=== PATIENT | female | born 1995 | race Caucasian/White ===

== ENCOUNTER 2024-03-27 18:07 | Emergency (ER) | payer OTHER, SELFPAY ==
--- NOTE | 2024-03-27 18:08 | ED.WOUNDLAC ---
HPI - Wound/Laceration General Chief Complaint: Wound/Laceration Stated Complaint: LT Hand injury Time Seen by Provider: 03/27/24 18:08 Source: patient Mode of arrival: ambulatory Limitations: no limitations History of Present Illness HPI narrative: Kelly is a 29-year-old female patient presenting to the clinic today with complaints of a laceration to her left hand. This happened prior to arrival. States she cut the palm of her left hand with a knife on accident. Has a very small 0.5 cm laceration with bleeding controlled to the left medial palm Review of Systems Review of Systems: Pertinent positives per HPI. Patient denies any fever, chills, rash, headache, visual changes, dizziness, cough, runny nose, sore throat, shortness of breath, chest pain, palpitations, nausea, vomiting, diarrhea, constipation, abdominal pain, or any urinary issues. PMFSH Comments At the time of my signature, I reviewed and agree with the nursing past medical, surgical, social, and family history. There is no relevant family history pertinent to the patient complaint. Exam Narrative: General: Well-developed, well nourished, in no apparent distress Head: Normocephalic, atraumatic. Cardio: Regular rate and rhythm, s1 and s2 normal, no murmur appreciated. Resp: Clear to auscultation bilaterally, no rhonchi, rales, wheezing or rubs. Integumentary: [place], warm, and dry, 0.5 cm laceration the left medial palm. Bleeding is controlled. Course Course Emergency Course: Portions of this record may have been created with voice recognition software. Level of Care: Express Care Visit Vital Signs Vital signs: Vital signs reviewed Procedures Laceration Laceration 1: Date: 03/27/24 Site: hand (medial palm) Side (If applicable): left Size (cm): 0.5 Description: linear Depth: simple, single layer Local Anesthetic: lidocaine 1% Amount of anesthesia used (mL): 0.5 Pre-repair: wound explored and irrigated ====== Skin Level ====== Skin layer closed with: nylon Size (cm): 5-0 Number of sutures: 1 Technique: simple, interrupted ====== Subcutaneous Layer ====== ====== Muscle Layer ====== ====== Tendon Layer ====== Dressing: Verbal consent obtained for laceration repair. Risk and benefits explained and patient voiced understanding. Area was cleansed with antiseptic wound wash and a 27 gauge needle was then used to instill (0.5) ml of 1% lidocaine without epi into the wound edges. Area was prepped and draped using sterile technique. A 5-0 suture on a p needle was used to place (1) interrupted sutures bringing the wound edges together- well approximated. Patient tolerated procedure well. Band-Aid with triple antibiotic ointment dressing applied. MDM - Wound/Laceration MDM Narrative Medical decision making narrative: At the time of visit patient is resting comfortably on the exam table. Patient appears to be nontoxic. Medications: Tdap was given in the clinic today Procedures: Laceration repair was performed in the clinic today. One interrupted suture was placed bringing wound edges well approximate Plan: Patient had a 0.5 cm laceration to the left medial palm. Wound closure was performed placing 1 suture. Wound well approximated. Patient tolerated well. Band-Aid and triple antibiotic ointment was applied. Supportive measures were discussed with the patient and they voiced understanding discharge instructions and agrees to treatment plan. Return precautions reviewed Differential Diagnosis Differential diagnosis: Likely laceration, abscess, abrasion and avulsion of skin Discharge Plan Discharge Clinical Impression: Laceration Patient Disposition: Home, Self-Care Condition: Stable Instructions: Antibiotic Form, Laceration (ED) Additional Instructions: Tdap given in the clinic today. Leave bandage on for 24 hours then may remove and apply band aide covering as needed. May apply triple antibiotic ointment to the wound twice daily x 2 days Keep wound clean and dry Skin sutures out in 7-10 days. Watch for signs and symptoms of infection- redness, streaking, swelling, purulent discharge, or increase in pain. Follow up with your PCP for suture removal or return to the Express care. Patient Language: Greenlandic Follow-up/Referrals: UNKNOWN,DOCTOR [Non-Staff] - Time of Disposition: 18:35 Quality NIHSS Nursing Documentation ED NIHSS nursing documentation: reviewed/agree
[2024-03-27 18:18] VITALS: BP 124/72; PULSE 81; RESP 16; TEMP 36.4; O2SAT 100
[2024-03-27] MEDS: TETANUS,DIPHTHERIA,AC PERTUSSIS ADULT (0.5 ML) BOOSTRIX IM (18:28)
--- OUTSIDE RECORDS SUMMARY | 2024-03-31 11:12 | XMS_ITS | Continuity of Care Document ---
Author Organization [facility] Address [address] [phone] Care Team Providers Care Measurement Superintendent Name Role Phone David Rodriguez Primary Care Physician Encounter [facility] Financial Number [id number] Date(s): 08/07/22 - 08/07/22 [facility] [address] [phone] Discharge Disposition: Home or Self Care Allergies, Adverse Reactions, Alerts No Known Allergies Assessment and Plan Future Appointments Appointment Date:08/16/2022 08:30:00 AM Scheduled Provider:Meryl Woody Location: Women 68W Appointment Type:[facility] Contraception Procedure Appointment Date:10/25/2022 09:00:00 AM Scheduled Provider:Meryl Woody Location:[facility] 68W Appointment Type:[facility] WWE Well Woman Exam Medications progesterone 100 mg vaginal insert See Instructions, 60 capsule(s), 2, 2, insert vaginally every 12 hours, continue until up to 16weeks of ., Route to Pharmacy Electronically, [facility], [id number], Instructions Replace Requi... Start Date: 06/21/22 Status: Ordered Procedures Procedure Date Related Diagnosis Body Site Status Knee joint operation 1 Co mpleted 14 on left, 1 on right Social History Social History Type Response Alcohol Current some day alc ohol user, 1-2 times per month Substance Abuse Never drug user Smoking Status Never smoker;Never; Tobacco Cessation Counseling Requested N/A entered on: 06/25/22 Sex Note * Event Display: ROI_Correspondence Authored Date: * Event Display: ROI_Correspondence Authored Date: Patient Care team information Care Team Personnel Name: Carlota Schwartz DO Position: CHACHA DAVIES Physician Member Role: FLAT SORTER PROCESSOR Physician Address: Address: [address] [place] [address] Name: David Rodriguez M.D. Position: ZZ FAX ONLY - MD NOT ON STAFF Member Role: Primary Care Physician Address: Address: [address] [facility] [address] [place] [address]- Name: Meryl Woody Position: [facility] RV SERVICER Member Role: Nurse Practitioner Address: Address: [address] [place] [address] [address] [place] [address] [place] Care Team Related Persons Name: LOUISE HOLCOMB Name: IQRA HOLCOMB
--- OUTSIDE RECORDS SUMMARY | 2024-03-31 11:12 | XMS_ITS | Continuity of Care Document ---
Author Organization [facility] Address [address] [place] [phone] Care Team Providers Care Defence Force Senior Officer Name Role Phone David Rodriguez Primary Care Physician Encounter [facility] Financial Number [id number] Date(s): 05/05/22 - 05/05/[address] [phone] Discharge Disposition: Home or Self Care Attending Physician: Carlota Schwartz DO Referring Physician: Carlota Schwartz DO Allergies, Adverse Reactions, Alerts No Known Allergies Assessment and Plan Future Appointments Appointment Date:06/13/2022 02:00:00 PM Scheduled Provider: Location: Women 68 Appointment Type:[facility] Ultra Sound Appointment Date:06/13/2022 02:30:00 PM Scheduled Provider:Meryl Woody Location: Women 68 Appointment Type:[facility] OB Confirmation of Appointment Date:10/25/2022 09:00:00 AM Scheduled Provider:Meryl Woody Location: Women 68 Appointment Type:[facility] WWE Well Woman Exam Problem List Diagnosis Diagnosis Type Effective Dates Health Status Cl inical Service Informant Positive urine test 05/05/22 Non-Specified Spotting in early 05/05/22 Non-Specified Positive urine test 05/05/22 Non-Specified Spotting in early 05/05/22 Non-Specified Positive urine test 05/05/22 Non-Specified Spotting in early 05/05/22 Non-Specified Procedures Procedure Date Related Diagnosis Body Site Status Knee joint operation 1 Co mpleted 14 on left, 1 on right Results Laboratory List Name Date ABO and Rh Type 05/05/22 HCG, Quantitative Serum 1/21/23 Progesterone Level 05/05/22 Most recent to oldest [Reference Range]: 1 Progesterone 8.0 ng/mL (05/05/22 11:15 AM) hCG, Quantitative 78 mIU/mL (05/05/22 11:15 AM) ABO/Rh O NEG *Unknown* (05/05/22 11:15 AM) Social History Social History Type Response Alcohol Current some day alc ohol user, 1-2 times per month Substance Abuse Never drug user Smoking Status Never smoker;Never; Tobacco Cessation Counseling Requested N/A entered on: 10/24/21 Sex Note * Beulah Hooper PATIENT CHILDCARE ATTENDANT: PERFORM Event Display: Authorization to Treat Authored Date: [id number] * Beulah Hooper PATIENT CHILDCARE ATTENDANT: PERFORM Event Display: Authorization to Treat Authored Date: [id number] * Event Display: ROI_Correspondence Authored Date: [id number] * Event Display: ROI_Correspondence Authored Date: Patient Care team information Care Team Personnel Name: Carlota Schwartz DO Position: [facility] Physician Member Role: TOOLING SPECIALIST Physician Address: Address: [address] [place] [address] [place] [address] Name: David Rodriguez M.D. Position: RONALD FAX ONLY - MD NOT ON STAFF Member Role: Primary Care Physician Address: Address: [address] [place] [address] [address] [place] [address]- Name: Carlota Schwartz DO Position: [facility] Physician Med Service: Glycerin Operator Defence Force Senior Officer Role: Referring Physician Address: Address: [address] [place] [address] [place] [address] Care Team Related Persons Name: LOUISE HOLCOMB Name: IQRA HOLCOMB
--- OUTSIDE RECORDS SUMMARY | 2024-03-31 11:12 | XMS_ITS | Continuity of Care Document ---
Author Organization [facility] 68[facility] Address [address] [place], [place] [phone] Care Team Providers Care Community Development Coordinator Name Role Phone David Rodriguez Primary Care Physician Encounter [facility] Financial Number [id number] Date(s): 07/24/22 - 07/24/22 [facility] [address] [place], [place] [phone] Discharge Disposition: Home or Self Care Attending Physician: Carlota Schwartz DO Allergies, Adverse Reactions, Alerts No Known Allergies Assessment and Plan Future Appointments Appointment Date:10/25/2022 09:00:00 AM Scheduled Provider:Meryl Woody Location:[facility] 68W Appointment Type:[facility] WWE Well Woman Exam Medications progesterone 100 mg vaginal insert See Instructions, 60 capsule(s), 2, 2, insert vaginally every 12 hours, continue until up to 16weeks of ., [facility] [id number], Instructions Replace Requi... Start Date: 06/21/22 Status: Ordered Procedures Procedure Date Related Diagnosis Body Site Status Knee joint operation 1 Co mpleted 14 on left, 1 on right Social History Social History Type Response Alcohol Current some day alc ohol user, 1-2 times per month Substance Abuse Never drug user Smoking Status Never smoker;Never; Tobacco Cessation Counseling Requested N/A entered on: 06/25/22 Sex Nurse Progress note * Kelly Nava MA/MR I: PERFORM Event Display: Progress Note-Nurse Authored Date: [id number] Patient Information Name:KELLY HOLCOMB Address: [address] [place] [phone] Sex:Female Date of :1995 Emergency Contact:LOUISE HOLCOMB Location:[address] Registration Date and Time:07/24/2022 12:30 CDT Primary Care Physician: David Rodriguez M.D., Attending Physician: Carlota Schwartz DO, Vitals and Measurements No qualifying data available. Medications Administered Medication Administrations ? No Results Found ? Methotrexate 50mg/2ml injection. Inject 4.23ml IM in office Patient Instructions Pt presented for her third dose of methotrexate in office today. 2.5ml given in the Right Deltoid and 2.5ml given in the Left Deltoid without complications. NDC- [id number] LOT#[id number] EXP 03/2024 Medications progesterone 100 mg vaginal insert, See Instructions, 2 refills Allergies NKA POC Results No qualifying data available. Voice to Text Technology Disclaimer This note may contain text inserted via Dragon or other voice to text assistive technology and counter sales representative, variances may occur. Note * Event Display: ROI_Correspondence Authored Date: * Event Display: ROI_Correspondence Authored Date: Patient Care team information Care Team Personnel Name: Carlota Schwartz DO Position: CH[facility]HA DAVIES Physician Member Role: STACK SUPERVISOR Physician Address: Address: [address] [place] [address] [place] [address] [place] Name: David Rodriguez M.D. Position: Z FAX ONLY - MD NOT ON STAFF Member Role: Primary Care Physician Address: Address: [address] [place] [address] [address] [place] [address]- Name: Meryl Woody Position: [facility]IES OPTICAL INSTRUMENT INSPECTOR Member Role: Nurse Practitioner Address: Address: [address] [place] [address] [place] [address] [place] Care Team Related Persons Name: LOUISE HOLCOMB Name: IQAR HOLCOMB
--- OUTSIDE RECORDS SUMMARY | 2024-03-31 11:12 | XMS_ITS | Continuity of Care Document ---
Author Organization [facility] Address [address] [place] [phone] Care Team Providers Care Wallpaper Hanger Helper Name Role Phone David Rodriguez Primary Care Physician Encounter [facility] Financial Number [id number] Date(s): 05/14/22 - 05/14/[address] [phone] Discharge Disposition: Home or Self Care Attending Physician: Carlota Schwartz DO Referring Physician: Self, Referred Allergies, Adverse Reactions, Alerts No Known Allergies Assessment and Plan Future Appointments Appointment Date:06/13/2022 02:00:00 PM Scheduled Provider: Location: Women 68 Appointment Type:[facility] US Ultra Sound Appointment Date:06/13/2022 02:30:00 PM Scheduled Provider:Meryl Woody Location: Women 68 Appointment Type:[facility] OB Confirmation of Appointment Date:10/25/2022 09:00:00 AM Scheduled Provider:Meryl Woody Location: [facility] Appointment Type:[facility] WWE Well Woman Exam Problem List Diagnosis Diagnosis Type Effective Dates Health Status Cl inical Service Informant Bleeding in early 05/14/22 Non-Specified Rh sensitized 05/14/22 Non-Specified Bleeding in early 05/14/22 Non-Specified Rh sensitized 05/14/22 Non-Specified Bleeding in early 05/14/22 Non-Specified Rh sensitized 05/14/22 Non-Specified Procedures Procedure Date Related Diagnosis Body Site Status Knee joint operation 1 Co mpleted 14 on left, 1 on right Results Laboratory List Name Date HCG, Quantitative Serum 05/14/22 Antibody Screen 05/14/22 Progesterone Level 05/14/22 Most recent to oldest [Reference Range]: 1 Progesterone 1.0 ng/mL (05/14/22 12:47 PM) hCG, Quantitative 5 mIU/mL (05/14/22 12:47 PM) Antibody Screen Negative (05/14/22 12:47 PM) Social History Social History Type Response Alcohol Current some day alc ohol user, 1-2 times per month Substance Abuse Never drug user Smoking Status Never smoker;Never; Tobacco Cessation Counseling Requested N/A entered on: 10/24/21 Sex Note * Nicole Butcher Varnishing Machine Operator: PERFORM Event Display: Authorization to Treat Authored Date: [id number] * Nicole Butcher Varnishing Machine Operator: PERFORM Event Display: Authorization to Treat Authored Date: [id number] * Event Display: ROI_Correspondence Authored Date: [id number] * Event Display: ROI_Correspondence Authored Date: [id number] Patient Care team information Care Team Personnel Name: Carlota Schwartz DO Position: [facility] Physician Member Role: INORGANIC CHEMICAL TECHNICIAN Physician Address: Address: [address] [place] [address] [place] [address] Name: David Rodriguez M.D. Position: RONALD FAX ONLY - MD NOT ON STAFF Member Role: Primary Care Physician Address: Address: [address] [facility] [address] [place] [address]- Name: Carlota Schwartz DO Position: [facility] Physician Med Service: Rental Boats Caretaker Wallpaper Hanger Helper Role: Attending Physician Address: Address: [address] [place] [address] [place] [address] [place] Care Team Related Persons Name: LOUISE HOLCOMB Name: IQRA HOLCOMB
--- OUTSIDE RECORDS SUMMARY | 2024-03-31 11:12 | XMS_ITS | Continuity of Care Document ---
Author Organization [facility] Address [address] [place] [phone] Care Team Providers Care Marketing Liaison Name Role Phone David Rodriguez Primary Care Physician [phone] Encounter [facility] Financial Number [id number] Date(s): 07/30/22 - 07/30/[address] [phone] Discharge Disposition: Home or Self Care Attending Physician: Carlota Schwartz DO Referring Physician: Carlota Schwartz DO Allergies, Adverse Reactions, Alerts No Known Allergies Assessment and Plan Future Appointments Appointment Date:08/16/2022 08:30:00 AM Scheduled Provider:Meryl Woody Location: Women 68W Appointment Type:[facility] Contraception Procedure Appointment Date:10/25/2022 09:00:00 AM Scheduled Provider:Meryl Woody Location: Women 68W Appointment Type:[facility] WWE Well Woman Exam Medications progesterone 100 mg vaginal insert See Instructions, 60 capsule(s), 2, 2, insert vaginally every 12 hours, continue until up to 16weeks of ., Route to Pharmacy Electronically, [facility], [id number], Instructions Replace Requi... Start Date: 06/21/22 Status: Ordered Problem List Diagnosis Diagnosis Type Effective Dates Health Status Cl inical Service Informant Ectopic 07/30/22 Non-Specified Procedures Procedure Date Related Diagnosis Body Site Status Knee joint operation 1 Co mpleted 14 on left, 1 on right Results Laboratory List Name Date HCG, Quantitative Serum 07/30/22 Most recent to oldest [Reference Range]: 1 hCG, Quantitative 8 mIU/mL (07/30/22 8:07 AM) Social History Social History Type Response Alcohol Current some day alc ohol user, 1-2 times per month Substance Abuse Never drug user Smoking Status Never smoker;Never; Tobacco Cessation Counseling Requested N/A entered on: 06/25/22 Sex Note * Mae Hill Chief Of Staff Doctor: PERFORM Event Display: Authorization to Treat Authored Date: * Mea Hill Chief Of Staff Doctor: PERFORM Event Display: Authorization to Treat Authored Date: * Event Display: ROI_Correspondence Authored Date: * Event Display: ROI_Correspondence Authored Date: Patient Care team information Care Team Personnel Name: Carlota Schwartz DO Position: CHACHA DAVIES Physician Member Role: CERTIFICATION TECHNICIAN Physician Address: Address: [address] [place] [address] [place] [address] [place] Name: David Rodriguez M.D. Position: RONALD FAX ONLY - MD NOT ON STAFF Member Role: Primary Care Physician Address: Address: [address] [facility] [address] [place] [address]- Name: Meryl Woody Position: [facility] METAL TILE LATHER Member Role: Nurse Practitioner Address: Address: [address] [place] [address] [place] [address] [place] Name: Carlota Schwartz DO Position: [facility]HA DAVIES Physician Med Service: Plastics Spreading Machine Operator Marketing Liaison Role: Referring Physician Address: Address: [address] [place] [address] [place] [address] [place] Care Team Related Persons Name: LOUISE HOLCOMB Name: IQRA HOLCOMB
--- OUTSIDE RECORDS SUMMARY | 2024-03-31 11:12 | XMS_ITS | Continuity of Care Document ---
Author Organization [facility] Address [address] [place] [phone] Care Team Providers Care Financial Business Analyst Name Role Phone David Rodriguez Primary Care Physician Encounter [facility] Financial Number [id number] Date(s): 07/27/22 - 07/27/[address] [phone] Discharge Disposition: Home or Self Care Attending Physician: Carlota Schwartz DO Referring Physician: Carlota Schwartz DO Allergies, Adverse Reactions, Alerts No Known Allergies Assessment and Plan Future Appointments Appointment Date:10/25/2022 09:00:00 AM Scheduled Provider:Meryl Woody Location: Women 68W Appointment Type:[facility] WWE Well Woman Exam Medications progesterone 100 mg vaginal insert See Instructions, 60 capsule(s), 2, 2, insert vaginally every 12 hours, continue until up to 16weeks of ., Route to Pharmacy Electronically, [facility], [id number], Instructions Replace Requi... Start Date: 06/21/22 Status: Ordered Problem List Diagnosis Diagnosis Type Effective Dates Health Status Cl inical Service Informant Ectopic 07/27/22 Non-Specified Procedures Procedure Date Related Diagnosis Body Site Status Knee joint operation 1 Co mpleted 14 on left, 1 on right Results Laboratory List Name Date HCG, Quantitative Serum (Quantitative HC G Serum Beta) 07/27/22 Most recent to oldest [Reference Range]: 1 hCG, Quantitative 50 mIU/mL (07/27/22 8:17 AM) Social History Social History Type Response Alcohol Current some day alc ohol user, 1-2 times per month Substance Abuse Never drug user Smoking Status Never smoker;Never; Tobacco Cessation Counseling Requested N/A entered on: 06/25/22 Sex Note * Mae Hill Dry Cleaner Apprentice: PERFORM Event Display: Authorization to Treat Authored Date: * Mae Hill Dry Cleaner Apprentice: PERFORM Event Display: Authorization to Treat Authored Date: [id number] * Event Display: ROI_Correspondence Authored Date: * Event Display: ROI_Correspondence Authored Date: Patient Care team information Care Team Personnel Name: Carlota Schwartz DO Position: [facility] Physician Member Role: PEWTER CASTER Physician Address: Address: [address] [place] [address] Name: David Rodriguez M.D. Position: FAX ONLY - MD NOT ON STAFF Member Role: Primary Care Physician Address: Address: [address] [facility] [address] [place] [address]- Name: Meryl Woody [facility] Position: SAMSNO MANAGER OF LOSS PREVENTION OPERATIONS Member Role: Nurse Practitioner Address: Address: [address] [place] [address] Name: Carlota Schwartz DO Position: [facility] Physician Med Service: Mononitrotoluene Operator Financial Business Analyst Role: Referring Physician Address: Address: [address] [place] [address] [address] Care Team Related Persons Name: LOUISE HOLCOMB Name: IQRA HOLCOMB
--- OUTSIDE RECORDS SUMMARY | 2024-03-31 11:12 | XMS_ITS | Continuity of Care Document ---
Author Organization [facility] Address [address] [place] [phone] Care Team Providers Care Graphics Production Specialist Name Role Phone David Rodriguez Primary Care Physician Encounter [facility] Financial Number [id number] Date(s): 05/07/22 - 05/07/[address] [phone] Discharge Disposition: Home or Self Care Attending Physician: Carlota Schwartz DO Referring Physician: Carlota Schwartz DO Allergies, Adverse Reactions, Alerts No Known Allergies Assessment and Plan Future Appointments Appointment Date:06/13/2022 02:00:00 PM Scheduled Provider: Location: Women 68 Appointment Type:[facility] Ultra Sound Appointment Date:06/13/2022 02:30:00 PM Scheduled Provider:Meryl Woody Location: Women 68 Appointment Type:[facility] OB Confirmation of Appointment Date:10/25/2022 09:00:00 AM Scheduled Provider:Meryl Woody Location: Women 68 Appointment Type:[facility] WWE Well Woman Exam Problem List Diagnosis Diagnosis Type Effective Dates Health Status Clini rosaura Service Informant 05/07/22 Non-Specified Procedures Procedure Date Related Diagnosis Body Site Status Knee joint operation 1 Co mpleted 14 on left, 1 on right Results Laboratory List Name Date HCG, Quantitative Serum 05/07/22 Most recent to oldest [Reference Range]: 1 hCG, Quantitative 110 mIU/mL (05/07/22 4:36 PM) Social History Social History Type Response Alcohol Current some day alc ohol user, 1-2 times per month Substance Abuse Never drug user Smoking Status Never smoker;Never; Tobacco Cessation Counseling Requested N/A entered on: 10/24/21 Sex Note * Nikole Ng: PERFORM Event Display: Authorization to Treat Authored Date: * Nikole Ng: PERFORM Event Display: Authorization to Treat Authored Date: * Event Display: ROI_Correspondence Authored Date: * Event Display: ROI_Correspondence Authored Date: Patient Care team information Care Team Personnel Name: Carlota Schwartz DO Position: [facility] Physician Member Role: GLUTEN SETTLING TENDER Physician Address: Address: [address] [place] [address] [place] [address] Name: David Rodriguez M.D. Position: [facility] FAX ONLY - MD NOT ON STAFF Member Role: Primary Care Physician Address: Address: [address] [facility] [address] [place] [address]- Name: Carlota Schwartz DO Position: [facility] Physician Med Service: Post Acute Care Nurse Practitioner Graphics Production Specialist Role: Referring Physician Address: Address: [address] [place] [address] [place] [address] Care Team Related Persons Name: LOUISE HOLCOMB Name: IQRA HOLCOMB
--- OUTSIDE RECORDS SUMMARY | 2024-03-31 11:12 | XMS_ITS | Continuity of Care Document ---
Author Organization [facility] Address [address] [place] [phone] Care Team Providers Care Park Guide Name Role Phone David Rodriguez Primary Care Physician Encounter [facility] Financial Number [id number] Date(s): 07/07/22 - 07/07/[address] [id number] Discharge Disposition: Home or Self Care Attending Physician: Marcelino Boyce M.D. Referring Physician: Marcelino Boyce M.D. Allergies, Adverse Reactions, Alerts No Known Allergies Assessment and Plan Future Appointments Appointment Date:07/11/2022 12:30:00 PM Scheduled Provider:Carlota Schwartz DO Location: Women 68W Appointment Type:[facility] EPGYN Established Patient Appointment Date:10/25/2022 09:00:00 AM Scheduled Provider:Meryl Woody Location: Women 68W Appointment Type:[facility] WWE Well Woman Exam Medications progesterone 100 mg vaginal insert See Instructions, 60 capsule(s), 2, 2, insert vaginally every 12 hours, continue until up to 16weeks of ., Route to Pharmacy Electronically, [facility] Specialty Rx, [id number], Instructions Replace Requi... Start Date: 06/21/22 Status: Ordered Problem List Diagnosis Diagnosis Type Effective Dates Health Status Cl inical Service Informant Ectopic 07/07/22 Non-Specified Procedures Procedure Date Related Diagnosis Body Site Status Knee joint operation 1 Co mpleted 14 on left, 1 on right Results Laboratory List Name Date HCG, Quantitative Serum 07/07/22 Most recent to oldest [Reference Range]: 1 hCG, Quantitative 131 mIU/mL (07/07/22 1:27 PM) Social History Social History Type Response Alcohol Current some day alc ohol user, 1-2 times per month Substance Abuse Never drug user Smoking Status Never smoker;Never; Tobacco Cessation Counseling Requested N/A entered on: 06/25/22 Sex Note * Mae Hill Barber Stylist: PERFORM Event Display: Authorization to Treat Authored Date: * Mae Hill Barber Stylist: PERFORM Event Display: Authorization to Treat Authored Date: * Event Display: ROI_Correspondence Authored Date: * Event Display: ROI_Correspondence Authored Date: Patient Care team information Care Team Personnel Name: Carlota Schwartz DO Position: [facility] Physician Member Role: AIR CONDITIONING MECHANIC Physician Address: Address: [address] [place] [address] [address] [place] [address] [place] Name: David Rodriguez M.D. Position: RONALD FAX ONLY - MD NOT ON STAFF Member Role: Primary Care Physician Address: Address: [address] [facility] [address] [place], [place] [address]- Name: Meryl Woody Position: [facility] PROCESS ENGINEERING INTERN Member Role: Nurse Practitioner Address: Address: [address] [place] [address] [address] [place] [address] [place] Name: Marcelino Boyce M.D. Position: [facility] Physician Med Service: Manager Diabetes Park Guide Role: Referring Physician Address: Address: [address] [place] [address] [address] [place] [address]- Care Team Related Persons Name: LOUISE HOLCOMB Name: IQRA HOLCOMB
--- OUTSIDE RECORDS SUMMARY | 2024-03-31 11:12 | XMS_ITS | Continuity of Care Document ---
Author Organization [facility] Address [address] [place] [phone] Care Team Providers Care Global Marketing Intern Name Role Phone David Rodriguez Primary Care Physician Encounter [facility] Financial Number [id number] Date(s): 07/10/22 - 07/10/[address] [id number] Discharge Disposition: Home or Self Care Attending Physician: Carlota Schwartz DO Referring Physician: Carlota Schwartz DO Allergies, Adverse Reactions, Alerts No Known Allergies Assessment and Plan Future Appointments Appointment Date:07/11/2022 12:30:00 PM Scheduled Provider:Carlota Schwartz DO Location: Women HC 68W Appointment Type:[facility] EPGYN Established Patient Appointment Date:10/25/2022 09:00:00 AM Scheduled Provider:Meryl Woody Location: Women 68W Appointment Type:[facility] WWE Well Woman Exam Medications progesterone 100 mg vaginal insert See Instructions, 60 capsule(s), 2, 2, insert vaginally every 12 hours, continue until up to 16weeks of ., Route to Pharmacy Electronically, [facility] Specialty Rx, [id number], Instructions Replace Requi... Start Date: 06/21/22 Status: Ordered Problem List Diagnosis Diagnosis Type Effective Dates Health Status Cl inical Service Informant SAB (spontaneous ) 07/10/22 Non-Specified Procedures Procedure Date Related Diagnosis Body Site Status Knee joint operation 1 Co mpleted 14 on left, 1 on right Results Laboratory List Name Date HCG, Quantitative Serum 07/10/22 Most recent to oldest [Reference Range]: 1 hCG, Quantitative 120 mIU/mL (07/10/22 8:15 AM) Social History Social History Type Response Alcohol Current some day alc ohol user, 1-2 times per month Substance Abuse Never drug user Smoking Status Never smoker;Never; Tobacco Cessation Counseling Requested N/A entered on: 06/25/22 Sex Note * Mae Hill Human Resources Operations Coordinator: PERFORM Event Display: Authorization to Treat Authored Date: * Mae Hill Human Resources Operations Coordinator: PERFORM Event Display: Authorization to Treat Authored Date: [id number] * Event Display: ROI_Correspondence Authored Date: * Event Display: ROI_Correspondence Authored Date: Patient Care team information Care Team Personnel Name: Carlota Schwartz DO Position: [facility] Physician Member Role: MANAGER SCIENTIFIC Physician Address: Address: [address] [place] [address] [place] [address] [place] Name: David Rodriguez M.D. Position: RONALD FAX ONLY - MD NOT ON STAFF Member Role: Primary Care Physician Address: Address: [address] [facility] [address] [place] [address]- Name: Meryl Woody Position: [facility] HOIST CYLINDER LOADER Member Role: Nurse Practitioner Address: Address: [address] [place] [address] [place] [address] [place] Name: Carlota Schwartz DO Position: [facility] Physician Med Service: Waiter/Waitress Club Global Marketing Intern Role: Referring Physician Address: Address: [address] [place] [address] [place] [address] Care Team Related Persons Name: LOUISE HOLCOMB Name: IQRA HOLCOMB
--- OUTSIDE RECORDS SUMMARY | 2024-03-31 11:12 | XMS_ITS | Continuity of Care Document ---
Author Organization [facility] Address [address] [phone] Care Team Providers Care Hospital Internship Name Role Phone David Rodriguez Primary Care Physician Encounter [facility] Financial Number [id number] Date(s): 07/23/22 - 07/23/[address] [id number] Discharge Disposition: Home or Self Care Allergies, Adverse Reactions, Alerts No Known Allergies Assessment and Plan Future Appointments Appointment Date:10/25/2022 09:00:00 AM Scheduled Provider:Meryl Woody Location: Women 68W Appointment Type:[facility] WWE Well Woman Exam Medications progesterone 100 mg vaginal insert See Instructions, 60 capsule(s), 2, 2, insert vaginally every 12 hours, continue until up to 16weeks of ., Route to Pharmacy Electronically, [facility] Specialty Rx, [id number], Instructions Replace Requi... Start Date: 06/21/22 Status: [...] Team Personnel Name: Carlota Schwartz DO Position: [facility] Physician Member Role: PROGRAM CONTROL ANALYST Physician Address: Address: [address] [place] [address] [address] Name: David Rodriguez M.D. Position: RONALD FAX ONLY - MD NOT ON STAFF Member Role: Primary Care Physician Address: Address: [address] [facility] [address] [place] [address]- Name: Meryl Woody [facility] Position: [facility] LOGISTICAL ENGINEER Member Role: Nurse Practitioner Address: Address: [address] [place] [address] Rd [address] Care Team Related Persons Name: LOUISE HOLCOMB Name: IQRA HOLCOMB
--- OUTSIDE RECORDS SUMMARY | 2024-03-31 11:12 | XMS_ITS | Continuity of Care Document ---
Author Organization [facility] Address [address] [phone] Care Team Providers Care Ssrs Developer Name Role Phone David Rodriguez Primary Care Physician Encounter [facility] Financial Number [id number] Date(s): 07/23/22 - 07/23/[address] [id number] Discharge Disposition: Home or Self Care Allergies, Adverse Reactions, Alerts No Known Allergies Assessment and Plan Future Appointments Appointment Date:10/25/2022 09:00:00 AM Scheduled Provider:Meryl Woody Location: Women 68W Appointment Type:[facility] WWE Well Woman Exam Medications progesterone 100 mg vaginal insert See Instructions, 60 capsule(s), 2, 2, insert vaginally every 12 hours, continue until up to 16weeks of ., Route to Pharmacy Electronically, [facility] Specialty Rx, [id number], Instructions Replace Requi... Start Date: 06/21/22 Status: [...] Team Personnel Name: Carlota Schwartz DO Position: [facility] Physician Member Role: DRINKING WATER TECHNICIAN Physician Address: Address: [address] [place] [address] [address] Name: David Rodriguez M.D. Position: RONALD FAX ONLY - MD NOT ON STAFF Member Role: Primary Care Physician Address: Address: [address] [facility] [address] [place] [address]- Name: Meryl Woody [facility] Position: [facility] BUTTER GRADER Member Role: Nurse Practitioner Address: Address: [address] [place] [address] Rd [address] Care Team Related Persons Name: LOUISE HOLCOMB Name: IQRA HOLCOMB
--- OUTSIDE RECORDS SUMMARY | 2024-03-31 11:13 | XMS_ITS | Continuity of Care Document ---
Author Organization [facility] Address [address] [phone] Care Team Providers Care Criminal Defense Attorney Name Role Phone David Rodriguez Primary Care Physician Encounter [facility] Financial Number [id number] Date(s): 07/24/22 - 07/24/[address] [id number] Discharge Disposition: Home or Self Care Allergies, Adverse Reactions, Alerts No Known Allergies Assessment and Plan Future Appointments Appointment Date:10/25/2022 09:00:00 AM Scheduled Provider:Meryl Woody Location: Women 68W Appointment Type:[facility] WWE Well Woman Exam Medications progesterone 100 mg vaginal insert See Instructions, 60 capsule(s), 2, 2, insert vaginally every 12 hours, continue until up to 16weeks of ., Route to Pharmacy Electronically, [facility] Specialty Rx, [id number], Instructions Replace Requi... Start Date: 06/21/22 Status: [...] Schwartz DO Position: [facility] Physician Member Role: JUKE BOX SERVICER Physician Address: Address: [address] [place] [address] [address] Name: David Rodriguez M.D. Position: RONALD FAX ONLY - MD NOT ON STAFF Member Role: Primary Care Physician Address: Address: [address] [facility] [address] [place], [place] [address]- Name: Meryl Woody [facility] Position: [facility] FOOT WORKER Member Role: Nurse Practitioner Address: Address: [address] [place] [address] Care Team Related Persons Name: LOUISE HOLCOMB Name: IQRA HOLCOMB
--- OUTSIDE RECORDS SUMMARY | 2024-03-31 11:13 | XMS_ITS | Continuity of Care Document ---
Author Organization [facility] Address [address] [place] [phone] Care Team Providers Care Dish Technician Name Role Phone David Rodriguez Primary Care Physician [phone] Encounter [facility] Financial Number [id number] Date(s): 06/25/22 - 06/25/[address] [id number] Discharge Disposition: Home or Self Care Attending Physician: Carloat Schwartz DO Referring Physician: Carlota Schwartz DO Allergies, Adverse Reactions, Alerts No Known Allergies Assessment and Plan Future Appointments Appointment Date:06/29/2022 08:00:00 AM Scheduled Provider: Location:[facility] 68 Appointment Type:[facility] Ultra Sound Appointment Date:06/29/2022 08:45:00 AM Scheduled Provider:Carlota Schwartz DO Location:[facility] 68 Appointment Type:[facility] EPGYN Established Patient Appointment Date:10/25/2022 09:00:00 AM Scheduled Provider:Meryl Woody Location:[facility] 68 Appointment Type:[facility] WWE Well Woman Exam Medications progesterone 100 mg vaginal insert See Instructions, 60 capsule(s), 2, 2, insert vaginally every 12 hours, continue until up to 16weeks of ., Route to Pharmacy Electronically, [facility], [id number], Instructions Replace Requi... Start Date: 06/21/22 Status: Ordered Problem List Diagnosis Diagnosis Type Effective Dates Health Status Clini rosaura Service Informant 06/25/22 Non-Specified 06/25/22 Non-Specified Procedures Procedure Date Related Diagnosis Body Site Status Knee joint operation 1 Co mpleted 14 on left, 1 on right Results Laboratory List Name Date HCG, Quantitative Serum 06/25/22 Progesterone Level 06/25/22 Most recent to oldest [Reference Range]: 1 Progesterone 3.0 ng/mL (06/25/22 1:53 PM) hCG, Quantitative 74 mIU/mL (06/25/22 1:53 PM) Social History Social History Type Response Alcohol Current some day alc ohol user, 1-2 times per month Substance Abuse Never drug user Smoking Status Never smoker;Never; Tobacco Cessation Counseling Requested N/A entered on: 06/25/22 Sex Note * Mae Hill Flight Software Test Engineer: PERFORM Event Display: Authorization to Treat Authored Date: [id number] * Mae Hill Flight Software Test Engineer: PERFORM Event Display: Authorization to Treat Authored Date: [id number] * Event Display: ROI_Correspondence Authored Date: [id number] * Event Display: ROI_Correspondence Authored Date: [id number] Patient Care team information Care Team Personnel Name: Carlota Schwartz DO Position: [facility] Physician Member Role: BOARD CERTIFIED FAMILY PHYSICIAN Physician Address: Address: [address] [place] [address] [place] [address] Name: David Rodriguez M.D. Position: RONALD FAX ONLY - MD NOT ON STAFF Member Role: Primary Care Physician Address: Address: [address] [place] [address] [address] [place] [address]- Name: Carlota Schwartz DO Position: [facility] Physician Med Service: Chemical Operations And Training Dish Technician Role: Referring Physician Address: Address: [address] [place] [address] [place] [address] Care Team Related Persons Name: LOUISE HOLCOMB Name: IQRA HOLCOMB
--- OUTSIDE RECORDS SUMMARY | 2024-03-31 11:13 | XMS_ITS | Encounter Summary ---
Author Organization [facility] Healthcare Address [address] [place] [address] Care Team Providers Care Insurance Risk Analyst Name Role Phone Unknown, Notinfile Primary Care Provider Unavail able David Rodriguez MD Unavailable [phone] Encounter Details Date Type Department Care Team (Late st Contact Info) Description 01/16/2024 Telephone [facility] Medical Group Primary Care at [facility] [address] [facility] [address], [place] [address] Unknown, Notinfile Social History Tobacco Use Types Packs/Day Years Used Date Smoking Tobacco: Never Smokeless Tobacco: Never Alcohol Use Standard Drinks/Week Comments Yes 0 (1 standard drink = 0.6 oz pur e alcohol) AUDIT-C Answer Date Recorded Q1: How often do you have a drink containing alc ohol? 2-4 times a month 12/19/2023 Q2: How many drinks containi ng alcohol do you have on a typical day when you are drinking? 1 or 2 12/19/2023 Q3: How often do you have si x or more drinks on one occasion? Never 12/19/2023 PHQ-2 Answer Date Recorded PHQ-2 Total Score (If total score is 3 or more points, staff should administer the PHQ-9) 2 05/15/2023 Comments No Sex and Gender Information Value Date Recorded Sex Assigned at Not on file Legal Sex 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 GAS SYSTEM OPERATOR Gender Identity Female 03/22/2022 2:56 PM GAS SYSTEM OPERATOR Sexual Orientation Straight 05/08/2023 5: 32 PM GAS SYSTEM OPERATOR 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 on file Not on file documented as of this encounter Miscellaneous Notes * Telephone Encounter - Kaleigh Macias MA - 01/16/2024 5:32 PM CDT error documented in this encounter Plan of Treatment Not on file documented as of this encounter Visit Diagnoses Not on filedocumented in this encounter Care Teams Insurance Risk Analyst Relationship Specialty Start Date End Date Unknown, Notinfile PCP - General 07/16/22 David Rodriguez MD [address] [address] 07/16/22 documented as of this encounter
--- OUTSIDE RECORDS SUMMARY | 2024-03-31 11:13 | XMS_ITS | Encounter Summary ---
Author Organization [facility] Healthcare Address [address] [place] [address] Care Team Providers Care Inventory Control Associate Name Role Phone Unknown, Notinfile Primary Care Provider Unavail able David Rodriguez MD Unavailable [phone] Encounter Details Date Type Department Care Team (Late st Contact Info) Description 03/16/2024 Telephone [facility] Medical [facility] Primary Care at [facility] [address] [facility] [address] [address] Unknown, Notinfile Social History Tobacco [...] on file Legal Sex 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 LOG DECK TENDER Gender Identity Female 03/22/2022 2:56 PM LOG DECK TENDER Sexual Orientation Straight 05/08/2023 5: 32 PM LOG DECK TENDER 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 on file Not on file documented as of this encounter Miscellaneous Notes * Telephone Encounter - Kaleigh Macias MA - 03/16/2024 11:07 AM CST Sending more info for Zepbound medication to insurance company DECK TENDER documented in this encounter Plan of Treatment Not on file documented as of this encounter Visit Diagnoses Not on filedocumented in this encounter Care Teams Inventory Control Associate Relationship Specialty Start Date End Date Unknown, Notinfile PCP - General 07/16/22 David Rodriguez MD [address] [address] 07/16/22 documented as of this encounter
--- OUTSIDE RECORDS SUMMARY | 2024-03-31 11:13 | XMS_ITS | Encounter Summary ---
Author Organization [facility] Healthcare Address [address] [place] [address] Care Team Providers Care Lobster Man Name Role Phone Unknown, Notinfile Primary Care Provider Unavail able David Rodriguez MD Unavailable [phone] Encounter Details Date Type Department Care Team (Late st Contact Info) Description 03/13/2024 Telephone [facility] Medical [facility] Primary Care at [facility] [address] 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 on file Not on file documented as of this encounter Miscellaneous Notes * Telephone Encounter - Kaleigh Macias MA - 03/13/2024 2:34 PM CST The prior authorization for zepbound has been submitted awaiting determination case number is [id number] [employer] documented in this encounter Plan of Treatment Not on file documented as of this encounter Visit Diagnoses Not on filedocumented in this encounter Care Teams Lobster Man Relationship Specialty Start Date End Date Unknown, Notinfile PCP - General 07/16/22 David Rodriguez MD [address] [address] 07/16/22 documented as of this encounter
--- OUTSIDE RECORDS SUMMARY | 2024-03-31 11:13 | XMS_ITS | Continuity of Care Document ---
Author Organization [facility] Address [address] [place], [place] [address] [place], [place] [id number] Care Team Providers Care Operator Weapon Locating Radar Name Role Phone David Rodriguez Primary Care Physician Encounter [facility] Financial Number [id number] Date(s): 04/03/22 - 04/03/[address] [phone] Discharge Disposition: Home or Self Care Attending Physician: Carlota Schwartz DO Referring Physician: Carlota Schwartz DO Allergies, Adverse Reactions, Alerts No Known Allergies Assessment and Plan Future Appointments Appointment Date:10/25/2022 09:00:00 AM Scheduled Provider:Meryl Woody Location:[facility] Appointment Type:[facility] Problem List Diagnosis Diagnosis Type Effective Dates Health Status Clini rosarua Service Informant Vaginitis 04/03/22 Non-Specified Vaginitis 04/03/22 Non-Specified Procedures Procedure Date Related Diagnosis Body Site Status Knee joint operation 1 Co mpleted 14 on left, 1 on right Social History Social History Type Response Alcohol Current some day alc ohol user, 1-2 times per month Substance Abuse Never drug user Smoking Status Never smoker;Never; Tobacco Cessation Counseling Requested N/A entered on: 10/24/21 Sex Note * Event Display: ROI_Correspondence Authored Date: * Event Display: ROI_Correspondence Authored Date: Patient Care team information Care Team Personnel Name: Carlota Schwartz DO Position: [facility] Physician Member Role: CHIEF INFORMATION SECURITY OFFICER Physician Address: Address: [address] [place] [address] [address] [place] [address] Name: David Rodriguez M.D. Position: [facility] FAX ONLY - MD NOT ON STAFF Member Role: Primary Care Physician Address: Address: [address] [place], [place] [address]- Name: Carlota Schwartz DO Position: [facility] Physician Med Service: Line Person Operator Weapon Locating Radar Role: Referring Physician Address: Address: [address] [place] [address] [place] Care Team Related Persons Name: CARLOS FERRARI Address: home [address] [place], [place] [id number] [facility] Name: LOUISE HOLCOMB
--- OUTSIDE RECORDS SUMMARY | 2024-03-31 11:13 | XMS_ITS | Referral Summary ---
Author Organization [facility] Address [address] [place] [address] Care Team Providers Care Bait Maker Name Role Phone Unknown, Notinfile Primary Care Provider Unavail able David Rodriguez MD Unavailable Encounters Date Type Department Care Team Description 03/30/2024 Telephone [facility] Primary Care at [address] [place] [phone] Unknown, Notinfile 03/25/2024 Telephone [facility] Endocrinology at [address] [place] [phone] Annamarie Blue LPN 2nd level Appeal re: denial of Zepbound 12.5 mg 03/18/2024 7:06 AM INDUCTION HEATING EQUIPMENT SETTER - 03/18/2024 11:59 PM INDUCTION HEATING EQUIPMENT SETTER Hospital Encounter [facility] [address] [place] [address] Ovarian dysfunction Discharge Disposition: Discharge to home or self care 03/16/2024 Telephone [facility] Primary Care at [facility] [address] [place] [phone] Unknown, Notinfile 03/16/2024 Telephone [facility] Primary Care at [address] [place] [phone] Unknown, Notinfile 03/13/2024 Telephone [facility] Primary Care at [address] [phone] Unknown, Notinfile 03/10/2024 Orders Only [facility] Primary Care at [address] [phone] David Rodriguez MD 01/21/2024 Telephone [facility] Primary Care at [address] [phone] Unknown, Notinfile 01/20/2024 Telephone [facility] Primary Care at [address] [phone] Unknown, Notinfile 01/16/2024 Telephone [facility] Primary Care at [address] [phone] Unknown, Notinfile from Last 3 Months Allergies No known active allergies Medications desvenlafaxine ER (PRISTIQ) 50 mg 24 hr tablet Take 1 tablet (50 mg total) by mouth daily 30 tablet 11 05/29/19 24 025 Active hydrocortisone (ANUSOL-HC) 25 mg suppository Insert 1 suppository (25 mg total) into the rectum 2 (two) times a day as needed for hemorrhoids 30 suppository 08/28/19 24 Active progesterone (PROMETRIUM) 100 mg capsule 1 cap po at bedtime 30 capsule 11/11/19 24 Active valACYclovir (VALTREX) 500 mg tabletIndicatio ns:Chronic Suppression Take 1 tablet twice a day for 5 days 10 tablet 3 12/24/19 24 Active letrozole (FEMARA) 2.5 mg tablet 1 tab daily for 5 days, starting cycle day 3-7 5 tablet 02/11/20 24 Active tirzepatide, weight loss, (ZEPBOUND) 12.5 mg/0.5 mL pen injector Inject 0.5 mL (12.5 mg total) under the skin every 7 days 2 mL 11 03/10/20 24 Active tirzepatide, weight loss, (ZEPBOUND) 12.5 mg/0.5 mL pen injector Inject 0.5 mL (12.5 mg total) under the skin every 7 days 2 mL 01/15/20 24 024 Discontin ued(Reord er) Active Problems Problem Noted Date Diagnosed Date Moderate episode of recurrent major depressive d isorder 05/15/2023 Osteoarthritis of left patellofemoral joint 12/14 Chronic pain of left knee 12/28/2021 Chronic tonsillitis 09/09/2020 Overview (09/09/2020): Added automatically from request for surgery [id number] Resolved Problems Problem Noted Date Diagnosed Date Resolved Date Morbid obesity with BMI of 40.0-44.9, adult 10/02/2017 11/08/2023 Immunizations Name Administration Dates Next Due Hep A, Adult 06/02/2008, 9,11/05/2007,11/04 Hep B Vaccine 1993, 4,1993,03/23,1993,1993 HiB 1993, 4,1993,06/26,1993,1993 Hib (PRP-OMP) 06/22/1994,06/22/1994 Influenza, Quadrivalent, Renetta l Culture-based MDCK, Preservative Free, Antibiotic Free, Intramuscular 11/30/2022 Influenza, Quadrivalent, Spl it, Preservative Free, Intramuscular 01/26/2020 Influenza, Unspecified 02/21/2022(Deferr ed: Patient Refused),02/02/2021(Deferred: Patient Refused),01/04/2018,01/04/2018 MMR 11/03/2018, 9,11/15/1998,11/15,02/23/1994,02/23/1994 Meningococcal ACWY, Unspecified 11/05/2007,11/04 OPV 11/15/1998,11/15/1998 Pfizer SARS-CoV-2 Monovalent Vaccination (12+ Yrs) PURPLE 12/01/2020,11/10/2020 Tdap 01/01/2018, 8,11/05/2007,11/15,11/15/1998 Varicella 11/05/2007, 8,02/26/1995,02/26 Social History Tobacco Use Types Packs/Day Years Used Date Smoking Tobacco: Never Smokeless Tobacco: Never Tobacco Cessation:Counseling Given: Not Answered Alcohol Use Standard Drinks/Week Comments Yes 0 [...] on file Legal Sex 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 INDUCTION HEATING EQUIPMENT SETTER Gender Identity Female 03/22/2022 2:56 PM INDUCTION HEATING EQUIPMENT SETTER Sexual Orientation Straight 05/08/2023 5: 32 PM INDUCTION HEATING EQUIPMENT SETTER 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 on file Not on file Last Filed Vital Signs Vital Sign Reading Time Taken Comments Blood Pressure 118/66 12/19/2023 12:56 PM CDT Pulse 91 11/18/2023 2:32 PM CDT Temperature 36.8 ??C (98.2 ??F) 06/11/2023 8:47 AM CS T Respiratory Rate 22 06/11/2023 8:47 AM INDUCTION HEATING EQUIPMENT SETTER Oxygen Saturation 96% 11/18/2023 2:32 PM CDT Inhaled Oxygen Concentration - - Weight 95.7 kg (211 lb) 12/19/2023 12:56 PM CDT Height 162.6 cm (5' 4 ) 12/19/2023 12:56 PM CDT Body Mass Index 36.22 12/19/2023 12:56 PM CDT Plan of Treatment Not on file Procedures Procedure Name Priority Date/Time Associated Diagnosis Comments HYSTEROSALPINGOGRAM Schedule Routine, Read Routine (OP Routine) 03/18/2024 7:53 AM INDUCTION HEATING EQUIPMENT SETTER Ovarian dysfunction POCT HCG, URINE Routine 03/18/2024 7:35 AM INDUCTION HEATING EQUIPMENT SETTER PROGESTERONE Routine 02/28/2024 2:30 PM INDUCTION HEATING EQUIPMENT SETTER Dysfunction ovarian PROGESTERONE Routine 01/30/2024 2:06 PM CDT Dysfunction ovarian PROGESTERONE Routine 01/03/2024 3:12 PM CDT Dysfunction ovarian HEPATITIS C ANTIBODY Routine 11/08/2023 8:32 PM CDT Encounter for hepatitis C screening test for low risk patient from Last 3 Months or Most Recently Relevant to Health Maintenance Results * FL Hysterosalpingogram (03/18/2024 7:53 AM INDUCTION HEATING EQUIPMENT SETTER) Anatomical Region Laterality Modality Body, Pelvis N/A Radio Fluoroscop y 03/18/2024 11:0 7 AM INDUCTION HEATING EQUIPMENT SETTER Impressions 03/18/2024 12:12 PM INDUCTION HEATING EQUIPMENT SETTER 1. ??Dominant free peritoneal spillage from the left fallopian tube. 2. ??No definitive free peritoneal spillage is identified from the right fallopian tube; please see details above. FLUOROSCOPY TIME: 2.4 minutes REFERENCE AIR KERMA: 76.5 mGy Dictated by: Carolee Kellogg PA-C The radiology attending physician has personally reviewed this study, and had reviewed and/or edited this written report and agrees with it. Electronically signed by: Rao Benavidez M.D. Narrative 03/18/2024 12:12 PM INDUCTION HEATING EQUIPMENT SETTER FLUOROSCOPIC HYSTEROSALPINGOGRAM 03/18/2024. CLINICAL INDICATION: Trying to conceive. Prior miscarriages. COMPARISON: none TECHNIQUE: The risks of the procedure including but not limited to cramping, vaginal spotting, perforation, infection, allergic reaction to the contrast material and incomplete examination were explained to the patient. The patient verbalized understanding and wished to proceed. Signed written and verbal consent were obtained from the patient. The patient was placed in the lithotomy position. A sterile speculum was placed. The cervix was sterilized with Betadine. The cervix was cannulated with a Almas HSG Cook Cannula without difficulty. Approximately 39 cc of iodinated contrast material was injected. Multiple images were obtained in different projections. The cannula and speculum were removed. The patient tolerated the procedure. There were no immediate complications. FINDINGS: Revenue Director radiograph demonstrates no radiopaque foreign densities. The opacified uterine contour appears normal without intraluminal filling defects. Bilateral fallopian tubes are visualized and are normal in caliber. There is dominant free peritoneal spillage from the left fallopian tube which crosses midline (beginning series 16). There may be a trace amount of free peritoneal spillage identified from the right fallopian tube (series 17), though this likely communicates with spillage from the left fallopian tube (series 20). No definitive free peritoneal spillage is identified from the right fallopian tube. There is no evidence of hydrosalpinx. Procedure Note Rao Benavidez MD - 03/18/2024 FLUOROSCOPIC HYSTEROSALPINGOGRAM 03/18/2024. CLINICAL INDICATION: Trying to conceive. Prior miscarriages. COMPARISON: none TECHNIQUE: The risks of the procedure including but not limited to cramping, vaginal spotting, perforation, infection, allergic reaction to the contrast material and incomplete examination were explained to the patient. The patient verbalized understanding and wished to proceed. Signed written and verbal consent were obtained from the patient. The patient was placed in the lithotomy position. A sterile speculum was placed. The cervix was sterilized with Betadine. The cervix was cannulated with a Almas HSG Firefly Mobile Cannula without difficulty. Approximately 39 cc of iodinated contrast material was injected. Multiple images were obtained in different projections. The cannula and speculum were removed. The patient tolerated the procedure. There were no immediate complications. FINDINGS: Revenue Director radiograph demonstrates no radiopaque foreign densities. The opacified uterine contour appears normal without intraluminal filling defects. Bilateral fallopian tubes are visualized and are normal in caliber. There is dominant free peritoneal spillage from the left fallopian tube which crosses midline (beginning series 16). There may be a trace amount of free peritoneal spillage identified from the right fallopian tube (series 17), though this likely communicates with spillage from the left fallopian tube (series 20). No definitive free peritoneal spillage is identified from the right fallopian tube. There is no evidence of hydrosalpinx. IMPRESSION: 1. Dominant free peritoneal spillage from the left fallopian tube. 2. No definitive free peritoneal spillage is identified from the right fallopian tube; please see details above. FLUOROSCOPY TIME: 2.4 minutes REFERENCE AIR KERMA: 76.5 mGy Dictated by: Carolee Kellogg PA-C The radiology attending physician has personally reviewed this study, and had reviewed and/or edited this written report and agrees with it. Electronically signed by: Rao Benavidez M.D. Barbara Webb MD IMG FLUOROSCOPY PROCEDURE S Final Result * POCT hCG, urine (03/18/2024 7:35 AM INDUCTION HEATING EQUIPMENT SETTER) Pathologist [facility] HCG, ur, POC Negative Negative Lot Number [id number] QC Backgroud Clear Acceptable QC Control Line Acceptable Urine 03/18/2024 7:35 AM INDUCTION HEATING EQUIPMENT SETTER Barbara Webb MD POINT OF CARE TEST ORDERA BLES Final Result * Progesterone (02/28/2024 2:30 PM INDUCTION HEATING EQUIPMENT SETTER) Pathologist [facility] Progesterone 11.7 ng/mL [facility] - 01 Comment: ? Follicular phase ? 0.1 - ?? 0.9 ? Luteal phase ? 1.8 - ??23.9 ? Ovulation phase ?0.1 - ??12.0 ?First trimester ?11.0 - ??44.3 ?Second trimester ?? 25.4 - ??83.3 ?Third trimester ?58.7 - 214.0 ? Postmenopausal ? 0.0 - ?? 0.1 Blood 02/28/2024 2:30 PM INDUCTION HEATING EQUIPMENT SETTER 02/28/2024 Narrative [facility] - 02/29/2024 8:17 AM INDUCTION HEATING EQUIPMENT SETTER Performed at: ??01 - [facility] [address], [place], [place] [id number] Machine Silk Screen Printer: Issac Jain PhD, Phone: ??[phone] us Barbara Webb MD LAB BLOOD ORDERABLES Ophelia conklin Result [facility] - 01 * Progesterone (01/30/2024 2:06 PM CDT) Progesterone 11.7 ng/mL [facility] - 01 Comment: ? Follicular phase ? 0.1 - ?? 0.9 ? Luteal phase ? 1.8 - ??23.9 ? Ovulation phase ?0.1 - ??12.0 ?First trimester ?11.0 - ??44.3 ?Second trimester ?? 25.4 - ??83.3 ?Third trimester ?58.7 - 214.0 ? Postmenopausal ? 0.0 - ?? 0.1 Blood 01/30/2024 2:06 PM CDT 01/30/2024 Narrative [facility] - 01/31/2024 8:21 AM CDT Performed at: ??01 - [facility] [address] [place], [place] ??[id number] Machine Silk Screen Printer: Issac Jain PhD, Phone: ??[phone] us Barbara Webb MD LAB BLOOD ORDERABLES Ophelia conklin Result [facility] - 01 * Progesterone (01/03/2024 3:12 PM CDT) Progesterone 12.9 ng/mL [facility] - 01 Comment: ? Follicular phase ? 0.1 - ?? 0.9 ? Luteal phase ? 1.8 - ??23.9 ? Ovulation phase ?0.1 - ??12.0 ?First trimester ?11.0 - ??44.3 ?Second trimester ?? 25.4 - ??83.3 ?Third trimester ?58.7 - 214.0 ? Postmenopausal ? 0.0 - ?? 0.1 Blood 01/03/2024 3:12 PM CDT 01/03/2024 Narrative [facility] - 01/04/2024 8:17 AM CDT Performed at: ??01 - [facility] [address], [place], [place] ??[id number] Machine Silk Screen Printer: Issac Jain PhD, Phone: ??[phone] us Barbara Webb MD LAB BLOOD ORDERABLES Ophelia l Result Performing Organization Address City/[facility] Co de Phone Number [facility] - 01 * Hepatitis C antibody Blood (11/08/2023 8:32 PM CDT) Hep C Ab Nonreactive Nonreactive Comment: Interpretive Data Nonreactive: Antibodies to HCV not detected. Does NOT exclude the possibility of recent exposure to HCV. Equivocal: Equivocal for HCV antibodies. Supplemental molecular testing will be automatically performed to determine infection status in accordance with current CDC screening recommendations. ?? Reactive: Positive for HCV antibodies. ??This may represent current or past HCV infection. Supplemental molecular testing will be automatically performed to determine ??current infection status in accordance with current CDC screening recommendations. Interpretive data was last revised on 2019. Blood 11/08/2023 8:32 PM CDT 11/08/2023 8:32 PM CDT us David Rodriguez MD LAB MICROBIOLOGY - GENER AL ORDERABLES Edited Result - Final [facility] [address] [place] [address] from Last 3 Months or Most Recently Relevant to Health Maintenance Insurance [facility] Care Teams Bait Maker Relationship Specialty Start Date End Date Unknown, Notinfile PCP - General 07/16/22 David Rodriguez MD [address] [address] 07/16/22
--- OUTSIDE RECORDS SUMMARY | 2024-03-31 11:13 | XMS_ITS | Continuity of Care Document ---
Author Name [facility] Organization [facility] Care Team Providers Care Aeronautics Teacher Name Role Phone [facility] Unavailable Unavailable Vital Signs Combined list of inpatient and outpatient Vital Signs from Department of Defense and Veterans Affairs, ranging from 12 months to all on record, depending upon the facility. Vital Sign Value Date Comments Source No data available for this section Ambulatory Pharmacy Procedures Combined list of: 1) Procedures from Department of Veterans Affairs facilities going back up to thelast 18 months, not all [place] non-surgical procedures are included; 2) All procedures from the Department of [facility] facilities. Procedure Procedure Type Code Date Perfomer Comments Sourc e No data available for this section Ambulatory P harmacy Social History Combined list of available smoking, tobacco, and other social history from Department of Defense and Veterans Affairs facilities. Social History Type Response Date Comment Sourc e This section is an empty social history section. [facility] Assessment and Plan Combined list of future care activities from Department of Defense and Veterans [facility] facilities (e.g., assessment and plan notes, appointments, orders, and referrals). Additional future care activities may be listed in the Plan of Care section. Result Assessment and Plan Date Source Assessment and Plan No data available for this section 03/31/2024 Ambulatory Pharmacy Functional Status Combined list of recent functional and cognitive assessments recorded at [facility] and [facility] ([place] Functional [place] Measurement (FIM) Scale: 1 = Total Assistance (Subject = 0% +), 2 = Maximal Assistance (Subject = 25% +), 3 = Moderate Assistance (Subject = 50% +), 4 = Minimal Assistance (Subject = 75% +), 5 = Supervision, 6 = Modified [place] (Device), 7 = Complete [place] (Timely, Safely). Assessment Date/Time Source Assessment Type Assessment Skill Assessment Score Assessment Details No data available for this section
--- OUTSIDE RECORDS SUMMARY | 2024-03-31 11:13 | XMS_ITS | Continuity of Care Document ---
Author Organization [facility] Address [address] [place] [phone] Care Team Providers Care Fancy Wire Drawer Name Role Phone David Rodriguez Primary Care Physician [phone] Encounter [facility] Financial Number [id number] Date(s): 02/13/21 - 02/13/[address] [phone] Discharge Disposition: Home or Self Care Attending Physician: David Rodriguez M.D. Referring Physician: David Rodriguez M.D. Allergies, Adverse Reactions, Alerts No Known Allergies Assessment and Plan Future Appointments Appointment Date:10/24/2021 09:00:00 AM Scheduled Provider:Meryl Woody Location: [facility] 68[facility] Appointment Type:[facility] Exam Medications Diflucan 150 mg oral tablet 150 mg, 1 tablet(s), Oral, q72hr, 2 tablet(s), Tablet(s), 0, 0, Route to Pharmacy Electronically, [id number], [id number], 162.56, cm, 11/30/2019 1601, Height, 101.7, kg, 02/13/2021 1438, Weight Start Date: 02/13/21 Status: Ordered Kyleena 19.5 mg intrauterine device 19.5 mg, 1 each, 0 Start Date: 10/21/20 Status: Ordered Problem List Diagnosis Diagnosis Type Effective Dates Health Status Clini rosaura Service Informant UTI symptoms 02/13/21 Non-Specified Procedures Procedure Date Related Diagnosis Body Site Status Knee joint operation 1 Co mpleted 14 on left, 1 on right Social History Social History Type Response Alcohol Current some day alc ohol user, 1-2 times per month Substance Abuse Never drug user Smoking Status Never smoker;Never; Tobacco Cessation Counseling Requested N/A entered on: 10/21/20 Sex
--- OUTSIDE RECORDS SUMMARY | 2024-03-31 11:13 | XMS_ITS | Clinical Summary ---
Author Organization [facility] Address [address] [place] [address] Care Team Providers Care Sewing Machine Operator Semiautomatic Name Role Phone Unknown, Notinfile Primary Care Provider Unavail able David Rodriguez MD Unavailable Allergies No known active allergies Medications desvenlafaxine [...] (09/09/2020): Added automatically from request for surgery [id number] Resolved Problems Problem Noted Date Diagnosed Date Resolved Date Morbid obesity with BMI of 40.0-44.9, adult 10/02/2017 11/08/2023 Encounters Date Type Department Care Team Description 03/30/2024 Telephone [facility] Medical Group Primary Care at [address] [place] [phone] Unknown, Notinfile 03/25/2024 Telephone [facility] Endocrinology at [address] [place] [phone] Annamarie Blue, KOHINOOR OPERATOR 2nd level Appeal re: denial of Zepbound 12.5 mg 03/18/2024 7:06 AM STRAPPER AND BUFFER - 03/18/2024 11:59 PM STRAPPER AND BUFFER Hospital Encounter [facility] [address] [place] [phone] Ovarian dysfunction Discharge Disposition: Discharge to home or self care 03/16/2024 Telephone [facility] Medical Group Primary Care at [address] [place] [address] [phone] Unknown, Notinfile 03/16/2024 Telephone [facility] Medical Group Primary Care at [address] [place] [address] [phone] Unknown, Notinfile 03/13/2024 Telephone [facility] Primary Care at [address] [place], [place] [address], [place] [phone] Unknown, Notinfile 03/10/2024 Orders Only [facility] Medical Group Primary Care at [address] [phone] David Rodriguez MD 01/21/2024 Telephone [facility] Medical Group Primary Care at [address] [phone] Unknown, Notinfile 01/20/2024 Telephone [facility] Medical Group Primary Care at [address] [phone] Unknown, Notinfile 01/16/2024 Telephone [facility] Primary Care at [address] [phone] Unknown, Notinfile from Last 3 Months Immunizations Name Administration Dates Next Due Hep [...] 12/01/2020,11/10/2020 Tdap 01/01/2018, 8,11/05/2007,11/15,11/15/1998 Varicella 11/05/2007, 8,02/26/1995,02/26 Surgical History Surgery Date Site/Laterality Comments OTHER SURGICAL HISTORY foot metatarsal surgery (5th) KNEE ARTHROSCOPY Arthroscopy knee ARTHROSCOPIC REPAIR ACL Left PATELLA SURGERY Left MYRINGOTOMY W/ TUBES ADENOIDECTOMY FOOT SURGERY Left 2X Medical History Medical History Date Comments GERD (gastroesophageal reflux disease) Arthritis 2016 Family History Medical History Relation Name Comments Alcohol abuse Father Mika Other Father Mika Alive and well; Heart disease Maternal Grandfather Yamil Alzheimer's disease Maternal Grandmother Brenda Vision loss Maternal Grandmother Brenda Other Mother Alive and well; Cancer Paternal Grandfather Joe Diabetes Paternal Grandmother Martha Relation Name Status Comments Father Mika Alive Maternal Grandfather Yamil Maternal Grandmother Brenda Mother Alive Paternal Grandfather Joe Paternal Grandmother Martha Sister Alive Social History Tobacco Use Types Packs/Day Years [...] on file Legal Sex 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 STRAPPER AND BUFFER Gender Identity Female 03/22/2022 2:56 PM STRAPPER AND BUFFER Sexual Orientation Straight 05/08/2023 5: 32 PM STRAPPER AND BUFFER 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 on file Not on file Obstetrics History Last Filed Vital Signs Vital Sign Reading Time Taken Comments Blood Pressure 118/66 12/19/2023 12:56 PM CDT Pulse 91 11/18/2023 2:32 PM CDT Temperature 36.8 ??C (98.2 ??F) 06/11/2023 8:47 AM CS T Respiratory Rate 22 06/11/2023 8:47 AM STRAPPER AND BUFFER Oxygen Saturation 96% 11/18/2023 2:32 PM CDT Inhaled Oxygen Concentration - - Weight 95.7 kg (211 lb) 12/19/2023 12:56 PM CDT Height 162.6 cm (5' 4 ) 12/19/2023 12:56 PM CDT Body Mass Index 36.22 12/19/2023 12:56 PM CDT Plan of Treatment Health Maintenance Due Date Last Done Comments Cervical Cancer Screening 1993 Pneumococcal vaccine <65 (1 of 2 - PCV) 1999 Zoster Vaccine (1 of 2) 02/21/2012 Covid-19 Vaccine (3 - Pfizer risk series) 12/29/2020 12/01/2020, 11/10/2020 Influenza Vaccine (#1) 2023 , 01/26/2020, 01/04/2018, Additional history exists Depression Screening 05/15/2024 05/15/2023, 10/10/2022, 10/09/2021, Additional history exists Regular Well Visit/Exam 18-64 11/07/2024 11/08/2023, 10/10/2022, 10/09/2021, Additional history exists DTaP/Tdap/Td Vaccine (4 - Td or Tdap) 01/02/2028 01/01/2018, 01/01/2018, 11/05/2007, Additional history exists Varicella Vaccines Completed 11/05/2007, 0 11/05/2007, 02/26/1995, Additional history exists Hepatitis C Screening Completed 11/08/2023 HPV Vaccines Aged Out No longer eligi ble based on patient's age to complete this topic Procedures Procedure Name Priority Date/Time Associated Diagnosis Comments HYSTEROSALPINGOGRAM Schedule Routine, Read Routine (OP Routine) 03/18/2024 7:53 AM STRAPPER AND BUFFER Ovarian dysfunction POCT HCG, URINE Routine 03/18/2024 7:35 AM STRAPPER AND BUFFER PROGESTERONE Routine 02/28/2024 2:30 PM STRAPPER AND BUFFER Dysfunction ovarian PROGESTERONE Routine 01/30/2024 2:06 PM CDT Dysfunction ovarian PROGESTERONE Routine 01/03/2024 3:12 PM CDT Dysfunction ovarian HEPATITIS C ANTIBODY Routine 11/08/2023 8:32 PM CDT Encounter for hepatitis C screening test for low risk patient from Last 3 Months or Most Recently Relevant to Health Maintenance Results * [place] Hysterosalpingogram (03/18/2024 7:53 AM STRAPPER AND BUFFER) Anatomical Region Laterality Modality Body, Pelvis N/A Radio Fluoroscop y 03/18/2024 11:0 7 AM STRAPPER AND BUFFER Impressions 03/18/2024 12:12 PM STRAPPER AND BUFFER 1. ??Dominant free peritoneal spillage from the [...] Rao Benavidez M.D. Narrative 03/18/2024 12:12 PM STRAPPER AND BUFFER FLUOROSCOPIC HYSTEROSALPINGOGRAM 03/18/2024. CLINICAL INDICATION: Trying to [...] procedure. There were no immediate complications. FINDINGS: Senior Network Engineer radiograph demonstrates no radiopaque foreign densities. The [...] procedure. There were no immediate complications. FINDINGS: Senior Network Engineer radiograph demonstrates no radiopaque foreign densities. The [...] * POCT hCG, urine (03/18/2024 7:35 AM STRAPPER AND BUFFER) Pathologist [facility] HCG, ur, POC Negative Negative Lot Number [id number] QC Backgroud Clear Acceptable QC Control Line Acceptable Urine 03/18/2024 7:35 AM STRAPPER AND BUFFER Barbara Webb MD POINT OF CARE TEST ORDERA BLES Final Result * Progesterone (02/28/2024 2:30 PM STRAPPER AND BUFFER) Progesterone 11.7 ng/mL [facility] - 01 Comment: ? Follicular phase ? 0.1 - ?? 0.9 ? Luteal phase ? 1.8 - ??23.9 ? Ovulation phase ?0.1 - ??12.0 ?First trimester ?11.0 - ??44.3 ?Second trimester ?? 25.4 - ??83.3 ?Third trimester ?58.7 - 214.0 ? Postmenopausal ? 0.0 - ?? 0.1 Blood 02/28/2024 2:30 PM STRAPPER AND BUFFER 02/28/2024 Narrative [facility] - 02/29/2024 8:17 AM STRAPPER AND BUFFER Performed at: ??01 - [facility] [address], [place], [place] ??[id number] Day Spa Manager: Issac Jain PhD, Phone: ??[phone] us Barbara Webb MD LAB BLOOD ORDERABLES [...] AM CDT Performed at: ??01 - [facility] [place] [address] [place], [place] ??[id number] Day Spa Manager: Issac Jain PhD, Phone: ??[phone] us Barbara Webb MD LAB BLOOD ORDERABLES [...] 8:17 AM CDT Performed at: ??01 - [facility], [place], [place] ??[id number] Day Spa Manager: Issac Jain PhD, Phone: ??[phone] us Barbara Webb MD LAB BLOOD ORDERABLES Ophelia l Result Performing Organization Address City/[facility] Co de Phone Number [facility] - 01 * Hepatitis C [...] AL ORDERABLES Edited Result - Final [facility] [address] Department [place] [address] from Last 3 Months or Most Recently Relevant to Health Maintenance Insurance [facility] CHO[facility] PLUS [facility] PLUS Care Teams Sewing Machine Operator Semiautomatic Relationship Specialty Start Date End Date Unknown, Notinfile PCP - General 07/16/22 David Rodriguez MD [address] [address] 07/16/22
--- OUTSIDE RECORDS SUMMARY | 2024-03-31 11:13 | XMS_ITS | Encounter Summary ---
Author Organization [facility] Healthcare Address [address] [place] [address] Care Team Providers Care Service Station Cashier Name Role Phone Unknown, Notinfile Primary Care Provider Unavail able David Rodriguez MD Unavailable [phone] Encounter Details Date Type Department Care Team (Late st Contact Info) Description 12/20/2023 Telephone [facility] Medical Group Primary Care at [facility] [address] [facility] [address], [place] [address] Unknown, Notinfile Social History Tobacco [...] on file Legal Sex 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 COMMERCIAL LOAN ASSISTANT Gender Identity Female 03/22/2022 2:56 PM COMMERCIAL LOAN ASSISTANT Sexual Orientation Straight 05/08/2023 5: 32 PM COMMERCIAL LOAN ASSISTANT 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 on file Not on file documented as of this encounter Miscellaneous Notes * Telephone Encounter - Kaleigh Macias MA - 12/20/2023 2:52 PM CDT [facility] at [phone] with for Zepbound is under review documented in this encounter Plan of Treatment Not on file documented as of this encounter Visit Diagnoses Not on filedocumented in this encounter Care Teams Service Station Cashier Relationship Specialty Start Date End Date Unknown, Notinfile PCP - General 07/16/22 David Rodriguez MD [address] [address] 07/16/22 documented as of this encounter
--- OUTSIDE RECORDS SUMMARY | 2024-03-31 11:13 | XMS_ITS | Encounter Summary ---
Author Organization [facility] Healthcare Address [address] [place] [address] Care Team Providers Care Laminating Machine Operator Helper Name Role Phone Unknown, Notinfile Primary Care Provider Unavail able David Rodriguez MD Unavailable [phone] Encounter Details Date Type Department Care Team (Late st Contact Info) Description 01/21/2024 Telephone [facility] Medical Group Primary Care at [facility] [address] [facility] [address] [address] Unknown, Notinfile Social History Tobacco [...] on file Legal Sex 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 ENGINEERING DESIGN MANAGER Gender Identity Female 03/22/2022 2:56 PM ENGINEERING DESIGN MANAGER Sexual Orientation Straight 05/08/2023 5: 32 PM ENGINEERING DESIGN MANAGER 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 on file Not on file documented as of this encounter Miscellaneous Notes * Telephone Encounter - Kaleigh Macias MA - 01/21/2024 1:41 PM CDT Zepbound prior authorization was sent to insurance awaiting determination documented in this encounter Plan of Treatment Not on file documented as of this encounter Visit Diagnoses Not on filedocumented in this encounter Care Teams Laminating Machine Operator Helper Relationship Specialty Start Date End Date Unknown, Notinfile PCP - General 07/16/22 David Rodriguez MD [address] [address] 07/16/22 documented as of this encounter
--- OUTSIDE RECORDS SUMMARY | 2024-03-31 11:13 | XMS_ITS | Encounter Summary ---
Author Organization [facility] Healthcare Address [address] [place] [address] Care Team Providers Care Kettle Coordinator Name Role Phone Unknown, Notinfile Primary Care Provider Unavail able David Rodriguez MD Unavailable [phone] Reason for Visit * Reason Onset Date Comments 2nd level Appeal re: denial of Zepbound 12.5 mg 03/25/2024 Encounter Details Date Type Department Care Team (Late st Contact Info) Description 03/25/2024 Telephone [facility] Medical Group Endocrinology at [facility] [address] [phone] Annamarie Blue LPN 2nd level Appeal re: denial of Zepbound 12.5 mg Social History Tobacco Use Types Packs/Day Years [...] on file Legal Sex 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 STRUCTURES MECHANIC Gender Identity Female 03/22/2022 2:56 PM STRUCTURES MECHANIC Sexual Orientation Straight 05/08/2023 5: 32 PM STRUCTURES MECHANIC 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 on file Not on file documented as of this encounter Miscellaneous Notes * Telephone Encounter - Annamarie Blue LPN - 03/25/2024 1:34 PM STRUCTURES MECHANIC PCP RMA, Kaleigh Macias, requested my assistance in reviewing this patient's Zepbound denial. PA request was for 12.5 mg. Denial scanned in under media. I called [employer] clinical appeals at [phone] and spoke with Maribel Irizarry. Edie and I completed a 2nd level appeal via phone. Case ID for follow up if needed is [id number] Decision may take up to 15 days. CTURES MECHANIC documented in this encounter Plan of Treatment Not on file documented as of this encounter Visit Diagnoses Not on filedocumented in this encounter Care Teams Kettle Coordinator Relationship Specialty Start Date End Date Unknown, Notinfile PCP - General 07/16/22 David Rodriguez MD [address] [address] 07/16/22 documented as of this encounter
--- OUTSIDE RECORDS SUMMARY | 2024-03-31 11:13 | XMS_ITS | Encounter Summary ---
Author Organization [facility] Healthcare Address [address] [place] [address] Care Team Providers Care Media Traffic Manager Name Role Phone Unknown, Notinfile Primary Care Provider Unavail able David Rodriguez MD Unavailable Encounter Details Date Type Department Care Team (Late st Contact Info) Description 01/20/2024 Telephone [facility] Medical Group Primary Care at [facility] [address] [facility] [address], [place] [address] Unknown, Notinfile Social History Tobacco [...] on file Legal Sex 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 DIRECTOR OF INTERCOLLEGIATE ATHLETICS Gender Identity Female 03/22/2022 2:56 PM DIRECTOR OF INTERCOLLEGIATE ATHLETICS Sexual Orientation Straight 05/08/2023 5: 32 PM DIRECTOR OF INTERCOLLEGIATE ATHLETICS 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 on file Not on file documented as of this encounter Miscellaneous Notes * Telephone Encounter - Kaleigh Macias MA - 01/20/2024 1:38 PM CDT Zepbound prior authorization was submitted to insurance and awaiting determination from insurance company documented in this encounter Plan of Treatment Not on file documented as of this encounter Visit Diagnoses Not on filedocumented in this encounter Care Teams Media Traffic Manager Relationship Specialty Start Date End Date Unknown, Notinfile PCP - General 07/16/22 David Rodriguez MD [address] [address] 07/16/22 documented as of this encounter
--- OUTSIDE RECORDS SUMMARY | 2024-03-31 11:13 | XMS_ITS | Encounter Summary ---
Author Organization [facility] Healthcare Address [address] [place] [address] Care Team Providers Care Seamless Tube Drawer Name Role Phone Unknown, Notinfile Primary Care Provider Unavail able David Rodriguez MD Unavailable Encounter Details Date Type Department Care Team (Late st Contact Info) Description 03/10/2024 Orders Only [facility] Medical Group Primary Care at [facility] [address] [facility] [address] [place] [phone] David Rodriguez MD [address] [address] Social History Tobacco Use Types Packs/Day Years [...] on file Legal Sex 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 RECORDIST Gender Identity Female 03/22/2022 2:56 PM RECORDIST Sexual Orientation Straight 05/08/2023 5: 32 PM RECORDIST 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 on file Not on file documented as of this encounter Ordered Prescriptions Prescription Sig Dispense Quantity Refills Last Filled Start Date End Date tirzepatide, weight loss, (ZEPBOUND) 12.5 mg/0.5 mL pen injector Inject 0.5 mL (12.5 mg total) under the skin every 7 days 2 mL 11 03/10/2024 documented in this encounter Plan of Treatment Not on file documented as of this encounter Visit Diagnoses Not on filedocumented in this encounter Discontinued Medications Medication Sig Discontinue Reason Start Date End Da te tirzepatide, weight loss, (ZEPBOUND) 12.5 mg/0.5 mL pen injector Inject 0.5 mL (12.5 mg total) under the skin every 7 days Reorder 01/15/2024 03/10/2024 documented as of this encounter Care Teams Seamless Tube Drawer Relationship Specialty Start Date End Date Unknown, Notinfile PCP - General 07/16/22 David Rodriguez MD [address] [address] 07/16/22 documented as of this encounter
--- OUTSIDE RECORDS SUMMARY | 2024-03-31 11:13 | XMS_ITS | Encounter Summary ---
Author Organization [facility] Healthcare Address [address] [place] [address] Care Team Providers Care Gas Appliance Mechanic Name Role Phone Unknown, Notinfile Primary Care Provider Unavail able David Rodriguez MD Unavailable [phone] Encounter Details Date Type Department Care Team (Late st Contact Info) Description 03/16/2024 Telephone [facility] Medical Group Primary Care at [facility] [address] [facility] [address], [place] [address] Unknown, Notinfile Social History Tobacco [...] on file Legal Sex 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 LIA[address] Gender Identity Female 03/22/2022 2:[address] LIAISON Sexual Orientation Straight 05/08/2023 5: [address] LIAISON 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 on file Not on file documented as of this encounter Miscellaneous Notes * Telephone Encounter - Kaleigh Macias MA - 03/17/2024 12:11 PM CST Prior authoirzation for zepbound is awaiting determination [address] LIAISON documented in this encounter Plan of Treatment Not on file documented as of this encounter Visit Diagnoses Not on filedocumented in this encounter Care Teams Gas Appliance Mechanic Relationship Specialty Start Date End Date Unknown, Notinfile PCP - General 07/16/22 David Rodriguez MD [address] [address] 07/16/22 documented as of this encounter
--- OUTSIDE RECORDS SUMMARY | 2024-03-31 11:13 | XMS_ITS | Encounter Summary ---
Author Organization [facility] Healthcare Address [address] [place] [address] Care Team Providers Care Track Production Engineer Name Role Phone Unknown, Notinfile Primary Care Provider Unavail able David Rodriguez MD Unavailable [phone] Encounter Details Date Type Department Care Team (Late st Contact Info) Description 03/30/2024 Telephone [facility] Medical Group Primary Care at [facility] [address] [facility] [address], [place] [address] Unknown, Notinfile Social History Tobacco [...] on file Legal Sex 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 FLEET MANAGER Gender Identity Female 03/22/2022 2:56 PM FLEET MANAGER Sexual Orientation Straight 05/08/2023 5: 32 PM FLEET MANAGER 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
--- OUTSIDE RECORDS SUMMARY | 2024-03-31 11:13 | XMS_ITS | Continuity of Care Document ---
Author Organization [facility] Address [address] [id number] Care Team Providers Care Glaucoma Specialist Name Role Phone David Rodriguez Primary Care Physician Encounter [facility] Financial Number [id number] Date(s): 07/30/22 - 07/30/[address] [phone] Discharge Disposition: Home or Self Care Allergies, Adverse Reactions, Alerts No Known Allergies Assessment and Plan Future Appointments Appointment Date:08/16/2022 08:30:00 AM Scheduled Provider:Meryl Woody Location: Women 68W Appointment Type:[facility] Contraception Procedure Appointment Date:10/25/2022 09:00:00 AM Scheduled Provider:Meryl Woody Location:[facility] 68W Appointment Type:[facility] Well Woman Exam Medications progesterone 100 mg vaginal insert See Instructions, 60 capsule(s), 2, 2, insert vaginally every 12 hours, continue until up to 16weeks of ., Route to Pharmacy Electronically, [facility], [id number], Instructions Replace Requi... Start Date: 06/21/22 Status: [...] DO Position: [facility]IES Physician Member Role: DIVING SUPERVISOR Physician Address: Address: [address] [place] [address] Name: David Rodriguez M.D. Position: ZZ FAX ONLY - MD NOT ON STAFF Member Role: Primary Care Physician Address: Address: [address] [facility] [address] [place] [address]- Name: Meryl Woody Position: SAMSON TOY ASSEMBLY SUPERVISOR Member Role: Nurse Practitioner Address: Address: [address] [place] [address] [address] [place] [address] [place] Care Team Related Persons Name: LOUISE HOLCOMB Name: IQRA HOLCOMB
--- OUTSIDE RECORDS SUMMARY | 2024-03-31 11:13 | XMS_ITS | Encounter Summary ---
Author Organization [facility] Address [address] [facility] [address] [place] [address] Care Team Providers Care Proof Tester Name Role Phone Unknown, Notinfile Primary Care Provider Unavail able David Rodriguez MD Unavailable [phone] Encounter Details Date Type Department Care Team (Late st Contact Info) Description 12/30/2023 Orders Only [facility] [address] [facility] Medical Office [address] [place] [address] Barbara Webb MD [address] [facility] [place] [address] [place] [address] Dysfunction ovarian (Primary Dx) Social History Tobacco Use Types Packs/Day Years [...] on file Legal Sex 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 STATION MASTER Gender Identity Female 03/22/2022 2:56 PM STATION MASTER Sexual Orientation Straight 05/08/2023 5: 32 PM STATION MASTER 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 on file Not on file documented as of this encounter Plan of Treatment Not on file documented as of this encounter Procedures Procedure Name Priority Date/Time Associated Diagnosis Comments PROGESTERONE Routine 01/03/2024 3:12 PM CDT Dysfunction ovarian documented in this encounter Results * Progesterone (01/03/2024 3:12 PM CDT) Progesterone [...] AM CDT Performed at: ??01 - [facility] [address], [place], [place] ??[id number] Toeing Stockings: Issac Jain PhD, Phone: ??[phone] us Barbara Webb MD LAB BLOOD ORDERABLES Ophelia conklin Result [facility] - 01 documented in this encounter Visit Diagnoses Diagnosis Dysfunction ovarian- Primary Unspecified ovarian dysfunction documented in this encounter Care Teams Proof Tester Relationship Specialty Start Date End Date Unknown, Notinfile PCP - General 07/16/22 David Rodriguez MD [address] [address] 07/16/22 documented as of this encounter
--- OUTSIDE RECORDS SUMMARY | 2024-03-31 11:13 | XMS_ITS | Encounter Summary ---
Author Organization [facility] Healthcare Address [address] [place] [address] Care Team Providers Care Forepart Reducer Name Role Phone Unknown, Notinfile Primary Care Provider Unavail able David Rodriguez MD Unavailable [phone] Reason for Referral * Diagnostic Imaging (Routine) - Closed Specialty Diagnoses / Procedures Referred By Cooper t Referred To Contact Diagnoses Ovarian dysfunction Procedures [place] Hysterosalpingogram Barbara Webb MD [address] [place] [address] Phone: tel: fax: [place] [id number] [place] [address] Referral ID Status Reason Start Date Expiration Date Visits Re quested Visits Authorized [id number] Closed 03/09/2024 04/08/2025 1 1 PHONE INSTALLER Reason for Visit * Diagnostic Imaging (Routine) - Closed Specialty Diagnoses / Procedures Referred By Contesther t Referred To Contact Diagnoses Ovarian dysfunction Procedures FL Hysterosalpingogram Barbara Webb MD [address] [place] [address] Phone: tel: fax: [place] [id number] [place] [address] Referral ID Status Reason Start Date Expiration Date Visits Re quested Visits Authorized [id number] Closed 03/09/2024 04/08/2025 1 1 Encounter Details Date Type Department Care Team (Latest Contact Info) Description 03/18/2024 7:06 AM AUTO PHONE INSTALLER - 03/18/2024 11:59 PM AUTO PHONE INSTALLER Hospital Encounter [facility] - Imaging [address] [place] [address] Ovarian dysfunction Discharge Disposition: Discharge to home or self care Social History Tobacco Use Types Packs/Day Years [...] on file Legal Sex 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 AUTO PHONE INSTALLER Gender Identity Female 03/22/2022 2:56 PM AUTO PHONE INSTALLER Sexual Orientation Straight 05/08/2023 5: 32 PM AUTO PHONE INSTALLER 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 on file Not on file documented as of this encounter Medications at Time of Discharge desvenlafaxine ER (PRISTIQ) 50 mg 24 hr tablet Take 1 tablet (50 mg total) by mouth daily 30 tablet 11 05/29/2023 05/28/19 25 hydrocortisone (ANUSOL-HC) 25 mg suppository Insert 1 suppository (25 mg total) into the rectum 2 (two) times a day as needed for hemorrhoids 30 suppository 08/28/2023 letrozole (FEMARA) 2.5 mg tablet 1 tab daily for 5 days, starting cycle day 3-7 5 tablet 02/11/2024 progesterone (PROMETRIUM) 100 mg capsule 1 cap po at bedtime 30 capsule 11/11/2023 tirzepatide, weight loss, (ZEPBOUND) 12.5 mg/0.5 mL pen injector Inject 0.5 mL (12.5 mg total) under the skin every 7 days 2 mL 11 03/10/2024 valACYclovir (VALTREX) 500 mg tabletIndication s:Chronic Suppression Take 1 tablet twice a day for 5 days 10 tablet 3 12/24/2023 documented as of this encounter Discharge Disposition Disposition Code Departure Means Destination Discharge to home or self care documented in this encounter Plan of Treatment Not on file documented as of this encounter Procedures Procedure Name Priority Date/Time Associated Diagnosis Comments HYSTEROSALPINGOGRAM Schedule Routine, Read Routine (OP Routine) 03/18/2024 7:53 AM AUTO PHONE INSTALLER Ovarian dysfunction POCT HCG, URINE Routine 03/18/2024 7:35 AM AUTO PHONE INSTALLER documented in this encounter Results * FL Hysterosalpingogram (03/18/2024 7:53 AM AUTO PHONE INSTALLER) Anatomical Region Laterality Modality Body, Pelvis N/A Radio Fluoroscop y 03/18/2024 11:0 7 AM AUTO PHONE INSTALLER Impressions 03/18/2024 12:12 PM AUTO PHONE INSTALLER 1. ??Dominant free peritoneal spillage from the [...] Rao Benavidez M.D. Narrative 03/18/2024 12:12 PM AUTO PHONE INSTALLER FLUOROSCOPIC HYSTEROSALPINGOGRAM 03/18/2024. CLINICAL INDICATION: Trying to [...] procedure. There were no immediate complications. FINDINGS: Supervisor [place] radiograph demonstrates no radiopaque foreign densities. The [...] cervix was cannulated with a [employer] Cannula without difficulty. Approximately 39 cc of iodinated contrast material was injected. Multiple images were obtained in different projections. The cannula and speculum were removed. The patient tolerated the procedure. There were no immediate complications. FINDINGS: Supervisor [place] radiograph demonstrates no radiopaque foreign densities. The [...] * POCT hCG, urine (03/18/2024 7:35 AM AUTO PHONE INSTALLER) HCG, ur, POC Negative Negative Lot Number [id number] QC Backgroud Clear Acceptable QC Control Line Acceptable Urine 03/18/2024 7:35 AM AUTO PHONE INSTALLER Barbara Webb MD POINT OF CARE TEST ORDERA BLES Final Result documented in this encounter Visit Diagnoses Diagnosis Ovarian dysfunction Unspecified ovarian dysfunction documented in this encounter Administered Medications Inactive Administered Medications - up to 3 most recent administrations Medication Order MAR Action Action Date Dose Rate Site ioversoL (OPTIRAY 350) injection 39 mL 39 mL, intrauterine, Once in imaging, contrast, Starting on Sat03/18/24 at 0756, For 1 dose Contrast Given 03/18/2024 7:57 AM AUTO PHONE INSTALLER 39 mL documented in this encounter Orders Medications Ordered That Tavon ht Not Have Been Administered Count Last Ordered Date First Ordered Date ioversoL (OPTIRAY 350) injection 39 mL 1 documented in this encounter Care Teams Forepart Reducer Relationship Specialty Start Date End Date Unknown, Notinfile PCP - General 07/16/22 Davdi Rodriguez MD [address] [place] [address] 07/16/22 documented as of this encounter
--- OUTSIDE RECORDS SUMMARY | 2024-03-31 11:13 | XMS_ITS | Encounter Summary ---
Author Organization [facility] Address [address] [place] [address] Care Team Providers Care Loan Processing Supervisor Name Role Phone Unknown, Notinfile Primary Care Provider Unavail able David Rodriguez MD Unavailable [phone] Reason for Visit * Reason Comments Gynecologic Exam Encounter Details Date Type Department Care Team (Late st Contact Info) Description 12/19/2023 1:00 PM CDT Office Visit [facility] [address] [place] [address] Barbara Webb MD [address] [facility] [place] [address] Vaginal ulcer (Primary Dx) Social History Tobacco Use Types [...] on file Legal Sex 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 ARCHITECTURE TECHNICIAN Gender Identity Female 03/22/2022 2:56 PM ARCHITECTURE TECHNICIAN Sexual Orientation Straight 05/08/2023 5: 32 PM ARCHITECTURE TECHNICIAN 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 on file Not on file documented as of this encounter Last Filed Vital Signs Vital Sign Reading Time Taken Comments Blood Pressure 118/66 12/19/2023 12:56 PM CDT Pulse - - Temperature - - Respiratory Rate - - Oxygen Saturation - - Inhaled Oxygen Concentration - - Weight 95.7 kg (211 lb) 12/19/2023 12:56 PM CDT Height 162.6 cm (5' 4 ) 12/19/2023 12:56 PM CDT Body Mass Index 36.22 12/19/2023 12:56 PM CDT documented in this encounter Progress Notes * Barbara Webb MD - 12/19/2023 1:00 PM CDT Images from the original note were not included. SMELTING ENGINEER Problem Visit Subjective: Kelly Castro is a 28 y.o. female who presents for Chief Complaint Patient presents with Gynecologic Exam . HPI: Patient has noticed recurrent ulcer periclitoral. Concern for HSV On femara 2nd month Current Medications: Current Outpatient Medications: desvenlafaxine ER (PRISTIQ) 50 mg 24 hr tablet, Take 1 tablet (50 mg total) by mouth daily, Disp: 30 tablet, Rfl: 11 hydrocortisone (ANUSOL-HC) 25 mg suppository, Insert 1 suppository (25 mg total) into the rectum 2 (two) times a day as needed for hemorrhoids, Disp: 30 suppository, Rfl: 0 letrozole (FEMARA) 2.5 mg tablet, 1 tab daily for 5 days, starting cycle day 3- 7, Disp: 5 tablet, Rfl: 0 progesterone (PROMETRIUM) 100 mg capsule, 1 cap po at bedtime, Disp: 30 capsule, Rfl: 0 Zepbound 10 mg/0.5 mL pen injector, ADMINISTER 10 MG UNDER THE SKIN EVERY 7 DAYS, Disp: 2 mL, Rfl: 1 Allergies: No Known Allergies Medical History: Past Medical History: Diagnosis Date Arthritis 2016 GERD (gastroesophageal reflux disease) Surgical History: Past Surgical History: Procedure Laterality Date ADENOIDECTOMY ARTHROSCOPIC REPAIR ACL Left FOOT SURGERY Left 2X KNEE ARTHROSCOPY Arthroscopy knee MYRINGOTOMY W/ TUBES OTHER SURGICAL HISTORY foot metatarsal surgery (5th) PATELLA SURGERY Left Gynecologic History: Patient's last menstrual period was 12/16/2023. Objective: BP 118/66 Ht 162.6 cm (5' 4 ) Wt 211 lb (95.7 kg) LMP 12/16/2023 BMI 36.22 kg/m?? Physical Exam: General: alert, orientated, cooperative Roll Sheeting Cutter exam: External:normal appearing and no lesions Urethra: normal appearing, No lesions or prolapse. Vagina:- right periclitoral ulcer 2mm Assessment and Plan: HSV cx 1. Vaginal ulcer Barbara Webb MD documented in this encounter Plan of Treatment Not on file documented as of this encounter Procedures Procedure Name Priority Date/Time Associated Diagnosis Comments HERPES SIMPLEX VIRUS (HSV) PCR Routine 12/19/2023 1:26 AM CDT Vaginal ulcer documented in this encounter Results * (ABNORMAL) Herpes Simplex Virus (HSV) PCR Lesion (12/19/2023 1:26 AM CDT) HSV 1 DNA Negative Negative [facility] - 01 HSV 2 DNA Positive(A) Negative [facility] - 01 Lesion 12/19/2023 1:26 AM CDT 12/19/2023 Narrative [facility] - 12/24/2023 6:12 AM CDT Test(s) 182174-PFH 1 HERVE; [id number] 2 HERVE was developed and its performance characteristics determined by [facility]. It has not been cleared or approved by the Food and Drug Administration. Performed at: ??01 - [facility] ??[id number] Vegetable Washer: Bess Álvarez MD, Phone: ??[phone] us Barbara Webb MD LAB MICROBIOLOGY - GENERA L ORDERABLES Final Result [facility] - 01 documented in this encounter Visit Diagnoses Diagnosis Vaginal ulcer- Primary Other inflammatory disease of cervix, vagina and vulva documented in this encounter Care Teams Loan Processing Supervisor Relationship Specialty Start Date End Date Unknown, Notinfile PCP - General 07/16/22 David Rodriguez MD [address] [address] 07/16/22 documented as of this encounter
--- OUTSIDE RECORDS SUMMARY | 2024-03-31 11:14 | XMS_ITS | Encounter Summary ---
Author Organization [facility] Healthcare Address [address] [place] [address] Care Team Providers Care Supervisor Sintering Plant Name Role Phone Unknown, Notinfile Primary Care Provider Unavail able David Rodriguez MD Unavailable [phone] Reason for Visit * Reason Comments Sore Throat Pt c/o red spots on roof of mouth, pain when swallowing, headache that started 2 days ago Encounter Details Date Type Department Care Team (Late st Contact Info) Description 06/11/2023 8:45 AM ANATOMIC PATHOLOGY ASSISTANT Office Visit [facility] at [address] [address] Amy Keenan, BHAVNA [address] [place] [address] Pharyngitis, unspecified etiology (Primary Dx) Social History Tobacco Use Types Packs/Day Years Used Date Smoking Tobacco: Never Smokeless Tobacco: Never Alcohol Use Standard Drinks/Week Comments Yes 0 (1 standard drink = 0.6 oz pur e alcohol) AUDIT-C Answer Date Recorded Q1: How often do you have a drink containing alc ohol? 2-4 times a month 10/25/2020 Average Number of Drinks Not on file 021 Frequency of Binge Drinking Not on file 10/13 PHQ-2 Answer Date Recorded PHQ-2 Total Score (If total score is 3 or more points, staff should administer the PHQ-9) 2 05/15/2023 Comments No Sex and Gender Information Value Date Recorded Sex Assigned at Not on file Legal Sex 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 ANATOMIC PATHOLOGY ASSISTANT Gender Identity Female 03/22/2022 2:56 PM ANATOMIC PATHOLOGY ASSISTANT Sexual Orientation Straight 05/08/2023 5: 32 PM ANATOMIC PATHOLOGY ASSISTANT 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 on file Not on file documented as of this encounter Last Filed Vital Signs Vital Sign Reading Time Taken Comments Blood Pressure 110/84 06/11/2023 8:47 AM ANATOMIC PATHOLOGY ASSISTANT Pulse 62 06/11/2023 8:47 AM ANATOMIC PATHOLOGY ASSISTANT Temperature 36.8 ??C (98.2 ??F) 06/11/2023 8:47 AM CS T Respiratory Rate 22 06/11/2023 8:47 AM ANATOMIC PATHOLOGY ASSISTANT Oxygen Saturation 99% 06/11/2023 8:47 AM ANATOMIC PATHOLOGY ASSISTANT Inhaled Oxygen Concentration - - Weight 104.3 kg (230 lb) 06/11/2023 8:47 AM ANATOMIC PATHOLOGY ASSISTANT Height 162.6 cm (5' 4 ) 06/11/2023 8:47 AM ANATOMIC PATHOLOGY ASSISTANT Body Mass Index 39.48 06/11/2023 8:47 AM ANATOMIC PATHOLOGY ASSISTANT documented in this encounter Patient Instructions * Patient Instructions* Amy Keenan NP - 06/11/2023 8:45 AM ANATOMIC PATHOLOGY ASSISTANT The rapid strep test performed at the [facility] Care today was NEGATIVE. Throat culture sent Take Tylenol (acetaminophen) or Advil/Motin (ibuprofen) as needed per package directions for fevers/pain. Gargle with warm salt water (1tsp salt/1 cup water) or warm tea with honey and lemon to soothe pain Frequent warm or cool liquids can be soothing, like ice chips, popsicles, chicken broth, and tea. If you still are not having relief with the above, you can try a Magic Mouthwash -Equal parts liquid antacid (e.g.Maalox) and children's Benadryl with a couple drops of Anbesol gargle and spit every 3-4 hours as needed. If you are not improving or worsening in the next 3-5 days you must RETURN to the clinic, go to your PCP, or Urgent Care/ER to be SEEN and reevaluated. OMIC PATHOLOGY ASSISTANT * Attachments The following attachments cannot be sent through Care Everywhere. * Pharyngitis (Disc Jockey) (German) documented in this encounter Progress Notes * Amy Keenan, MOSS PICKER - 06/11/2023 8:45 AM CST Images from the original note were not included. Patient ID: Kelly Castro is a 28 y.o. female followed by David Rodriguez MD Chief Complaint Patient presents with Sore Throat Pt c/o red spots on roof of mouth, pain when swallowing, headache that started 2 days ago Patient presents to the clinic with reports of sore throat, red spots on roof of mouth, and headache for 2 days. Denies fevers, chest pain, difficulty breathing, dizziness, vomiting, and rash. She has taken no OTC medications for her symptoms. Review of Systems Constitutional: Negative for chills, fatigue and fever. HENT: Positive for sore throat. Negative for congestion, drooling, ear discharge, ear pain, postnasal drip, rhinorrhea, sinus pressure and trouble swallowing. Respiratory: Negative for cough, shortness of breath, wheezing and stridor. Cardiovascular: Negative for chest pain. Gastrointestinal: Negative for abdominal pain, diarrhea, nausea and vomiting. Musculoskeletal: Negative for myalgias and neck pain. Neurological: Positive for headaches. Vitals: 06/11/23 0847 BP: 110/84 Pulse: 62 Resp: 22 Temp: 36.8 ??C (98.2 ??F) SpO2: 99% Weight: 104.3 kg (230 lb) Height: 162.6 cm (5' 4 ) Recent Results (from the past 24 hour(s)) POCT rapid strep A Collection Time: 06/11/23 8:49 AM Result Value Ref Range Rapid Strep A, POC Negative Negative Physical Exam Vitals reviewed. Constitutional: General: She is not in acute distress. Appearance: Normal appearance. She is not ill-appearing. HENT: Head: Normocephalic. Right Ear: Tympanic membrane, ear canal and external ear normal. No middle ear effusion. Tympanic membrane is not erythematous or bulging. Left Ear: Tympanic membrane, ear canal and external ear normal. No middle ear effusion. Tympanic membrane is not erythematous or bulging. Nose: No congestion or rhinorrhea. Mouth/Throat: Lips: [place]. Mouth: Mucous membranes are moist. Pharynx: Uvula midline. No pharyngeal swelling, oropharyngeal exudate or posterior oropharyngeal erythema. Comments: No tonsils. Roof of mouth noted small area of petechia Cardiovascular: Rate and Rhythm: Normal rate and regular rhythm. Pulmonary: Effort: Pulmonary effort is normal. No respiratory distress. Breath sounds: Normal breath sounds. No decreased breath sounds or wheezing. Lymphadenopathy: Cervical: No cervical adenopathy. Skin: General: Skin is warm. Neurological: Mental Status: She is oriented to person, place, and time. Psychiatric: Behavior: Behavior is cooperative. Diagnoses and all orders for this visit: Pharyngitis, unspecified etiology (Primary) - POCT rapid strep A - Throat culture Throat; Future Orders Placed This Encounter Procedures Throat culture Throat Standing Status: Future Standing Expiration Date: 06/11/2024 POCT rapid strep A Assessment/Plan # acute pharyngitis --Throat culture sent. PCR declined --recommended salt water gargles --antihistamine as needed for congestion, use as directed --Warm tea with honey and lemon --tylenol/motrin for pain/fever, use as directed. --diet as tolerated --ED presentation with one or more of the following symptoms: fever uncontrolled with antipyretics,shortness of breath, chest discomfort, uncontrolled n/v/d --f/u with PCP if symptoms persist Disposition Treatment plan including expectations, follow up, and return precautions discussed with patient/parent, verbalizes understanding. Medication dosage, use, and potential adverse reactions discussed with patient/parent. Advised to follow up with PCP if symptoms do not resolve as expected or sooner if condition worsens. Discussed Signs/symptoms warranting ER evaluation including worsening fever, increased shortness ofbreath, chest pain, severe N/V/D, or any other worrisome symptoms Patient and/or guardian was given an opportunity to ask questions, questions answered. Patient Education The rapid strep test performed at the [facility] today was NEGATIVE. Throat culture sent Take Tylenol (acetaminophen) or Advil/Motin (ibuprofen) as needed per package directions for fevers/pain. Gargle with warm salt water (1tsp salt/1 cup water) or warm tea with honey and lemon to soothe pain Frequent warm or cool liquids can be soothing, like ice chips, popsicles, chicken broth, and tea. If you still are not having relief with the above, you can try a Magic Mouthwash -Equal parts liquid antacid (e.g.Maalox) and children's Benadryl with a couple drops of Anbesol gargle and spit every 3-4 hours as needed. If you are not improving or worsening in the next 3-5 days you must RETURN to the clinic, go to your PCP, or Urgent Care/ER to be SEEN and reevaluated. Amy Keenan NP OMIC PATHOLOGY ASSISTANT documented in this encounter Plan of Treatment Not on file documented as of this encounter Procedures Procedure Name Priority Date/Time Associated Diagnosis Comments POCT RAPID STREP Routine 06/11/2023 8:49 AM ANATOMIC PATHOLOGY ASSISTANT Pharyngitis, unspecified etiology documented in this encounter Results * Throat culture Throat (06/11/2023 8:57 AM ANATOMIC PATHOLOGY ASSISTANT) Report Final Report: No growth of pathogens. VALERIA DANIELS Comment:Testing performed by : [facility], [address] [place] [address] Throat 06/11/2023 8:57 AM ANATOMIC PATHOLOGY ASSISTANT 06/11/2023 5:32 PM ANATOMIC PATHOLOGY ASSISTANT Narrative VALERIA - 06/12/2023 1:12 PM ANATOMIC PATHOLOGY ASSISTANT Testing performed by [facility] ([phone]). Amy Keenan NP LAB MICROBIOLOGY - GENERAL ORD ERABLES Final Result VALERIA [address] [place] [address] * POCT rapid strep A (06/11/2023 8:49 AM ANATOMIC PATHOLOGY ASSISTANT) Rapid Strep A, POC Negative Negative Swab 06/11/2023 8:49 AM ANATOMIC PATHOLOGY ASSISTANT Amy M. Trower MOSS PICKER POINT OF CARE TEST ORDERABLES Final Result documented in this encounter Visit Diagnoses Diagnosis Pharyngitis, unspecified etiology- Primary Pharyngitis, unspecified etiology documented in this encounter Care Teams Supervisor Sintering Plant Relationship Specialty Start Date End Date Unknown, Notinfile PCP - General 07/16/22 David Rodriguez MD [address] [address] 07/16/22 documented as of this encounter
--- OUTSIDE RECORDS SUMMARY | 2024-03-31 11:14 | XMS_ITS | Encounter Summary ---
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 SCHOOL TEACHER Gender Identity Female 03/22/2022 2:56 PM HOME SCHOOL TEACHER Sexual Orientation Straight 05/08/2023 5: 32 PM HOME SCHOOL TEACHER 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 on file Not on file documented as of this encounter Miscellaneous Notes * Telephone Encounter - Janay Damico RN - 08/19/2023 12:47 PM CDT 10/31/2022 8:02 AM 02/22/2023 8:04 AM 08/19/2023 12:47 PM Employee COVID-19 Screening Email: [email or web address] Employee/Student ID# [id number] Bellman/Urban Redevelopment Specialist name and email address: [email or web address] Are you an employee or student? Employee Employee Employee Employer: [employer] Are you 100% SHERIDAN? No No No Employee Facility: [facility] Are you okay receiving positive results and further instructions via email? 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 [facility] Are you considered to be severely immunocompromised? No No No Have you had a vaccine within the past 48 hours? No No No Have you been vaccinated against Covid-19? Yes Yes Yes Series: full initial series full initial series full initial series Year of most recent booster: no booster no boosters Have you tested positive for COVID in the past 60 days? Yes No No Date of most recent positive test: 10/30/2022 Date of test comment Positive at home test. Have you had a known, specific Covid exposure within the last 14 days? No No No Employee Symptoms: Yes Yes Yes Date of employee symptom onset: 10/28/2022 02/22/2023 08/19/2023 Description of Symptoms: Cough;Headache;Subjective Fever New Diarrhea;Nausea/Vomiting;Other Loss ofTaste Desciption of Symptoms Comment sinus pressure Other Symptoms: starting to resolve Temperature: 99.7 Did you work on site 48 hours prior to symptom onset and/or any days while symptomatic? Yes Yes Yes Which date(s) did the employee work? 10/26, 10/29-10/30/2022 home office 08/18 Which department? [facility] primary care Were you unmasked within 6 ft for longer than 15 minutes from another employee those days? No No No Did you come within 6 feet for more than 15 minutes with any patients without wearing a mask duringthe 48 hours prior to symptom onset? And/or while symptomatic? No No No Plan: (A) Stay home and test for symptoms (A) Stay home and test for symptoms Testing Site Location: [facility] Notes: Employee reports positive covid at home test 10/30/2022. Script A0 (stay home and test) for symptomatic employees (HCW and Non-HCW) Thank you for calling the Occupational Health Call Center. This email contains the same informationand recommendations discussed during your call. You should also forward this information to your supervisor phosphatic fertilizer as confirmation. Given your symptoms, you should not come to work and will be referred for combined COVID/Influenza/RSV testing. If you have had a COVID infection in the past 2 months, your COVID test will likely result positivedue to your prior infection. In this case, further guidance will be based solely on Influenza and RSV results. If you are at work on site, you must leave work now. Notify your supervisor phosphatic fertilizer that you have been directed to do so by the Occupational Health Call Center. Please go to the employee testing site as directed for your test. They should be expecting you; if there is any confusion, please call us at [phone]. Since you are reporting symptoms, wear a hospital provided mask when reporting for your test. While you are awaiting testing and results, you must remain off work. You should isolate yourself at home, avoid contact with any household members as much as possible, and stay in your home without leaving except for medical care. You should let your supervisor phosphatic fertilizer know that you will not be coming to work. Although we will email your supervisor phosphatic fertilizer to confirm this, it is still your responsibility to notify your supervisor phosphatic fertilizer as you wouldfor any other work absence. If you have the option to general house worker and you feel well enough, it must be approved by your supervisor phosphatic fertilizer We will notify you of your test results, which are usually available within 24- 48 hours. Your results will also post to your [facility] My Chart account ([email or web address]). Once yourresults are back, you will receive further instruction from Occupational Health. All further communication, including test results and guidance on returning to work, will be through the email you provided us during your screening. You must follow any additional isolation or quarantine instructions provided to you by federal, state, or local health authorities. Sincerely, Occupational Health Call Center Additional resources around self-isolation and how to prevent spread are available at: www.cdc.gov/coronavirus/2019-ncov documented in this encounter Plan of Treatment Not on file documented as of this encounter Results * Influenza A/B, RSV, and COVID-19 PCR Nasopharyngeal (08/19/2023 12:00 PM CDT) Pathologist [facility] COVID-19 RNA Negative Negative Influenza A RNA Negative Negative [facility] Influenza B RNA Negative Negative [facility] RSV RNA Negative Negative [facility] Comment: Interpretive data: Testing performed by [facility]. This test is performed using the [employer] Xpert Xpress CoV-2/Flu/RSV plus assay. This is a multiplex, real-time reverse transcriptase PCR assay intended for the qualitative detection of nucleic acid from SARS-CoV-2, influenza A, influenza B, and respiratory syncytial virus. This assay has been cleared by the [place] Food and Drug administration. The performance characteristics have been verified by the [facility]. ??Results must be considered in the clinical context, and a negative result does not rule out infection. Interpretive Data last revised 2023 Nasopharyngeal 08/19/2023 12 :00 PM CDT 08/19/2023 1:[address] [facility] - 08/19/2023 4:43 PM CDT Bill to [facility] - [id number] Patient is employed by/enrolled at:->[facility] Is the patient experiencing any symptoms consistent with COVID (eg. Fever, cough, shortness of breath)?->Yes Reason for testing?->Symptomatic Is the Patient experiencing symptoms consistent with COVID?->Yes us Hossein Walter MD LAB MICROBIOLOGY - GENERAL OR DERABLES Final Result [facility] [address] Department [place] [address] documented in this encounter Visit Diagnoses Diagnosis Loss of taste- Primary Disturbances of sensation of smell and taste Loss of taste Disturbances of sensation of smell and taste documented in this encounter Additional Health Concerns Infection Onset Date Last Indicated Resolved Time COVID: Suspected 08/19/2023 08/19/2023 08/19/2023 4:44 PM CDT documented as of this encounter Care Teams Security Management Specialist Relationship Specialty Start Date End Date Unknown, Notinfile PCP - General 07/16/22 David Rodriguez MD [address] [address] 07/16/22 documented as of this encounter
--- OUTSIDE RECORDS SUMMARY | 2024-03-31 11:14 | XMS_ITS | Encounter Summary ---
Author Organization [facility] Address [address] [place] [address] Care Team Providers Care Sample Wrapper Name Role Phone Unknown, Notinfile Primary Care Provider Unavail able David Rodriguez MD Unavailable [phone] Reason for Visit * Reason Comments Labs Only Encounter Details Date Type Department Care Team (Latest Contact Info) Description 09/10/2023 8:30 AM CDT Clinical Support [facility] [address] [place] [address] Ovarian dysfunction (Primary Dx) Social History Tobacco Use Types [...] on file Legal Sex 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 RENAL DIALYSIS RN Gender Identity Female 03/22/2022 2:56 PM RENAL DIALYSIS RN Sexual Orientation Straight 05/08/2023 5: 32 PM RENAL DIALYSIS RN 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 on file Not on file documented as of this encounter Plan of Treatment Not on file documented as of this encounter Procedures Procedure Name Priority Date/Time Associated Diagnosis Comments PROGESTERONE Routine 09/10/2023 8:42 AM CDT Ovarian dysfunction documented in this encounter Results * Progesterone (09/10/2023 8:42 AM CDT) Progesterone 9.2 ng/mL [facility] - 01 Comment: ? Follicular phase ? 0.1 - ?? 0.9 ? Luteal phase ? 1.8 - ??23.9 ? Ovulation phase ?0.1 - ??12.0 ?First trimester ?11.0 - ??44.3 ?Second trimester ?? 25.4 - ??83.3 ?Third trimester ?58.7 - 214.0 ? Postmenopausal ? 0.0 - ?? 0.1 Blood 09/10/2023 8:42 AM CDT 09/10/2023 Narrative [facility] - 09/11/2023 12:10 PM CDT Performed at: ??01 - [facility] [address] [facility], [place], [place] ??[id number] Barrel Assembly Inspector: Issac Jain PhD, Phone: ??[phone] us Barbara Webb MD LAB BLOOD ORDERABLES Ophelia rubin Result [facility] - 01 documented in this encounter Visit Diagnoses Diagnosis Ovarian dysfunction- Primary Unspecified ovarian dysfunction documented in this encounter Care Teams Sample Wrapper Relationship Specialty Start Date End Date Unknown, Notinfile PCP - General 07/16/22 David Rodriguez MD [address] [address] 07/16/22 documented as of this encounter
--- OUTSIDE RECORDS SUMMARY | 2024-03-31 11:14 | XMS_ITS | Encounter Summary ---
Author Organization [facility] Healthcare Address [address] [place] [address] Care Team Providers Care Django Developer Name Role Phone Unknown, Notinfile Primary Care Provider Unavail able David Rodriguez MD Unavailable Reason for Visit * Reason Onset Date Comments Medication Request 08/13/2023 Encounter Details Date Type Department Care Team (Late st Contact Info) Description 08/06/2023 Telephone [facility] Primary Care at [facility] [address] [address] David Rodriguez MD [address] [facility] [address], [place] [address] Medication Request Social History Tobacco Use Types Packs/Day Years [...] on file Legal Sex 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 CABLE PLACER Gender Identity Female 03/22/2022 2:56 PM CABLE PLACER Sexual Orientation Straight 05/08/2023 5: 32 PM CABLE PLACER 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 on file Not on file documented as of this encounter Ordered Prescriptions Prescription Sig Dispense Quantity Refills Last Filled Start Date End Date tirzepatide, weight loss, (Zepbound) 12.5 mg/0.5 mL pen injector Inject 0.5 mL (12.5 mg total) under the skin every 7 days 2 mL 3 08/06/2023 08/13/2023 documented in this encounter Miscellaneous Notes * Telephone Encounter - Kaleigh Macias MA - 08/13/2023 3:42 PM CDT Clled pt and informed pt that Zepbound prior auth is under review * Telephone Encounter - Emily Corbin - 08/13/2023 3:15 PM CDT Medication Question/Clarification Medication Name(s): tirzepatide, weight loss, (Zepbound) 12.5 mg/0.5 mL pen injector What is the question or clarification needed? Lisbeth, [facility], says prior auth isneeded for tirzepatide, weight loss, (Zepbound) 12.5 mg/0.5 mL pen injector every 365 days due to plan limitation has exceeded or other ferrari Dr Rodriguez has to write a new prescription. Please follow up. If needed, Pharmacy(s) medication(s) should be sent to: [facility] [address] [place] [address] Additional Comments: - Does message need to be routed? Yes-Action Needed yes * Telephone Encounter - Kaleigh Macias MA - 08/12/2023 4:55 PM CDT Have to call insurance company to get a override * Telephone Encounter - Fabby Aguilar - 08/12/2023 3:15 PM CDT Medication Question/Clarification Medication Name(s): Zepbound 12.5 What is the question or clarification needed? Checking status of pa or increase in dosing If needed, Pharmacy(s) medication(s) should be sent to: [facility] [phone] Additional Comments: Checking status of prior auth for Zepbound 12.5mg medication. Advised pa sent 08/08/23 and waiting response. Also asking if provider would like to increase from 12.5-15 to see ifmedication would be covered. Please advise. Does message need to be routed? Yes-Action Needed * Telephone Encounter - Stacie Harley LPN - 08/06/2023 8:29 AM CDT Refill sent per patients request documented in this encounter Plan of Treatment Not on file documented as of this encounter Visit Diagnoses Not on filedocumented in this encounter Discontinued Medications Medication Sig Discontinue Reason Start Date End Da te tirzepatide, weight loss, (Zepbound) 12.5 mg/0.5 mL pen injector Inject 0.5 mL (12.5 mg total) under the skin every 7 days Reorder 07/16/2023 08/06/2023 documented as of this encounter Care Teams Django Developer Relationship Specialty Start Date End Date Unknown, Notinfile PCP - General 07/16/22 David Rodriguez MD [address] [address] 07/16/22 documented as of this encounter
--- OUTSIDE RECORDS SUMMARY | 2024-03-31 11:14 | XMS_ITS | Encounter Summary ---
Author Organization [facility] Healthcare Address [address] [place] [address] Care Team Providers Care Studio Sales Associate Name Role Phone Unknown, Notinfile Primary Care Provider Unavail able David Rodriguez MD Unavailable [phone] Encounter Details Date Type Department Care Team (Latest Contact Info) Description 02/22/2023 8:45 AM FOOD SERVICES DIRECTOR - 02/22/2023 11:59 PM FOOD SERVICES DIRECTOR Hospital Encounter [address] [address] Nausea and vomiting in adult; Diarrhea, unspecified type Discharge Disposition: Discharge to home or self [...] more points, staff should administer the PHQ-9) 0 10/10/2022 Comments No Sex and Gender Information Value Date Recorded Sex Assigned at Not on file Legal Sex 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 FOOD SERVICES DIRECTOR Gender Identity Female 03/22/2022 2:56 PM FOOD SERVICES DIRECTOR Sexual Orientation Straight 05/08/2023 5: 32 PM FOOD SERVICES DIRECTOR 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 on file Not on file documented as of this encounter Medications at Time of Discharge ketorolac (TORADOL) 10 mg tablet TAKE 1 TABLET BY MOUTH EVERY 6 HOURS WITH FOOD OR MILK FOR 5 DAYS NEEDED 11/09/2022 05/15/2023 pregabalin (LYRICA) 50 mg capsule Take 1 capsule (50 mg total) by mouth 2 (two) times a day 11/28/2022 05/15/2023 semaglutide (Ozempic) 2 mg/dose (8 mg/3 mL) pen injector injection Inject 2 mg under the skin every 7 days 3 mL 3 12/27/2022 05/15/2023 documented as of this encounter Discharge Disposition Disposition Code Departure Means Destination Discharge to home or self care documented in this encounter Plan of Treatment Not on file documented as of this encounter Procedures Procedure Name Priority Date/Time Associated Diagnosis Comments INFLUENZA A/B, RSV, AND COVID-19 PCR Routine 02/22/2023 8:45 AM FOOD SERVICES DIRECTOR Nausea and vomiting in adult Diarrhea, unspecified type documented in this encounter Results * Influenza A/B, RSV, and COVID-19 PCR Nasopharyngeal (02/22/2023 8:45 AM FOOD SERVICES DIRECTOR) COVID-19 RNA Negative Negative [facility] Influenza A RNA Negative Negative [facility] Influenza B RNA Negative Negative [facility] RSV RNA Negative Negative [facility] Comment: Interpretive data: This test is performed using the [employer] Xpert Xpress CoV-2/Flu/RSV plus assay. This is a multiplex, real-time reverse transcriptase PCR assay intended for the qualitative detection of nucleic acid from SARS-CoV-2, influenza A, influenza B, and respiratory syncytial virus. This assay has been reviewed by the FDA for Emergency Use Authorization (EUA). The performance characteristics have been verified by the performing laboratory. Results must be considered in the clinical context, and a negative result does not rule out infection. Interpretive Data last revised 2021. Nasopharyngeal 02/22/2023 8: 45 AM FOOD SERVICES DIRECTOR 02/22/2023 1:50 PM FOOD SERVICES DIRECTOR Narrative [facility] - 02/22/2023 3:17 PM FOOD SERVICES DIRECTOR Patient is employed by/enrolled at:->[employer] Is the patient experiencing any symptoms consistent with COVID (eg. Fever, cough, shortness of breath)?->Yes What is the reason for testing?->Symptoms of COVID-19 in high-risk group??(Rapid) Date of Symptom Onset->02/22/23 Reason for testing?->Symptomatic Magdalena Jha MD LAB MICROBIOLOGY - GENERAL ORDERABLES Final Result [facility] [address] Department [place] [address] documented in this encounter Visit Diagnoses Diagnosis Nausea and vomiting in adult Diarrhea, unspecified type documented in this encounter Additional Health Concerns Infection Onset Date Last Indicated Resolved Time COVID: Suspected 02/22/2023 02/22/2023 02/22/2023 3:18 PM FOOD SERVICES DIRECTOR documented as of this encounter Care Teams Studio Sales Associate Relationship Specialty Start Date End Date Unknown, Notinfile PCP - General 07/16/22 David Rodriguez MD [address] [address] 07/16/22 documented as of this encounter
--- OUTSIDE RECORDS SUMMARY | 2024-03-31 11:14 | XMS_ITS | Encounter Summary ---
Author Organization [facility] Address [address] [place] [address] Care Team Providers Care Production Honing Machine Operator Name Role Phone Unknown, Notinfile Primary Care Provider Unavail able David Rodriguez MD Unavailable [phone] Reason for Visit * Reason Comments Labs Only Encounter Details Date Type Department Care Team (Latest Contact Info) Description 11/07/2023 8:45 AM CDT Clinical Support [facility] [address] [facility] [address] [place] [address] Ovarian dysfunction (Primary Dx) Social [...] file Legal Sex 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 FOOD AIDE Gender Identity Female 03/22/2022 2:56 PM FOOD AIDE Sexual Orientation Straight 05/08/2023 5: 32 PM FOOD AIDE 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 on file Not on file documented as of this encounter Plan of Treatment Not on file documented as of this encounter Procedures Procedure Name Priority Date/Time Associated Diagnosis Comments PROGESTERONE Routine 11/07/2023 8:50 AM CDT Ovarian dysfunction documented in this encounter Results * Progesterone (11/07/2023 8:50 AM CDT) Progesterone 9.5 ng/mL [facility] - 01 Comment: ? Follicular phase ? 0.1 - ?? 0.9 ? Luteal phase ? 1.8 - ??23.9 ? Ovulation phase ?0.1 - ??12.0 ?First trimester ?11.0 - ??44.3 ?Second trimester ?? 25.4 - ??83.3 ?Third trimester ?58.7 - 214.0 ? Postmenopausal ? 0.0 - ?? 0.1 Blood 11/07/2023 8:50 AM CDT 11/07/2023 Narrative [facility] - 11/08/2023 1:10 PM CDT Performed at: ??01 - [facility] [address] [facility], [place], [place] ??[id number] Facilities Operations Technician: Issac Jain PhD, Phone: ??[phone] us Barbara Webb MD LAB BLOOD ORDERABLES Ophelia rubin Result [facility] - 01 documented in this encounter Visit Diagnoses Diagnosis Ovarian dysfunction- Primary Unspecified ovarian dysfunction documented in this encounter Care Teams Production Honing Machine Operator Relationship Specialty Start Date End Date Unknown, Notinfile PCP - General 07/16/22 David Rodriguez MD [address] [address] 07/16/22 documented as of this encounter
--- OUTSIDE RECORDS SUMMARY | 2024-03-31 11:14 | XMS_ITS | Encounter Summary ---
Author Organization [facility] Healthcare Address [address] [place] [address] Care Team Providers Care Pool Nurse Name Role Phone Unknown, Notinfile Primary Care Provider Unavail able David Rodriguez MD Unavailable [phone] Encounter Details Date Type Department Care Team (Late st Contact Info) Description 06/06/2023 Orders Only [facility] Medical Group Primary Care at [facility] [address] [facility] [address] [place] [phone] David Rodriguez MD [address] [facility] [place] [address] [place] [address] Social History Tobacco Use Types Packs/Day [...] on file Legal Sex 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 CORK FLOOR INSTALLER Gender Identity Female 03/22/2022 2:56 PM CORK FLOOR INSTALLER Sexual Orientation Straight 05/08/2023 5: 32 PM CORK FLOOR INSTALLER 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 on file Not on file documented as of this encounter Ordered Prescriptions Prescription Sig Dispense Quantity Refills Last Filled Start Date End Date tirzepatide, weight loss, (Zepbound) 5 mg/0.5 mL pen injector Inject 0.5 mL (5 mg total) under the skin every 7 days 2 mL 06/06/2023 07/05/2023 documented in this encounter Plan of Treatment Not on file documented as of this encounter Visit Diagnoses Not on filedocumented in this encounter Discontinued Medications Medication Sig Discontinue Reason Start Date End Da te tirzepatide, weight loss, (Zepbound) 2.5 mg/0.5 mL pen injector Inject 0.5 mL (2.5 mg total) under the skin every 7 days for 14 days, THEN 1 mL (5 mg total) every 7 days. Dose adjustment 05/15/2023 06/06/2023 documented as of this encounter Care Teams Pool Nurse Relationship Specialty Start Date End Date Unknown, Notinfile PCP - General 07/16/22 David Rodriguez MD [address] [address] 07/16/22 documented as of this encounter
--- OUTSIDE RECORDS SUMMARY | 2024-03-31 11:14 | XMS_ITS | Encounter Summary ---
Author Organization [facility] Address [address] [facility] [address] [place] [address] Care Team Providers Care Fire Watcher Name Role Phone Unknown, Notinfile Primary Care Provider Unavail able David Rodriguez MD Unavailable [phone] Reason for Visit * Reason Comments Labs Only Encounter Details Date Type Department Care Team (Latest Contact Info) Description 09/20/2023 8:30 AM CDT Clinical Support [facility] [address] [facility] Medical Office [address] [place] [address] Unconfirmed (Primary Dx) Social History Tobacco Use Types [...] on file Legal Sex 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 HAZARDOUS MATERIALS DRIVER Gender Identity Female 03/22/2022 2:56 PM HAZARDOUS MATERIALS DRIVER Sexual Orientation Straight 05/08/2023 5: 32 PM HAZARDOUS MATERIALS DRIVER 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 on file Not on file documented as of this encounter Plan of Treatment Not on file documented as of this encounter Procedures Procedure Name Priority Date/Time Associated Diagnosis Comments HCG, BLOOD, QUANTITATIVE Routine 09/20/2023 8:42 AM CDT Unconfirmed documented in this encounter Results * hCG, blood, quantitative (09/20/2023 8:42 AM CDT) HCG, quant 4 mIU/mL [facility] - 01 Comment: ? Female (Non-) ?0 - ? 5 ?(Postmenopausal) ??0 - ? 8 ? Female () ? Weeks of Gestation ? 3 ?6 - ?71 ? 4 ? 10 - ?? 750 ? 5 ?217 - ??7138 ? 6 ?158 - 20134 ? 7 ? 2699 -993984 ? 8 ?58212 -410711 ? 9 ?86679 -305161 ?10 ?78960 -179290 ?12 ?97058 -067151 ?14 ?89259 - 26075 ?15 ?50309 - 79845 ?16 ? 8603 - 83939 ?17 ? 4248 - 57033 ?18 ? 8099 - 84919 [facility] ECLIA methodology Blood 09/20/2023 8:42 AM CDT 09/20/2023 Narrative [facility] - 09/21/2023 9:10 AM CDT Performed at: ??01 - [facility] [address] ??[id number] Car Dumper Operator Helper: Issac Jain PhD, Phone: ??[phone] us Barbara Webb MD LAB BLOOD ORDERABLES Ophelia conklin Result [facility] 01 documented in this encounter Visit Diagnoses Diagnosis Unconfirmed - Primary documented in this encounter Care Teams Fire Watcher Relationship Specialty Start Date End Date Unknown, Notinfile PCP - General 07/16/22 David Rodriguez MD [address] [address] 07/16/22 documented as of this encounter
--- OUTSIDE RECORDS SUMMARY | 2024-03-31 11:14 | XMS_ITS | Encounter Summary ---
Author Organization [facility] Healthcare Address [address] [place] [address] Care Team Providers Care New Car Salesperson Name Role Phone Unknown, Notinfile Primary Care Provider Unavail able David Rodriguez MD Unavailable [phone] Reason for Visit * Reason Comments Ear Problem Encounter Details Date Type Department Care Team (Late st Contact Info) Description 11/18/2023 2:30 PM CDT Office Visit [facility] Medical [facility] Primary Care at [facility] [address] [facility] [address] [address] David Rodriguez MD [address] [facility] [address], [place] [address] TMJ arthralgia (Primary Dx) Social History Tobacco Use Types [...] on file Legal Sex 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 INFLATED PAD BUFFER Gender Identity Female 03/22/2022 2:56 PM INFLATED PAD BUFFER Sexual Orientation Straight 05/08/2023 5: 32 PM INFLATED PAD BUFFER 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 on file Not on file documented as of this encounter Last Filed Vital Signs Vital Sign Reading Time Taken Comments Blood Pressure 92/60 11/18/2023 2:32 PM CDT Pulse 91 11/18/2023 2:32 PM CDT Temperature - - Respiratory Rate - - Oxygen Saturation 96% 11/18/2023 2:32 PM CDT Inhaled Oxygen Concentration - - Weight 98 kg (216 lb) 11/18/2023 2:32 PM CDT Height 162.6 cm (5' 4 ) 11/18/2023 2:32 PM CDT Body Mass Index 37.08 11/18/2023 2:32 PM CDT documented in this encounter Progress Notes * David Rodriguez MD - 11/18/2023 2:30 PM CDT Subjective/Objective Patient ID: Kelly Castro is a 28 y.o. female. Chief Complaint Ear Problem Earache There is pain in the right ear. This is a new problem. The current episode started yesterday. The problem occurs constantly. The problem has been waxing and waning. There has been no fever. The pain is at a severity of 8/10. Pertinent negatives include no abdominal pain, coughing, diarrhea, ear disc harge, headaches, hearing loss, neck pain, rash, rhinorrhea, sore throat or vomiting. Patient is here for recent history of right ear pain. Pain is located anterior to the ear itself. She has been under lot of stress recently and wakes up in the morning with severe jaw pain and ear pain. She denies any fevers chills and she has not tried anything for it. Review of Systems Constitutional: Negative for fatigue, fever and unexpected weight change. HENT: Positive for ear pain. Negative for ear discharge, hearing loss, postnasal drip, rhinorrhea and sore throat. Eyes: Negative for visual disturbance. Respiratory: Negative for cough and shortness of breath. Cardiovascular: Negative for chest pain and palpitations. Gastrointestinal: Negative for abdominal pain, diarrhea, nausea and vomiting. Endocrine: Negative for cold intolerance and heat intolerance. Genitourinary: Negative for dysuria and frequency. Musculoskeletal: Negative for arthralgias, joint swelling and neck pain. Skin: Negative for rash. Allergic/Immunologic: Negative for environmental allergies and food allergies. Neurological: Negative for dizziness and headaches. Hematological: Negative for adenopathy. Psychiatric/Behavioral: Negative for behavioral problems. The patient is not nervous/anxious. BP 92/60 Pulse 91 Ht 162.6 cm (5' 4 ) Wt 98 kg (216 lb) SpO2 96% BMI 37.08 kg/m?? Physical Exam Constitutional: Appearance: She is well-developed. HENT: Head: Normocephalic and atraumatic. Comments: Right TMJ with significant tenderness on palpation Right Ear: Tympanic membrane, ear canal and external ear normal. Left Ear: Tympanic membrane, ear canal and external ear normal. Mouth/Throat: Mouth: Mucous membranes are moist. Pharynx: Oropharynx is clear. Cardiovascular: Rate and Rhythm: Normal rate and regular rhythm. Heart sounds: Normal heart sounds. Pulmonary: Effort: Pulmonary effort is normal. Breath sounds: Normal breath sounds. Assessment/Plan Diagnoses and all orders for this visit: TMJ arthralgia (Primary) Comments: Patient was told to go get a mouth guard and use anti-inflammatories twice a day documented in this encounter Plan of Treatment Not on file documented as of this encounter Visit Diagnoses Diagnosis TMJ arthralgia- Primary Arthralgia of temporomandibular joint documented in this encounter Care Teams New Car Salesperson Relationship Specialty Start Date End Date Unknown, Notinfile PCP - General 07/16/22 David Rodriguez MD [address] [address] 07/16/22 documented as of this encounter
--- OUTSIDE RECORDS SUMMARY | 2024-03-31 11:14 | XMS_ITS | Encounter Summary ---
Author Organization [facility] Healthcare Address [address] [place] [address] Care Team Providers Care Forestry Extension Specialist Name Role Phone Unknown, Notinfile Primary Care Provider Unavail able David Rodriguez MD Unavailable Encounter Details Date Type Department Care Team (Late st Contact Info) Description 07/05/2023 Orders Only [facility] Healthcare Occupatiuonal Health [address] [facility] [address] (Third Floor) [place], [place] [id number] Hossein Walter MD [address] [facility] [address] [place], [place] [id number] Pre-employment health screening examination (Primary Dx) Social History Tobacco Use Types [...] on file Legal Sex 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 DRYING MACHINE TENDER Gender Identity Female 03/22/2022 2:56 PM DRYING MACHINE TENDER Sexual Orientation Straight 05/08/2023 5: 32 PM DRYING MACHINE TENDER 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 on file Not on file documented as of this encounter Plan of Treatment Not on file documented as of this encounter Results * T-SPOT.TB Blood (07/05/2023 3:15 PM CDT) [facility] T-SPOT.TB Negative SeeBelow Comment: Normal Value: Negative A negative test result does not exclude the possibility of exposure to or infection with Mycobacterium tuberculosis (M. tuberculosis). ??Patients with recent exposure to TB infected individuals exhibiting a negative T-SPOT.TB result should be considered for retesting within 6 weeks or if other relevant clinical symptoms indicate. ??Results from T-SPOT.TB testing must be used in conjunction with each individual's epidemiological history, current medical status, and results of other diagnostic evaluations. ??The T-SPOT.TB test is qualitative and results are reported as positive, borderline or negative, given that the test controls perform as expected. In line with the Centers for Disease Control and Prevention's 2010 recommendation to report quantitative measurements alongside the qualitative result, the laboratory provides spot counts for informational purposes only. ??The T-SPOT.TB test should not be interpreted as a quantitative test. T-SPOT.TB Panel A Spot Count 0 [facility] T-SPOT.TB Panel B Spot Count 0 [facility] T-SPOT.TB Negative Control Passed [facility] T-SPOT.TB Positive Control Passed [facility] Comment: Test Performed at: [employer] [facility] [address] [place] [address] ??[id number] ? MANJU PINEDA,PHD Blood 07/05/2023 3:15 PM CDT 07/05/2023 5:27 PM CDT Narrative [facility] - 07/07/2023 1:38 PM CDT Bill to [facility] - [id number] Patient is employed by/enrolled at:->[facility] us Hossein Walter MD LAB MICROBIOLOGY - GENERAL OR DERABLES Final Result [facility] Department [place] [address] documented in this encounter Visit Diagnoses Diagnosis Pre-employment health screening examination- Primary Health examination of defined subpopulation Pre-employment health screening examination Health examination of defined subpopulation documented in this encounter Care Teams Forestry Extension Specialist Relationship Specialty Start Date End Date Unknown, Notinfile PCP - General 07/16/22 David Rodriguez MD [address] [facility] [address], [place] [address] 07/16/22 documented as of this encounter
--- OUTSIDE RECORDS SUMMARY | 2024-03-31 11:14 | XMS_ITS | Encounter Summary ---
Author Organization [facility] Healthcare Address [address] [place] [address] Care Team Providers Care Stem Frazer Name Role Phone Unknown, Notinfile Primary Care Provider Unavail able David Rodriguez MD Unavailable [phone] Reason for Visit * Reason Comments Depression Obesity Encounter Details Date Type Department Care Team (Late st Contact Info) Description 05/15/2023 2:00 PM WARD SUPERVISOR Office Visit [facility] Primary Care at [facility] [address] [facility] [address] [place] [address] David Rodriguez MD [address] [facility] [address], [place] [address] Morbid obesity with BMI of 40.0-44.9, adult (HCC) (Primary Dx); Moderate episode of recurrent major depressive disorder (HCC) Social History Tobacco Use Types Packs/Day Years [...] on file Legal Sex 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 WARD SUPERVISOR Gender Identity Female 03/22/2022 2:56 PM WARD SUPERVISOR Sexual Orientation Straight 05/08/2023 5: 32 PM WARD SUPERVISOR 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 on file Not on file documented as of this encounter Last Filed Vital Signs Vital Sign Reading Time Taken Comments Blood Pressure 120/60 05/15/2023 2:04 PM WARD SUPERVISOR Pulse 83 05/15/2023 2:04 PM WARD SUPERVISOR Temperature - - Respiratory Rate - - Oxygen Saturation 98% 05/15/2023 2:04 PM WARD SUPERVISOR Inhaled Oxygen Concentration - - Weight 108 kg (238 lb) 05/15/2023 2:04 PM WARD SUPERVISOR Height 162.6 cm (5' 4 ) 05/15/2023 2:04 PM WARD SUPERVISOR Body Mass Index 40.85 05/15/2023 2:04 PM WARD SUPERVISOR documented in this encounter Ordered Prescriptions Prescription Sig Dispense Quantity Refills Last Filled Start Date End Date venlafaxine XR (EFFEXOR-XR) 75 mg 24 hr capsule Take 1 capsule (75 mg total) by mouth daily Take with food. 30 capsule 11 05/15/2023 4 tirzepatide, weight loss, (Zepbound) 2.5 mg/0.5 mL pen injector Inject 0.5 mL (2.5 mg total) under the skin every 7 days for 14 days, THEN 1 mL (5 mg total) every 7 days. 5 mL 05/15/2023 4 documented in this encounter Progress Notes * David Rodriguez MD - 05/15/2023 2:00 PM CST Subjective/Objective Patient ID: Kelly Castro is a 28 y.o. female. Chief Complaint Depression and Obesity DepressionPatient is not experiencing: nervousness/anxiety, palpitations and shortness of breath. Patient is here for issues with her obesity. Patient's insurance would not cover [employer]. In order to work for her. Patient was also here for issues with depression. Her parents apparently her getting at the age of 55 and she is having difficulty with this. She finds that she is eating allthe time because she is depressed. Review of Systems Constitutional: Positive for unexpected weight change. Negative for fatigue and fever. HENT: Negative for ear pain, postnasal drip, rhinorrhea and sore throat. Eyes: Negative for visual disturbance. Respiratory: Negative for cough and shortness of breath. Cardiovascular: Negative for chest pain and palpitations. Gastrointestinal: Negative for abdominal pain and nausea. Endocrine: Negative for cold intolerance and heat intolerance. Genitourinary: Negative for dysuria and frequency. Musculoskeletal: Negative for arthralgias and joint swelling. Skin: Negative for rash. Allergic/Immunologic: Negative for environmental allergies and food allergies. Neurological: Negative for dizziness and headaches. Hematological: Negative for adenopathy. Psychiatric/Behavioral: Negative for behavioral problems. The patient is not nervous/anxious. BP 120/60 Pulse 83 Ht 162.6 cm (5' 4 ) Wt 108 kg (238 lb) SpO2 98% BMI 40.85 kg/m?? Physical Exam Constitutional: Appearance: She is well-developed. She is obese. HENT: Head: Normocephalic and atraumatic. Cardiovascular: Rate and Rhythm: Normal rate and regular rhythm. Heart sounds: Normal heart sounds. Pulmonary: Effort: Pulmonary effort is normal. Breath sounds: Normal breath sounds. Assessment/Plan Diagnoses and all orders for this visit: Morbid obesity with BMI of 40.0-44.9, adult ([facility]) (Primary) Comments: Patient was prescribed Zepbound Moderate episode of recurrent major depressive disorder ([facility]) Comments: Patient was prescribed Effexor XR 75 mg daily Other orders - tirzepatide, weight loss, (Zepbound) 2.5 mg/0.5 mL pen injector; Inject 0.5 mL (2.5 mg total) under the skin every 7 days for 14 days, THEN 1 mL (5 mg total) every 7 days. - venlafaxine XR (EFFEXOR-XR) 75 mg 24 hr capsule; Take 1 capsule (75 mg total) by mouth daily Takewith food. SUPERVISOR documented in this encounter Plan of Treatment Not on file documented as of this encounter Visit Diagnoses Diagnosis Morbid obesity with BMI of 40.0-44.9, adult ([facility])- Primary Moderate episode of recurrent major depressive disorder (HCC) documented in this encounter Discontinued Medications Medication Sig Discontinue Reason Start Date End Da te semaglutide (Ozempic) 2 mg/dose (8 mg/3 mL) pen injector injection Inject 2 mg under the skin every 7 days Therapy completed 12/27/2022 05/15/2023 pregabalin (LYRICA) 50 mg capsule Take 1 capsule (50 mg total) by mouth 2 (two) times a day Therapy completed 11/28/2022 05/15/2023 ketorolac (TORADOL) 10 mg tablet TAKE 1 TABLET BY MOUTH EVERY 6 HOURS WITH FOOD OR MILK FOR 5 DAYS NEEDED Therapy completed 11/09/2022 05/15/2023 documented as of this encounter Care Teams Stem Frazer Relationship Specialty Start Date End Date Unknown, Notinfile PCP - General 07/16/22 David Rodriguez MD [address] [address] 07/16/22 documented as of this encounter
--- OUTSIDE RECORDS SUMMARY | 2024-03-31 11:14 | XMS_ITS | Encounter Summary ---
Author Organization [facility] Address [address] [place] [address] Care Team Providers Care Profiling Machine Set Up Operator Name Role Phone Unknown, Notinfile Primary Care Provider Unavail able David Rodriguez MD Unavailable Reason for Visit * Reason Onset Date Comments Progestrone Question 09/12/2023 Encounter Details Date Type Department Care Team (Late st Contact Info) Description 09/12/2023 Telephone [facility] [address] [facility] [address] [place] [address] Barbara Webb MD [address] [facility] [address] [place] [address] Progestrone Question Social History Tobacco Use Types Packs/Day Years [...] on file Legal Sex 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 STRUCTURAL TEST ENGINEER Gender Identity Female 03/22/2022 2:56 PM STRUCTURAL TEST ENGINEER Sexual Orientation Straight 05/08/2023 5: 32 PM STRUCTURAL TEST ENGINEER 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 on file Not on file documented as of this encounter Miscellaneous Notes * Telephone Encounter - Leann Lemus BSN - 09/13/2023 8:34 AM CDT Pt notified and agreeable to plan. * Telephone Encounter - Barbara Webb MD - 09/12/2023 5:03 PM CDT IUD removed 06/2023. Would continue timed intercourse and ovulation sticks for the next 4 months. SA when able. We can check prog level again next month if she would like * Telephone Encounter - Leann Lemus BSN - 09/12/2023 2:09 PM CDT Per pt, calling about MLP results and plan moving forward. +OPK 09/01, MLP on 09/09 was 9.2. Aware that is consistent w/ ovulation. She inquired what [facility] would have her do from here. Spouse has not yet been able to complete SA due to work schedule. Aware will review w/ [facility] and follow up * Telephone Encounter - Qing Mckeon - 09/12/2023 2:03 PM CDT VM: moisés my name is Kelly Castro Pablo CEDEÑO DEVON my birthday's I'm calling in regards to my testingfor my progesterone see what it all entails and what it means and what we're doing to move forward if you could give me a call at three hundred [phone] I would appreciate it documented in this encounter Plan of Treatment Not on file documented as of this encounter Visit Diagnoses Not on filedocumented in this encounter Care Teams Profiling Machine Set Up Operator Relationship Specialty Start Date End Date Unknown, Notinfile PCP - General 07/16/22 David Rodriguez MD [address] [address] 07/16/22 documented as of this encounter
--- OUTSIDE RECORDS SUMMARY | 2024-03-31 11:14 | XMS_ITS | Encounter Summary ---
Author Organization [facility] Healthcare Address [address] [place] [address] Care Team Providers Care Orchid Worker Name Role Phone Unknown, Notinfile Primary Care Provider Unavail able David Rodriguez MD Unavailable [phone] Encounter Details Date Type Department Care Team (Latest Contact Info) Description 11/08/2023 4:11 PM CDT - 11/08/2023 11:59 PM CDT Hospital Encounter [id number] [place] [address] Discharge Disposition: Discharge to home or self [...] on file Legal Sex 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 DETACKER Gender Identity Female 03/22/2022 2:56 PM DETACKER Sexual Orientation Straight 05/08/2023 5: 32 PM DETACKER Occupation Industry Job Start Date Job End [...] days, starting cycle day 3-7 5 tablet 11/18/2023 12/18/19 24 tirzepatide, weight loss, (Zepbound) 10 mg/0.5 mL pen injector Inject 0.5 mL (10 mg total) under the skin every 7 days 2 mL 10/29/2023 11/24/19 24 documented as of this encounter Discharge Disposition Disposition Code Departure Means Destination Discharge to home or self care documented in this encounter Plan of Treatment Not on file documented as of this encounter Visit Diagnoses Not on filedocumented in this encounter Care Teams Orchid Worker Relationship Specialty Start Date End Date Unknown, Notinfile PCP - General 07/16/22 David Rodriguez MD [address] [address] 07/16/22 documented as of this encounter
--- OUTSIDE RECORDS SUMMARY | 2024-03-31 11:14 | XMS_ITS | Encounter Summary ---
Author Organization [facility] Address [address] [facility] [address] [place] [address] Care Team Providers Care Behavioral Health Worker Name Role Phone Unknown, Notinfile Primary Care Provider Unavail able David Rodriguez MD Unavailable [phone] Reason for Visit * Reason Onset Date Comments Ovualtion questions and SA 08/21/2023 Encounter Details Date Type Department Care Team (Late st Contact Info) Description 08/21/2023 Telephone [facility] [address] [facility] Medical Office [address] [place] [address] Leann Lemus BSN Ovualtion questions and SA Social History Tobacco Use Types Packs/Day Years [...] on file Legal Sex 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 ELECTRONICS REPAIR TECHNICIAN Gender Identity Female 03/22/2022 2:56 PM ELECTRONICS REPAIR TECHNICIAN Sexual Orientation Straight 05/08/2023 5: 32 PM ELECTRONICS REPAIR TECHNICIAN 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 on file Not on file documented as of this encounter Miscellaneous Notes * Telephone Encounter - Leann Lemus BSN - 08/21/2023 11:37 AM CDT Pt notified, per [facility], check for peak and call to schedule prog for 7 days later. No prog if no peak. Pt agreeable. * Telephone Encounter - Patricia Pelaez RN - 08/21/2023 11:35 AM CDT Pt notified. * Telephone Encounter - Leann Lemus BSN - 08/21/2023 10:16 AM CDT VM: SA for spouse and prog testing Pt seen for IUD removal and preconception visit 06/24/23. Normal labs at that time, pt carrier screen negative. w/ child from previous relationship. Discussed w/ pt that they can have SA done at [facility], [facility], or [facility]. Ptto let us know where she would like order sent. She would also like to check her progesterone to determine if ovulating. Advised to start using OPK on CD 11, assess for peak, and call when peak. Will confirm w/ [facility] MLP on CD 21 if no peak per kit. Pt agreeable. She is currently on CD 1. documented in this encounter Plan of Treatment Not on file documented as of this encounter Visit Diagnoses Not on filedocumented in this encounter Care Teams Behavioral Health Worker Relationship Specialty Start Date End Date Unknown, Notinfile PCP - General 07/16/22 David Rodriguez MD [address] [address] 07/16/22 documented as of this encounter
--- OUTSIDE RECORDS SUMMARY | 2024-03-31 11:14 | XMS_ITS | Encounter Summary ---
Author Organization [facility] Healthcare Address [address] [place] [address] Care Team Providers Care Cloth Framer Name Role Phone Unknown, Notinfile Primary Care Provider Unavail able David Rodriguez MD Unavailable [phone] Encounter Details Date Type Department Care Team (Late st Contact Info) Description 08/19/2023 1:15 PM CDT Lab [facility] Outpatient Lab [address] [place] [address] Loss of taste Social History Tobacco Use Types Packs/Day Years [...] on file Legal Sex 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 GIFT OFFICER Gender Identity Female 03/22/2022 2:56 PM GIFT OFFICER Sexual Orientation Straight 05/08/2023 5: 32 PM GIFT OFFICER 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 on file Not on file documented as of this encounter Plan of Treatment Not on file documented as of this encounter Procedures Procedure Name Priority Date/Time Associated Diagnosis Comments INFLUENZA A/B, RSV, AND COVID-19 PCR Routine 08/19/2023 12:00 PM CDT Loss of taste documented in this encounter Results * Influenza A/B, RSV, and COVID-19 PCR Nasopharyngeal (08/19/2023 12:00 PM CDT) COVID-19 RNA Negative Negative Influenza A RNA Negative Negative [facility] Influenza B RNA Negative Negative [facility] RSV RNA Negative Negative [facility] Comment: Interpretive data: Testing performed by [facility]. This test is performed using the [employer] Xpert Xpress CoV-2/Flu/RSV plus assay. This is a multiplex, real-time reverse transcriptase PCR assay intended for the qualitative detection of nucleic acid from SARS-CoV-2, influenza A, influenza B, and respiratory syncytial virus. This assay has been cleared by the [place] Food and Drug administration. The performance characteristics have been verified by the [facility]. ??Results must be considered in the clinical context, and a negative result does not rule out infection. Interpretive Data last revised 2023 Nasopharyngeal 08/19/2023 12 :00 PM CDT 08/19/2023 1:49 PM CDT Narrative [facility] - 08/19/2023 4:43 PM CDT Bill to [facility] - 1520 Patient is employed by/enrolled at:->[facility] Is the patient experiencing any symptoms consistent with COVID (eg. Fever, cough, shortness of breath)?->Yes Reason for testing?->Symptomatic Is the Patient experiencing symptoms consistent with COVID?->Yes us Hossein Walter MD LAB MICROBIOLOGY - GENERAL OR DERABLES Final Result [facility] [address] Department [place] [address] documented in this encounter Visit Diagnoses Diagnosis Loss of taste Disturbances of sensation of smell and taste documented in this encounter Additional Health Concerns Infection Onset Date Last Indicated Resolved Time COVID: Suspected 08/19/2023 08/19/2023 08/19/2023 4:44 PM CDT documented as of this encounter Care Teams Cloth Framer Relationship Specialty Start Date End Date Unknown, Notinfile PCP - General 07/16/22 David Rodriguez MD [address] [address] 07/16/22 documented as of this encounter
--- OUTSIDE RECORDS SUMMARY | 2024-03-31 11:14 | XMS_ITS | Encounter Summary ---
Author Organization [facility] Healthcare Address [address] [place] [address] Care Team Providers Care Dining Room Coordinator Name Role Phone Unknown, Notinfile Primary Care Provider Unavail able David Rodriguez MD Unavailable [phone] Encounter Details Date Type Department Care Team (Latest Contact Info) Description 07/05/2023 3:15 PM CDT - 07/05/2023 11:59 PM CDT Hospital Encounter [address] [address] Pre-employment health screening examination Discharge Disposition: Discharge to home or self [...] on file Legal Sex 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 PROGRAM MANAGER Gender Identity Female 03/22/2022 2:56 PM PROGRAM MANAGER Sexual Orientation Straight 05/08/2023 5: 32 PM PROGRAM MANAGER 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 on file Not on file documented as of this encounter Medications at Time of Discharge desvenlafaxine ER (PRISTIQ) 50 mg 24 hr tablet Take 1 tablet (50 mg total) by mouth daily 30 tablet 11 05/29/2023 05/28/2024 tirzepatide, weight loss, (Zepbound) 7.5 mg/0.5 mL pen injector Inject 0.5 mL (7.5 mg total) under the skin every 7 days 2 mL 07/05/2023 07/10/2023 tirzepatide, weight loss, (Zepbound) 7.5 mg/0.5 mL pen injector Inject 0.5 mL (7.5 mg total) under the skin every 7 days 2 mL 07/10/2023 07/16/2023 documented as of this encounter Discharge Disposition Disposition Code Departure Means Destination Discharge to home or self care documented in this encounter Plan of Treatment Not on file documented as of this encounter Procedures Procedure Name Priority Date/Time Associated Diagnosis Comments T-SPOT.TB Routine 07/05/2023 3:15 PM CDT Pre-employment health screening examination documented in this encounter Results * T-SPOT.TB Blood (07/05/2023 3:15 PM CDT) [facility] T-SPOT.TB Negative SeeBelow Comment: Normal Value: Negative [...] test. T-SPOT.TB Panel A Spot Count 0 [facility] T-SPOT.TB Panel B Spot Count 0 [facility] T-SPOT.TB Negative Control Passed [facility] T-SPOT.TB Positive Control Passed [facility] Comment: Test Performed at: [employer] [address] [place], [place] ??[address] ? MANJU PINEDA,PHD Blood 07/05/2023 3:15 PM CDT 07/05/2023 5:27 PM CDT Narrative [facility] - 07/07/2023 1:38 PM CDT Bill to [facility] [employer] - [id number] Patient is employed by/enrolled at:->[facility] Medical [facility] Hossein Walter MD LAB MICROBIOLOGY - GENERAL OR DERABLES Final Result [facility] Department [place] [address] documented in this encounter Visit Diagnoses Diagnosis Pre-employment health screening examination Health examination of defined subpopulation documented in this encounter Care Teams Dining Room Coordinator Relationship Specialty Start Date End Date Unknown, Notinfile PCP - General 07/16/22 David Rodriguez MD [address] [address] 07/16/22 documented as of this encounter
--- OUTSIDE RECORDS SUMMARY | 2024-03-31 11:14 | XMS_ITS | Encounter Summary ---
Author Organization [facility] Address [address] [facility] [address] [place] [address] Care Team Providers Care Title Lawyer Name Role Phone Unknown, Notinfile Primary Care Provider Unavail able David Rodriguez MD Unavailable [phone] Reason for Visit * Reason Onset Date Comments NOB-Getting labs 09/18/2023 Encounter Details Date Type Department Care Team (Late st Contact Info) Description 09/18/2023 Telephone [facility] [address] [facility] Medical Office [address] [place] [address] Leann Lemus BSN NOB-Getting labs Social History Tobacco Use Types Packs/Day Years [...] on file Legal Sex 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 REPAIR OPERATOR Gender Identity Female 03/22/2022 2:56 PM REPAIR OPERATOR Sexual Orientation Straight 05/08/2023 5: 32 PM REPAIR OPERATOR 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 on file Not on file documented as of this encounter Miscellaneous Notes * Telephone Encounter - Leann Lemus BSN - 09/22/2023 11:11 AM CDT Chemical . HCG negative. * Telephone Encounter - Leann Lemus BSN - 09/18/2023 10:17 AM CDT +HPT. Getting labs 6 and 67 documented in this encounter Plan of Treatment Not on file documented as of this encounter Visit Diagnoses Not on filedocumented in this encounter Care Teams Title Lawyer Relationship Specialty Start Date End Date Unknown, Notinfile PCP - General 07/16/22 David Rodriguez MD [address] [address] 07/16/22 documented as of this encounter
--- OUTSIDE RECORDS SUMMARY | 2024-03-31 11:14 | XMS_ITS | Encounter Summary ---
Author Organization [facility] Healthcare Address [address] [place] [address] Care Team Providers Care Motors Assembler Name Role Phone Unknown, Notinfile Primary Care Provider Unavail able David Rodriguez MD Unavailable [phone] Reason for Visit * Reason Comments Rectal Bleeding Encounter Details Date Type Department Care Team (Late st Contact Info) Description 08/28/2023 3:45 PM CDT Office Visit [facility] Primary Care at [facility] [address] [facility] [address], [place] [address] David Rodriguez MD [address] [facility] [address], [place] [address] Anal fissure (Primary Dx) Social History Tobacco Use Types [...] on file Legal Sex 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 CHIEF MARKETING OFFICER Gender Identity Female 03/22/2022 2:56 PM CHIEF MARKETING OFFICER Sexual Orientation Straight 05/08/2023 5: 32 PM CHIEF MARKETING OFFICER 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 on file Not on file documented as of this encounter Last Filed Vital Signs Vital Sign Reading Time Taken Comments Blood Pressure 102/60 08/28/2023 3:41 PM CDT Pulse 79 08/28/2023 3:41 PM CDT Temperature - - Respiratory Rate - - Oxygen Saturation 98% 08/28/2023 3:41 PM CDT Inhaled Oxygen Concentration - - Weight 100.2 kg (221 lb) 08/28/2023 3:41 PM CDT Height 162.6 cm (5' 4 ) 08/28/2023 3:41 PM CDT Body Mass Index 37.93 08/28/2023 3:41 PM CDT documented in this encounter Ordered Prescriptions Prescription Sig Dispense Quantity Refills Last Filled Start Date End Date hydrocortisone (ANUSOL-HC) 25 mg suppository Insert 1 suppository (25 mg total) into the rectum 2 (two) times a day as needed for hemorrhoids 30 suppository documented in this encounter Progress Notes * David Rodriguez MD - 08/28/2023 3:45 PM CDT Subjective/Objective Patient ID: Kelly Castro is a 28 y.o. female. Chief Complaint Rectal Bleeding Rectal Bleeding Pertinent negatives include no abdominal pain, arthralgias, chest pain, coughing, fatigue, fever, headaches, joint swelling, nausea, rash or sore throat. Patient is here for issues with discomfort in her anus as well as some blood on the stool. Patient has been on zepbound and has been running some harder stools. She has been trying to push fluids without much benefit. As result of this she has been running a little harder stools and been having discomfort with bowel movements. She has noticed some blood on the tissue itself. She has not been ableto feel anything around her anus as far as hemorrhoids. She was really not done anything for this. Review of Systems Constitutional: Negative for fatigue, fever and unexpected weight change. HENT: Negative for ear pain, postnasal drip, rhinorrhea and sore throat. Eyes: Negative for visual disturbance. Respiratory: Negative for cough and shortness of breath. Cardiovascular: Negative for chest pain and palpitations. Gastrointestinal: Positive for anal bleeding, constipation and hematochezia. Negative for abdominalpain and nausea. Endocrine: Negative for cold intolerance and heat intolerance. Genitourinary: Negative for dysuria and frequency. Musculoskeletal: Negative for arthralgias and joint swelling. Skin: Negative for rash. Allergic/Immunologic: Negative for environmental allergies and food allergies. Neurological: Negative for dizziness and headaches. Hematological: Negative for adenopathy. Psychiatric/Behavioral: Negative for behavioral problems. The patient is not nervous/anxious. BP 102/60 Pulse 79 Ht 162.6 cm (5' 4 ) Wt 100.2 kg (221 lb) SpO2 98% BMI 37.93 kg/m?? Physical Exam Constitutional: Appearance: She is well-developed. HENT: Head: Normocephalic and atraumatic. Cardiovascular: Rate and Rhythm: Normal rate and regular rhythm. Heart sounds: Normal heart sounds. Pulmonary: Effort: Pulmonary effort is normal. Breath sounds: Normal breath sounds. Genitourinary: Comments: Perianal exam notable for healing small fissure Assessment/Plan Diagnoses and all orders for this visit: Anal fissure (Primary) Comments: Patient was prescribed Anusol suppositories and was told to take the stool softener Other orders - hydrocortisone (ANUSOL-HC) 25 mg suppository; Insert 1 suppository (25 mg total) into the rectum 2 (two) times a day as needed for hemorrhoids documented in this encounter Plan of Treatment Not on file documented as of this encounter Visit Diagnoses Diagnosis Anal fissure- Primary documented in this encounter Care Teams Motors Assembler Relationship Specialty Start Date End Date Unknown, Notinfile PCP - General 07/16/22 David Rodriguez MD [address] [address] 07/16/22 documented as of this encounter
--- OUTSIDE RECORDS SUMMARY | 2024-03-31 11:14 | XMS_ITS | Encounter Summary ---
Author Organization [facility] Healthcare Address [address] [place] [address] Care Team Providers Care Machine Tool Mechanic Name Role Phone Unknown, Notinfile Primary Care Provider Unavail able David Rodriguez MD Unavailable Encounter Details Date Type Department Care Team (Late st Contact Info) Description 10/28/2023 Telephone [facility] Primary Care at [facility] [address] [facility] [address] [place] [phone] David Rodriguez MD [address] [address] Social History Tobacco Use Types [...] on file Legal Sex 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 AXLE INSPECTOR Gender Identity Female 03/22/2022 2:56 PM AXLE INSPECTOR Sexual Orientation Straight 05/08/2023 5: 32 PM AXLE INSPECTOR 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 on file Not on file documented as of this encounter Ordered Prescriptions Prescription Sig Dispense Quantity Refills Last Filled Start Date End Date tirzepatide, weight loss, (Zepbound) 10 mg/0.5 mL pen injector Inject 0.5 mL (10 mg total) under the skin every 7 days 2 mL 10/29/2023 11/24/2023 documented in this encounter Miscellaneous Notes * Telephone Encounter - Kaleigh Macias MA - 10/29/2023 9:06 AM CDT Called pt and informed pt that Dr Rodriguez sent in Zepbound prescription * Telephone Encounter - David Rodriguez MD - 10/29/2023 8:30 AM CDT Sent in the 10 * Telephone Encounter - David Rodriguez MD - 10/28/2023 4:46 PM CDT So will they not cover the 10? * Telephone Encounter - Kaleigh Macias MA - 10/28/2023 4:30 PM CDT On Zepbound medication did you want to increase to 10mg ? The insurance will cover medication if patient stays on the 7.5 mg the insurance is requesting a quantity appeal documented in this encounter Plan of Treatment Not on file documented as of this encounter Visit Diagnoses Not on filedocumented in this encounter Discontinued Medications Medication Sig Discontinue Reason Start Date End Da te Zepbound 7.5 mg/0.5 mL pen injector ADMINISTER 7.5 MG UNDER THE SKIN EVERY 7 DAYS Dose adjustment 10/21/2023 10/29/2023 documented as of this encounter Care Teams Machine Tool Mechanic Relationship Specialty Start Date End Date Unknown, Notinfile PCP - General 07/16/22 David Rodriguez MD [address] [address] 07/16/22 documented as of this encounter
--- OUTSIDE RECORDS SUMMARY | 2024-03-31 11:14 | XMS_ITS | Encounter Summary ---
Author Organization [facility] Healthcare Address [address] [place] [address] Care Team Providers Care Pattern Repair Person Name Role Phone Unknown, Notinfile Primary Care Provider Unavail able David Rodriguez MD Unavailable [phone] Reason for Visit * Reason Comments COVID-19 EVALUATION Encounter Details Date Type Department Care Team (Latest Contact Info) Description 02/22/2023 8:45 AM NAIL PULLER Clinical Support [facility] Medical [facility] Care at [address] [address] Encounter for screening for COVID-19 (Primary Dx) Social History Tobacco Use Types [...] on file Legal Sex 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 NAIL PULLER Gender Identity Female 03/22/2022 2:56 PM NAIL PULLER Sexual Orientation Straight 05/08/2023 5: 32 PM NAIL PULLER 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 on file Not on file documented as of this encounter Plan of Treatment Not on file documented as of this encounter Visit Diagnoses Diagnosis Encounter for screening for COVID-19- Primary documented in this encounter Additional Health Concerns Infection Onset Date Last Indicated Resolved Time COVID: Suspected 02/22/2023 02/22/2023 02/22/2023 3:18 PM NAIL PULLER documented as of this encounter Care Teams Pattern Repair Person Relationship Specialty Start Date End Date Unknown, Notinfile PCP - General 07/16/22 David Rodriguez MD [address] [address] 07/16/22 documented as of this encounter
--- OUTSIDE RECORDS SUMMARY | 2024-03-31 11:14 | XMS_ITS | Encounter Summary ---
Author Organization [facility] Address [address] [facility] [address] [place] [address] Care Team Providers Care Welt Stitch Cleaner Name Role Phone Unknown, Notinfile Primary Care Provider Unavail able David Rodriguez MD Unavailable [phone] Reason for Visit * Reason Comments Labs Only Encounter Details Date Type Department Care Team (Latest Contact Info) Description 10/16/2023 8:30 AM CDT Clinical Support [facility] [address] [facility] Medical Office Building [address] [place] [address] Ovarian dysfunction (Primary Dx) Social [...] on file Legal Sex 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 BEEF SKINNER Gender Identity Female 03/22/2022 2:56 PM BEEF SKINNER Sexual Orientation Straight 05/08/2023 5: 32 PM BEEF SKINNER 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 on file Not on file documented as of this encounter Plan of Treatment Not on file documented as of this encounter Procedures Procedure Name Priority Date/Time Associated Diagnosis Comments PROGESTERONE Routine 10/16/2023 8:47 AM CDT Ovarian dysfunction documented in this encounter Results * Progesterone (10/16/2023 8:47 AM CDT) Progesterone 0.4 ng/mL [facility] - 01 Comment: ? Follicular phase ? 0.1 - ?? 0.9 ? Luteal phase ? 1.8 - ??23.9 ? Ovulation phase ?0.1 - ??12.0 ?First trimester ?11.0 - ??44.3 ?Second trimester ?? 25.4 - ??83.3 ?Third trimester ?58.7 - 214.0 ? Postmenopausal ? 0.0 - ?? 0.1 Blood 10/16/2023 8:47 AM CDT 10/16/2023 Narrative [facility] - 10/17/2023 12:09 PM CDT Performed at: ??01 - [facility] [address] [facility], [place], [place] ??[id number] Circuit Manager: Issac Jain PhD, Phone: ??[phone] us Barbara Webb MD LAB BLOOD ORDERABLES Ophelia rubin Result [facility] - 01 documented in this encounter Visit Diagnoses Diagnosis Ovarian dysfunction- Primary Unspecified ovarian dysfunction documented in this encounter Care Teams Welt Stitch Cleaner Relationship Specialty Start Date End Date Unknown, Notinfile PCP - General 07/16/22 David Rodriguez MD [address] [address] 07/16/22 documented as of this encounter
--- OUTSIDE RECORDS SUMMARY | 2024-03-31 11:14 | XMS_ITS | Encounter Summary ---
Author Organization [facility] Address [address] [facility] [address] [place] [address] Care Team Providers Care Border Inspector Name Role Phone Unknown, Notinfile Primary Care Provider Unavail able David Rodriguez MD Unavailable [phone] Reason for Visit * Reason Comments Labs Only Encounter Details Date Type Department Care Team (Latest Contact Info) Description 09/18/2023 10:30 AM CDT Clinical Support [facility] [address] [facility] Medical Office [address] [place] [address] Unconfirmed (Primary Dx) Social History [...] on file Legal Sex 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 PUBLICATIONS EDITOR Gender Identity Female 03/22/2022 2:56 PM PUBLICATIONS EDITOR Sexual Orientation Straight 05/08/2023 5: 32 PM PUBLICATIONS EDITOR 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 on file Not on file documented as of this encounter Plan of Treatment Not on file documented as of this encounter Procedures Procedure Name Priority Date/Time Associated Diagnosis Comments PROGESTERONE Routine 09/18/2023 9:04 AM CDT Unconfirmed HCG, BLOOD, QUANTITATIVE Routine 09/18/2023 9:04 AM CDT Unconfirmed documented in this encounter Results * Progesterone (09/18/2023 9:04 AM CDT) Progesterone 0.6 ng/mL [facility] - 01 Comment: ? Follicular phase ? 0.1 - ?? 0.9 ? Luteal phase ? 1.8 - ??23.9 ? Ovulation phase ?0.1 - ??12.0 ?First trimester ?11.0 - ??44.3 ?Second trimester ?? 25.4 - ??83.3 ?Third trimester ?58.7 - 214.0 ? Postmenopausal ? 0.0 - ?? 0.1 Blood 09/18/2023 9:04 AM CDT 09/18/2023 Narrative [facility] - 09/19/2023 3:35 AM CDT Performed at: ??01 - [facility] [address] [place], [place] ??[id number] Facility Rehab Director: Issac Jain PhD, Phone: ??[phone] us Barbara Webb MD LAB BLOOD ORDERABLES Ophelia conklin Result [facility] - 01 * hCG, blood, quantitative (09/18/2023 9:04 AM CDT) HCG, quant 9 mIU/mL [facility] - 01 Comment: ? Female (Non-) ?0 - ? 5 ?(Postmenopausal) ??0 - ? 8 ? Female () ? Weeks of Gestation ? 3 ?6 - ?71 ? 4 ? 10 - ?? 750 ? 5 ?217 - ??7138 ? 6 ?158 - 45865 ? 7 ? 8815 -101920 ? 8 ?64259 -353118 ? 9 ?99544 -899374 ?10 ?72974 -474209 ?12 ?37085 -135568 ?14 ?34334 - [address]23 ?15 ?03141 - [address] ?16 ? 3454 - 69588 ?17 ? 1475 - 31775 ?18 ? 8099 - [address] [facility] ECLIA methodology Blood 09/18/2023 9:04 AM CDT 09/18/2023 Narrative [facility] - 09/19/2023 3:35 AM CDT Performed at: ??01 - [facility] [address] ??[id number] Facility Rehab Director: Issac Jain PhD, Phone: ??[phone] us Barbara Webb MD LAB BLOOD ORDERABLES Ophelia conklin Result [facility] - 01 documented in this encounter Visit Diagnoses Diagnosis Unconfirmed - Primary documented in this encounter Care Teams Border Inspector Relationship Specialty Start Date End Date Unknown, Notinfile PCP - General 07/16/22 David Rodriguez MD [address] [address] 07/16/22 documented as of this encounter
--- OUTSIDE RECORDS SUMMARY | 2024-03-31 11:14 | XMS_ITS | Encounter Summary ---
Author Organization [facility] Address [address] [facility] [address] [place] [address] Care Team Providers Care Leather Craftsman Name Role Phone Unknown, Notinfile Primary Care Provider Unavail able David Rodriguez MD Unavailable [phone] Reason for Visit * Reason Onset Date Comments Send copy of order 08/21/2023 Encounter Details Date Type Department Care Team (Late st Contact Info) Description 08/21/2023 Telephone [facility] [address] [facility] Medical Office [address] [place] [address] Leann Lemus BSN Send copy of order Social History Tobacco Use Types Packs/Day Years [...] on file Legal Sex 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 CONSERVATION AGENT Gender Identity Female 03/22/2022 2:56 PM CONSERVATION AGENT Sexual Orientation Straight 05/08/2023 5: 32 PM CONSERVATION AGENT 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 on file Not on file documented as of this encounter Miscellaneous Notes * Telephone Encounter - Leann Lemus BSN - 08/21/2023 2:28 PM CDT VM: [employer] in network w/ insurance for SA. Pt notified that Joon is [employer]. Prepared order for SA and faxed to [employer]. Pt aware will have copy uploaded to chart and sent to her via [employer]. To AC to send to pt (Order on desk.) documented in this encounter Plan of Treatment Not on file documented as of this encounter Visit Diagnoses Not on filedocumented in this encounter Care Teams Leather Craftsman Relationship Specialty Start Date End Date Unknown, Notinfile PCP - General 07/16/22 David Rodriguez MD [address] [address] 07/16/22 documented as of this encounter
--- OUTSIDE RECORDS SUMMARY | 2024-03-31 11:14 | XMS_ITS | Encounter Summary ---
Author Organization [facility] Address [address] [place] [address] Care Team Providers Care Railroad Construction Director Name Role Phone Unknown, Notinfile Primary Care Provider Unavail able David Rodriguez MD Unavailable [phone] Reason for Visit * Reason Onset Date Comments (+) OPK 09/02/2023 Encounter Details Date Type Department Care Team (Late st Contact Info) Description 09/02/2023 Telephone [facility] [address] [facility] [address] [place] [address] Patricia Pelaez, RN (+) OPK Social History Tobacco Use Types Packs/Day Years [...] on file Legal Sex 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 CUSTOMS OFFICER Gender Identity Female 03/22/2022 2:56 PM CUSTOMS OFFICER Sexual Orientation Straight 05/08/2023 5: 32 PM CUSTOMS OFFICER 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 Not on letrozole/clomid just checking for ovulation. (+) OPK, sched MLP 09/10/23 documented in this encounter Plan of Treatment Not on file documented as of this encounter Visit Diagnoses Not on filedocumented in this encounter Care Teams Railroad Construction Director Relationship Specialty Start Date End Date Unknown, Notinfile PCP - General 07/16/22 David Rodriguez MD [address] [address] 07/16/22 documented as of this encounter
--- OUTSIDE RECORDS SUMMARY | 2024-03-31 11:14 | XMS_ITS | Encounter Summary ---
Author Organization [facility] Healthcare Address [address] [place] [address] Care Team Providers Care Vice President Of Recruiting Name Role Phone Unknown, Notinfile Primary Care Provider Unavail able David Rodriguez MD Unavailable [phone] Encounter Details Date Type Department Care Team (Late st Contact Info) Description 10/23/2023 Telephone [facility] Medical Group Primary Care at [facility] [address] [facility] [address], [place] [id number] [facility] [place] Social History Tobacco Use Types Packs/Day Years [...] on file Legal Sex 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 SLEEVE WHEEL MAKER Gender Identity Female 03/22/2022 2:56 PM SLEEVE WHEEL MAKER Sexual Orientation Straight 05/08/2023 5: 32 PM SLEEVE WHEEL MAKER 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
--- OUTSIDE RECORDS SUMMARY | 2024-03-31 11:14 | XMS_ITS | Encounter Summary ---
Author Organization [facility] Healthcare Address [address] [place] [address] Care Team Providers Care Director Of State Name Role Phone Unknown, Notinfile Primary Care Provider Unavail able David Rodriguez MD Unavailable [phone] Encounter Details Date Type Department Care Team (Late st Contact Info) Description 12/13/2023 Telephone [facility] Medical Group Primary Care at [facility] [address] [facility] [address] [place] [address] David Rodriguez MD [facility] [address] Social History Tobacco Use Types [...] on file Legal Sex 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 PROMOTIONAL ADVERTISING ASSISTANT Gender Identity Female 03/22/2022 2:56 PM PROMOTIONAL ADVERTISING ASSISTANT Sexual Orientation Straight 05/08/2023 5: 32 PM PROMOTIONAL ADVERTISING ASSISTANT 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 on file Not on file documented as of this encounter Miscellaneous Notes * Telephone Encounter - Gemma Lund LPN - 12/13/2023 5:36 PM CDT Opened in error * Telephone Encounter - Kaleigh Macias MA - 12/13/2023 11:51 AM CDT The prior authorization has been submitted to [facility] awaiting determination from insurance company documented in this encounter Plan of Treatment Not on file documented as of this encounter Visit Diagnoses Not on filedocumented in this encounter Care Teams Director Of State Relationship Specialty Start Date End Date Unknown, Notinfile PCP - General 07/16/22 David Rodriguez MD [address] [address] 07/16/22 documented as of this encounter
--- OUTSIDE RECORDS SUMMARY | 2024-03-31 11:14 | XMS_ITS | Encounter Summary ---
Author Organization [facility] Address [address] [facility] [address] [place] [address] Care Team Providers Care Assistant Professor Of Anthropology Name Role Phone Unknown, Notinfile Primary Care Provider Unavail able David Rodriguez MD Unavailable [phone] Reason for Visit * Reason Comments Labs Only Encounter Details Date Type Department Care Team (Latest Contact Info) Description 12/06/2023 8:45 AM CDT Clinical Support [facility] [address] [facility] [address] [place] [address] Ovarian dysfunction (Primary Dx) Social [...] on file Legal Sex 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 TANK CAR RECONDITIONER Gender Identity Female 03/22/2022 2:56 PM TANK CAR RECONDITIONER Sexual Orientation Straight 05/08/2023 5: 32 PM TANK CAR RECONDITIONER 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 on file Not on file documented as of this encounter Plan of Treatment Not on file documented as of this encounter Procedures Procedure Name Priority Date/Time Associated Diagnosis Comments PROGESTERONE Routine 12/06/2023 8:58 AM CDT Ovarian dysfunction documented in this encounter Results * Progesterone (12/06/2023 8:58 AM CDT) Progesterone 15.8 ng/mL [facility] - 01 Comment: ? Follicular phase ? 0.1 - ?? 0.9 ? Luteal phase ? 1.8 - ??23.9 ? Ovulation phase ?0.1 - ??12.0 ?First trimester ?11.0 - ??44.3 ?Second trimester ?? 25.4 - ??83.3 ?Third trimester ?58.7 - 214.0 ? Postmenopausal ? 0.0 - ?? 0.1 Blood 12/06/2023 8:58 AM CDT 12/06/2023 Narrative [facility] - 12/07/2023 3:35 AM CDT Performed at: ??01 - [facility] [address], [place], [place] [id number] Plow Shaker: Issac Jain PhD, Phone: ??[phone] us Barbara Webb MD LAB BLOOD ORDERABLES Ophelia rubin Result [facility] - 01 documented in this encounter Visit Diagnoses Diagnosis Ovarian dysfunction- Primary Unspecified ovarian dysfunction documented in this encounter Care Teams Assistant Professor Of Anthropology Relationship Specialty Start Date End Date Unknown, Notinfile PCP - General 07/16/22 David Rodriguez MD [address] [address] 07/16/22 documented as of this encounter
--- OUTSIDE RECORDS SUMMARY | 2024-03-31 11:14 | XMS_ITS | Encounter Summary ---
Author Organization [facility] Healthcare Address [address] [place] [address] Care Team Providers Care Media Marketing Manager Name Role Phone Unknown, Notinfile Primary Care Provider Unavail able David Rodriguez MD Unavailable Reason for Visit * Reason Onset Date Comments Medication Request 05/16/2023 Encounter Details Date Type Department Care Team (Late st Contact Info) Description 05/16/2023 Telephone [facility] Medical Group Primary Care at [facility] [address] [facility] [address] [address] David Rodriguez MD [address] [facility] [address], [place] [address] Medication Request Social History Tobacco [...] on file Legal Sex 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 DRUG WORKER Gender Identity Female 03/22/2022 2:56 PM DRUG WORKER Sexual Orientation Straight 05/08/2023 5: 32 PM DRUG WORKER 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 on file Not on file documented as of this encounter Miscellaneous Notes * Telephone Encounter - Billie Castaneda MA - 05/16/2023 1:04 PM CST Pt notified. Conchita (pharmacovigilance safety expert) notified and new Rx for Zepbound 5 mg every 7 days given. WORKER * Telephone Encounter - David Rodriguez MD - 05/16/2023 11:55 AM DRUG WORKER Please call patient and have her use the 2.5 for 4 weeks instead of 2 and then call for the 5 mg dose. Also let the pharmacy know. WORKER * Telephone Encounter - Jose Diaz - 05/16/2023 11:01 AM CST Medication Question/Clarification Medication Name(s): tirzepatide, weight loss, (Zepbound) 2.5 mg/0.5 mL pen injector What is the question or clarification needed? Pharmacy requesting call back regarding submitted instructions for this medication If needed, Pharmacy(s) medication(s) should be sent to: [facility] #[id number] - Additional Comments: Pharmacy requesting clarification of instructions. They currently readInject 0.5 mL (2.5 mg total) under the skin every 7 days for 14 days, THEN 1 mL (5 mg total) every 7 days. Does message need to be routed? Yes-Action Needed WORKER documented in this encounter Plan of Treatment Not on file documented as of this encounter Visit Diagnoses Not on filedocumented in this encounter Care Teams Media Marketing Manager Relationship Specialty Start Date End Date Unknown, Notinfile PCP - General 07/16/22 David Rodriguez MD [address] [address] 07/16/22 documented as of this encounter
--- OUTSIDE RECORDS SUMMARY | 2024-03-31 11:14 | XMS_ITS | Encounter Summary ---
Author Organization [facility] Healthcare Address [address] [place] [address] Care Team Providers Care Wedding Designer Name Role Phone Unknown, Notinfile Primary Care Provider Unavail able David Rodriguez MD Unavailable Reason for Visit * Reason Comments Annual Exam Encounter Details Date Type Department Care Team (Late st Contact Info) Description 11/08/2023 3:30 PM CDT Office Visit [facility] [address] [facility] [address], [place] [address] David Rodriguez MD [address] [facility] [address], [place] [address] Annual physical exam (Primary Dx); Moderate episode of recurrent major depressive disorder (HCC); Encounter for hepatitis C screening test for low risk patient Social History Tobacco Use Types Packs/Day Years [...] on file Legal Sex 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 CAT SKINNER Gender Identity Female 03/22/2022 2:56 PM CAT SKINNER Sexual Orientation Straight 05/08/2023 5: 32 PM CAT SKINNER 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 on file Not on file documented as of this encounter Last Filed Vital Signs Vital Sign Reading Time Taken Comments Blood Pressure 98/60 11/08/2023 3:23 PM CDT Pulse 102 11/08/2023 3:23 PM CDT Temperature - - Respiratory Rate - - Oxygen Saturation 99% 11/08/2023 3:23 PM CDT Inhaled Oxygen Concentration - - Weight 98 kg (216 lb) 11/08/2023 3:23 PM CDT Height 162.6 cm (5' 4 ) 11/08/2023 3:23 PM CDT Body Mass Index 37.08 11/08/2023 3:23 PM CDT documented in this encounter Progress Notes * David Rodriguez MD - 11/08/2023 3:30 PM CDT Patient ID: Klely Castro is a 28 y.o. female. Assessment/Plan Diagnoses and all orders for this visit: Annual physical exam (Primary) Comments: Patient was sent to the lab Orders: - CBC with auto differential; Future - Comprehensive metabolic panel; Future - Lipid panel; Future - Thyroid Function Bennett; Future - Urinalysis reflex to microscopic and culture Urine, clean voided; Future Moderate episode of recurrent major depressive disorder (HCC) Comments: Patient was to continue with the [facility] Encounter for hepatitis C screening test for low risk patient - Hepatitis C antibody Blood; Future Subjective/Objective Chief Complaint Annual Exam HPI: Patient presents for comprehensive review. Patient is here for her annual physical. She actually is doing quite well. She has been losing weight with the zepbound Review of Systems: Constitutional: No fatigue. No fever. No change in weight. Eyes: No vision change. ENT: No hearing loss. No sore throat. Respiratory: No shortness of breath. No cough. Cardiovascular: No palpitations. No edema. No chest pain. Gastrointestinal: No abdominal pain. No change in stool pattern. : No dysuria. No urinary frequency. Musculoskeletal: Has joint pain Integument: No rash. No skin lesions. Neuro: No dizziness. No headache. No memory impairment. Psych: No depressed mood. Endocrine: No polydipsia. Hematologic/Lymphatic: No easy bleeding. Allergy/Immunologic: No hives Physical exam: Constitutional: Acute distress: No. Gen. appearance: Normal. Eyes: Pupils: Equal and reactive to light. Sclera: Normal. Conjunctiva: Normal. Ears: External inspection: Normal. External canals: Normal. Tympanic membranes: Normal. Hearing: Grossly normal. HEENT: External nose: Normal. Lips, gums: Normal. Oropharynx: Normal. Neck: Inspection: Normal. Thyroid gland: Normal. Lymph nodes: No adenopathy. Pulmonary: Effort: Normal. Cough: None present. Auscultation: Clear bilaterally. Cardiovascular: Rhythm: Regular. Rate: Normal. Murmur: None. Extra heart sounds: None. Abdomen: Inspection: Normal. Bowel sounds: Normal. Tenderness: None. Organomegaly: None. Extremities: Cyanosis: None. Edema: None. Vascular: Peripheral pulses: Normal. Carotid bruit: None. Neuro: Level of consciousness: Normal. Motor exam: Grossly normal. Deep tendon reflexes: Symmetric.Orientation: Alert and oriented. Memory: Grossly normal. Psych: Mood and affect: Normal. Skin: Skin lesions: No suspicious lesions noted. Musculoskeletal: Bony enlargement noted. Breast: Normal appearance and no masses on palpation documented in this encounter Miscellaneous Notes * Addendum Note - Michell Grajeda - 11/08/2023 3:30 PM CDTAddended by: MICHELL GRAJEDA on: 11/08/2023 04:09 PM Modules accepted: Orders documented in this encounter Plan of Treatment Not on file documented as of this encounter Procedures Procedure Name Priority Date/Time Associated Diagnosis Comments HEPATITIS C ANTIBODY Routine 11/08/2023 8:32 PM CDT Encounter for hepatitis C screening test for low risk patient URINALYSIS AND REFLEX TO MICROSCOPIC AND CULTURE Routine 11/08/2023 4:10 PM CDT Annual physical exam EGFR Routine 11/08/2023 4:08 PM CDT Annual physical exam DIFFERENTIAL AUTO Routine 11/08/2023 4:0 8 PM CDT Annual physical exam THYROID FUNCTION CASCADE Routine 11/08/2023 4:08 PM CDT Annual physical exam CBC WITH AUTO DIFFERENTIAL Routine 11/08/2023 4:08 PM CDT Annual physical exam LIPID PANEL Routine 11/08/2023 4:08 PM CDT Annual physical exam COMPREHENSIVE METABOLIC PANEL Routine 11/08/2023 4:08 PM CDT Annual physical exam documented in this encounter Results * Hepatitis C antibody Blood (11/08/2023 8:32 [...] AL ORDERABLES Edited Result - Final [facility] [address] Department [place] [address] * Urinalysis reflex to microscopic and culture Urine, clean voided (11/08/2023 4:10 PM CDT) Color, ur Straw Yellow Clarity, ur Clear Clear [facility] Specific gravity, ur 1.007 1.003 - 1.030 [facility] pH, urine 6.5 [facility] Comment: Interpretive Data ? Urine pH is affected by diet, medications, systemic acid-base disturbances, and renal tubular function. ??pH may affect urinary stone formation. ??For example, urine pH below 6.0 may help reduce the tendency for calcium phosphate stones and pH greater than 6.0 may reduce the tendency for uric acid stone formation. Source: [facility] Current Interpretive Data was last revised on 2017 Protein, ur ql Negative Negative [facility] Glucose, ur ql Negative Negative [facility] Ketones, ur Negative Negative [facility] Bilirubin, ur Negative Negative [facility] Blood, ur Negative Negative [facility] Urobilinogen, ur <2.0 <2.0 mg/dL [facility] Nitrite, ur Negative Negative [facility] Leukocyte esterase, ur Negative Negative [facility] UA reflex comment Reflex conditions for microscopic UA and culture not met. [facility] Urine, clean voided 11/08/2023 4:10 PM CDT 11/08/2023 4:11 PM CDT David Rodriguez MD LAB MICROBIOLOGY - GENER AL ORDERABLES Final Result [facility] [address] Department [place] [address] * eGFR (11/08/2023 4:08 PM CDT) Pathologist [facility] eGFR >90 >=60 mL/min/1. 73 m2 Comment: Interpretive Data Reference Interval Normal ?>/= 90 mL/min/1.73m2 Mildly decreased* ? 60 - 89 mL/min/1.73m2 Mildly to moderately decreased ?45 - 59 mL/min/1.73m2 Moderately to severely decreased ??30 - 44 mL/min/1.73m2 Severely decreased ?15 - 29 mL/min/1.73m2 Kidney Failure ?< 15 ??mL/min/1.73m2 *Relative to young adult level Estimated glomerular filtration rate is determined by the 2020 CKD-EPI equation recommended by the National Kidney Foundation (A Unifying Approach to GFR Estimation: Recommendations of the NKF-ASK Task Force on Reassessing the Inclusion of Race in Diagnosing Kidney Disease, JASN 2020). The CKD-EPI equation should not be used for patients with unstable renal function and has not been validated in children and those over 70. Current interpretive data was last reviewed 2021. Blood 11/08/2023 4:08 PM CDT 11/08/2023 8:33 PM CDT us David Rodriguez MD LAB BLOOD ORDERABLES Fin al Result [facility] [address] Department [place] [address] * Differential, auto (11/08/2023 4:08 PM CDT) Neutrophil abs 4.3 1.5 - 6.5 K/cumm Imm gran abs 0.0 0.0 - 0.1 K/cumm [facility] Lymphocyte abs 2.3 0.8 - 3.3 K/cumm [facility] Monocyte abs 0.6 0.2 - 0.8 K/cumm [facility] Eosinophil abs 0.4 0.0 - 0.5 K/cumm [facility] Basophil abs 0.1 0.0 - 0.1 K/cumm [facility] Neutrophil pct 56.2 % [facility] Comment: Interpretive Data Percent cell count reference ranges are not reported, since discordance with absolute values may lead to misinterpretation of CBC data. Current Interpretive Data was last revised on 2017. Imm gran pct 0.3 % [facility] Comment: Interpretive Data Percent cell count reference ranges are not reported, since discordance with absolute values may lead to misinterpretation of CBC data. Current Interpretive Data was last revised on 2017. Lymphocyte pct 30.0 % [facility] Comment: Interpretive Data Percent cell count reference ranges are not reported, since discordance with absolute values may lead to misinterpretation of CBC data. Current Interpretive Data was last revised on 2017. Monocyte pct 7.7 % [facility] Comment: Interpretive Data Percent cell count reference ranges are not reported, since discordance with absolute values may lead to misinterpretation of CBC data. Current Interpretive Data was last revised on 2017. Eosinophil pct 4.8 % [facility] Comment: Interpretive Data Percent cell count reference ranges are not reported, since discordance with absolute values may lead to misinterpretation of CBC data. Current Interpretive Data was last revised on 2017. Basophil pct 1.0 % [facility] Comment: Interpretive Data Percent cell count reference ranges are not reported, since discordance with absolute values may lead to misinterpretation of CBC data. Current Interpretive Data was last revised on 2017. Blood 11/08/2023 4:08 PM CDT 11/08/2023 7:49 PM CDT David Rodriguez MD LAB BLOOD ORDERABLES Fin al Result Performing Organization Address City/[facility]/ZIP Co de Phone Number [facility] [address] [facility] [employer] [place] [address] * Thyroid Function Bennett (11/08/2023 4:08 PM CDT) TSH 1.62 0.30 - 4.20 mcIUnit/mL Blood 11/08/2023 4:08 PM CDT 11/08/2023 8:33 PM CDT David Rodriguez MD LAB BLOOD ORDERABLES Fin al Result Performing Organization Address City/[facility]/ZIP Co de Phone Number [facility] [address] [place] [address] * Lipid panel (11/08/2023 4:08 PM CDT) [facility] Cholesterol 143 30 - 199 mg/dL Comment: Interpretive Data Ages < or = 19 years ??Acceptable: ? <170 mg/dL ??Borderline high: ??170-199 mg/dL ??High: ? >or= 200 mg/dL Ages > or = 20 years ??Desirable: ?<200 mg/dL ??Borderline high: ??200-239 mg/dL ??High: ? >or= 240 mg/dL Literature References: 1. Expert Panel on Integrated Guidelines for Cardiovascular Health and Risk Reduction in Children and Adolescents. Pediatrics 2011;128:S213 2. NCEP Expert Panel. Circulation 2004;110:227 Current Interpretive Data was last revised on 2017. Triglycerides 90 <=149 mg/dL [facility] Comment: Interpretive Data Ages < or = 9 years ??Acceptable: ? <75 mg/dL ??Borderline high: ??75-99 mg/dL ??High: ? >or= 100 mg/dL Ages 10 to 20 years ??Acceptable: ? <90 mg/dL ??Borderline high: ??90-129 mg/dL ??High: ? >or= 130 mg/dL Ages > or = 20 years ??Desirable: ?<150 mg/dL ??Borderline high: ??150-199 mg/dL ??High: ? 200-499 mg/dL ?Very high: ?? >or= 499 mg/dL Literature References: 1. Expert Panel on Integrated Guidelines for Cardiovascular Health and Risk Reduction in Children and Adolescents. Pediatrics 2011;128:S213 2. NCEP Expert Panel. Circulation 2004;110:227 Current Interpretive Data was last revised on 2017. HDL 40 >=40 mg/dL [facility] Comment: Interpretive Data Ages < or = 19 years ??Acceptable: ? >45 mg/dL ??Borderline low: ?? 40-45 mg/dL ??Low: ? <40 mg/dL Ages > or = 20 years ??Desirable: ?>or= 60 mg/dL ??Low: ? <40 mg/dL Literature References: 1. Expert Panel on Integrated Guidelines for Cardiovascular Health and Risk Reduction in Children and Adolescents. Pediatrics 2011;128:S213 2. NCEP Expert Panel. Circulation 2004;110:227 Current Interpretive Data was last revised on 2017. LDL, calculated 85 <=129 mg/dL [facility] Comment: Interpretive Data Ages < or = 19 years ??Acceptable: ? <110 mg/dL ??Borderline high: ??110-129 mg/dL ??High: ?>or= 130 mg/dL Ages > or = 20 years ??Optimal: ? <100 mg/dL ??Near optimal: ?100-129 mg/dL ??Borderline high: ?? 130-159 mg/dL ??High: ?>160 mg/dL Literature References: 1. Expert Panel on Integrated Guidelines for Cardiovascular Health and Risk Reduction in Children and Adolescents. Pediatrics 2011;128:S213 2. NCEP Expert Panel. Circulation 2004;110:227 Current Interpretive Data was last revised on 2017. Non-HDL Cholesterol 103 mg/dL [facility] Comment: Interpretive Data Ages < or = 19 years ??Acceptable: ?<120 mg/dL ??Borderline high: ??120-144 mg/dL ??High: ?>145 mg/dL Ages > or = 20 years ??When triglycerides are >200 mg/dL, Non-HDL cholesterol is a secondary target of ? therapy with treatment goals that are 30 mg/dL greater than the LDL cholesterol target. ? Literature References: 1. Expert Panel on Integrated Guidelines for Cardiovascular Health and Risk Reduction in Children and Adolescents. Pediatrics 2011;128:S213 2. NCEP Expert Panel. Circulation 2004;110:227 Current Interpretive Data was last revised on 2017. Chol/HDL ratio 4 [facility] Blood 11/08/2023 4:08 PM CDT 11/08/2023 8:33 PM CDT us David Rodriguez MD LAB BLOOD ORDERABLES Fin al Result [facility] [address] Department [place] [address] * (ABNORMAL) Comprehensive metabolic panel (11/08/2023 4:08 PM CDT) Sodium 139 135 - 145 mmol/L Potassium, pl 4.2 3.3 - 4.9 mmol/L [facility] Chloride 101 97 - 110 mmol/L [facility] CO2 27 22 - 32 mmol/L [facility] Anion gap 11 2 - 15 mmol/L [facility] BUN 15 6 - 25 mg/dL [facility] Creatinine 0.58(L) 0.60 - 1.10 mg/dL [facility] Glucose 77 70 - 199 mg/dL [facility] Comment: Interpretive Data Fasting glucose >/= 126 mg/dl is diagnostic for diabetes. ?? Fasting is defined as no caloric intake for at least 8 hours. Fasting glucose between 100 mg/dl to 125 mg/dl is diagnostic of prediabetes. In a patient with classic symptoms of hyperglycemia or hyperglycemic crisis, a random glucose >/= 200 mg/dl is diagnostic for diabetes. In the absence of unequivocal hyperglycemia, results should be confirmed by repeat testing. The classification and Diagnosis of Diabetes Diabetes Care 202; 46: S19-S40. Current interpretive data was last revised 2022. Calcium 9.8 8.5 - 10.3 mg/dL [facility] Bilirubin, total 0.4 0.1 - 1.2 mg/dL [facility] Protein, pl 7.7 6.5 - 8.5 g/dL [facility] Albumin 4.6 3.5 - 5.0 g/dL [facility] Alk phos 36(L) 40 - 130 Units/L [facility] ALT 34 7 - 45 Units/L [facility] AST 33 10 - 45 Units/L [facility] Blood 11/08/2023 4:08 PM CDT 11/08/2023 8:33 PM CDT David Rodriguez MD LAB BLOOD ORDERABLES Fin al Result Performing Organization Address City/[facility]/ZIP Co de Phone Number [facility] [address] Department [place] [place] [address] * (ABNORMAL) CBC with auto differential (11/08/2023 4:08 PM CDT) WBC 7.7 3.8 - 9.9 K/cumm Hgb 15.4 11.9 - 15.5 g/dL [facility] Hct 46.7(H) 35.6 - 45.5 % [facility] Plt 246 150 - 400 K/cumm [facility] MPV 12.0 9.1 - 12.3 fL [facility] RBC 4.89 3.90 - 5.20 M/cumm [facility] MCV 95.5 81.3 - 96.4 fL [facility] MCH 31.5 27.1 - 33.3 pg [facility] MCHC 33.0 32.3 - 35.7 g/dL [facility] RDW CV 12.0 11.1 - 14.9 % [facility] RDW SD 41.6 35.7 - 48.1 fL [facility] NRBC abs 0.00 0.00 - 0.01 K/cumm [facility] Blood 11/08/2023 4:08 PM CDT 11/08/2023 7:49 PM CDT David Rodriguez MD LAB BLOOD ORDERABLES Fin al Result [facility] [address] Department of [employer] [place], [place] [id number] documented in this encounter Visit Diagnoses Diagnosis Annual physical exam- Primary Routine general medical examination at a health care facility Moderate episode of recurrent major depressive disorder (HCC) Encounter for hepatitis C screening test for low risk patient documented in this encounter Care Teams Wedding Designer Relationship Specialty Start Date End Date Unknown, Notinfile PCP - General 07/16/22 David Rodriguez MD [address] [address] 07/16/22 documented as of this encounter
--- OUTSIDE RECORDS SUMMARY | 2024-03-31 11:14 | XMS_ITS | Encounter Summary ---
Author Organization [facility] Healthcare Address [address] [place] [address] Care Team Providers Care Receivable Clerk Name Role Phone Unknown, Notinfile Primary Care Provider Unavail able David Rodriguez MD Unavailable [phone] Encounter Details Date Type Department Care Team (Latest Contact Info) Description 06/11/2023 8:57 AM CARNALLITE PLANT OPERATOR - 06/11/2023 11:59 PM [employer]ITE PLANT OPERATOR Hospital Encounter [address] [address] Pharyngitis, unspecified etiology Discharge Disposition: Discharge to home or self [...] on file Legal Sex 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 CARNALLITE PLANT OPERATOR Gender Identity Female 03/22/2022 2:56 PM CAR[employer]ANT OPERATOR Sexual Orientation Straight 05/08/2023 5: 32 PM CAR[employer]ITE [employer]ANT OPERATOR 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 on file Not on file documented as of this encounter Medications at Time of Discharge desvenlafaxine ER (PRISTIQ) 50 mg 24 hr tablet Take 1 tablet (50 mg total) by mouth daily 30 tablet 11 05/29/2023 05/28/2024 tirzepatide, weight loss, (Zepbound) 5 mg/0.5 mL pen injector Inject 0.5 mL (5 mg total) under the skin every 7 days 2 mL 06/06/2023 07/05/2023 documented as of this encounter Discharge Disposition Disposition Code Departure Means Destination Discharge to home or self care documented in this encounter Plan of Treatment Not on file documented as of this encounter Procedures Procedure Name Priority Date/Time Associated Diagnosis Comments THROAT CULTURE Routine 06/11/2023 8:57 AM [employer]NALLITE PLANT OPERATOR Pharyngitis, unspecified etiology documented in this encounter Results * Throat culture Throat (06/11/2023 8:57 AM CARNALLITE PLANT OPERATOR) Report Final Report: No growth of pathogens. [facility] Comment:Testing performed by : [facility], [address] [place] [address]., [id number] Throat 06/11/2023 8:57 AM CARNALLITE PLANT OPERATOR 06/11/2023 5:32 PM CARNALLITE PLANT OPERATOR Narrative [facility] - 06/12/2023 1:12 PM [employer]ITE PLANT OPERATOR Testing performed by [facility] Microbiology Laboratory ([phone]). Amy Keenan COUNTERINTELLIGENCE/HUMINT SPECIALIST LAB MICROBIOLOGY - GENERAL ORD ERABLES Final Result [facility] [address] [place] [address] documented in this encounter Visit Diagnoses Diagnosis Pharyngitis, unspecified etiology documented in this encounter Care Teams Receivable Clerk Relationship Specialty Start Date End Date Unknown, Notinfile PCP - General 07/16/22 David Rodriguez MD [address] [address] 07/16/22 documented as of this encounter
--- OUTSIDE RECORDS SUMMARY | 2024-03-31 11:15 | XMS_ITS | Encounter Summary ---
Author Organization [facility] Address [address] [place] [address] Care Team Providers Care Wrapper Stripper Name Role Phone Unknown, Notinfile Primary Care Provider Unavail able David Rodriguez MD Unavailable Reason for Visit * Reason Comments Preventative Care Encounter Details Date Type Department Care Team (Late st Contact Info) Description 10/10/2022 10:00 AM CDT Office Visit [facility] [address] [phone] David Rodriguez MD [address] [address] Annual physical exam (Primary Dx); Morbid obesity with BMI of 40.0-44.9, adult (HCC) Social History Tobacco Use Types Packs/Day [...] on file Legal Sex 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 WEIGH BOSS Gender Identity Female 03/22/2022 2:56 PM WEIGH BOSS Sexual Orientation Straight 05/08/2023 5: 32 PM WEIGH BOSS 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 female. Assessment/Plan Diagnoses and all orders for this visit: Annual physical exam (Primary) Comments: Patient was sent to the lab Orders: - CBC with auto differential; Future - Comprehensive metabolic panel; Future - Lipid panel; Future - TSH reflex to free T4; Future - Urinalysis reflex to microscopic and culture Urine, clean voided; Future - Hemoglobin A1c; Future - Insulin, total; Future Morbid obesity with BMI of 40.0-44.9, adult (HCC) Comments: Patient was to continue with the Ozempic and follow-up in 6 months Subjective/Objective Chief Complaint Preventative Care HPI: Patient presents for comprehensive review. Patient is here for annual physical. Unfortunately her weight is not down very much. She is been forcing herself to eat which is not what she is supposed to do on the Ozempic. She also has been eating sweets. Review of Systems: Constitutional: No fatigue. No [...] masses on palpation documented in this encounter Plan of Treatment Not on file documented as of this encounter Procedures Procedure Name Priority Date/Time Associated Diagnosis Comments EGFR Routine 10/10/2022 10:23 AM CDT Annual physical exam DIFFERENTIAL AUTO Routine 10/10/2022 10: 23 AM CDT Annual physical exam THYROID FUNCTION CASCADE Routine 10/10/2022 10:23 AM CDT Annual physical exam URINALYSIS AND REFLEX TO MICROSCOPIC AND CULTURE Routine 10/10/2022 10:23 AM CDT Annual physical exam CBC WITH AUTO DIFFERENTIAL Routine 10/10/2022 10:23 AM CDT Annual physical exam INSULIN, TOTAL Routine 10/10/2022 10:23 AM CDT Annual physical exam HEMOGLOBIN A1C Routine 10/10/2022 10:23 AM CDT Annual physical exam LIPID PANEL Routine 10/10/2022 10:23 AM CDT Annual physical exam COMPREHENSIVE METABOLIC PANEL Routine 10/10/2022 10:23 AM CDT Annual physical exam documented in this encounter Results * eGFR (10/10/2022 10:23 AM CDT) [facility] eGFR 124 mL/min/1. 73 m2 [facility] Comment: Interpretive Data Reference Interval Normal ?>/= [...] interpretive data was last reviewed 2021. Blood 10/10/2022 10:2 3 AM CDT 10/10/2022 12:04 PM CDT us David Rodriguez MD LAB BLOOD ORDERABLES Fin al Result [facility] [address] Department [place] [address] * Differential, auto (10/10/2022 10:23 AM CDT) Neutrophil abs 4.3 1.7 - 6.5 K/cumm [facility] Imm gran abs 0.0 0.0 - 0.1 K/cumm [facility] Lymphocyte abs 2.0 0.8 - 3.3 K/cumm [facility] Monocyte abs 0.6 0.2 - 0.8 K/cumm [facility] Eosinophil abs 0.2 0.0 - 0.5 K/cumm [facility] Basophil abs 0.1 0.0 - 0.1 K/cumm [facility] Neutrophil pct 59.7 % [facility] Comment: Interpretive Data Percent cell count reference ranges are not reported, since discordance with absolute values may lead to misinterpretation of CBC data. Current Interpretive Data was last revised on 2017. Imm gran pct 0.3 % [facility] Comment: Interpretive Data Percent cell count reference ranges are not reported, since discordance with absolute values may lead to misinterpretation of CBC data. Current Interpretive Data was last revised on 2017. Lymphocyte pct 27.4 % [facility] Comment: Interpretive Data Percent cell count reference ranges are not reported, since discordance with absolute values may lead to misinterpretation of CBC data. Current Interpretive Data was last revised on 2017. Monocyte pct 8.5 % [facility] Comment: Interpretive Data Percent cell count reference ranges are not reported, since discordance with absolute values may lead to misinterpretation of CBC data. Current Interpretive Data was last revised on 2017. Eosinophil pct 3.3 % [facility] Comment: Interpretive Data Percent cell count reference ranges are not reported, since discordance with absolute values may lead to misinterpretation of CBC data. Current Interpretive Data was last revised on 2017. Basophil pct 0.8 % [facility] Comment: Interpretive Data Percent cell count reference ranges are not reported, since discordance with absolute values may lead to misinterpretation of CBC data. Current Interpretive Data was last revised on 2017. Blood 10/10/2022 10:2 3 AM CDT 10/10/2022 12:04 PM CDT David Rodriguez MD LAB BLOOD ORDERABLES Fin al Result Performing Organization Address City/[facility]/ZIP Co de Phone Number [facility] [address] [place] [address] * Insulin, total (10/10/2022 10:23 AM CDT) Insulin 23.1 2.6 - 25.0 mcIUnit/mL [facility] Comment:Testing performed by : [facility] [address] [place]., [address] Blood 10/10/2022 10:2 3 AM CDT 10/10/2022 2:44 PM CDT David Rodriguez MD LAB BLOOD ORDERABLES Fin al Result Performing Organization Address City/[facility]/ZIP Co de Phone Number [facility] [address] [place] [address] * Hemoglobin A1c (10/10/2022 10:23 AM CDT) Hgb A1C 5.0 4.0 - 5.6 % [facility] Estimated Average Glucose 97 mg/dL [facility] Comment: The ADA recommends reporting an estimated Average Glucose (eAG) with all Hemoglobin A1c results using the equation derived from a study of 507 normal and diabetic adults. ??Minority populations were underrepresented and children were not included. ?? (Diabetes Care 31:8905-8955, 2007). ??The eAG is not equivalent to a fasting glucose. Blood 10/10/2022 10:2 3 AM CDT 10/10/2022 12:04 PM CDT David Rodriguez MD LAB BLOOD ORDERABLES Fin al Result Performing Organization Address City/[facility]/ZIP Co de Phone Number [facility] [address] Department [place] [address] * Urinalysis reflex to microscopic and culture Urine, clean voided (10/10/2022 10:23 AM CDT) Color, ur Straw Yellow [facility] Clarity, ur Clear Clear [facility] Specific gravity, ur 1.010 1.003 - 1.030 [facility] pH, urine 6.5 [facility] Protein, ur ql Negative Negative [facility] Glucose, ur ql Negative Negative [facility] Ketones, ur Negative Negative [facility] Bilirubin, ur Negative Negative [facility] Blood, ur Negative Negative [facility] Urobilinogen, ur <2.0 <2.0 mg/dL [facility] Nitrite, ur Negative Negative [facility] Leukocyte esterase, ur Negative Negative [facility] UA reflex comment Reflex conditions for microscopic UA and culture not met. [facility] Urine, clean voided 10/10/2022 10:23 AM CDT 10/10/2022 10:52 AM CDT Narrative [facility] - 10/10/2022 12:33 PM CDT ?? Urine pH is affected by diet, medications, systemic acid-base disturbances, and renal tubular function. ??pH may affect urinary stone formation. ??For example, urine pH below 6.0 may help reduce the tendency for calcium phosphate stones and pH greater than 6.0 may reduce the tendency for uric acid stone formation. Source: [facility]. Last revised 04-25-2017 David Rodriguez MD LAB MICROBIOLOGY - GENER AL ORDERABLES Final Result Performing Organization Address [facility]/ZIP Co de Phone Number [facility] [address] Department [place] [address] * TSH reflex to free T4 (10/10/2022 10:23 AM CDT) TSH 1.38 0.30 - 4.20 mcIUnit/mL [facility] Blood 10/10/2022 10:2 3 AM CDT 10/10/2022 12:04 PM CDT us David Rodriguez MD LAB BLOOD ORDERABLES Fin al Result [facility] [address] Department [place] [address] * Lipid panel (10/10/2022 10:23 AM CDT) Cholesterol 133 30 - 199 mg/dL [facility] Comment: Interpretive Data Ages < or = [...] Data was last revised on 2017. Triglycerides 59 <=149 mg/dL [facility] Comment: Interpretive Data Ages < or = [...] Data was last revised on 2017. HDL 41 >=40 mg/dL [facility] Comment: Interpretive Data Ages < or = [...] was last revised on 2017. LDL, calculated 80 <=129 mg/dL [facility] Comment: Interpretive Data Ages < or = [...] was last revised on 2017. Non-HDL Cholesterol 92 mg/dL [facility] Comment: Interpretive Data Ages < or = [...] was last revised on 2017. Chol/HDL ratio 3 [facility] Blood 10/10/2022 10:2 3 AM CDT 10/10/2022 12:04 PM CDT us David Rodriguez MD LAB BLOOD ORDERABLES Fin al Result [facility] [address] Department [place] [address] * (ABNORMAL) Comprehensive metabolic panel (10/10/2022 10:23 AM CDT) Sodium 142 135 - 145 mmol/L [facility] Potassium, pl 4.6 3.3 - 4.9 mmol/L [facility] Chloride 104 97 - 110 mmol/L [facility] CO2 25 22 - 32 mmol/L [facility] Anion gap 13 2 - 15 mmol/L [facility] BUN 14 6 - 25 mg/dL [facility] Creatinine 0.61 0.60 - 1.10 mg/dL [facility] Glucose 89 70 - 199 mg/dL [facility] Comment: Interpretive Data Fasting glucose >/= 126 [...] classification and Diagnosis of Diabetes Diabetes Care 2021; 46: S19-S40. Current interpretive data was last revised 2022. Calcium 9.6 8.5 - 10.3 mg/dL [facility] Bilirubin, total 0.3 0.1 - 1.2 mg/dL [facility] Protein, pl 7.1 6.5 - 8.5 g/dL [facility] Albumin 4.5 3.5 - 5.0 g/dL [facility] Alk phos 36(L) 40 - 130 Units/L [facility] ALT 31 7 - 45 Units/L [facility] AST 26 10 - 45 Units/L [facility] Blood 10/10/2022 10:2 3 AM CDT 10/10/2022 12:04 PM CDT us David Rodriguez MD LAB BLOOD ORDERABLES Fin al Result [facility] [address] Department [place] [address] * (ABNORMAL) CBC with auto differential (10/10/2022 10:23 AM CDT) WBC 7.3 3.8 - 9.9 K/cumm [facility] Hgb 14.8 11.9 - 15.5 g/dL [facility] Hct 44.5 35.6 - 45.5 % [facility] Plt 217 150 - 400 K/cumm [facility] MPV 12.0 9.1 - 12.3 fL [facility] RBC 4.60 3.90 - 5.20 M/cumm [facility] MCV 96.7(H) 81.3 - 96.4 fL [facility] MCH 32.2 27.1 - 33.3 pg [facility] MCHC 33.3 32.3 - 35.7 g/dL [facility] RDW CV 11.9 11.1 - 14.9 % [facility] RDW SD 42.3 35.7 - 48.1 fL [facility] NRBC abs 0.00 0.00 - 0.01 K/cumm [facility] Blood 10/10/2022 10:2 3 AM CDT 10/10/2022 12:04 PM CDT us David Rodriguez MD LAB BLOOD ORDERABLES Fin al Result [facility] [address] Department [place] [address] documented in this encounter Visit Diagnoses Diagnosis Annual physical exam- Primary Routine general medical examination at a health care facility Morbid obesity with BMI of 40.0-44.9, adult (HCC) documented in this encounter Care Teams Wrapper Stripper Relationship Specialty Start Date End Date Unknown, Notinfile PCP - General 07/16/22 David Rodriguez MD [address] [address] 07/16/22 documented as of this encounter
--- OUTSIDE RECORDS SUMMARY | 2024-03-31 11:15 | XMS_ITS | Encounter Summary ---
Author Organization [facility] Healthcare Address [address] [place] [address] Care Team Providers Care Development Engineer Name Role Phone Unknown, Notinfile Primary Care Provider Unavail able David Rodriguez MD Unavailable Reason for Visit * Diagnostic Imaging (Routine) - Closed Specialty Diagnoses / Procedures Referred By Cooper blankenship Referred To Contact Diagnoses Right foot pain Procedures XR Foot Right 3+ [place] [address] [place] [address] Phone: tel: fax: [facility] Referral ID Status Reason Start Date Expiration Date Visits Re quested Visits Authorized [id number] Closed 07/26/2022 08/25/2023 1 1 Encounter Details Date Type Department Care Team (Latest Contact Info) Description 07/26/2022 6:02 PM CDT - 07/26/2022 11:59 PM CDT Hospital Encounter [facility] [address] [place] [address] Discharge Disposition: Discharge to home or self [...] points, staff should administer the PHQ-9) 0 10/09/2021 Comments No Sex and Gender Information Value Date Recorded Sex Assigned at Not on file Legal Sex 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 ACOUSTIC ENGINEER Gender Identity Female 03/22/2022 2:56 PM ACOUSTIC ENGINEER Sexual Orientation Straight 05/08/2023 5: 32 PM ACOUSTIC ENGINEER 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 on file Not on file documented as of this encounter Medications at Time of Discharge semaglutide (OZEMPIC) 0.25 mg or 0.5 mg(2 mg/1.5 mL) pen injector injection Inject 0.5 mg every 7 days. 1.5 mL 11 04/24/2022 08/07/2022 documented as of this encounter Discharge Disposition Disposition Code Departure Means Destination Discharge to home or self care documented in this encounter Plan of Treatment Not on file documented as of this encounter Procedures Procedure Name Priority Date/Time Associated Diagnosis Comments XR FOOT RIGHT 3 OR MORE VIEWS Schedule Routine, Read Routine (OP Routine) 07/26/2022 6:06 PM CDT Right foot pain documented in this encounter Results * XR Foot Right 3+ View (07/26/2022 6:06 PM CDT) Anatomical Region Laterality Modality Lower Extremities, Foot Right Computed Radiography 07/26/2022 8:0 4 PM CDT Impressions 07/26/2022 8:04 PM CDT 1. ??No acute osseous abnormality of the right foot Electronically signed by: Danilo Aj MD Narrative 07/26/2022 8:04 PM CDT EXAMINATION: XR FOOT RIGHT 3 OR MORE VIEWS HISTORY: ??Right foot pain FINDINGS: 3 view weightbearing examination of the right foot is submitted for interpretation without comparison. Alignment is normal. ??No acute fracture is identified. ??The joint spaces are preserved. ??There is dorsal talonavicular spurring which may represent sequela of prior trauma. ??There is a distal Achilles enthesophyte. ??Calcifications project over the anterior subcutaneous tissues along the distal tibia. Procedure Note Samantha Aj MD - 07/26/2022 EXAMINATION: XR FOOT RIGHT 3 OR MORE VIEWS HISTORY: Right foot pain FINDINGS: 3 view weightbearing examination of the right foot is submitted for interpretation without comparison. Alignment is normal. No acute fracture is identified. The joint spaces are preserved. There is dorsal talonavicular spurring which may represent sequela of prior trauma. There is a distal Achilles enthesophyte. Calcifications project over the anterior subcutaneous tissues along the distal tibia. IMPRESSION: 1. No acute osseous abnormality of the right foot Electronically signed by: Danilo Aj MD us Gaby ATKINSON IMG XR PROCEDURES Final Res ult documented in this encounter Visit Diagnoses Not on filedocumented in this encounter Care Teams Development Engineer Relationship Specialty Start Date End Date Unknown, Notinfile PCP - General 07/16/22 David Rodriguez MD [address] [address] 07/16/22 documented as of this encounter
--- OUTSIDE RECORDS SUMMARY | 2024-03-31 11:15 | XMS_ITS | Encounter Summary ---
Author Organization [facility] Healthcare Address [address] [place] [address] Care Team Providers Care Vice President [employer] Name Role Phone Unknown, Notinfile Primary Care Provider Unavail able David Rodriguez MD Unavailable [phone] Reason for Visit * Reason Comments Urinary Symptom Pt c/o frequency, pa in and ordor that started last night. Pt took leftover pyridium for sx Encounter Details Date Type Department Care Team (Late st Contact Info) Description 02/10/2023 12:15 PM CDT Office Visit [facility] at [address] [address] Amy Keenan, INTERNETWORKING TECHNICIAN [address] [place] [address] [address] [place] [address] Acute cystitis with hematuria (Primary Dx) Social History Tobacco Use Types [...] on file Legal Sex 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 SALES OFFICE ASSISTANT Gender Identity Female 03/22/2022 2:56 PM SALES OFFICE ASSISTANT Sexual Orientation Straight 05/08/2023 5: 32 PM SALES OFFICE ASSISTANT 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 on file Not on file documented as of this encounter Last Filed Vital Signs Vital Sign Reading Time Taken Comments Blood Pressure 110/62 02/10/2023 12:08 PM CDT Pulse 81 02/10/2023 12:08 PM CDT Temperature 36.9 ??C (98.5 ??F) 02/10/2023 12:08 PM C DT Respiratory Rate 20 02/10/2023 12:08 PM CDT Oxygen Saturation 98% 02/10/2023 12:08 PM CDT Inhaled Oxygen Concentration - - Weight 105.7 kg (233 lb) 02/10/2023 12:08 PM CDT Height 162.6 cm (5' 4 ) 02/10/2023 12:08 PM CDT Body Mass Index 39.99 02/10/2023 12:08 PM CDT documented in this encounter Patient Instructions * Patient Instructions* Amy Keenan, INTERNETWORKING TECHNICIAN - 02/10/2023 12:15 PM CDT Treatment of urinary symptoms: Take your prescribed antibiotic until it is gone. It is important to read the information provided by your pharmacist about the medications you are being prescribed. -You can take AZO (over the counter) for urinary pain- use directed per package instructions- Be aware this will turn your urine orange. To prevent UTI in the future: Increase your water intake to help flush bacteria from your bladder. Urine should be clear or nearly clear. Attempt to empty your bladder every 2-3 hours and do not hold urine for long periods of time. Make sure to always wipe from front to back after urinating. Avoid citrus juices, caffeine, alcohol, and intercourse (bladder irritants) until your symptoms resolve and treatment is complete. Void before and after intercourse. Avoid tight-fitting jeans as they can trap moisture and help bacteria grow. Cotton underwear and loose-fitting clothes should be worn. Use alternate method of control while taking antibiotics and for one week after finishing antibiotics. Call your PRIMARY CARE PROVIDER should your symptoms fail to improve or worsen. GO TO ER IMMEDIATELY WITH HIGH FEVER, BACK OR FLANK PAIN, NEW ONSET OF BLOOD IN URINE, OR ANY WORSENING OF CURRENT SYMPTOMS Seek care (go to Urgent Care or ER) immediately if: You are urinating very little or not at all. You are vomiting. You have a high fever with shaking chills. You have side or back pain that gets worse. Contact your primary care doctor or REPAIR MILLER if: You have a fever. You have white or yellow discharge from your vagina. You do not feel better after 2 days of taking antibiotics. You have questions or concerns about your condition or care * Attachments The following attachments cannot be sent through Care Everywhere. * Urinary Tract Infection in Women (Garnett Machine Operator) (Italian) documented in this encounter Ordered Prescriptions Prescription Sig Dispense Quantity Refills Last Filled Start Date End Date phenazopyridine (Pyridium) 200 mg tabletIndications: Acute cystitis with hematuria Take 1 tablet (200 mg total) by mouth 3 (three) times a day as needed for bladder spasms for up to 2 days 6 tablet 02/10/2023 3 nitrofurantoin monohydrate (Macrobid) 100 mg capsuleIndications :Urinary Tract/Genitourinar y Infection Take 1 capsule (100 mg total) by mouth 2 (two) times a day for 5 days 10 capsule 02/10/2023 3 documented in this encounter Progress Notes * Amy Keenan NP - 02/10/2023 12:15 PM CDT Images from the original note were not included. Subjective/Objective Patient ID: Kelly Castro is a 27 y.o. female. Chief Complaint Urinary Symptom (Pt c/o frequency, pain and ordor that started last night. Pt took leftover pyridium for sx) Patient presents to the clinic with reports of urinary frequency, pain, and odor that started last night. Denies fevers, flank pain, abdominal pain, concern for STDs, blood in urine, and . She has taken AZO for her symptoms. Review of Systems Constitutional: Negative for chills and fever. Respiratory: Negative. Cardiovascular: Negative. Gastrointestinal: Negative for abdominal pain, diarrhea, nausea and vomiting. Genitourinary: Positive for dysuria and frequency. Negative for difficulty urinating, flank pain, hematuria, pelvic pain, urgency, vaginal bleeding and vaginal discharge. Odor to urine Neurological: Negative for headaches. Physical Exam Vitals reviewed. Constitutional: General: She is not in acute distress. Appearance: Normal appearance. She is not ill-appearing. HENT: Head: Normocephalic. Cardiovascular: Rate and Rhythm: Normal rate and regular rhythm. Pulmonary: Effort: Pulmonary effort is normal. Breath sounds: Normal breath sounds. Abdominal: General: Bowel sounds are normal. There is no distension. Palpations: Abdomen is soft. Tenderness: There is no abdominal tenderness. There is no right CVA tenderness, left CVA tendernessor guarding. Skin: General: Skin is warm. Neurological: Mental Status: She is alert and oriented to person, place, and time. Psychiatric: Behavior: Behavior is cooperative. Vitals: 02/10/23 1208 BP: 110/62 Pulse: 81 Resp: 20 Temp: 36.9 ??C (98.5 ??F) SpO2: 98% Weight: 105.7 kg (233 lb) Height: 162.6 cm (5' 4 ) Assessment/Plan # acute cystitis with hematuria --start macrobid --Discussed importance of compliance of antibiotics and possibility of change depending on culture results and susceptibilities --start Pyridium, discussed side effects specifically urine discoloration --likely not pyelo given no CVA tenderness; likely not calculi 2/2 absence of pain, dehydration --void before and after sexual intercourse and wipe front to back post-void --avoid alcohol, caffeine and citrus juices as this can cause irritation --monitor urine for foul odor, color change, hematuria, cloudiness, change in frequency or urgency --symptoms warranting ED presentation: chest tightness, SOB, inability to maintain oral intake, confusion, fever greater than 100.9 ?? for more than 4 hours w/o improvement w/ antipyretics --f/u with PCP if symptoms do not improve in 5-7 days Diagnoses and all orders for this visit: Acute cystitis with hematuria (Primary) - POCT urinalysis dipstick - Urine culture Urine, clean voided; Future - nitrofurantoin monohydrate (Macrobid) 100 mg capsule; Take 1 capsule (100 mg total) by mouth 2 (two) times a day for 5 days - phenazopyridine (Pyridium) 200 mg tablet; Take 1 tablet (200 mg total) by mouth 3 (three) times aday as needed for bladder spasms for up to 2 days Recent Results (from the past 4 hour(s)) POCT urinalysis dipstick Collection Time: 02/10/23 12:18 PM Result Value Ref Range Color, Urine, POC Dark Yellow Clarity, ur, POC Turbid (A) Clear Glucose, ur, POC Negative Negative MG/DL Bilirubin, ur, POC Negative Negative, Small, Moderate, Large Ketones, ur, POC Negative Negative Specific [place], POC 1.025 1.003 - 1.030 Blood, ur, POC Moderate (A) Negative pH, ur, POC 7.0 5.0 - 8.0 Protein, ur, POC 30. (A) Negative Urobilinogen, urine, POC 1.0 0.2 - 1.0 mg/dL Nitrite, ur, POC Positive (A) Negative Leukocytes, ur, POC Trace (A) Negative Lot Number 0 Patient Education: Treatment of urinary symptoms: Take your prescribed antibiotic until it is gone. It is important to read the information provided by your pharmacist about the medications you are being prescribed. -You can take AZO (over the counter) for urinary pain- use directed per package instructions- Be aware this will turn your urine orange. To prevent UTI in the future: Increase your water intake to help flush bacteria from your bladder. Urine should be clear or nearly clear. Attempt to empty your bladder every 2-3 hours and do not hold urine for long periods of time. Make sure to always wipe from front to back after urinating. Avoid citrus juices, caffeine, alcohol, and intercourse (bladder irritants) until your symptoms resolve and treatment is complete. Void before and after intercourse. Avoid tight-fitting jeans as they can trap moisture and help bacteria grow. Cotton underwear and loose-fitting clothes should be worn. Use alternate method of control while taking antibiotics and for one week after finishing antibiotics. Call your PRIMARY CARE PROVIDER should your symptoms fail to improve or worsen. GO TO ER IMMEDIATELY WITH HIGH FEVER, BACK OR FLANK PAIN, NEW ONSET OF BLOOD IN URINE, OR ANY WORSENING OF CURRENT SYMPTOMS Seek care (go to Urgent Care or ER) immediately if: You are urinating very little or not at all. You are vomiting. You have a high fever with shaking chills. You have side or back pain that gets worse. Contact your primary care doctor or REPAIR MILLER if: You have a fever. You have white or yellow discharge from your vagina. You do not feel better after 2 days of taking antibiotics. You have questions or concerns about your condition or care Disposition Treatment plan including expectations, follow up, and return precautions discussed with patient/parent, verbalizes understanding. Medication dosage, use, and potential adverse reactions discussed with patient/parent. Advised to follow up with PCP if symptoms do not resolve as expected or sooner if condition worsens. Signs/symptoms warranting ER evaluation reviewed. Patient and/or guardian was given an opportunity to ask questions, questions answered. Amy Keenan NP 02/10/23 12:27 PM Cosigned by Rafael Cullen MD at 02/10/2023 11:15 PM CDT documented in this encounter Plan of Treatment Not on file documented as of this encounter Procedures Procedure Name Priority Date/Time Associated Diagnosis Comments POCT URINALYSIS DIPSTICK Routine 02/10/2023 12:18 PM CDT Acute cystitis with hematuria documented in this encounter Results * Urine culture Urine, clean voided (02/10/2023 12:19 PM CDT) Report Final Report: Less than 100,000 colonies/mL (clinically insignificant growth based on current clinical standards) [facility] Comment:Testing performed by : [facility], [address] [facility], [place]., [address] Organism (CLINICALLY INSIGNIFICANT GROWTH [facility] Urine, clean voided 02/10/2023 12:19 PM CDT 02/10/2023 9:54 PM CDT Narrative [facility] DANIELS - 02/12/2023 10:21 AM CDT Testing performed by [facility] Laboratory ([phone]) Amy Keenan NP LAB MICROBIOLOGY - GENERAL ORD ERABLES Final Result [facility] DANIELS [address] Department [place] [address] * (ABNORMAL) POCT urinalysis dipstick (02/10/2023 12:18 PM CDT) Color, Urine, POC Dark Yellow Clarity, ur, POC Turbid(A) Clear Glucose, ur, POC Negative Negative MG/DL Bilirubin, ur, POC Negative Negative, Small, Moderate, Large Ketones, ur, POC Negative Negative Specific [place], POC 1.025 1.003 - 1.030 Blood, ur, POC Moderate(A) Negative pH, ur, POC 7.0 5.0 - 8.0 Protein, ur, POC 30.(A) Negative Urobilinogen, urine, POC 1.0 0.2 - 1.0 mg/dL Nitrite, ur, POC Positive(A) Negative Leukocytes, ur, POC Trace(A) Negative Lot Number 0 Urine 02/10/2023 12:1 8 PM CDT Amy Keenan NP POINT OF CARE TEST ORDERABLES Final Result documented in this encounter Visit Diagnoses Diagnosis Acute cystitis with hematuria- Primary Acute cystitis with hematuria documented in this encounter Historical Medications * This list may reflect changes made after this encounter. pregabalin (LYRICA) 50 mg capsule Take 1 capsule (50 mg total) by mouth 2 (two) times a day 11/28/2022 05/15/2023 ketorolac (TORADOL) 10 mg tablet TAKE 1 TABLET BY MOUTH EVERY 6 HOURS WITH FOOD OR MILK FOR 5 DAYS NEEDED 11/09/2022 05/15/2023 added in this encounter Care Teams Vice President [employer] Relationship Specialty Start Date End Date Unknown, Notinfile PCP - General 07/16/22 David Rodriguez MD [address] [address] 07/16/22 documented as of this encounter
--- OUTSIDE RECORDS SUMMARY | 2024-03-31 11:15 | XMS_ITS | Encounter Summary ---
Author Organization [facility] Healthcare Address [address] [place] [address] Care Team Providers Care Bike Technician Name Role Phone Unknown, Notinfile Primary Care Provider Unavail able David Rodriguez MD Unavailable [phone] Reason for Visit * Reason Onset Date Comments COVID-19 EVALUATION 02/22/2023 Encounter Details Date Type Department Care Team (Late st Contact Info) Description 02/22/2023 Telephone [facility] [address] (Third Floor) [place] [address] Mae Gudino, RN COVID-19 EVALUATION Social History Tobacco Use Types Packs/Day Years [...] on file Legal Sex 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 BOILERMAKER LOFTSMAN Gender Identity Female 03/22/2022 2:56 PM BOILERMAKER LOFTSMAN Sexual Orientation Straight 05/08/2023 5: 32 PM BOILERMAKER LOFTSMAN 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 on file Not on file documented as of this encounter Miscellaneous Notes * Telephone Encounter - Mae Gudino RN - 02/22/2023 8:12 AM CST 10/31/2022 8:02 AM 02/22/2023 8:04 AM Employee COVID-19 Screening Email: [email or web address] Employee/Student ID# [id number] Configuration Management Specialist/Dry Sander name and email address: [email or web address] Are you an employee or student? Employee Employee Employer: [employer] Are you 100% SHERIDAN? No No Employee Facility: [facility] Are you okay receiving positive results and further instructions via email? 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 [facility] Are you considered to be severely immunocompromised? No No Have you had a vaccine within the past 48 hours? No No Have you been vaccinated against Covid-19? Yes Yes Series: full initial series full initial series Year of most recent booster: no booster no boosters Have you tested positive for COVID in the past 60 days? Yes No Date of most recent positive test: 10/30/2022 Date of test comment Positive at home test. Have you had a known, specific Covid exposure within the last 14 days? No No Employee Symptoms: Yes Yes Date of employee symptom onset: 10/28/2022 02/22/2023 Description of Symptoms: Cough;Headache;Subjective Fever New Diarrhea;Nausea/Vomiting;Other Desciption of Symptoms Comment sinus pressure Other Symptoms: starting to resolve Temperature: 99.7 Did you work on site 48 hours prior to symptom onset and/or any days while symptomatic? Yes Yes Which date(s) did the employee work? 10/26, 10/29-10/30/2022 home office Which department? [facility] Medicine [facility] primary care Were you unmasked within 6 ft for longer than 15 minutes from another employee those days? No No Did you come within 6 feet for more than 15 minutes with any patients without wearing a mask duringthe 48 hours prior to symptom onset? And/or while symptomatic? No No Plan: (A) Stay home and test for symptoms Testing Site Location: [facility] Notes: Employee reports positive covid at home test 10/30/2022. Script A0 (stay home and test) for symptomatic employees (HCW and Non-HCW) Thank you for calling the Occupational Health Call Center. This email contains the same informationand recommendations discussed during your call. You should also forward this information to your network control operators supervisor as confirmation. Given your symptoms, you should [...] you must leave work now. Notify your network control operators supervisor that you have been directed to do so by the Occupational Health Call Center. Please go to the employee testing site as directed for your test. They should be expecting you; if there is any confusion, please call us at [phone]. Since you are reporting symptoms, wear a hospital provided mask when reporting for your test. While you are awaiting testing and results, you must remain off work. You should isolate yourself at home, avoid contact with any household members as much as possible, and stay in your home without leaving except for medical care. You should let your network control operators supervisor know that you will not be coming to work. Although we will email your network control operators supervisor to confirm this, it is still your responsibility to notify your network control operators supervisor as you wouldfor any other work absence. If you have the option to silo worker and you feel well enough, it must be approved by your network control operators supervisor We will notify you of your test results, which are usually available within 24- 48 hours. Your results will also post to your [facility] My Chart account ([email or web address]). Once yourresults [...] to prevent spread are available at: www.cdc.gov/coronavirus/2019-ncov ERMAKER LOFTSMAN documented in this encounter Plan of Treatment Not on file documented as of this encounter Results * Influenza A/B, RSV, and COVID-19 PCR Nasopharyngeal (02/22/2023 8:45 AM BOILERMAKER LOFTSMAN) Pathologist [facility] COVID-19 RNA Negative Negative [facility] Influenza A RNA Negative Negative [facility] Influenza B RNA Negative Negative [facility] RSV RNA Negative Negative [facility] Comment: Interpretive data: This test is performed using the [employer] Xpert Xpress CoV-2/Flu/RSV plus assay. This is [...] revised 2021. Nasopharyngeal 02/22/2023 8: 45 AM BOILERMAKER LOFTSMAN 02/22/2023 1:50 PM BOILERMAKER LOFTSMAN Narrative [facility] - 02/22/2023 3:17 PM BOILERMAKER LOFTSMAN Patient is employed by/enrolled at:->[employer] Is the patient experiencing any symptoms consistent with COVID (eg. Fever, cough, shortness of breath)?->Yes What is the reason for testing?->Symptoms of COVID-19 in high-risk group??(Rapid) Date of Symptom Onset->02/22/23 Reason for testing?->Symptomatic Magdalena Jha MD LAB MICROBIOLOGY - GENERAL ORDERABLES Final Result [facility] [address] Department [place] [address] documented in this encounter Visit Diagnoses Diagnosis Nausea and vomiting in adult- Primary Diarrhea, unspecified type Nausea and vomiting in adult Diarrhea, unspecified type documented in this encounter Additional Health Concerns Infection Onset Date Last Indicated Resolved Time COVID: Suspected 02/22/2023 02/22/2023 02/22/2023 3:18 PM BOILERMAKER LOFTSMAN documented as of this encounter Care Teams Bike Technician Relationship Specialty Start Date End Date Unknown, Notinfile PCP - General 07/16/22 David Rodriguez MD [address] [address] 07/16/22 documented as of this encounter
--- OUTSIDE RECORDS SUMMARY | 2024-03-31 11:15 | XMS_ITS | Encounter Summary ---
Author Organization [facility] Address [address] [place] [address] Care Team Providers Care Director Biomedical Engineering Name Role Phone Unknown, Notinfile Primary Care Provider Unavail able David Rodriguez MD Unavailable Reason for Visit * Reason Onset Date Comments Medical Question/Miscellaneous 07/16/2022 Encounter Details Date Type Department Care Team (Late st Contact Info) Description 07/16/2022 Telephone [facility] [address] [address] David Rodriguez MD [address] [facility] [address] [address] Medical Question/Miscellaneous Social History Tobacco Use Types Packs/Day Years [...] file Legal Sex 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 TANK TENDER Gender Identity Female 03/22/2022 2:56 PM TANK TENDER Sexual Orientation Straight 05/08/2023 5: 32 PM TANK TENDER 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 on file Not on file documented as of this encounter Miscellaneous Notes * Telephone Encounter - Gemma Lund LPN - 07/16/2022 9:52 AM CDT FYI: I called [facility] lab and let them know we did not order the labs in question. They are going to check into it. They were ordered by her OBGYN.Message complete. * Telephone Encounter - Myranda Orona - 07/16/2022 8:51 AM CDT Not sure what dx to use? * Telephone Encounter - Angelita Pineda - 07/16/2022 7:32 AM CDT Medical Question/Miscellaneous Caller???s Concern: Lionel with lab customer service at [facility] called. Patient had labs drawn on Saturday. The specimen was sent through the tube system to the lab but it never made it to the destination. The specimens are no longer stable. New orders are necessary and patient will have to have blood drawn again. Listed below are the labs patient has to have redone. Hemoglobin A1c Insulin Caller???s Call back #: [phone] Does message need to be routed?Yes-Action Needed documented in this encounter Plan of Treatment Not on file documented as of this encounter Visit Diagnoses Not on filedocumented in this encounter Care Teams Director Biomedical Engineering Relationship Specialty Start Date End Date Unknown, Notinfile PCP - General 07/16/22 David Rodriguez MD [address] [facility] [address] [address] 07/16/22 documented as of this encounter
--- OUTSIDE RECORDS SUMMARY | 2024-03-31 11:15 | XMS_ITS | Encounter Summary ---
Author Organization [facility] Healthcare Address [address] [place] [address] Care Team Providers Care Sleeping Car Porter Name Role Phone Unknown, Notinfile Primary Care Provider Unavail able David Rodriguez MD Unavailable [phone] Encounter Details Date Type Department Care Team (Late st Contact Info) Description 08/07/2022 1:00 PM CDT Lab [facility] Advanced Medicine [facility] Advanced Medicine ([facility]) [address] [place] [phone] Social History Tobacco Use Types Packs/Day Years [...] on file Legal Sex 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 FORMULA CLERK Gender Identity Female 03/22/2022 2:56 PM FORMULA CLERK Sexual Orientation Straight 05/08/2023 5: 32 PM FORMULA CLERK 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 on file Not on file documented as of this encounter Plan of Treatment Not on file documented as of this encounter Procedures Procedure Name Priority Date/Time Associated Diagnosis Comments HCG, BLOOD, QUANTITATIVE Routine 08/07/2022 12:56 PM CDT documented in this encounter Results * hCG, blood, quantitative (08/07/2022 12:56 PM CDT) hCG, quant <5.0 0.0 - 5.0 IUnits/L [facility] Comment: Interpretive Data: Male: ??<5.0 IUnits/L Non- Female: <5.0 IUnits/L Female: ??3 weeks: ??5.8 - 71.2 ??4 weeks: ??9.5 - 750 ??5 weeks: ??217 - 7138 ??6 weeks: ??158 - 35572 ??7 weeks: ??6767 - 345325 ??8 weeks: ??82805 - 696634 ??9 weeks: ??91613 - 107700 ??10 weeks: 90279 - 185299 ??12 weeks: 92757 - 532560 ??14 weeks: 87620 - 82692 ??15 weeks: 69450 - 08457 ??16 weeks: 9740 - 91496 ??17 weeks: 1072 - 60653 ??18 weeks: 0719 - 23827 All results should be interpreted in context of clinical presentations as rare causes of falsely positive and falsely negative results are known to exist. The Butch hCG Beta Quant assay procedure was used. Results from different manufacturers or methods may not be comparable. Serial testing should be performed using the same method. Current interpretive data was last revised 21. Blood 08/07/2022 12:5 6 PM CDT 08/07/2022 1:10 PM CDT us Carlota Schwartz DO LAB BLOOD ORDERABLES Fi nal Result [facility] Department [place] [address] documented in this encounter Visit Diagnoses Not on filedocumented in this encounter Care Teams Sleeping Car Porter Relationship Specialty Start Date End Date Unknown, Notinfile PCP - General 07/16/22 David Rodriguez MD [address] [address] 07/16/22 documented as of this encounter
--- OUTSIDE RECORDS SUMMARY | 2024-03-31 11:15 | XMS_ITS | Encounter Summary ---
Author Organization [facility] Medical [facility] Address [address] [facility] [place] [address] Care Team Providers Care Research Assistant Member Name Role Phone Unknown, Notinfile Primary Care Provider Unavail able David Rodriguez MD Unavailable Encounter Details Date Type Department Care Team (Late st Contact Info) Description 08/07/2022 Orders Only [facility] [address] [facility] [address], [place] [address] David Rodriguez MD [address] [facility] [address], [place] [address] Social History Tobacco Use Types Packs/Day [...] on file Legal Sex 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 SAP PPM CONSULTANT Gender Identity Female 03/22/2022 2:56 PM SAP PPM CONSULTANT Sexual Orientation Straight 05/08/2023 5: 32 PM SAP PPM CONSULTANT 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 on file Not on file documented as of this encounter Ordered Prescriptions Prescription Sig Dispense Quantity Refills Last Filled Start Date End Date semaglutide (OZEMPIC) 1 mg/dose (4 mg/3 mL) pen injector injection Inject 1 mg under the skin every 7 days 3 mL 08/07/2022 09/04/2022 documented in this encounter Plan of Treatment Not on file documented as of this encounter Visit Diagnoses Not on filedocumented in this encounter Discontinued Medications Medication Sig Discontinue Reason Start Date End Da te semaglutide (OZEMPIC) 0.25 mg or 0.5 mg(2 mg/1.5 mL) pen injector injection Inject 0.5 mg every 7 days. 04/24/2022 08/07/2022 documented as of this encounter Care Teams Research Assistant Member Relationship Specialty Start Date End Date Unknown, Notinfile PCP - General 07/16/22 aDvid Rodriguez MD [address] [address] 07/16/22 documented as of this encounter
--- OUTSIDE RECORDS SUMMARY | 2024-03-31 11:15 | XMS_ITS | Encounter Summary ---
Author Organization [facility] Medical Group Address [address] [facility] [address] [place] [address] Care Team Providers Care Swabber Name Role Phone Unknown, Notinfile Primary Care Provider Unavail able David Rodriguez MD Unavailable [phone] Encounter Details Date Type Department Care Team (Late st Contact Info) Description 12/26/2022 Telephone [facility] [address] [facility] [address] [place] [phone] [place], [place] Social History Tobacco Use Types Packs/Day Years [...] on file Legal Sex 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 CISCO CONSULTANT Gender Identity Female 03/22/2022 2:56 PM CISCO CONSULTANT Sexual Orientation Straight 05/08/2023 5: 32 PM CISCO CONSULTANT 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 documented in this encounter Plan of Treatment Not on file documented as of this encounter Visit Diagnoses Not on filedocumented in this encounter Discontinued Medications Medication Sig Discontinue Reason Start Date End Da te semaglutide (OZEMPIC) 2 mg/dose (8 mg/3 mL) pen injector injection Inject 2 mg under the skin every 7 days Reorder 11/29/2022 12/26/2022 documented as of this encounter Care Teams Swabber Relationship Specialty Start Date End Date Unknown, Notinfile PCP - General 07/16/22 David Rodriguez MD [address] [address] 07/16/22 documented as of this encounter
--- OUTSIDE RECORDS SUMMARY | 2024-03-31 11:15 | XMS_ITS | Encounter Summary ---
Author Organization [facility] Healthcare Address [address] [place] [address] Care Team Providers Care Section Forest Fire Warden Name Role Phone Unknown, Notinfile Primary Care Provider Unavail able David Rodriguez MD Unavailable [phone] Encounter Details Date Type Department Care Team (Latest Contact Info) Description 02/10/2023 12:19 PM CDT - 02/10/2023 11:59 PM CDT Hospital Encounter 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 file Not on file documented as of this encounter Medications at Time of Discharge nitrofurantoin monohydrate (Macrobid) 100 mg capsuleIndication s:Urinary Tract/Genitourina ry Infection Take 1 capsule (100 mg total) by mouth 2 (two) times a day for 5 days 10 capsule 02/10/2023 02/15/2023 phenazopyridine (Pyridium) 200 mg tabletIndications :Acute cystitis with hematuria Take 1 tablet (200 mg total) by mouth 3 (three) times a day as needed for bladder spasms for up to 2 days 6 tablet 02/10/2023 02/12/2023 ketorolac (TORADOL) 10 mg tablet TAKE 1 [...] Procedure Name Priority Date/Time Associated Diagnosis Comments URINE CULTURE Routine 02/10/2023 12:19 PM CDT Acute cystitis with hematuria documented in this encounter Results * Urine culture Urine, clean voided (02/10/2023 12:19 PM CDT) Report Final Report: Less than 100,000 colonies/mL (clinically insignificant growth based on current clinical standards) [facility] Comment:Testing performed by : [facility], [address] [facility], [place]., [address] Organism (CLINICALLY INSIGNIFICANT GROWTH [facility] Urine, clean voided 02/10/2023 12:19 PM CDT 02/10/2023 9:54 PM CDT Narrative [facility] - 02/12/2023 10:21 AM CDT Testing performed by [facility] Microbiology Laboratory ([phone]) us Amy Keenan HOUSE SHORER LAB MICROBIOLOGY - GENERAL ORD ERABLES Final Result [facility] [address] Department [place] [address] documented in this encounter Visit Diagnoses Diagnosis Acute cystitis with hematuria documented in this encounter Care Teams Section Forest Fire Warden Relationship Specialty Start Date End Date Unknown, Notinfile PCP - General 07/16/22 David Rodriguez MD [address] [address] 07/16/22 documented as of this encounter
--- OUTSIDE RECORDS SUMMARY | 2024-03-31 11:15 | XMS_ITS | Encounter Summary ---
Author Organization [facility] Healthcare Address [address] [place] [address] Care Team Providers Care Microbial Specialist Name Role Phone David Rodriguez MD Primary Care Provider + Encounter Details Date Type Department Care Team (Late st Contact Info) Description 06/27/2022 12:40 PM CDT Lab [facility] Advanced Medicine 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 <4.1 ng/mL ??Luteal ?4.1 - ??14.5 ng/mL ??1st Trimester ?? 11.0 - ??44.0 ng/mL ??2nd Trimester ?? 25.0 - ??83.0 ng/mL ??3rd Trimester ?? 59.0 - 214.0 ng/mL ??Postmenopausal ??<0.13 ng/mL Current interpretive data was last revised 2021. Blood 06/27/2022 12:2 1 PM CDT 06/27/2022 1:43 PM CDT us Carlota Schwartz DO LAB BLOOD ORDERABLES Fi nal Result [facility] Department [place] [address] * (ABNORMAL) hCG, blood, quantitative (06/27/2022 12:21 PM CDT) hCG, quant 65.8(H) 0.0 - 5.0 IUnits/L [facility] Comment: Interpretive Data: Male: ??<5.0 IUnits/L Non- Female: <5.0 IUnits/L Female: ??3 weeks: ??5.8 - 71.2 ??4 weeks: ??9.5 - 750 ??5 weeks: ??217 - 1613 ??6 weeks: ??393 - 69949 ??7 weeks: ??0093 - 847251 ??8 weeks: ??76764 - 078117 ??9 weeks: ??46285 - 880838 ??10 weeks: 11852 - 133534 ??12 weeks: 72063 - 365161 ??14 weeks: 14986 - 17647 ??15 weeks: 53032 - 55797 ??16 weeks: 5740 - 90387 ??17 weeks: 0075 - 89248 ??18 weeks: 1836 - 59619 All results should be interpreted in context of clinical presentations as rare causes of falsely positive and falsely negative results are known to exist. The InThrMa hCG Beta Quant assay procedure was used. Results from different manufacturers or methods may not be comparable. Serial testing should be performed using the same method. Current interpretive data was last revised 21. Blood 06/27/2022 12:2 1 PM CDT 06/27/2022 1:43 PM CDT us Carlota Schwartz DO LAB BLOOD ORDERABLES Fi nal Result [facility] Department [place] [address] documented in this encounter Visit Diagnoses Not on filedocumented in this encounter Care Teams Microbial Specialist Relationship Specialty Start Date End Date David Rodriguez MD [address] [address] PCP - General 01/11/15 07/15/22 documented as of this encounter
--- OUTSIDE RECORDS SUMMARY | 2024-03-31 11:15 | XMS_ITS | Encounter Summary ---
Author Organization [facility] Healthcare Address [address] [place] [address] Care Team Providers Care Aircraft Electrician Name Role Phone David Rodriguez MD Primary Care Provider + Encounter Details Date Type Department Care Team (Late st Contact Info) Description 04/24/2022 9:50 AM INFRASTRUCTURE SOFTWARE ENGINEER Lab [facility] Advanced Medicine 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 on file Not on file documented as of this encounter Plan of Treatment Not on file documented as of this encounter Procedures Procedure Name Priority Date/Time Associated Diagnosis Comments T-SPOT.TB Routine 04/24/2022 1:55 PM INFRASTRUCTURE SOFTWARE ENGINEER documented in this encounter Results * T-SPOT.TB (04/24/2022 1:55 PM INFRASTRUCTURE SOFTWARE ENGINEER) T-SPOT.TB Negative SeeBelow [facility] Comment: Normal Value: Negative A negative test [...] [facility] Comment: Test Performed at: [facility] [employer] [facility] [employer] [address] [place] [address] ??[phone] ? ZENAIDA BAZAN MD,PHD Blood 04/24/2022 1:55 PM INFRASTRUCTURE SOFTWARE ENGINEER 04/24/2022 3:34 PM INFRASTRUCTURE SOFTWARE ENGINEER us Magdalena Jha MD LAB MICROBIOLOGY - GENERAL ORDERABLES Final Result [facility] One [facility] Department [place] [address] documented in this encounter Visit Diagnoses Not on filedocumented in this encounter Care Teams Aircraft Electrician Relationship Specialty Start Date End Date David Rodriguez MD [address] [address] PCP - General 01/11/15 07/15/22 documented as of this encounter
--- OUTSIDE RECORDS SUMMARY | 2024-03-31 11:15 | XMS_ITS | Encounter Summary ---
Author Organization [facility] Healthcare Address [address] [place] [address] Care Team Providers Care Brim Ironer Hand Name Role Phone Unknown, Notinfile Primary Care Provider Unavail able David Rodriguez MD Unavailable [phone] Encounter Details Date Type Department Care Team (Latest Contact Info) Description 07/23/2022 2:57 PM CDT - 07/23/2022 11:59 PM CDT Hospital Encounter [address] [address] Discharge Disposition: Discharge to home or self [...] on file Legal Sex 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 STEAM AND GAS TURBINE ASSEMBLER Gender Identity Female 03/22/2022 2:56 PM STEAM AND GAS TURBINE ASSEMBLER Sexual Orientation Straight 05/08/2023 5: 32 PM STEAM AND GAS TURBINE ASSEMBLER Occupation Industry Job Start Date Job End [...] Associated Diagnosis Comments HCG, BLOOD, QUANTITATIVE Routine 07/23/2022 3:00 PM CDT documented in this encounter Results * (ABNORMAL) hCG, blood, quantitative (07/23/2022 3:00 PM CDT) hCG, quant 102.0(H) 0.0 - 5.0 IUnits/L [facility] Comment: Interpretive Data: Male: ??<5.0 IUnits/L Non- Female: <5.0 IUnits/L Female: ??3 weeks: ??5.8 - 71.2 ??4 weeks: ??9.5 - 750 ??5 weeks: ??217 - 7138 ??6 weeks: ??158 - 96412 ??7 weeks: ??9807 - 955809 ??8 weeks: ??84098 - 905622 ??9 weeks: ??18697 - 239820 ??10 weeks: 58670 - 688253 ??12 weeks: 06886 - 033837 ??14 weeks: 49[address] - [address] ??15 weeks: 09961 - 32592 ??16 weeks: 6827 - 80738 ??17 weeks: 8045 - 93012 ??18 weeks: 2203 - 93425 All results should be interpreted in context of clinical presentations as rare causes of falsely positive and falsely negative results are known to exist. The Butch hCG Beta Quant assay procedure was used. Results from different manufacturers or methods may not be comparable. Serial testing should be performed using the same method. Current interpretive data was last revised 21. Blood 07/23/2022 3:00 PM CDT 07/23/2022 5:44 PM CDT us Carlota Schwartz DO LAB BLOOD ORDERABLES Fi nal Result [facility] [place] [address] documented in this encounter Visit Diagnoses Not on filedocumented in this encounter Care Teams Brim Ironer Hand Relationship Specialty Start Date End Date Unknown, Notinfile PCP - General 07/16/22 David Rodriguez MD [address] [facility] [address] [address] 07/16/22 documented as of this encounter
--- OUTSIDE RECORDS SUMMARY | 2024-03-31 11:15 | XMS_ITS | Encounter Summary ---
Author Organization [facility] Healthcare Address [address] [place] [address] Care Team Providers Care Field Geologist Name Role Phone David Rodriguez MD Primary Care Provider + Encounter Details Date Type Department Care Team (Late st Contact Info) Description 07/04/2022 8:00 AM CDT Lab [facility] Advanced Medicine [facility] Advanced Medicine ([facility]) [address] [place] [phone] Social History Tobacco Use Types Packs/Day Years [...] on file Legal Sex 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 PLUGGER Gender Identity Female 03/22/2022 2:56 PM PLUGGER Sexual Orientation Straight 05/08/2023 5: 32 PM PLUGGER 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
--- OUTSIDE RECORDS SUMMARY | 2024-03-31 11:15 | XMS_ITS | Encounter Summary ---
Author Organization [facility] Healthcare Address [address] [place] [address] Care Team Providers Care Sonoscope Operator Name Role Phone Unknown, Notinfile Primary Care Provider Unavail able David Rodriguez MD Unavailable [phone] Encounter Details Date Type Department Care Team (Latest Contact Info) Description 07/16/2022 6:09 PM CDT - 07/16/2022 11:59 PM CDT Hospital Encounter [address] [address] Discharge Disposition: Discharge to home or self care Social History Tobacco Use Types Packs/Day Years Used Date Smoking Tobacco: Never Assessed AUDIT-C Answer Date Recorded Q1: How often [...] on file Legal Sex 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 LOAN ASSISTANT Gender Identity Female 03/22/2022 2:56 PM LOAN ASSISTANT Sexual Orientation Straight 05/08/2023 5: 32 PM LOAN ASSISTANT documented as of this encounter Medications at [...] on filedocumented in this encounter Care Teams Sonoscope Operator Relationship Specialty Start Date End Date Unknown, Notinfile PCP - General 07/16/22 David Rodriguez MD [address] [facility] [address], [place] [address] 07/16/22 documented as of this encounter
--- OUTSIDE RECORDS SUMMARY | 2024-03-31 11:15 | XMS_ITS | Encounter Summary ---
Author Organization [facility] Healthcare Address [address] [place] [address] Care Team Providers Care Search Engine Optimization Consultant Name Role Phone Unknown, Notinfile Primary Care Provider Unavail able David Rodriguez MD Unavailable [phone] Encounter Details Date Type Department Care Team (Late st Contact Info) Description 07/23/2022 3:00 PM CDT Lab [facility] Advanced Medicine [facility] Advanced Medicine ([facility]) [address] [place] [phone] Social History Tobacco Use Types Packs/Day Years [...] on file Legal Sex 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 STEEL RULE INSPECTOR Gender Identity Female 03/22/2022 2:56 PM STEEL RULE INSPECTOR Sexual Orientation Straight 05/08/2023 5: 32 PM STEEL RULE INSPECTOR 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
--- OUTSIDE RECORDS SUMMARY | 2024-03-31 11:15 | XMS_ITS | Encounter Summary ---
Author Organization [facility] Healthcare Address [address] [place] [address] Care Team Providers Care It Solutions Sales Consultant Name Role Phone David Rodriguez MD Primary Care Provider + Encounter Details Date Type Department Care Team (Late st Contact Info) Description 06/18/2022 2:50 PM WIRE INSULATOR Lab [facility] Advanced Medicine ([facility]) [address] [place] [phone] Social History Tobacco Use Types Packs/Day Years [...] on file Legal Sex 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 WIRE INSULATOR Gender Identity Female 03/22/2022 2:56 PM WIRE INSULATOR Sexual Orientation Straight 05/08/2023 5: 32 PM WIRE INSULATOR 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 <4.1 ng/mL ??Luteal ?4.1 - ??14.5 ng/mL ??1st Trimester ?? 11.0 - ??44.0 ng/mL ??2nd Trimester ?? 25.0 - ??83.0 ng/mL ??3rd Trimester ?? 59.0 - 214.0 ng/mL ??Postmenopausal ??<0.13 ng/mL Current interpretive data was last revised 2021. Blood 06/18/2022 3:20 PM WIRE INSULATOR 06/18/2022 4:40 PM WIRE INSULATOR us Carlota Schwartz DO LAB BLOOD ORDERABLES Fi nal Result [facility] [place] [address] * (ABNORMAL) hCG, blood, quantitative (06/18/2022 3:20 PM WIRE INSULATOR) hCG, quant 23.7(H) 0.0 - 5.0 IUnits/L [facility] Comment: Interpretive Data: Male: ??<5.0 IUnits/L Non- Female: <5.0 IUnits/L Female: ??3 weeks: ??5.8 - 71.2 ??4 weeks: ??9.5 - 750 ??5 weeks: ??217 - 7138 ??6 weeks: ??158 - 13080 ??7 weeks: ??3311 - 907178 ??8 weeks: ??12886 - 740421 ??9 weeks: ??37023 - 161120 ??10 weeks: 43020 - 375003 ??12 weeks: 07382 - 669093 ??14 weeks: 11290 - 28966 ??15 weeks: 86479 - 43989 ??16 weeks: 5040 - 34325 ??17 weeks: 2975 - 44243 ??18 weeks: 8099 - 29191 All results should be interpreted in context of clinical presentations as rare causes of falsely positive and falsely negative results are known to exist. The Butch hCG Beta Quant assay procedure was used. Results from different manufacturers or methods may not be comparable. Serial testing should be performed using the same method. Current interpretive data was last revised 21. Blood 06/18/2022 3:20 PM WIRE INSULATOR 06/18/2022 4:40 PM WIRE INSULATOR us Carlota Schwartz DO LAB BLOOD ORDERABLES Fi nal Result [facility] [place] [address] documented in this encounter Visit Diagnoses Not on filedocumented in this encounter Care Teams It Solutions Sales Consultant Relationship Specialty Start Date End Date David Rodriguez MD [address] [address] PCP - General 01/11/15 07/15/22 documented as of this encounter
--- OUTSIDE RECORDS SUMMARY | 2024-03-31 11:15 | XMS_ITS | Encounter Summary ---
Author Organization [facility] Address [address] [place] [address] Phone Care Team Providers Care Orthopedic Specialist Name Role Phone Unknown, Notinfile Primary Care Provider Unavail able David Rodriguez MD Unavailable [phone] Reason for Referral * Diagnostic Imaging (Routine) - Closed Specialty Diagnoses / Procedures Referred By Contac t Referred To Contact Diagnoses Right foot pain Procedures XR Foot Right 3+ [place] [address] [place] [address] Phone: tel: fax: [facility] Referral ID Status Reason Start Date Expiration Date Visits Re quested Visits Authorized [id number] Closed 07/26/2022 08/25/2023 1 1 Reason for Visit * Reason Comments Pain Encounter Details Date Type Department Care Team (Late st Contact Info) Description 07/26/2022 5:45 PM CDT Office Visit [facility] [place] [facility] - [facility] [address] [place] [id number] [place] [address] [place], [place] [id number] Right foot pain (Primary Dx) Social History Tobacco Use Types [...] on file Legal Sex 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 HEALTH CARE COORDINATOR Gender Identity Female 03/22/2022 2:56 PM HEALTH CARE COORDINATOR Sexual Orientation Straight 05/08/2023 5: 32 PM HEALTH CARE COORDINATOR 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 on file Not on file documented as of this encounter Last Filed Vital Signs Vital Sign Reading Time Taken Comments Blood Pressure - - Pulse - - Temperature - - Respiratory Rate - - Oxygen Saturation - - Inhaled Oxygen Concentration - - Weight 111.1 kg (245 lb) 07/26/2022 5:55 PM CDT Height 162.6 cm (5' 4 ) 07/26/2022 5:55 PM CDT Body Mass Index 42.05 07/26/2022 5:55 PM CDT documented in this encounter Patient Instructions * Patient Instructions* Gaby Nava PA - 07/26/2022 5:45 PM CDT Images from the original note were not included. Kelly Castro 1995 1. Right foot pain RECOMMENDATIONS: Ice and elevation for swelling/pain for injury. Recommend 15-20 minutes 3 times a day or as needed. Medication: Take Ibuprofen for pain and swelling Immobilization: cam walker black jack dealer. May take off for shower and sleep Other treatment: ok for ankle range of motion to avoid stiffness Restrictions: no lower body workouts Follow up: 2 weeks with foot and ankle team Please contact my office at [phone] with questions or if symptoms do not improve. If you have My Chart, you may e-mail routine questions. Please allow 1-2 business days If an urgent problem that requires immediate attention, please call [phone] during regular business hours, or the exchange after 4:30 at or . Gaby Nava PA-C [facility] Department of Orthopaedic Surgery Working in collaborative practice with Talon Gan M.D. documented in this encounter Progress Notes * Gaby Nava PA - 07/26/2022 5:45 PM CDT Images from the original note were not included. [facility] CHIEF COMPLAINT Right foot pain REFERRING PROVIDER Self Referral HISTORY OF PRESENT ILLNESS Kelly Castro is a 27 y.o. who presents to the orthopedic injury clinic with the complaint of right foot pain. Patient rolled her foot 2 months ago. Noticed increase pain this past week when tryingto return to exercise. Pain on the top of the foot and with weight bearing. PAST MEDICAL HISTORY She has a past medical history of Arthritis (2016) and GERD (gastroesophageal reflux disease). PAST SURGICAL HISTORY She has a past surgical history that includes Other surgical history; knee arthroscopy; Arthroscopic repair ACL (Left); Patella surgery (Left); Myringotomy w/ tubes; Adenoidectomy; and Foot surgery (Left). INITIAL REVIEW OF MEDICATIONS Medication list reviewed. She has a current medication list which includes the following prescription(s): semaglutide. ALLERGIES She has No Known Allergies. SOCIAL HISTORY She reports that she has never smoked. She has never used smokeless tobacco. She reports that she does not use drugs. No alcohol history on file. REVIEW OF SYSTEMS Constitutional: No recent fever, chills, unexplained illnesses or weight loss PHYSICAL EXAMINATION CONSTITUTIONAL/GENERAL: Well-appearing, in no apparent distress. Height: 162.6 cm (5' 4 ) Weight: 111.1 kg (245 lb) PSYCHIATRIC: Alert, cooperative, appropriate mood and affect SKIN: Skin intact. No swelling or bruising MUSCULOSKELETAL: tender through the metatarsal shaft of the 2nd, 3rd and 4th. Non tender to the ankle. Has full ankle range of motion. Midfoot is flexible. Metatarsal squeeze test is positive for pain. Strength intact NEUROLOGICAL: Sensation is intact to light touch to the affected extremity VASCULAR: Brisk capillary refill is intact distally to the affect extremity REVIEW OF IMAGING/STUDIES X-rays three view right foot are taken at office. I have personally interpreted and reviewed the x-rays with the patient at the visit. No evidence of acute fracture or dislocation. Normal alignment. There is dorsal talonavicular spurring seen on lateral view. Calcification of the distal Achilles tendon. IMPRESSION/DIAGNOSIS Right foot pain. Can not rule out stress fracture TREATMENT/PLAN The physical exam findings, x-rays and impression are reviewed. Based on the findings, signs and symptoms are consistent with the above impression. I have discussed treatment options with patient/parent. Recommendations are: Due to increased pain in the past week patient may be trying to develop a stress fracture. I would recommend immobilization with a cam walker when up and walking. May take off while seated. Okay for ankle range of motion to avoid stiffness. May take ibuprofen for pain and swelling. Ice and elevation as needed. Recommend no lower body workouts at this time. Patient to follow up in 2 weeks with foot and ankle team to rule out stress fracture. Questions are answered. Patient verbalizes understanding and agrees with above treatment plan. Gaby Nava PA-C [facility] Department of Orthopaedic Surgery Working in collaboration with Cristiane Reeves M.D. and Talon Gan M.D. Portions of this note were dictated using niiu Fluency Direct speech recognition software. Please excuse any oceanographer physical errors. documented in this encounter Plan of Treatment [...] Lower Extremities, Foot Right Computed Radiography 07/26/2022 8:04 PM CDT Impressions 07/26/2022 8:04 PM CDT [...] foot Electronically signed by: Danilo Aj MD Gaby ATKINSON IMG XR PROCEDURES Final Res ult documented in this encounter Visit Diagnoses Diagnosis Right foot pain- Primary Pain in soft tissues of limb documented in this encounter Care Teams Orthopedic Specialist Relationship Specialty Start Date End Date Unknown, Notinfile PCP - General 07/16/22 David Rodriguez MD [address] [address] 07/16/22 documented as of this encounter
--- OUTSIDE RECORDS SUMMARY | 2024-03-31 11:15 | XMS_ITS | Encounter Summary ---
Author Organization [facility] Address [address] [place] [address] Care Team Providers Care Chairman Ceo Name Role Phone David Rodriguez MD Primary Care Provider + Encounter Details Date Type Department Care Team (Late st Contact Info) Description 03/20/2022 Orders Only [facility] [address] [facility] [address] [address] David Rodriguez MD [address] [facility] [address] [address] Social History Tobacco Use Types [...] on file Legal Sex 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 HARM REDUCTION WORKER Gender Identity Female 03/22/2022 2:56 PM HARM REDUCTION WORKER Sexual Orientation Straight 05/08/2023 5: 32 PM HARM REDUCTION WORKER 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 on file Not on file documented as of this encounter Plan of Treatment Not on file documented as of this encounter Procedures Procedure Name Priority Date/Time Associated Diagnosis Comments INSULIN, TOTAL Routine 03/20/2022 2:04 PM HARM REDUCTION WORKER HEMOGLOBIN A1C Routine 03/20/2022 2:04 PM HARM REDUCTION WORKER documented in this encounter Results * Hemoglobin A1c (03/20/2022 2:04 PM HARM REDUCTION WORKER) Hgb A1C 5.1 <5.7 % of total Hgb [facility] Comment: For the purpose of screening for the presence of diabetes: <5.7% ? Consistent with the absence of diabetes 5.7-6.4% ?Consistent with increased risk for diabetes ?(prediabetes) > or =6.5% ??Consistent with diabetes This assay result is consistent with a decreased risk of diabetes. Currently, no consensus exists regarding use of hemoglobin A1c for diagnosis of diabetes in children. According to [place] Diabetes Association (ADA) guidelines, hemoglobin A1c <7.0% represents optimal control in non- diabetic patients. Different metrics may apply to specific patient populations. Standards of Medical Care in Diabetes(ADA). ?? 03/20/2022 2:04 PM HARM REDUCTION WORKER 03/20/2022 2:05 PM HARM REDUCTION WORKER David Rodriguez MD LAB BLOOD ORDERABLES Fin al Result [facility] [address] [place] [address] * (ABNORMAL) Insulin, total (03/20/2022 2:04 PM HARM REDUCTION WORKER) INSULIN 22.4(H) uIU/mL [facility] Comment: ? Reference Range ??< or = 19.6 ? Risk: ? Optimal ?< or = 19.6 ? Moderate ? NA ? High ? >19.6 ? Adult cardiovascular event risk category ? cut points (optimal, moderate, high) ? are based on Evi population ? data from 03/2011. ? This insulin assay shows strong cross-reactivity for some insulin analogs (lispro, aspart, and glargine) and much lower cross-reactivity with others (detemir, glulisine). 03/20/2022 2:04 PM HARM REDUCTION WORKER 03/20/2022 2:05 PM HARM REDUCTION WORKER us David Rodriguez MD LAB BLOOD ORDERABLES Fin al Result [facility] [address] [place] [address] documented in this encounter Visit Diagnoses Not on filedocumented in this encounter Care Teams Chairman Ceo Relationship Specialty Start Date End Date David Rodriguez MD [address] [address] PCP - General 01/11/15 07/15/22 documented as of this encounter
--- OUTSIDE RECORDS SUMMARY | 2024-03-31 11:15 | XMS_ITS | Encounter Summary ---
Author Organization [facility] Healthcare Address [address] [place] [address] Care Team Providers Care Online Tutor Name Role Phone Unknown, Notinfile Primary Care Provider Unavail able David Rodriguez MD Unavailable [phone] Encounter Details Date Type Department Care Team (Latest Contact Info) Description 10/10/2022 8:38 AM CDT - 10/10/2022 11:59 PM CDT Hospital Encounter [id number] [place] [address] Discharge Disposition: Discharge to home [...] on file Legal Sex 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 INSTRUCTOR DECORATING Gender Identity Female 03/22/2022 2:56 PM INSTRUCTOR DECORATING Sexual Orientation Straight 05/08/2023 5: 32 PM INSTRUCTOR DECORATING 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 on file Not on file documented as of this encounter Medications at Time of Discharge semaglutide (OZEMPIC) 2 mg/dose (8 mg/3 mL) pen injector injection Inject 2 mg under the skin every 7 days 3 mL 10/03/2022 10/30/2022 documented as of this encounter Discharge Disposition Disposition Code Departure Means Destination Discharge to home or self care documented in this encounter Plan of Treatment Not on file documented as of this encounter Visit Diagnoses Not on filedocumented in this encounter Care Teams Online Tutor Relationship Specialty Start Date End Date Unknown, Notinfile PCP - General 07/16/22 David Rodriguez MD [address] [address] 07/16/22 documented as of this encounter
--- OUTSIDE RECORDS SUMMARY | 2024-03-31 11:15 | XMS_ITS | Encounter Summary ---
Author Organization [facility] Healthcare Address [address] [place] [address] Care Team Providers Care Director Of Partner Marketing Name Role Phone Unknown, Notinfile Primary Care Provider Unavail able David Rodriguez MD Unavailable [phone] Encounter Details Date Type Department Care Team (Late st Contact Info) Description 07/16/2022 5:25 PM CDT Lab [facility] Advanced Medicine [facility] Advanced Medicine ([facility]) [address] [place] [phone] Social History Tobacco Use Types Packs/Day Years [...] on file Legal Sex 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 WOOD GRINDER OPERATOR Gender Identity Female 03/22/2022 2:56 PM WOOD GRINDER OPERATOR Sexual Orientation Straight 05/08/2023 5: 32 PM WOOD GRINDER OPERATOR 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 on file Not on file documented as of this encounter Plan of Treatment Not on file documented as of this encounter Procedures Procedure Name Priority Date/Time Associated Diagnosis Comments HCG, BLOOD, QUANTITATIVE Routine 07/16/2022 5:50 PM CDT documented in this encounter Results * (ABNORMAL) hCG, blood, quantitative (07/16/2022 5:50 PM CDT) hCG, quant 96.0(H) 0.0 - 5.0 IUnits/L [facility] Comment: Interpretive Data: Male: ??<5.0 IUnits/L Non- Female: <5.0 IUnits/L Female: ??3 weeks: ??5.8 - 71.2 ??4 weeks: ??9.5 - 750 ??5 weeks: ??217 - 7138 ??6 weeks: ??158 - 69791 ??7 weeks: ??6247 - 985364 ??8 weeks: ??26804 - 952160 ??9 weeks: ??51447 - 322480 ??10 weeks: 54442 - 839193 ??12 weeks: 46091 - 707124 ??14 weeks: 82789 - 95060 ??15 weeks: 73[address] - [address] ??16 weeks: 8040 - 62669 ??17 weeks: 2775 - 77687 ??18 weeks: 8099 - 95543 All results should be interpreted in context of clinical presentations as rare causes of falsely positive and falsely negative results are known to exist. The Butch hCG Beta Quant assay procedure was used. Results from different manufacturers or methods may not be comparable. Serial testing should be performed using the same method. Current interpretive data was last revised 21. Blood 07/16/2022 5:50 PM CDT 07/16/2022 7:52 PM CDT us Carlota Schwartz DO LAB BLOOD ORDERABLES Fi nal Result [facility] One [facility] Department [place] [address] documented in this encounter Visit Diagnoses Not on filedocumented in this encounter Care Teams Director Of Partner Marketing Relationship Specialty Start Date End Date Unknown, Notinfile PCP - General 07/16/22 David Rodriguez MD [address] [address] 07/16/22 documented as of this encounter
--- OUTSIDE RECORDS SUMMARY | 2024-03-31 11:15 | XMS_ITS | Encounter Summary ---
Author Organization [facility] Healthcare Address [address] [place] [address] Care Team Providers Care Deputy Court Name Role Phone David Rodriguez MD Primary Care Provider + Encounter Details Date Type Department Care Team (Late st Contact Info) Description 07/14/2022 11:50 AM CDT Lab [facility] Advanced Medicine ([facility]) [address] [place] [phone] Hyperglycemia Social History Tobacco Use Types Packs/Day Years [...] on file Legal Sex 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 COUNTERINTELLIGENCE SPECIALIST Gender Identity Female 03/22/2022 2:56 PM COUNTERINTELLIGENCE SPECIALIST Sexual Orientation Straight 05/08/2023 5: 32 PM COUNTERINTELLIGENCE SPECIALIST 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 on file Not on file documented as of this encounter Plan of Treatment Not on file documented as of this encounter Visit Diagnoses Diagnosis Hyperglycemia Other abnormal glucose documented in this encounter Care Teams Deputy Court Relationship Specialty Start Date End Date David Rodriguez MD [address] [address] PCP - General 01/11/15 07/15/22 documented as of this encounter
--- OUTSIDE RECORDS SUMMARY | 2024-03-31 11:15 | XMS_ITS | Encounter Summary ---
Author Organization [facility] Healthcare Address [address] [place] [address] Care Team Providers Care Horse Trainer Name Role Phone Unknown, Notinfile Primary Care Provider Unavail able David Rodriguez MD Unavailable [phone] Encounter Details Date Type Department Care Team (Latest Contact Info) Description 10/10/2022 11:49 AM CDT - 10/10/2022 11:59 PM CDT Hospital Encounter [id number] [place] [address] Discharge Disposition: Discharge to home [...] on file Legal Sex 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 SUPERVISOR NUT PROCESSING Gender Identity Female 03/22/2022 2:56 PM SUPERVISOR NUT PROCESSING Sexual Orientation Straight 05/08/2023 5: 32 PM SUPERVISOR NUT PROCESSING Occupation Industry Job Start Date Job End [...] on filedocumented in this encounter Care Teams Horse Trainer Relationship Specialty Start Date End Date Unknown, Notinfile PCP - General 07/16/22 David Rodriguez MD [address] [address] 07/16/22 documented as of this encounter
--- OUTSIDE RECORDS SUMMARY | 2024-03-31 11:15 | XMS_ITS | Encounter Summary ---
Author Organization [facility] Healthcare Address [address] [place] [address] Care Team Providers Care Administrative Support Associate Name Role Phone Unknown, Notinfile Primary Care Provider Unavail able David Rodriguez MD Unavailable [phone] Reason for Visit * Reason Onset Date Comments COVID-19 EVALUATION 10/31/2022 Encounter Details Date Type Department Care Team (Late st Contact Info) Description 10/31/2022 Telephone [facility] Occupatiuonal Health [address] [facility] Room 3420 (Third Floor) [place] [address] Barbara Rios RN COVID-19 EVALUATION Social History Tobacco Use [...] on file Legal Sex 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 SOLAR SALES ASSOCIATE Gender Identity Female 03/22/2022 2:56 PM SOLAR SALES ASSOCIATE Sexual Orientation Straight 05/08/2023 5: 32 PM SOLAR SALES ASSOCIATE 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 on file Not on file documented as of this encounter Miscellaneous Notes * Telephone Encounter - Barbara Rios RN - 10/31/2022 8:14 AM CDT [facility] Covid Positive Home Test Result Employee will review guidance sent via email and reach out as needed with any questions. * Telephone Encounter - Barbara Rios RN - 10/31/2022 8:02 AM CDT 10/31/2022 8:02 AM Employee COVID-19 Screening Email: [email or web address] Employee/Student ID# [id number] Registered Massage Therapist/[employer] name and email address: [email or web address] Are you an employee or student? Employee Employer: [facility] Are you 100% SHERIDAN? No Employee Facility: [facility] Are you okay receiving positive results and further instructions via email? 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 [facility] Are you considered to be severely immunocompromised? No Have you had a vaccine within the past 48 hours? No Have you been vaccinated against Covid-19? Yes Series: full initial series Year of most recent booster: no booster Have you tested positive for COVID in the past 60 days? Yes Date of most recent positive test: 10/30/2022 Date of test comment Positive at home test. Have you had a known, specific Covid exposure within the last 14 days? No Employee Symptoms: Yes Date of employee symptom onset: 10/28/2022 Description of Symptoms: Cough;Headache;Subjective Fever Desciption of Symptoms Comment sinus pressure Temperature: 99.7 Did you work on site 48 hours prior to symptom onset and/or any days while symptomatic? Yes Which department? [facility] Were you unmasked within 6 ft for longer than 15 minutes from another employee those days? No Notes: Employee reports positive covid at home test 10/30/2022. Positive Home Antigen Test Thank you for calling the Employee COVID-19 Call Center. Since you are reporting a home positive antigen test, please date and initial your Covid test and take a picture of the test with your badge. It is your responsibility to save the image in your filesin the event this is needed at a later date. You do not need to email proof at this time. If this information is needed, you will be notified. You are required to isolate at home and not return to work You should let your supervisor dimension warehouse know that you will not be coming to work. Although we will email your supervisor dimension warehouse to confirm this, it is still your responsibility to notify your supervisor dimension warehouse as you wouldfor any other work absence. If you have the option to network architect manager and you feel well enough, it must be approved by your supervisor dimension warehouse All further communication, including guidance on returning to work, will be through the email you provided us during your screening. Monitor your symptoms If you have worsening fever, increased cough, or shortness of breath, notify your primary care physician, or if your symptoms become severe, go to your nearest emergency department. If you are admitted to the hospital, please contact your local occupational health department as soon as possible. documented in this encounter Plan of Treatment Not on file documented as of this encounter Visit Diagnoses Not on filedocumented in this encounter Care Teams Administrative Support Associate Relationship Specialty Start Date End Date Unknown, Notinfile PCP - General 07/16/22 David Rodriguez MD [address] [address] 07/16/22 documented as of this encounter
--- OUTSIDE RECORDS SUMMARY | 2024-03-31 11:15 | XMS_ITS | Encounter Summary ---
Author Organization [facility] Healthcare Address [address] [place] [address] Care Team Providers Care Frog Farmer Name Role Phone David Rodriguez MD Primary Care Provider + Encounter Details Date Type Department Care Team (Latest Contact Info) Description 07/04/2022 8:05 AM CDT - 07/04/2022 11:59 PM CDT Hospital Encounter [address] [address] Discharge Disposition: Discharge to home or self [...] file Legal Sex 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 WOOD PLANER Gender Identity Female 03/22/2022 2:56 PM WOOD PLANER Sexual Orientation Straight 05/08/2023 5: 32 PM WOOD PLANER Occupation Industry Job Start Date Job End [...] Associated Diagnosis Comments HCG, BLOOD, QUANTITATIVE Routine 07/04/2022 8:05 AM CDT documented in this encounter Results * (ABNORMAL) hCG, blood, quantitative (07/04/2022 8:05 AM CDT) hCG, quant 146.0(H) 0.0 - 5.0 IUnits/L [facility] Comment: Interpretive Data: Male: ??<5.0 IUnits/L Non- Female: <5.0 IUnits/L Female: ??3 weeks: ??5.8 - 71.2 ??4 weeks: ??9.5 - 750 ??5 weeks: ??217 - 7138 ??6 weeks: ??158 - 84908 ??7 weeks: ??3697 - 974763 ??8 weeks: ??60098 - 853954 ??9 weeks: ??16080 - 290228 ??10 weeks: 76021 - 115036 ??12 weeks: 05037 - 708477 ??14 weeks: 06213 - 89869 ??15 weeks: 35092 - 65602 ??16 weeks: 1181 - 25257 ??17 weeks: 9406 - 90371 ??18 weeks: 2041 - 40828 All results should be interpreted in context of clinical presentations as rare causes of falsely positive and falsely negative results are known to exist. The Butch hCG Beta Quant assay procedure was used. Results from different manufacturers or methods may not be comparable. Serial testing should be performed using the same method. Current interpretive data was last revised 21. Blood 07/04/2022 8:05 AM CDT 07/04/2022 9:18 AM CDT us Notinfile Unknown LAB BLOOD ORDERABLES Final Res ult [facility] One [facility] [place] [address] documented in this encounter Visit Diagnoses Not on filedocumented in this encounter Care Teams Frog Farmer Relationship Specialty Start Date End Date David Rodriguez MD [address] [address] PCP - General 01/11/15 07/15/22 documented as of this encounter
--- OUTSIDE RECORDS SUMMARY | 2024-03-31 11:15 | XMS_ITS | Encounter Summary ---
Author Organization [facility] Healthcare Address [address] [place] [address] Care Team Providers Care Chip Machine Operator Name Role Phone Unknown, Notinfile Primary Care Provider Unavail able David Rodriguez MD Unavailable [phone] Encounter Details Date Type Department Care Team (Late st Contact Info) Description 07/19/2022 5:40 PM CDT Lab [facility] Advanced Medicine [facility] Advanced Medicine ([facility]) [address] [place] [address] [phone] Social History Tobacco Use Types Packs/Day Years [...] on file Legal Sex 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 HEAVY THREADER Gender Identity Female 03/22/2022 2:56 PM HEAVY THREADER Sexual Orientation Straight 05/08/2023 5: 32 PM HEAVY THREADER 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 on file Not on file documented as of this encounter Plan of Treatment Not on file documented as of this encounter Procedures Procedure Name Priority Date/Time Associated Diagnosis Comments EGFR STAT 07/19/2022 5:50 PM CDT DIFFERENTIAL AUTO STAT 07/19/2022 5:5 0 PM CDT CBC WITH AUTO DIFFERENTIAL STAT 07/19/2022 5:50 PM CDT PROGESTERONE Routine 07/19/2022 5:50 PM CDT HCG, BLOOD, QUANTITATIVE Routine 07/19/2022 5:50 PM CDT COMPREHENSIVE METABOLIC PANEL STAT 07/19/2022 5:50 PM CDT documented in this encounter Results * eGFR (07/19/2022 5:50 PM CDT) eGFR >90 90 - 130 mL/min/1. 73 m2 [facility] Comment: Interpretive Data Reference Interval Normal ?>/= [...] interpretive data was last reviewed 2021. Blood 07/19/2022 5:50 PM CDT 07/19/2022 6:05 PM CDT us Carlota Boonedave Schwartz DO LAB BLOOD ORDERABLES Fi nal Result [facility] One [facility] Department [place] [address] * Differential, auto (07/19/2022 5:50 PM CDT) Neutrophil abs 4.4 1.7 - 6.5 K/cumm [facility] Imm gran abs 0.0 0.0 - 0.1 K/cumm [facility] Lymphocyte abs 2.2 0.8 - 3.3 K/cumm [facility] Monocyte abs 0.7 0.2 - 0.8 K/cumm [facility] Eosinophil abs 0.3 0.0 - 0.5 K/cumm [facility] Basophil abs 0.0 0.0 - 0.1 K/cumm [facility] Neutrophil pct 57.1 % [facility] Comment: Interpretive Data Percent cell count reference ranges are not reported, since discordance with absolute values may lead to misinterpretation of CBC data. Current Interpretive Data was last revised on 2017. Imm gran pct 0.4 % [facility] Comment: Interpretive Data Percent cell count reference ranges are not reported, since discordance with absolute values may lead to misinterpretation of CBC data. Current Interpretive Data was last revised on 2017. Lymphocyte pct 28.4 % [facility] Comment: Interpretive Data Percent cell count reference ranges are not reported, since discordance with absolute values may lead to misinterpretation of CBC data. Current Interpretive Data was last revised on 2017. Monocyte pct 9.7 % [facility] Comment: Interpretive Data Percent cell count reference ranges are not reported, since discordance with absolute values may lead to misinterpretation of CBC data. Current Interpretive Data was last revised on 2017. Eosinophil pct 3.9 % [facility] Comment: Interpretive Data Percent cell count reference ranges are not reported, since discordance with absolute values may lead to misinterpretation of CBC data. Current Interpretive Data was last revised on 2017. Basophil pct 0.5 % [facility] Comment: Interpretive Data Percent cell count reference ranges are not reported, since discordance with absolute values may lead to misinterpretation of CBC data. Current Interpretive Data was last revised on 2017. Blood 07/19/2022 5:50 PM CDT 07/19/2022 5:57 PM CDT Carlota Schwartz DO LAB BLOOD ORDERABLES Fi nal Result Performing Organization Address [facility] Co de Phone Number [facility] [place] [address] * Progesterone (07/19/2022 5:50 PM CDT) Pathologist [facility] Progesterone 0.75 ng/mL [facility] Comment: Interpretive Data Males: ?<0.15 ng/mL Females: ??Follicular ?<0.20 ng/mL ??Ovulation ? <4.1 ng/mL ??Luteal ?4.1 - ??14.5 ng/mL ??1st Trimester ?? 11.0 - ??44.0 ng/mL ??2nd Trimester ?? 25.0 - ??83.0 ng/mL ??3rd Trimester ?? 59.0 - 214.0 ng/mL ??Postmenopausal ??<0.13 ng/mL Current interpretive data was last revised 2021. Blood 07/19/2022 5:50 PM CDT 07/19/2022 5:57 PM CDT Carlota Schwartz DO LAB BLOOD ORDERABLES Fi nal Result Performing Organization Address City/[facility] Co de Phone Number [facility] Department [place] [address] * (ABNORMAL) hCG, blood, quantitative (07/19/2022 5:50 PM CDT) hCG, quant 89.9(H) 0.0 - 5.0 IUnits/L [facility] Comment: Interpretive Data: Male: ??<5.0 IUnits/L Non- Female: <5.0 IUnits/L Female: ??3 weeks: ??5.8 - 71.2 ??4 weeks: ??9.5 - 750 ??5 weeks: ??217 - 7138 ??6 weeks: ??158 - 12819 ??7 weeks: ??6467 - 057084 ??8 weeks: ??59392 - 293533 ??9 weeks: ??01191 - 631910 ??10 weeks: 70142 - 790808 ??12 weeks: 53916 - 062128 ??14 weeks: 75625 - 85027 ??15 weeks: 92766 - 86745 ??16 weeks: 6753 - 12695 ??17 weeks: 1647 - 40146 ??18 weeks: 3799 - 41002 All results should be interpreted in context of clinical presentations as rare causes of falsely positive and falsely negative results are known to exist. The Butch hCG Beta Quant assay procedure was used. Results from different manufacturers or methods may not be comparable. Serial testing should be performed using the same method. Current interpretive data was last revised 21. Blood 07/19/2022 5:50 PM CDT 07/19/2022 5:57 PM CDT us Carlota Schwartz DO LAB BLOOD ORDERABLES Fi nal Result [facility] One [facility] Department [place] [address] * Comprehensive metabolic panel (07/19/2022 5:50 PM CDT) Pathologist [facility] Sodium 140 135 - 145 mmol/L [facility] Potassium, pl 4.1 3.3 - 4.9 mmol/L [facility] Chloride 103 97 - 110 mmol/L [facility] CO2 31 22 - 32 mmol/L [facility] Anion gap 6 2 - 15 mmol/L [facility] BUN 13 8 - 25 mg/dL [facility] Creatinine 0.66 0.60 - 1.10 mg/dL [facility] Glucose 87 70 - 199 mg/dL [facility] Comment: Interpretive Data Fasting glucose >/= [...] interpretive data was last revised 2022. Calcium 9.5 8.5 - 10.3 mg/dL [facility] Bilirubin, total 0.3 0.1 - 1.2 mg/dL [facility] Protein, pl 7.3 6.5 - 8.5 g/dL [facility] Albumin 4.5 3.5 - 5.0 g/dL [facility] Alk phos 42 40 - 130 Units/L [facility] ALT 34 7 - 45 Units/L [facility] AST 23 10 - 45 Units/L [facility] Blood 07/19/2022 5:50 PM CDT 07/19/2022 5:57 PM CDT us Carlota Schwartz DO LAB BLOOD ORDERABLES Fi nal Result [facility] One [facility] Department [place] [address] * (ABNORMAL) CBC with auto differential (07/19/2022 5:50 PM CDT) Pathologist [facility] WBC 7.7 3.8 - 9.9 K/cumm [facility] Hgb 14.1 11.9 - 15.5 g/dL [facility] Hct 39.4 35.6 - 45.5 % [facility] Plt 201 150 - 400 K/cumm [facility] MPV 11.1 9.1 - 12.3 fL [facility] RBC 4.34 3.90 - 5.20 M/cumm [facility] MCV 90.8 81.3 - 96.4 fL [facility] MCH 32.5 27.1 - 33.3 pg [facility] MCHC 35.8(H) 32.3 - 35.7 g/dL [facility] RDW CV 12.2 11.1 - 14.9 % [facility] RDW SD 39.8 35.7 - 48.1 fL [facility] NRBC abs 0.00 0.00 - 0.01 K/cumm [facility] Blood 07/19/2022 5:50 PM CDT 07/19/2022 5:57 PM CDT us Carlota Schwartz DO LAB BLOOD ORDERABLES Fi nal Result [facility] One [facility] Department [place] [address] documented in this encounter Visit Diagnoses Not on filedocumented in this encounter Care Teams Chip Machine Operator Relationship Specialty Start Date End Date Unknown, Notinfile PCP - General 07/16/22 David Rodriguez MD [address] [facility] [address], [place] [address] 07/16/22 documented as of this encounter
--- OUTSIDE RECORDS SUMMARY | 2024-03-31 11:15 | XMS_ITS | Encounter Summary ---
Author Organization [facility] Healthcare Address [address] [place] [address] Care Team Providers Care Production Sanitizer Name Role Phone David Rodriguez MD Primary Care Provider + Encounter Details Date Type Department Care Team (Late st Contact Info) Description 06/20/2022 1:45 PM SHOWER ROOM ATTENDANT Lab [facility] Advanced Medicine [facility] Advanced Medicine ([facility]) [address] [place] [phone] Social History Tobacco Use Types Packs/Day Years [...] on file Legal Sex 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 SHOWER ROOM ATTENDANT Gender Identity Female 03/22/2022 2:56 PM SHOWER ROOM ATTENDANT Sexual Orientation Straight 05/08/2023 5: 32 PM SHOWER ROOM ATTENDANT 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 on file Not on file documented as of this encounter Plan of Treatment Not on file documented as of this encounter Procedures Procedure Name Priority Date/Time Associated Diagnosis Comments PROGESTERONE Routine 06/20/2022 12:44 PM SHOWER ROOM ATTENDANT HCG, BLOOD, QUANTITATIVE Routine 06/20/2022 12:44 PM SHOWER ROOM ATTENDANT documented in this encounter Results * Progesterone (06/20/2022 12:44 PM SHOWER ROOM ATTENDANT) Progesterone 3.64 ng/mL [facility] Comment: Interpretive Data Males: ?<0.15 ng/mL Females: ??Follicular ?<0.20 ng/mL ??Ovulation ? <4.1 ng/mL ??Luteal ?4.1 - ??14.5 ng/mL ??1st Trimester ?? 11.0 - ??44.0 ng/mL ??2nd Trimester ?? 25.0 - ??83.0 ng/mL ??3rd Trimester ?? 59.0 - 214.0 ng/mL ??Postmenopausal ??<0.13 ng/mL Current interpretive data was last revised 2021. Blood 06/20/2022 12:4 4 PM SHOWER ROOM ATTENDANT 06/20/2022 1:41 PM SHOWER ROOM ATTENDANT us Carlota Schwartz DO LAB BLOOD ORDERABLES Fi nal Result [facility] One [facility] Department [place] [address] * (ABNORMAL) hCG, blood, quantitative (06/20/2022 12:44 PM SHOWER ROOM ATTENDANT) hCG, quant 52.6(H) 0.0 - 5.0 IUnits/L [facility] Comment: Interpretive Data: Male: ??<5.0 IUnits/L Non- Female: <5.0 IUnits/L Female: ??3 weeks: ??5.8 - 71.2 ??4 weeks: ??9.5 - 750 ??5 weeks: ??217 - 8036 ??6 weeks: ??158 - 90626 ??7 weeks: ??7503 - 675656 ??8 weeks: ??05240 - 694132 ??9 weeks: ??73028 - 345620 ??10 weeks: 46332 - 751945 ??12 weeks: 28116 - 940394 ??14 weeks: 69023 - 47842 ??15 weeks: 10223 - 20130 ??16 weeks: 8740 - 41733 ??17 weeks: 2975 - 10042 ??18 weeks: 7306 - 87028 All results should be interpreted in context of clinical presentations as rare causes of falsely positive and falsely negative results are known to exist. The Butch hCG Beta Quant assay procedure was used. Results from different manufacturers or methods may not be comparable. Serial testing should be performed using the same method. Current interpretive data was last revised 21. Blood 06/20/2022 12:4 4 PM SHOWER ROOM ATTENDANT 06/20/2022 1:41 PM SHOWER ROOM ATTENDANT us Carlota Schwartz DO LAB BLOOD ORDERABLES Fi nal Result [facility] One [facility] Department [place] [address] documented in this encounter Visit Diagnoses Not on filedocumented in this encounter Care Teams Production Sanitizer Relationship Specialty Start Date End Date David Rodriguez MD [address] [address] PCP - General 01/11/15 07/15/22 documented as of this encounter
--- OUTSIDE RECORDS SUMMARY | 2024-03-31 11:15 | XMS_ITS | Encounter Summary ---
Author Organization [facility] Healthcare Address [address] [place] [address] Care Team Providers Care Bowling Alley Refinisher Name Role Phone David Rodriguez MD Primary Care Provider + Encounter Details Date Type Department Care Team (Late st Contact Info) Description 07/04/2022 12:55 PM CDT Lab [facility] Advanced Medicine [facility] (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 73 m2 [facility] Comment: Interpretive Data Reference Interval Normal ?>/= [...] of Race in Diagnosing Kidney Disease, JASN 202). The CKD-EPI equation should not be used for patients with unstable renal function and has not been validated in children and those over 70. Current interpretive data was last reviewed 2021. Blood 07/04/2022 1:27 PM CDT 07/04/2022 1:47 PM CDT Ngoc Jo MD LAB BLOOD ORDERABLES Fin al Result [facility] Department [place] [address] * Differential, auto (07/04/2022 1:27 PM CDT) Neutrophil abs 4.3 1.7 - 6.5 K/cumm [facility] Imm gran abs 0.0 0.0 - 0.1 K/cumm [facility] Lymphocyte abs 1.4 0.8 - 3.3 K/cumm [facility] Monocyte abs 0.7 0.2 - 0.8 K/cumm [facility] Eosinophil abs 0.1 0.0 - 0.5 K/cumm [facility] Basophil abs 0.1 0.0 - 0.1 K/cumm [facility] Neutrophil pct 65.3 % [facility] Comment: Interpretive Data Percent cell count reference ranges are not reported, since discordance with absolute values may lead to misinterpretation of CBC data. Current Interpretive Data was last revised on 2017. Imm gran pct 0.5 % [facility] Comment: Interpretive Data Percent cell count reference ranges are not reported, since discordance with absolute values may lead to misinterpretation of CBC data. Current Interpretive Data was last revised on 2017. Lymphocyte pct 21.0 % [facility] Comment: Interpretive Data Percent cell count reference ranges are not reported, since discordance with absolute values may lead to misinterpretation of CBC data. Current Interpretive Data was last revised on 2017. Monocyte pct 10.0 % [facility] Comment: Interpretive Data Percent cell count reference ranges are not reported, since discordance with absolute values may lead to misinterpretation of CBC data. Current Interpretive Data was last revised on 2017. Eosinophil pct 2.1 % [facility] Comment: Interpretive Data Percent cell count reference ranges are not reported, since discordance with absolute values may lead to misinterpretation of CBC data. Current Interpretive Data was last revised on 2017. Basophil pct 1.1 % [facility] Comment: Interpretive Data Percent cell count reference ranges are not reported, since discordance with absolute values may lead to misinterpretation of CBC data. Current Interpretive Data was last revised on 2017. Blood 07/04/2022 1:27 PM CDT 07/04/2022 1:40 PM CDT us Ngoc Jo MD LAB BLOOD ORDERABLES Fin al Result [facility] Department [place] [address] * Comprehensive metabolic panel (07/04/2022 1:27 PM CDT) Sodium 141 135 - 145 mmol/L [facility] Potassium, pl 3.6 3.3 - 4.9 mmol/L [facility] Chloride 103 97 - 110 mmol/L [facility] CO2 28 22 - 32 mmol/L [facility] Anion gap 10 2 - 15 mmol/L [facility] BUN 11 8 - 25 mg/dL [facility] Creatinine 0.61 0.60 - 1.10 mg/dL [facility] Glucose 109 70 - 199 mg/dL [facility] [...] 2022. Calcium 9.8 8.5 - 10.3 mg/dL [facility] Bilirubin, total 0.3 0.1 - 1.2 mg/dL [facility] Protein, pl 7.4 6.5 - 8.5 g/dL [facility] Albumin 4.5 3.5 - 5.0 g/dL [facility] Alk phos 43 40 - 130 Units/L [facility] ALT 44 7 - 45 Units/L [facility] AST 28 10 - 45 Units/L [facility] Blood 07/04/2022 1:27 PM CDT 07/04/2022 1:41 PM CDT Ngoc Jo MD LAB BLOOD ORDERABLES Fin al Result Performing Organization Address [facility] Co de Phone Number [facility] [place] [address] * CBC with auto differential (07/04/2022 1:27 PM CDT) WBC 6.6 3.8 - 9.9 K/cumm [facility] Hgb 14.8 11.9 - 15.5 g/dL [facility] Hct 41.4 35.6 - 45.5 % [facility] Plt 201 150 - 400 K/cumm [facility] MPV 11.5 9.1 - 12.3 fL [facility] RBC 4.56 3.90 - 5.20 M/cumm [facility] MCV 90.8 81.3 - 96.4 fL [facility] MCH 32.5 27.1 - 33.3 pg [facility] MCHC 35.7 32.3 - 35.7 g/dL [facility] RDW CV 11.9 11.1 - 14.9 % [facility] RDW SD 39.5 35.7 - 48.1 fL [facility] NRBC abs 0.00 0.00 - 0.01 K/cumm [facility] Blood 07/04/2022 1:27 PM CDT 07/04/2022 1:40 PM CDT us Ngoc Jo MD LAB BLOOD ORDERABLES Fin al Result Performing Organization Address City/[facility]/ZIP Co de Phone Number [facility] [place] [address] documented in this encounter Visit Diagnoses Diagnosis Hyperglycemia Other abnormal glucose documented in this encounter Care Teams Bowling Alley Refinisher Relationship Specialty Start Date End Date David Rodriguez MD [address] [address] PCP - General 01/11/15 07/15/22 documented as of this encounter
--- OUTSIDE RECORDS SUMMARY | 2024-03-31 11:16 | XMS_ITS | Encounter Summary ---
Author Organization [facility] Address [address] [place] [address] Care Team Providers Care Flow Match Sofa Cutter Name Role Phone David Rodriguez MD Primary Care Provider + Encounter Details Date Type Department Care Team (Late st Contact Info) Description 10/28/2020 Orders Only [facility] ENT Specialists - [address] [phone] Kaz Landa MD [address] [phone] Social History Tobacco Use Types Packs/Day Years [...] points, staff should administer the PHQ-9) 2 09/07/2020 Comments No Sex and Gender Information Value Date Recorded Sex Assigned at Not on file Legal Sex 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 NEON TUBE BENDER Gender Identity Female 03/22/2022 2:56 PM NEON TUBE BENDER Sexual Orientation Straight 05/08/2023 5: 32 PM NEON TUBE BENDER 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 on file Not on file documented as of this encounter Ordered Prescriptions Prescription Sig Dispense Quantity Refills Last Filled Start Date End Date ondansetron ODT (ZOFRAN-ODT) 4 mg disintegrating tablet Take 1 tablet (4 mg total) by mouth every 6 (six) hours as needed for nausea or vomiting Dissolves in mouth 15 tablet 10/28/2020 2 documented in this encounter Plan of Treatment Not on file documented as of this encounter Visit Diagnoses Not on filedocumented in this encounter Care Teams Flow Match Sofa Cutter Relationship Specialty Start Date End Date David Rodriguez MD [address] [address] PCP - General 01/11/15 07/15/22 documented as of this encounter
--- OUTSIDE RECORDS SUMMARY | 2024-03-31 11:16 | XMS_ITS | Encounter Summary ---
Author Organization [facility] Healthcare Address [address] [place] [address] Care Team Providers Care Shoe Repairer Helper Name Role Phone David Rodriguez MD Primary Care Provider + Encounter Details Date Type Department Care Team (Latest Contact Info) Description 09/08/2020 12:10 PM CDT - 09/08/2020 11:59 PM CDT Hospital Encounter [address] [id number] [place] [phone] Discharge Disposition: Discharge to home or self care Social History Tobacco Use Types Packs/Day Years Used Date Smoking Tobacco: Never Smokeless Tobacco: Never Alcohol Use Standard Drinks/Week Comments Yes 0 (1 standard drink = 0.6 oz pur e alcohol) PHQ-2 Answer Date Recorded PHQ-2 Total Score (If total score is 3 or more points, staff should administer the PHQ-9) 2 09/07/2020 Comments Unknown Sex and Gender Information Value Date Recorded Sex Assigned at Not on file Legal Sex 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 SCORE CALLER Gender Identity Female 03/22/2022 2:56 PM SCORE CALLER Sexual Orientation Straight 05/08/2023 5: 32 PM SCORE CALLER 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
--- OUTSIDE RECORDS SUMMARY | 2024-03-31 11:16 | XMS_ITS | Encounter Summary ---
Author Organization [facility] Medical [facility] Address [address] [place] [address] Care Team Providers Care Appliance Counselor Name Role Phone David Rodriguez MD Primary Care Provider + Encounter Details Date Type Department Care Team (Late st Contact Info) Description 02/28/2022 Telephone [facility] [address] [facility] [address] [place] [phone] David Rodriguez MD [address] [facility] [address], [place] [address] Social History Tobacco Use Types [...] on file Legal Sex 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 MALT HOUSE LOADER Gender Identity Female 03/22/2022 2:56 PM MALT HOUSE LOADER Sexual Orientation Straight 05/08/2023 5: 32 PM MALT HOUSE LOADER 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 on file Not on file documented as of this encounter Miscellaneous Notes * Telephone Encounter - Gemma Lund LPN - 03/07/2022 4:18 PM MALT HOUSE LOADER Ozempic not covered for weight loss. [employer] message sent to patient with savings card information. HOUSE LOADER * Telephone Encounter - Gemma Lund LPN - 03/05/2022 5:48 PM MALT HOUSE LOADER Check status. Patient sent message HOUSE LOADER * Telephone Encounter - Stacie Harley LPN - 02/28/2022 1:35 PM MALT HOUSE LOADER Prior Authorization started with [employer]. Pending response. HOUSE LOADER documented in this encounter Plan of Treatment Not on file documented as of this encounter Visit Diagnoses Not on filedocumented in this encounter Care Teams Appliance Counselor Relationship Specialty Start Date End Date David Rodriguez MD [address] [address] PCP - General 01/11/15 07/15/22 documented as of this encounter
--- OUTSIDE RECORDS SUMMARY | 2024-03-31 11:16 | XMS_ITS | Encounter Summary ---
Author Organization [facility] Healthcare Address [address] [place] [address] Care Team Providers Care Food Cart Attendant Name Role Phone David Rodriguez MD Primary Care Provider + Encounter Details Date Type Department Care Team (Late st Contact Info) Description 10/21/2020 8:10 AM CDT Lab [address] [phone] Pre-op evaluation Social History Tobacco Use Types Packs/Day Years [...] on file Legal Sex 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 CURRICULUM ADVISORY TEACHER Gender Identity Female 03/22/2022 2:56 PM CURRICULUM ADVISORY TEACHER Sexual Orientation Straight 05/08/2023 5: 32 PM CURRICULUM ADVISORY TEACHER 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 on file Not on file documented as of this encounter Plan of Treatment Not on file documented as of this encounter Procedures Procedure Name Priority Date/Time Associated Diagnosis Comments COVID-19 CORONAVIRUS RNA Routine 10/21/2020 1:05 PM CDT Pre-op evaluation documented in this encounter Results * COVID-19 Coronavirus RNA Nasopharyngeal (10/21/2020 1:05 PM CDT) COVID-19 RNA Not Detect[address] Not Detected [facility] Comment: Interpretive Data Synonyms for this test include: PCR and NAAT . ??Testing performed at [facility] Molecular Infectious Disease Laboratory. ??The [employer] Simplexa COVID-19 Direct assay is for in vitro diagnostic use under FDA emergency use authorization only. A negative RT-PCR result does not preclude infection with COVID-19 and should not be used as the sole basis for treatment or other patient management decisions. Additional sample types have been validated according to CLIA regulations. Current Interpretative Data was last reviewed May 19, 2020. Testing performed by: [facility], [address] [place] [address]., [id number] First COVID-19 test? No [facility] Comment:Testing performed by : [facility], [address] [place] [address], [id number] Employeed in healthcare? No [facility] Comment:Testing performed by : [facility], [address] [place] [address], [id number] status? Unknown [facility] Comment:Testing performed by : [facility], [address] [place] [address], [address] Group care resident? Unknown [facility] Comment:Testing performed by : [facility], [address] [place] [address], [address] Hospitalized? No [facility] Comment:Testing performed by : [facility], [address] [place] [address], [address] Is patient in ICU? No [facility] Comment:Testing performed by : [address], [address] Symptomatic as defined by CDC? No [facility] Comment:Testing performed by : [facility], [address] [place] [address], [id number] Nasopharyngeal 10/21/2020 1: 05 PM CDT 10/21/2020 3:42 PM CDT Narrative [facility] - 10/21/2020 9:52 PM CDT What is the reason for testing?->Screening prior to scheduled procedure or surgery us Kaz Landa MD LAB MICROBIOLOGY - GENERAL ORDERABLES Final Result [facility] [address] [place] [address] documented in this encounter Visit Diagnoses Diagnosis Pre-op evaluation documented in this encounter Care Teams Food Cart Attendant Relationship Specialty Start Date End Date David Rodriguez MD [address] [phone] PCP - General 01/11/15 07/15/22 documented as of this encounter
--- OUTSIDE RECORDS SUMMARY | 2024-03-31 11:16 | XMS_ITS | Encounter Summary ---
Author Organization [facility] Address [address] [place] [address] Care Team Providers Care Lay Out Carpenter Name Role Phone David Rodriguez MD Primary Care Provider + Reason for Visit * Reason Comments Post-op Encounter Details Date Type Department Care Team (Late st Contact Info) Description 11/14/2020 10:30 AM CDT Office Visit [facility] ENT Specialists - [facility] [address] [phone] Kaz Landa MD [address] [address] Chronic tonsillitis (Primary Dx) Social History Tobacco Use Types [...] on file Legal Sex 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 PATIENT BILLER Gender Identity Female 03/22/2022 2:56 PM PATIENT BILLER Sexual Orientation Straight 05/08/2023 5: 32 PM PATIENT BILLER 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 on file Not on file documented as of this encounter Last Filed Vital Signs Vital Sign Reading Time Taken Comments Blood Pressure 106/70 11/14/2020 10:15 AM CDT Pulse - - Temperature - - Respiratory Rate - - Oxygen Saturation - - Inhaled Oxygen Concentration - - Weight 103.6 kg (228 lb 6.3 oz) 021 10:15 AM CDT Height 162.6 cm (5' 4.02 ) 11/14/2020 1 0:15 AM CDT Body Mass Index 39.18 11/14/2020 10:15 AM CDT documented in this encounter Progress Notes * Kaz Landa MD - 11/14/2020 10:30 AM CDT Subjective/Objective Patient ID: Kelly Garnica is a 25 y.o. female. Chief Complaint Post-op History of Present Illness This patient is approximately 3 weeks out from tonsillectomy. Recovery has been as expected. Pain and swallowing are both improving. ?? INTRAOPERATIVE FINDINGS: Tonsil hypertrophy, symmetric, grade 3 Physical Exam Vitals: 11/14/20 1015 BP: 106/70 Weight: 103.6 kg (228 lb 6.3 oz) Height: 162.6 cm (5' 4.02 ) The patient is in no distress. Tonsillar fossae are healing appropriately. Assessment/Plan Chronic tonsillitis s/p tonsillectomy Ms. Garnica is doing well with appropriate healing. Resume regular diet and regular acitivities The patient will follow up with me as needed. Kaz Landa MD documented in this encounter Plan of Treatment Not on file documented as of this encounter Visit Diagnoses Diagnosis Chronic tonsillitis- Primary documented in this encounter Care Teams Lay Out Carpenter Relationship Specialty Start Date End Date David Rodriguez MD [address] [address] PCP - General 01/11/15 07/15/22 documented as of this encounter
--- OUTSIDE RECORDS SUMMARY | 2024-03-31 11:16 | XMS_ITS | Encounter Summary ---
Author Organization [facility] Healthcare Address [address] [place] [address] Care Team Providers Care Housekeeping And Laundry Team Leader Name Role Phone David Rodriguez MD Primary Care Provider + Reason for Referral * Diagnostic Imaging (Routine) - Closed Specialty Diagnoses / Procedures Referred By Contac t Referred To Contact Diagnoses Left knee pain, unspecified chronicity Procedures XR Knee Left 3 View José Miguel Griffith IV, MD Phone: tel: fax: [facility] Referral ID Status Reason Start Date Expiration Date Visits Re quested Visits Authorized [id number] Closed 12/22/2021 01/21/2023 1 1 Reason for Visit * Diagnostic Imaging (Routine) - Closed Specialty Diagnoses / Procedures Referred By Contesther t Referred To Contact Diagnoses Left knee pain, unspecified chronicity Procedures XR Knee Left 3 View José Miguel Griffith IV, MD Phone: tel: fax: [facility] Referral ID Status Reason Start Date Expiration Date Visits Re quested Visits Authorized [id number] Closed 12/22/2021 01/21/2023 1 1 Encounter Details Date Type Department Care Team (Latest Contact Info) Description 12/28/2021 12:57 PM CDT - 12/28/2021 1:56 PM CDT Hospital Encounter [facility] [address] [place] [address] [place] [address] Left knee pain, unspecified chronicity Discharge Disposition: Discharge to home or self [...] on file Legal Sex 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 GRAIN OILSEED OR PASTURE FARM MANAGER Gender Identity Female 03/22/2022 2:56 PM GRAIN OILSEED OR PASTURE FARM MANAGER Sexual Orientation Straight 05/08/2023 5: 32 PM GRAIN OILSEED OR PASTURE FARM MANAGER 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 on file Not on file documented as of this encounter Discharge Disposition Disposition Code Departure Means Destination Discharge to home or self care documented in this encounter Plan of Treatment Not on file documented as of this encounter Procedures Procedure Name Priority Date/Time Associated Diagnosis Comments XR KNEE LEFT 3 VIEWS Schedule Routine, Read Routine (OP Routine) 12/28/2021 1:11 PM CDT Left knee pain, unspecified chronicity documented in this encounter Results * XR Knee Left 3 View (12/28/2021 1:11 PM CDT) Anatomical Region Laterality Modality Lower Extremities, Knee Left Computed Radiography 12/28/2021 1:35 PM CDT Impressions 12/28/2021 2:22 PM CDT 1. ??Severe left patellofemoral osteoarthritis. Dictated by: Silas Dennis MD The radiology attending physician has personally reviewed this study, and had reviewed and/or edited this written report and agrees with it. Electronically signed by: Pato Hendrix MD Narrative 12/28/2021 2:22 PM CDT EXAMINATION: XR KNEE LEFT 3 VIEWS HISTORY: ??Left knee pain FINDINGS: Submitted are 3 radiographs of the left knee with no prior comparison available. ??Alignment is normal. ??There are postoperative findings of a left anterior cruciate ligament reconstruction. ??Medial and lateral tibiofemoral joint spaces are maintained. ??There is severe left patellofemoral osteoarthritis with severe lateral patellofemoral joint space narrowing and mild superolateral subluxation of the patella. ??There is no knee effusion. ??There is no evidence of fracture. Procedure Note Pato Hendrix MD - 12/28/2021 EXAMINATION: XR KNEE LEFT 3 VIEWS HISTORY: Left knee pain FINDINGS: Submitted are 3 radiographs of the left knee with no prior comparison available. Alignment is normal. There are postoperative findings of a left anterior cruciate ligament reconstruction. Medial and lateral tibiofemoral joint spaces are maintained. There is severe left patellofemoral osteoarthritis with severe lateral patellofemoral joint space narrowing and mild superolateral subluxation of the patella. There is no knee effusion. There is no evidence of fracture. IMPRESSION: 1. Severe left patellofemoral osteoarthritis. Dictated by: Silas Dennis MD The radiology attending physician has personally reviewed this study, and had reviewed and/or edited this written report and agrees with it. Electronically signed by: Pato Hendrix MD José Miguel Griffith IV, MD IMG XR PROCEDURES Fin al Result documented in this encounter Visit Diagnoses Diagnosis Left knee pain, unspecified chronicity documented in this encounter Care Teams Housekeeping And Laundry Team Leader Relationship Specialty Start Date End Date David Rodriguez MD [address] [address] PCP - General 01/11/15 07/15/22 documented as of this encounter
--- OUTSIDE RECORDS SUMMARY | 2024-03-31 11:16 | XMS_ITS | Encounter Summary ---
Author Organization [facility] Address [address] [place] [address] Phone Care Team Providers Care Revenue Collector Name Role Phone David Rodriguez MD Primary Care Provider + Reason for Referral * Injectables (Routine) - Closed Specialty Diagnoses / Procedures Referred By Contac t Referred To Contact Diagnoses Chronic pain of left knee Procedures Large Joint Injection w/ Ultrasound Guidance José Miguel Griffith IV, MD Phone: tel: fax: [facility] (All Locations) Referral ID Status Reason Start Date Expiration Date Visits Re quested Visits Authorized [id number] Closed 12/28/2021 01/01/2022 1 1 * Diagnostic Imaging (Routine) - Closed Specialty Diagnoses / Procedures Referred By Contesther t Referred To Contact Diagnoses Left knee pain, unspecified chronicity Procedures XR Knee Left 3 View José Miguel Griffith IV, MD Phone: tel: fax: [facility] Referral ID Status Reason Start Date Expiration Date Visits Re quested Visits Authorized [id number] Closed 12/22/2021 01/21/2023 1 1 Reason for Visit * Reason Comments Pain Encounter Details Date Type Department Care Team (Latest Contact Info) Description 12/28/2021 1:00 PM CDT Office Visit [facility] Orthopaedic Surgery [address] [place] [address] [place] [id number] [address] [facility] [address] [place] [address] Chronic pain of left knee (Primary Dx); Osteoarthritis of left patellofemoral joint Social History Tobacco Use Types Packs/Day Years [...] on file Legal Sex 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 FITNESS TEACHER Gender Identity Female 03/22/2022 2:56 PM FITNESS TEACHER Sexual Orientation Straight 05/08/2023 5: 32 PM FITNESS TEACHER 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 on file Not on file documented as of this encounter Last Filed Vital Signs Vital Sign Reading Time Taken Comments Blood Pressure - - Pulse - - Temperature - - Respiratory Rate - - Oxygen Saturation - - Inhaled Oxygen Concentration - - Weight 105.7 kg (233 lb) 12/28/2021 1:00 PM CDT Height 162.6 cm (5' 4 ) 12/28/2021 1:00 PM CDT Body Mass Index 39.99 12/28/2021 1:00 PM CDT documented in this encounter Progress Notes * José Miguel Griffith IV, MD - 12/28/2021 1:00 PM CDT Images from the original note were not included. CHIEF COMPLAINT Chronic left knee pain for several years after an injury HISTORY The patient is a 26 y.o. female seen in clinic for left knee pain. Patient has a history of left ACL tear in 2014 while doing jumping jacks at a boxing workout. She had left ACL reconstruction with aBPTB autograft and meniscus repair in April 2015. In July 2015, she fell on the left knee and had a patella fracture that was treated with ORIF. In 2016, she had possible right knee MPFL reconstruction and cartilage surgery. In August 2017, they attempted to remove the patella hardware but were unable to getthe hardware out. They also did a cartilage procedure at that time. In 2018, they were able to remove the hardware from the left patella and did another cartilage procedure. In August 2020, shehad an MRI of the left knee for continued pain and was told she had a small meniscus tear and patellofemoral cartilage wear and may need a ALE procedure. She had PRP injections in June and August 2021at she said provided minimal relief. She presents to clinic today to discuss a left knee ALE procedure. The pain is now located anterior and medially and is associated with clicking and swelling. The patient characterizes the intensity of pain as a 7-9 out of 10 at worst. Symptoms are aggravated by sitting, stairs, weight bearing. The patient has tried PT with blood flow restriction, PRP injections. She has never had a corticosteroid injection. Symptoms have worsened since the injury. The patient was referred to see me by Tripp Watt MD. PAST MEDICAL HISTORY She has a past medical history of Arthritis (2016) and GERD (gastroesophageal reflux disease). PAST SURGICAL HISTORY She has a past surgical history that includes Other surgical history; knee arthroscopy; Arthroscopic repair ACL (Left); Patella surgery (Left); Myringotomy w/ tubes; Adenoidectomy; and Foot surgery (Left). INITIAL REVIEW OF MEDICATIONS She has a current medication list which includes the following prescription(s): methylprednisolone and semaglutide. DRUG ALLERGIES She has No Known Allergies. SOCIAL HISTORY She reports that she has never smoked. She has never used smokeless tobacco. She reports that she does not use drugs. No alcohol history on file. FAMILY HISTORY Her family history includes Alcohol abuse in her father; Alzheimer's disease in her maternal grandmother; Cancer in her paternal grandfather; Diabetes in her paternal grandmother; Heart disease in her maternal grandfather; Other in her father and mother; Vision loss in her maternal grandmother. REVIEW OF SYSTEMS Review of symptoms were filled out by the patient on the enclosed intake form, which was reviewed and signed by me. PHYSICAL EXAMINATION The patient is a pleasant female in no acute distress. Height: 5 ft, 4 in, Weight: 233 lb. Alert and oriented x3. Respirations are regular and without distress. Hearing intact to the spoken word. Ambulates with a normal gait. Right knee - No pain with squat test, no pain with Thessaly. Left knee - No pain with squat test, medial pain with Thessaly. Right knee - Skin is intact. Well healed incisions. No erythema, edema, ecchymosis. No effusion. Left knee - Skin is intact. Well healed incisions. No erythema, edema, ecchymosis. Trace effusion. Right knee - No joint line tenderness. No other areas of tenderness. Left knee - Medial and lateral joint line tenderness. Tenderness over pes bursa. Right knee - 0 to 130 degrees of flexion. No crepitus. No pain with hyperflexion. No pain with hyperextension. Left knee - 0 to 130 degrees of flexion. +crepitus. +pain with hyperflexion. No pain with hyperextension. Right knee - 1A Meet, 1A anterior drawer, 1A posterior drawer. Negative pivot shift. Stable to varus and valgus stress at 0 and 30 degrees of flexion. Left knee - 1A Meet, 1A anterior drawer, 1A posterior drawer. Negative pivot shift. Stable to varus and valgus stress at 0 and 30 degrees of flexion. Negative Dial test bilaterally. Right lower extremity - Intact light touch over the lateral thigh, medial and lateral leg, dorsum of the foot, including first web space, and plantar aspect of the foot. 5/5 tib ant, EHL, and gastrocsoleus strength bilaterally. Palpable posterior tib pulse with regular rate and rhythm. Left lower extremity - Intact light touch over the lateral thigh, medial and lateral leg, dorsum ofthe foot, including first web space, and plantar aspect of the foot. 5/5 tib ant, EHL, and gastrocsoleus strength bilaterally. Palpable posterior tib pulse with regular rate and rhythm. REVIEW OF X-RAYS/STUDIES I independently reviewed three plain films of the left knee, including bilateral Merchant and Clark views, taken today which shows fracture. Severe patellofemoral OA, other compartments have no significant degeneration. Evidence of prior ACL reconstruction hardware in place I independently reviewed an MRI of the left knee from 08/17/2020 that shows ACL graft in place. Otherligaments intact. No obvious meniscus tear. Significant patellofemoral cartilage degeneration. ASSESSMENT Left knee pain primarily due to patellofemoral arthritis status post multiple previous surgeries TREATMENT/PLAN I she is okay the x-rays and explained that I would not recommend a cartilage jehovah's witness procedureas her cartilage loss is 2 diffuse to make her an appropriate candidate for a ALE. I would recommend minimizing her symptoms with an ultrasound-guided injection of the joint and pes bursa. I encouraged gentle low-impact activity to optimize lower extremity function. I explained that I would recommend a cortisone injection as I do not think she is likely to benefit from other injections such as Visco supplement or PRP. She may need episodic injections for pain control. If she did not get significant relief, we could discuss whether there is a role for an arthroscopic debridement but I would say that is a treatment option of last resort. She had all of her questions answered and appears comfortable with this plan going forward. Santosh Kraus MD I was present for the critical portion of the history and physical examination. All radiographic studies were personally interpreted by me and I determined the diagnosis and treatment plan and communicated them to the patient. José Miguel Griffith MD Professor Sports Medicine [facility] Dictated using MModal Fluency Direct. Dry Wall Applicator variations may occur. documented in this encounter Plan of Treatment Not on file documented as of this encounter Results * SD ARTHROCENTESIS ASPIR&/INJ MAJOR JT/BURSA W/US (12/29/2021 2:30 PM CDT) Narrative Cornelio Guadarrama MD - 12/29/2021 2:30 PM CDT Cornelio Guadarrama MD ? 12/29/2021 ??5:15 PM Large Joint Injection w/ Ultrasound Guidance: L pes anserine bursa Performed by: Cornelio Guadarrama MD Authorized by: José Miguel Griffith IV, MD Large Joint Injection/Aspiration: ??Consent Given by: ??Patient ??Site marked: the procedure site was marked ?Verbal consent obtained: Yes ?? Procedure Details: ??Location: ??Knee ??Site: ??L pes anserine bursa ??Needle Size: ??25 G ??Ultrasound guided: Yes ?Medications Left ??Large Joint Injection: ??1 mL bupivacaine HCl 0.25 % (2.5 mg/mL); 1 mL lidocaine 10 mg/mL (1 %); 40 mg triamcinolone 40 mg/mL us José Miguel Griffith IV, MD IN CLINIC/BEDSIDE ORD ERABLES Final Result * XR Knee Left 3 View (12/28/2021 [...] documented in this encounter Visit Diagnoses Diagnosis Chronic pain of left knee- Primary Osteoarthritis of left patellofemoral joint Left knee pain, unspecified chronicity Chronic pain of left knee documented in this encounter Discontinued Medications Medication Sig Discontinue Reason Start Date End Da te methylPREDNISolone (MEDROL DOSEPACK) 4 mg Dosepack follow package directions 10/04/2021 12/28/2021 semaglutide (WEGOVY) 0.25 mg/0.5 mL auto-injector Inject 0.5 mL (0.25 mg total) under the skin every 7 days Therapy completed 11/09/2021 12/28/2021 documented as of this encounter Care Teams Revenue Collector Relationship Specialty Start Date End Date David Rodriguez MD [address] [address] PCP - General 01/11/15 07/15/22 documented as of this encounter
--- OUTSIDE RECORDS SUMMARY | 2024-03-31 11:16 | XMS_ITS | Encounter Summary ---
Author Organization [facility] Address [address] [place] [address] Phone Care Team Providers Care Impress Associate Name Role Phone David Rodriguez MD Primary Care Provider + Encounter Details Date Type Department Care Team (Late st Contact Info) Description 12/29/2021 Orders Only [facility] [phone] Scanning, Provider Social History Tobacco Use Types Packs/Day Years [...] on file Legal Sex 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 DUKEY RIDER Gender Identity Female 03/22/2022 2:56 PM DUKEY RIDER Sexual Orientation Straight 05/08/2023 5: 32 PM DUKEY RIDER 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 on file Not on file documented as of this encounter Plan of Treatment Not on file documented as of this encounter Procedures Procedure Name Priority Date/Time Associated Diagnosis Comments SCAN - RADIOLOGY/IMAGING 12/29/2021 documented in this encounter Results * SCAN - RADIOLOGY/IMAGING (12/29/2021) Anatomical Region Laterality Modality Other us Provider Scanning Final Result documented in this encounter Visit Diagnoses Not on filedocumented in this encounter Care Teams Impress Associate Relationship Specialty Start Date End Date David Rodriguez MD [address] [address] PCP - General 01/11/15 07/15/22 documented as of this encounter
--- OUTSIDE RECORDS SUMMARY | 2024-03-31 11:16 | XMS_ITS | Encounter Summary ---
Author Organization [facility] Address [address] [place] [address] Care Team Providers Care Child Welfare Consultant Name Role Phone David Rodriguez MD Primary Care Provider + Reason for Visit * Reason Onset Date Comments Surgery PreCertification 09/14/2020 Encounter Details Date Type Department Care Team (Late st Contact Info) Description 09/14/2020 Telephone [facility] [address], [place] [address] Kaz Landa MD [address] [facility] [address], [place] [address] Surgery PreCertification Social History Tobacco Use Types Packs/Day Years [...] on file Legal 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 Gender Identity Female 03/22/2022 2:56 PM CONSTRUCTION CARPENTERS HELPER Sexual Orientation Straight 05/08/2023 5: 32 PM CONSTRUCTION CARPENTERS HELPER 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 on file Not on file documented as of this encounter Miscellaneous Notes * Telephone Encounter - Nini Thompson MA - 09/14/2020 8:52 AM CDT 09/14/2020 08:53 Per [facility] automated phone service, CPT 36212: NPR Call confirmation #: [id number] documented in this encounter Plan of Treatment Not on file documented as of this encounter Visit Diagnoses Not on filedocumented in this encounter Care Teams Child Welfare Consultant Relationship Specialty Start Date End Date David Rodriguez MD [address] [address] PCP - General 01/11/15 07/15/22 documented as of this encounter
--- OUTSIDE RECORDS SUMMARY | 2024-03-31 11:16 | XMS_ITS | Encounter Summary ---
Author Organization [facility] Healthcare Address [address] [place] [address] Care Team Providers Care Clinical Psychology Teacher Name Role Phone David Rodriguez MD Primary Care Provider + Reason for Visit * Auth/Cert Specialty Diagnoses / Procedures Referred By Cooper blankenship Referred To Contact Diagnoses Chronic tonsillitis Chronic tonsillitis [J35.01] Procedures [place] REMOVAL OF TONSILS,12+ Y/O Bilateral Tonsillectomy Referral ID Status Reason Start Date Expiration Date Visits Re quested Visits Authorized [id number] 1 1 Encounter Details Date Type Department Care Team (Latest Contact Info) Description 10/25/2020 6:32 AM CDT - 10/25/2020 11:03 AM CDT Hospital Encounter [facility] Operating Room [address] [place] [phone] Kaz Landa MD [address] [address] Pre-op evaluation (Primary Dx); Chronic tonsillitis Discharge Disposition: Discharge to home or self [...] on file Legal Sex 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 ASSOCIATE CHIEF NURSE Gender Identity Female 03/22/2022 2:56 PM ASSOCIATE CHIEF NURSE Sexual Orientation Straight 05/08/2023 5: 32 PM ASSOCIATE CHIEF NURSE 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 on file Not on file documented as of this encounter Last Filed Vital Signs Vital Sign Reading Time Taken Comments Blood Pressure 106/70 10/25/2020 10:55 AM CDT Pulse 56 10/25/2020 10:55 AM CDT Temperature 36.7 ??C (98 ??F) 10/25/2020 10: 40 AM CDT Respiratory Rate 17 10/25/2020 10:5 5 AM CDT Oxygen Saturation 99% 10/25/2020 10: 55 AM CDT Inhaled Oxygen Concentration - - Weight 103.6 kg (228 lb 6.3 oz) 10/25/2020 7:22 AM CDT Height 162.6 cm (5' 4 ) 10/25/2020 7:22 AM CDT Body Mass Index 39.2 10/25/2020 7:22 AM CDT documented in this encounter Discharge Instructions * Discharge Instructions* Nicole Nguyễn, RN - 10/25/2020 9:34 AM CDT Anxiolysis in Adults COAT EXAMINER: Anxiolysis is also called minimal sedation, conscious sedation, or twilight sedation. Anxiolysis isanxiety relief that occurs after you have been given medicine. This medicine helps you stay calm and comfortable during certain tests or procedures. It may be used before tests, such as an MRI, or a procedure, such as setting a broken arm. You may get the medicine as a pill or through your IV. If you are having surgery, the medicine will be given along with local or regional anesthesia. You may be drowsy, but you will be able to respond. Seek care immediately if: ?? You are wheezing or having trouble breathing. ?? You have a rash that spreads over your body. Contact your healthcare provider if: ?? You have pain or swelling where you got the injection. ?? You have nausea or are vomiting. ?? You have muscle spasms. ?? You are confused or sleepy for longer than 24 hours. ?? You have questions or concerns about your condition or care. After anxiolysis: ?? Ask someone to stay with you for 24 hours. You may have trouble keeping your balance or doing daily activities. The person should also watch for any side effects from the medicine and call for help if needed. Examples include trouble breathing, hives, or an itchy rash over your body. ?? Rest and go slowly for at least 12 hours. You may have slow reflexes or be clumsy. Do not showeror take a bath until you feel fully awake. This can help prevent you from slipping in the bathtub. ?? Do not drive or make decisions for 24 hours. You may have trouble with coordination, reflexes, or thinking clearly. Ask someone to drive you if you need to go somewhere. Do not make important decisions until you are thinking clearly. ?? Wait to eat for at least 2 hours. Limit the amount of fluid you drink. You may vomit if you drink too much fluid. Follow up with your healthcare provider as directed: Write down your questions so you remember to ask them during your visits. ?? 2017 [employer] Information is for End User's use only and may not be sold, redistributed or otherwise used for commercial purposes. All illustrations and images included in CareNotes?? are the copyrighted property of [employer] or [employer]. The above information is an president educational institution only. It is not intended as medical advice for individual conditions or treatments. Talk to your doctor, nurse or pharmacist before following any medical regimen to see if it is safe and effective for you. documented in this encounter Medications at Time of Discharge HYDROcodone-aceta minophen (HYCET) solution 7.5-325 mg/15 mLIndications:Velma n Take 15 mL by mouth every 6 (six) hours as needed for pain for up to 7 days 420 mL 10/25/2020 11/01/2020 documented as of this encounter Ordered Prescriptions Prescription Sig Dispense Quantity Refills Last Filled Start Date End Date HYDROcodone-acetam inophen (HYCET) solution 7.5-325 mg/15 mLIndications:Pain Take 15 mL by mouth every 6 (six) hours as needed for pain for up to 7 days 420 mL 10/25/2020 11/01/2020 documented in this encounter Discharge Disposition Disposition Code Departure Means Destination Discharge to home or self care documented in this encounter H&P Notes * Kaz Landa MD - 10/25/2020 7:19 AM CDT Patient ID: Krishna Garnica is a 25 y.o. female. ?? Chief Complaint Sore Throat ?? History of Present Illness Krishna Garnica is a 25 y.o. female, here for a consultation requested by David Rodriguez MD,for initial evaluation of Sore Throat ?? Frequent tonsillitis as a child. Last episode was 4 weeks ago, white patches on the tonsils, felt like glass when she swallows. Does not go to doctor for them so does not take antibiotics. Each episode lasts 3-5 days. Chronic problem for her, many years. Bad breath at times. Gagging sensation often. Shows me a photo of tonsillar erythema and white patchy exudate over both tonsils from last week. ?? Thick post-nasal drip and phlegm in the throat. ?? 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 ? Medical History Past Medical History: Diagnosis Date ??? Arthritis 2016 ??? GERD (gastroesophageal reflux disease) ? Surgical History Past Surgical History: Procedure Laterality Date ??? ADENOIDECTOMY ? ARTHROSCOPIC REPAIR ACL Left ? FOOT SURGERY Left ? 2X ??? KNEE ARTHROSCOPY ? Arthroscopy knee ??? MYRINGOTOMY W/ TUBES ? OTHER SURGICAL HISTORY ? foot metatarsal surgery (5th) ??? PATELLA SURGERY Left ? No current outpatient medications on file. ?? No Known Allergies ?? Social History ?? Socioeconomic History ??? Marital status: Single ? Spouse name: Not on file ??? Number of children: Not on file ??? Years of education: Not on file ??? Highest education level: Not on file Occupational History ??? Occupation: nurse Tobacco Use ??? Smoking status: Never Smoker ??? Smokeless tobacco: Never Used Substance and Sexual Activity ??? Alcohol use: Yes ??? Drug use: Never ??? Sexual activity: Yes ? Partners: Male ? control/protection: I.U.D. ?? Social Determinants of Health ?? Physical Activity: ??? Days of Exercise per Week: ??? Minutes of Exercise per Session: Stress: ??? Feeling of Stress : ? Pertinent Physical Exam: There were no vitals filed for this visit. APPEARANCE: No respiratory distress. No stridor or overt dysphonia. EYES: Extraocular mobility intact. EARS: LEFT: No mass/lesion of auricle. RIGHT: No mass/lesion of auricle Otomicroscopy shows: LEFT patent external auditory canal without lesions. Tympanic membrane translucent and mobile. Middle ear without fluid or inflammation. RIGHT patent external auditory canal without lesions. Tympanic membrane translucent and mobile. Middle ear without fluid or inflammation. NOSE: Septum midline. Inferior turbinates normal. MOUTH/PHARYNX/LARYNX: No mass/lesions of lips, teeth, gums, hard/soft palate, tongue, tonsils, or oropharynx. Tonsils grade 3, symmetric NECK: No cervical lymphadenopathy, no neck mass/crepitus/asymmetry, no palpable abnormality of submandibular or parotid glands, trachea is midline, no thyroid enlargement/tenderness/mass. CRANIAL NERVE VII: Facial strength intact and symmetrical. ?? Relevant labs reviewed: N/a External records reviewed: PCP notes ?? Imaging independently interpreted by me: N/a ?? Audiologic testing independently interpreted by me: N/a ?? MEDICAL DECISION MAKING: We extensively discussed the patient's diagnosis and management options and all questions were answered including the associated risks and benefits. ?? Diagnoses and all orders for this visit: ?? Chronic tonsillitis (Primary) ?? Tonsillar hypertrophy ?? All risks, benefits, and alternatives to tonsillectomy were discussed, including oral bleeding, voice change, dehydration, pain, weight loss, chipped teeth and the patient is in agreement to proceed with bilateral tonsillectomy. ?Kaz Landa MD 10/25/20 documented in this encounter Miscellaneous Notes * Op Note - Kaz Landa MD - 10/25/2020 8:30 AM CDT [facility] Operative Report SURGEON: Kaz Landa MD VISUAL DESIGN LEAD: N/a DATE OF SURGERY : 10/25/2020 PREOPERATIVE DIAGNOSIS: Pre-op Diagnosis * Chronic tonsillitis [J35.01] POSTOPERATIVE DIAGNOSIS: Post-op Diagnosis * Chronic tonsillitis [J35.01] PROCEDURE: Bilateral Tonsillectomy (B) ANESTHESIA: GENERAL, Anesthesiologist: Best Fierro MD FLIGHT CONTROL TOWER OPERATOR: Cody Choi CRNA INTRAOPERATIVE FINDINGS: Tonsil hypertrophy, symmetric, grade 3 JUSTIFICATION FOR PROCEDURE: Krishna Garnica is a 25 y.o. female with a history and exam consistent with tonsillar hypertrophy and chronic tonsillitis. We extensively discussed her medical conditions and multiple treatment options, including the risks, benefits, and alternatives of surgery. After answering all the questions, co nsent was signed. There was an understanding of the potential issues and risks involved with surgery, which include: All risks, benefits, and alternatives to tonsillectomy/adenoidectomy were discussed, including oralbleeding, voice change, dehydration, pain, weight loss, chipped teeth, nasal regurgitation and the patient is in agreement to proceed with bilateral tonsillectomy. DESCRIPTION OF PROCEDURE: The patient was brought to the operating room, transferred to the OR table, and identified by name [Krishna Garnica] and ID tag [[id number]; :1995]. Anesthesia was induced without apparent complication. Her eyes and pressure points were protected in the standard fashion. The table and patient were positioned for the surgery. The surgical site was prepared and draped in the standard fashion. Prior to incision, time out was performed and all present were in agreement.The table was turned 90 degrees. Eye protection with goggles was used. A Marlyn Willie-type mouth gag was introduced into the oropharynx, with careful attention made to avoid damage to lips, teeth, or tongue. Under an operating headlight, the oropharynx was clearly visualized. I palpated and felt no medialized carotids or submucosal cleft palate. Enlarged tonsils bilaterally and significant adenoid hypertrophy. A red rubber catheter was placed through the nare, grasped through the mouth, and tied to retract the uvula. The right tonsil was grasped and retracted medially and using coblation enucleation technique to first make a superior mucosal incision and identifythe plane between tonsil and pharyngeal muscles, was removed from its fossa in one piece by carefully dissecting along this plane. Once the right tonsil was removed, the left tonsil was removed in a similar manner, once again using Coblator dissection (settings 7/3). Excellent hemostasis was obtained bilaterally the coblator. The mouth was irrigated. Suspension was taken down, mouth and tongue were allowed to relax, and no bleeding was seen. Tonsil gag was removed. No damage to lips, teeth, or t ongue. An OG tube was used to suction the stomach. At this point we concluded the procedure. Disposition: The patient was turned over to the anesthesiology team to emerge from anesthesia. She was transferred out of the operating room in stable condition. Estimated Blood Loss: 5cc Specimens: Order Name Source Comment Collection Info Order Time COVID-19 CORONAVIRUS RNA 10/21/2020 8:13 AM Is the patient experiencing any symptoms consistent with COVID (eg. Fever, cough, shortness of breath)? No What is the reason for testing? Screening prior to scheduled procedure or surgery Is the patient hospitalized? No Is the patient admitted to an ICU? No Is this the first COVID-19 test for this patient? No Does the patient currently work in a healthcare facility with direct patient contact? No Is the patient a resident of a congregate care or living setting? Unknown Is the patient ? Unknown SURGICAL PATHOLOGY Tonsil and / or Adenoids, non-tumor Formalin added end of case Collected By: Kaz Landa MD 10/25/2020 8:45 AM Sponge, instrument, needle counts: Correct at end of procedure Complications: None Kaz Landa MD Date: 10/25/2020 Time: 8:52 AM * Pre-Procedure Note - Luma Mendoza NP - 10/13/2020 1:32 PM CDT Patient was instructed to report to [facility] testing site on 10/21 for pre op COVID19 testing. They understand this is needed prior to elective surgery. All questions answered and directions and hours wereprovided. SHILOH Agrawal * Pre-Procedure Note - Rehana Luque NP - 09/27/2020 12:29 PM CDT She will report to [facility] for COVID testing on 10/21 in prep for OR on 10/25. Order placed. documented in this encounter Plan of Treatment Not on file documented as of this encounter Procedures Procedure Name Priority Date/Time Associated Diagnosis Comments SURGICAL PATHOLOGY Routine 10/25/2020 8: 44 AM CDT Chronic tonsillitis TONSILLECTOMY 10/25/2020 8:26 AM CDT Chronic tonsillitis POCT HCG, URINE Routine 10/25/2020 7:50 AM CDT documented in this encounter Results * Surgical pathology (10/25/2020 8:44 AM CDT) Tissue (Tonsil and / or Adenoids, non-tumor) 10/25/2020 8:44 AM CDT Comment:Formalin added end o f case Tissue (Tonsil and / or Adenoids, non-tumor) 10/25/2020 8:45 AM CDT Comment:Formalin added end o f case Narrative PATHOLOGY [facility] - 10/26/2020 12:06 PM CDT [address] ??[address] Tele: ?? Renu Andujar MD - Steel Inspectorforge utility worker PATHOLOGY REPORT Patient Name: ??KRISHNA GARNICA Address: ??[address] [place] [address] ??[birth year] Gender: ??F : ??1995 (Age: 25) Service: ??Surgery Location: ??[facility], ?? Hospital #: ??[id number] Patient Type: ??[facility] Accession #: ? [id number] Taken: ? 10/25/2020 Received ? 10/25/2020 Reported: ? 10/26/2020 Physician(s): ? MD David Childs M.D. DIAGNOSIS: Tonsil, left-tonsillectomy: ? -Chronic tonsillitis Tonsil, right-tonsillectomy: ? -Chronic tonsillitis b/10/26/2020 10:23 Examining Pathologist: Efraín Hidalgo M.D. Report Reviewed and Electronically Signed By ??Efraín Hidalgo M.D. SPECIMEN TYPE: A: LEFT TONSIL B: RIGHT TONSIL CLINICAL IMPRESSION AND HISTORY: Chronic tonsillitis. GROSS DESCRIPTION: Received in formalin in container A and labeled Krishna Garnica and left tonsil is a 3.2 x 2.2 x 1.5 cm pink-moreland tonsil. ??Sections show a uniform pink-moreland, lobular tissue. ??There are no gross lesions. ??Phosphatic Fertilizer Supervisor sections are submitted in cassette A1. Received in formalin in container B and labeled Krishna Garnica and right tonsil is a 3.2 x 2.5 x 1.5 cm, pink-moreland tonsil. ??Sections show a uniform pink-moreland, lobular tissue. ??There are no gross lesions. ??Phosphatic Fertilizer Supervisor sections are submitted in cassette B1. [facility]/10/25/2020 10:06 ? [facility] MICROSCOPIC DESCRIPTION: Specimens A and B will be described together. ??The stroma is composed of variable lymphoid aggregates with prominent germinal center formation. ??The retrotonsillar space is fairly minimally altered. Clerical Data Follows A; 62588 B; 69867 REPORT IMAGES AND/OR SCANNED DOCUMENTS ONLY VIEWABLE IN PDF FORMAT The immunohistochemical test(s) cited in this report, if any, was developed and its performance characteristics determined by [facility] Pathology Department. ??It has not been cleared or approved by the U.S. Food and Drug Administration. ??The FDA has determined that such clearance or approval is not necessary. ??This test is used for clinical purposes. ??It should not be regarded as investigational or for research. ??[facility] Laboratory is certified under the Clinical Laboratory Improvement Amendments of 1988 (CLIA) as qualified to perform high complexity testing. ??Immunostains were performed on formalin-fixed paraffin embedded tissue using a polymer diaminobenzidine chromogen detection system. Antibodies used may include clone SP1 (rabbit monoclonal, estrogen receptor), clone 1E2 (rabbit monoclonal progesterone receptor), Ki-67 (rabbit monoclonal, 30-9), and CD117 (rabbit polyclonal, c-kit). Kaz Landa MD LAB PATHOLOGY ORDERABLES Fi nal Result PATHOLOGY [facility] Laboratory Receiving [address] [place] [address] * POCT hCG, urine (10/25/2020 7:50 AM CDT) [facility] HCG, ur, POC Negative Lot Number [id number] QC Backgroud Clear Acceptable QC Control Line Acceptable Urine 10/25/2020 7:50 AM CDT Best Fierro MD POINT OF CARE TEST ORDERABL ES Final Result * COVID-19 Coronavirus RNA Nasopharyngeal (10/21/2020 1:05 PM CDT) [facility] COVID-19 RNA Not Detected Not Detected [facility] Comment: Interpretive Data Synonyms for this test include: PCR and NAAT . ??Testing performed at [facility] Molecular Infectious Disease Laboratory. ??The [employer] Simplex[employer] COVID-19 Direct assay is for in [...] reviewed May 19, 2020. Testing performed by: [facility], [address] [place]., [address] First COVID-19 test? No [facility] Comment:Testing performed by : [facility], [address] [facility], [address] Employeed in healthcare? No [facility] Comment:Testing performed by : [facility], [address] [facility], [address] status? Unknown [facility] Comment:Testing performed by : [facility], [address] [facility], [address] Group care resident? Unknown [facility] Comment:Testing performed by : [facility], [address] [facility], [address] Hospitalized? No [facility] Comment:Testing performed by : [facility], [address] [facility], [address] Is patient in ICU? No [facility] Comment:Testing performed by : [facility], [address] [facility], [address] Symptomatic as defined by CDC? No [facility] Comment:Testing performed by : [facility], [address] [place] [address], [address] Nasopharyngeal 10/21/2020 1: 05 PM CDT 10/21/2020 3:42 PM CDT Narrative [facility] - 10/21/2020 9:52 PM CDT What is the reason for testing?->Screening prior to scheduled procedure or surgery us Kaz Landa MD LAB MICROBIOLOGY - GENERAL ORDERABLES Final Result [facility] [address] Department [place] [address] documented in this encounter Visit Diagnoses Diagnosis Chronic tonsillitis- Primary Pre-op evaluation Pre-op evaluation documented in this encounter Admitting Diagnoses Diagnosis Chronic tonsillitis documented in this encounter Administered Medications Inactive Administered Medications - up to 3 most recent administrations Medication Order MAR Action Action Date Dose Rate Site acetaminophen (TYLENOL) tablet 1,000 mg 1,000 mg, oral, Once, On Sat10/25/20 at 0815, For 1 dose, Pre-Op, Indications: Pre-Emptive AnalgesiaIndications:Pre-Emptive Analgesia Given 10/25/2020 7:49 AM CDT 1,000 mg dimenhyDRINATE (DRAMAMINE) tablet 25 mg 25 mg, oral, Once, On Sat10/25/20 at 0815, For 1 dose, Pre-Op, Indications: Prevention of Nausea and VomitingIndications:Prevention of Nausea and Vomiting Given 10/25/2020 7:48 AM CDT 25 mg gabapentin (NEURONTIN) capsule 300 mg 300 mg, oral, Once, On Sat10/25/20 at 0815, For 1 dose, Pre-Op, Indications: Pre-Emptive AnalgesiaIndications:Pre-Emptive Analgesia Given 10/25/2020 7:49 AM CDT 300 mg Lactated Ringer's (LR) bolus 1,000 mL 1,000 mL, intravenous, Once, On Sat10/25/20 at 1030, For 1 dose, Phase I New Bag 10/25/2020 9:20 AM CDT 1,000 mL Lactated Ringer's (LR) bolus 1,000 mL 1,000 mL, intravenous, Once, On Sat10/25/20 at 1030, For 1 dose, Phase I New Bag 10/25/2020 9:50 AM CDT 1,000 mL Lactated Ringer's (LR) infusion 30 mL/hr, intravenous, Continuous, Starting on Sat10/25/20 at 0815, Pre-Op Restarted 10/25/2020 8:27 AM CDT Rate/Dose Verify 10/25/2020 8:26 AM CDT 30 mL/h r New Bag 10/25/2020 7:49 AM CDT 30 mL/hr 30 mL/hr oxyCODONE (ROXICODONE) 1 mg/mL oral solution 5 mg 5 mg, feeding tube, Once, On Sat10/25/20 at 1000, For 1 dose, Phase I, Indications: PainIndications:Pain Given 10/25/2020 10:28 AM CDT 5 mg documented in this encounter Active and Recently Administered Medications Times are shown in CDT. Scheduled Medication Order 10/23/2020 10/24/2020 10/25/2020 acetaminophen (TYLENOL) tablet 1,000 mg (COMPLETED) 1,000 mg, oral, Once, On Sat10/25/20 at 0815, For 1 dose, Pre-Op, Indications: Pre-Emptive Analgesia 0749 (Given - Provid er: Maya Agarwal RN) dimenhyDRINATE (DRAMAMINE) tablet 25 mg (COMPLETED) 25 mg, oral, Once, On Sat10/25/20 at 0815, For 1 dose, Pre-Op, Indications: Prevention of Nausea and Vomiting 0748 (Given - Provid er: Maya Agarwal RN) gabapentin (NEURONTIN) capsule 300 mg (COMPLETED) 300 mg, oral, Once, On Sat10/25/20 at 0815, For 1 dose, Pre-Op, Indications: Pre-Emptive Analgesia 0749 (Given - Provid er: Maya Agarwal RN) Lactated Ringer's (LR) bolus 1,000 mL (COMPLETED) 1,000 mL, intravenous, Once, On Sat10/25/20 at 1030, For 1 dose, Phase I 0920 (New Bag - Prov ider: Nicole Nguyễn RN)0950 (Stopped - Provider: Nicole Nguyễn RN) Lactated Ringer's (LR) bolus 1,000 mL (COMPLETED) 1,000 mL, intravenous, Once, On Sat10/25/20 at 1030, For 1 dose, Phase I 0950 (New Bag - Prov ider: Nicole Nguyễn RN) oxyCODONE (ROXICODONE) 1 mg/mL oral solution 5 mg (COMPLETED) 5 mg, feeding tube, Once, On Sat10/25/20 at 1000, For 1 dose, Phase I, Indications: Pain 1028 (Given - Provid er: Lissette Holt RN) Continuous Medication Order 10/23/2020 10/24/2020 10/25/2020 Lactated Ringer's (LR) infusion 30 mL/hr, intravenous, Continuous, Starting on Sat10/25/20 at 0815, Pre-Op 0749 (New Bag - Prov ider: Maya Agarwal, KVNG)0826 (Rate/Dose Verify - Provider: Best Fierro MD)0826 (Paused - Provider: Cody Choi CRNA - Comment: Switch to gravity)0827 (Restarted - Provider: Cody Choi CRNA)09 (Anesthesia Volume Adjustment - Provider: Cody Choi CRNA)09 (Stopped - Provider: Nicole Nguyễn RN) PRN Medication Order 10/23/2020 10/24/2020 10/25/2020 albuterol 2.5 mg /3 mL (0.083 %) nebulizer solution 2.5 mg 2.5 mg, nebulization, As needed, wheezing, Starting on Sat10/25/20 at 0919, For 2 doses, Phase I, Notify Anesthesiologist. , Indications: Bronchospastic Pulmonary Disease dextrose (D10W) 10% bolus 250 mL 250 mL, intravenous, at 1,000 mL/hr, Administer over 15 Minutes, Once as needed, blood glucose less than 70 mg/dL, Starting on Sat10/25/20 at 0735, Pre-Op, Indications: Hypoglycemia diphenhydrAMINE (BENADRYL) injection 12.5 mg 12.5 mg, intravenous, Every 15 min PRN, itching, Starting on Sat10/25/20 at 0919, For 2 doses, Phase I, Max cumulative dose 50 mg., Indications: Itching fentaNYL (SUBLIMAZE) preservative free injection 25 mcg 25 mcg, intravenous, Every 5 min PRN, uncontrolled pain on PACU admission, Starting on Sat10/25/20 at 0919, For 4 doses, Phase I, Maximum dosage of fentanyl of 100 mcg for arrival to PACU, then proceed to PACU 1st line analgesic., Indications: Pain haloperidol (HALDOL) injection 1 mg 1 mg, intravenous, Administer over 5 Minutes, Once as needed, nausea, vomiting, Starting on Sat10/25/20 at 0919, For 1 dose, Phase I, If post-operative nausea and/or vomiting is not relieved by ondansetron within 30 minutes or if more than 8mg of ondansetron have been given within the last 6 hours. HYDROmorphone (DILAUDID) injection 0.4 mg 0.4 mg, intravenous, Administer over 2 Minutes, Every 10 min PRN, 1st line for pain, Starting on Sat10/25/20 at 0919, For 5 doses, Phase I, Notify Anesthesiologist if total PACU dose reaches 2 mg and pain score 5/10 or more., Indications: Pain insulin lispro (HumaLOG, ADMELOG) 100 unit/mL injection 1-5 Units 1-5 Units, subcutaneous, Once as needed, high blood sugar, Starting on Sat10/25/20 at 0919, For 1 dose, Phase I, Blood Sugar Mid Dose - Surgical/Post-Op ICU 139 or less No insulin 140 - 175 1 unit 176 - 200 2 unit 201 - 250 3 units 251 - 299 5 units Greater than 299 Call MD for hyperglycemia management instructions Do NOT hold for NPO status., Indications: Diabetes Mellitus labetaloL (NORMODYNE,TRANDATE) injection 5 mg 5 mg, intravenous, at 30 mL/hr, Administer over 2 Minutes, Every 10 min PRN, high blood pressure, Starting on Sat10/25/20 at 0919, For 4 doses, Phase I, Max cumulative dose 20 mg. Dose if systolic blood pressure greater than 180 AND HR greater than 70. lidocaine PF (XYLOCAINE) 10 mg/mL (1 %) preservative free injection 2-10 mg 2-10 mg (0.2-1 mL), other, Once as needed, pain with IV placement, Starting on Sat10/25/20 at 0735, For 1 dose, Pre-Op, Administer volume needed to infiltrate IV site. meperidine (DEMEROL) preservative free injection 12.5 mg 12.5 mg, intravenous, Every 10 min PRN, shivering, Starting on Sat10/25/20 at 09, For 2 doses, Phase I, Max cumulative dose 25 mg., Indications: Shivering naloxone (NARCAN) 0.4 mg/mL injection 0.04-0.4 mg 0.04-0.4 mg, intravenous, Once as needed, other, excessive sedation/respiratory depression, Starting on Sat10/25/20 at 0919, For 1 dose, Phase I, BEFORE ADMINISTERING - notify anesthesiologist to verify administration. Then, dilute 0.4 mg with 9 mL NS (final concentration 0.04 mg/mL). For respiratory depression (respiratory rate less than 6), administer 0.4 mg IVP over 30 seconds. For excessive sedation administer 0.04 mg (1 mL) every 1 minute until desired level of alertness. For IV, administer over 30 seconds., Indications: Opioid Toxicity ondansetron (ZOFRAN) injection 4 mg 4 mg, intravenous, Administer over 2 Minutes, Once as needed, nausea, vomiting, Starting on Sat10/25/20 at 0919, For 1 dose, Phase I, Proceed to haloperidol if more than 8 mg of ondansetron have been given within the last 6 hours., Indications: Prevention of Post-Operative Nausea and Vomiting oxyCODONE (ROXICODONE) tablet 5 mg 5 mg, oral, As needed, 1st line for pain, Starting on Sat10/25/20 at 0919, For 2 doses, Phase I, 1st ORAL choice for pain, when the patient is able to tolerate PO medications. May repeat in 1 hour if pain is uncontrolled or increasing after 1st dose., Indications: Pain oxymetazoline (AFRIN) 0.05 % nasal spray (CANCELED) As needed, Starting on Sat10/25/20 at 0842, Intra-Op 0842 (Given - Provid er: Kaz Landa MD) racepinephrine (ASTHMANEFRIN) 2.25 % nebulizer solution 0.5 mL 0.5 mL, nebulization, As needed, other, stridor, Starting on Sat10/25/20 at 0919, For 2 doses, Phase I, Notify Anesthesiologist. , Indications: Wheezing sodium chloride 0.9% flush 0.5-20 mL 0.5-20 mL, intra-catheter, As needed, line care, Starting on Sat10/25/20 at 0735, Pre-Op, Flush volume based on line type and size. Flush before and after each use. sodium chloride 0.9% irrigation (CANCELED) As needed, Starting on Sat10/25/20 at 0843, Intra-Op 0843 (Given - Provid er: Kaz Landa MD - Comment: PRN back field) documented in this encounter Orders Medications Ordered That Tavon ht Not Have Been Administered Count Last Ordered Date First Ordered Date albuterol 2.5 mg /3 mL (0.08 3 %) nebulizer solution 2.5 mg 1 10/25/2020 dextrose (D10W) 10% bolus 250 mL 1 10/26/19 21 diphenhydrAMINE (BENADRYL) i njection 12.5 mg 1 10/25/2020 fentaNYL (SUBLIMAZE) preserv ative free injection 25 mcg 1 10/25/2020 haloperidol (HALDOL) injection 1 mg 1 10/25 HYDROmorphone (DILAUDID) injection 0.4 mg 1 10/25/2020 insulin lispro (HumaLOG, ADM ELOG) 100 unit/mL injection 1-5 Units 1 10/25/2020 labetaloL (NORMODYNE,TRANDAT E) injection 5 mg 1 10/25/2020 lidocaine PF (XYLOCAINE) 10 mg/mL (1 %) preservative free injection 2-10 mg 1 10/25/2020 meperidine (DEMEROL) preserv ative free injection 12.5 mg 1 10/25/2020 naloxone (NARCAN) 0.4 mg/mL injection 0.04-0.4 mg 1 10/25/2020 ondansetron (ZOFRAN) injection 4 mg 1 10/25 oxyCODONE (ROXICODONE) tablet 5 mg 1 2020 oxymetazoline (AFRIN) 0.05 % nasal spray 1 10/25/2020 racepinephrine (ASTHMANEFRIN ) 2.25 % nebulizer solution 0.5 mL 1 10/25/2020 sodium chloride 0.9% flush 0.5-20 mL 1 10/13 sodium chloride 0.9% irrigation 1 Nursing Count Last Ordered Date First Orde red Date DISCHARGE INSTRUCTIONS 10/25/2020 Discharge Count Last Ordered Date First Orde red Date DISCHARGE PATIENT 1 10/25/2020 documented in this encounter Care Teams Clinical Psychology Teacher Relationship Specialty Start Date End Date David Rodriguez MD [address] [address] PCP - General 01/11/15 07/15/22 documented as of this encounter
--- OUTSIDE RECORDS SUMMARY | 2024-03-31 11:16 | XMS_ITS | Encounter Summary ---
Author Organization [facility] Healthcare Address [address] [place] [address] Care Team Providers Care Citizenship Teacher Name Role Phone David Rodriguez MD Primary Care Provider + Encounter Details Date Type Department Care Team (Late st Contact Info) Description 04/18/2021 1:30 PM COSMETIC CONSULTANT Lab [address] [id number] Cough Social History Tobacco Use Types Packs/Day Years [...] on file Legal Sex 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 COSMETIC CONSULTANT Gender Identity Female 03/22/2022 2:56 PM COSMETIC CONSULTANT Sexual Orientation Straight 05/08/2023 5: 32 PM COSMETIC CONSULTANT 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 on file Not on file documented as of this encounter Miscellaneous Notes * Result Encounter Note - Neha Quintanilla RN - 04/19/2021 8:44 AM CST Patient notified of positive result. ETIC CONSULTANT * Result Encounter Note - Neha Quintanilla RN - 04/19/2021 8:10 AM CST First attempt to notify patient of positive result. Message left without details. Will try again later. ETIC CONSULTANT documented in this encounter Plan of Treatment Not on file documented as of this encounter Procedures Procedure Name Priority Date/Time Associated Diagnosis Comments INFLUENZA A/B AND COVID-19 PCR Routine 04/18/2021 3:13 PM COSMETIC CONSULTANT Cough documented in this encounter Results * (ABNORMAL) Influenza A/B and COVID-19 PCR Nasopharyngeal (04/18/2021 3:13 PM COSMETIC CONSULTANT) COVID-19 RNA Detected(A) [facility] Comment: Interpretive Data Synonyms for this test include: PCR and NAAT . ??Testing performed by the [facility] Molecular Infectious Disease Laboratory. The 2019-Novel Coronavirus Assay (COVID-19) Real Time RT-PCR assay is for in vitro diagnostic use under FDA emergency use authorization only. A negative RT-PCR result does not preclude infection with COVID-19 and should not be used as the sole basis for treatment or other patient management decisions. ??Additional sample types have been validated according to CLIA regulations. ?? Current Interpretive Data was last revised on May 19, 2020. Testing performed by: [facility], [address] [place]., [address] Influenza A RNA Not Detected [facility] Comment:Testing performed by : [facility], [address] [facility], [place]., [address] Influenza B RNA Not Detected [facility] Comment: Interpretive Data Testing performed by the [facility] Molecular Infectious Disease Laboratory. This test is performed using the montserrat Influenza A/B Assay. This is a real-time RT-PCR test for the qualitative detection of nucleic acid from Influenza A and Influenza B. This assay has been reviewed by the FDA for Emergency Use Authorization (EUA). The performance characteristics have been verified by the [facility]. Results should be interpreted in combination with clinical context and a negative result does not rule out infection. ?? Interpretive data last revised 2020. Testing performed by: [facility], [address] [place] [address], [phone] First COVID-19 test? No [facility] Comment:Testing performed by : [facility], [address] [place] [address], [id number] Employeed in healthcare? Yes [facility] Comment:Testing performed by : [facility], [address] [place] [address], [id number] status? Unknown [facility] Comment:Testing performed by : [facility], [address] [place] [address], [id number] Group care resident? No [facility] Comment:Testing performed by : [facility], [address] [place] [address], [id number] Hospitalized? No [facility] Comment:Testing performed by : [facility], [address] [place] [address], [id number] Is patient in ICU? No [facility] Comment:Testing performed by : [facility], [address] [place] [address], [phone] Symptomatic as defined by CDC? Yes [facility] Comment:Testing performed by : [address], [address] Nasopharyngeal 04/18/2021 3: 13 PM COSMETIC CONSULTANT 04/18/2021 8:11 PM COSMETIC CONSULTANT [facility] - 04/19/2021 1:30 AM COSMETIC CONSULTANT Patient is employed by/enrolled at:->[employer] Date of Symptom Onset->04/17/21 us Magdalena Jha MD LAB MICROBIOLOGY - GENERAL ORDERABLES Final Result [facility] [address] Department [place] [address] documented in this encounter Visit Diagnoses Diagnosis Cough documented in this encounter Additional Health Concerns Infection Onset Date Last Indicated Resolved Time COVID: Suspected 04/17/2021 04/18/2021 04/19/2021 1:31 AM COSMETIC CONSULTANT documented as of this encounter Care Teams Citizenship Teacher Relationship Specialty Start Date End Date David Rodriguez MD [address] [address] PCP - General 01/11/15 07/15/22 documented as of this encounter
--- OUTSIDE RECORDS SUMMARY | 2024-03-31 11:16 | XMS_ITS | Encounter Summary ---
Author Organization [facility] Address [address] [facility] [address] [place] [address] Care Team Providers Care Demand Planning Manager Name Role Phone David Rodriguez MD Primary Care Provider + Reason for Visit * Reason Comments Follow-up Encounter Details Date Type Department Care Team (Late st Contact Info) Description 10/09/2021 3:00 PM CDT Office Visit [facility] [address] [address] David Rodriguez MD [address] [place] [address] [address], [place] [address] Annual physical exam (Primary Dx); Acute otitis media, unspecified otitis media type; Severe obesity (BMI 35.0-39.9) with comorbidity (CMS/HCC) ([facility]) Social History Tobacco Use Types Packs/Day Years [...] on file Legal Sex 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 RACING BOARD MARKER Gender Identity Female 03/22/2022 2:56 PM RACING BOARD MARKER Sexual Orientation Straight 05/08/2023 5: 32 PM RACING BOARD MARKER 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 on file Not on file documented as of this encounter Last Filed Vital Signs Vital Sign Reading Time Taken Comments Blood Pressure 112/70 10/09/2021 3:05 PM CDT Pulse 80 10/09/2021 3:05 PM CDT Temperature 37.1 ??C (98.7 ??F) 10/09/2021 3:05 PM CD T Respiratory Rate - - Oxygen Saturation 98% 10/09/2021 3:05 PM CDT Inhaled Oxygen Concentration - - Weight 105.5 kg (232 lb 9.6 oz) 10/09/2021 3:05 PM CDT Height 162.6 cm (5' 4 ) 10/09/2021 3:05 PM CDT Body Mass Index 39.93 10/09/2021 3:05 PM CDT documented in this encounter Ordered Prescriptions Prescription Sig Dispense Quantity Refills Last Filled Start Date End Date semaglutide (WEGOVY) 0.25 mg/0.5 mL auto-injector Inject 0.5 mL (0.25 mg total) under the skin every 7 days 2 mL 10/09/2021 11/09/2021 documented in this encounter Progress Notes * David Rodriguez MD - 10/09/2021 3:00 PM CDT Patient ID: Kelly Garnica is a 26 y.o. female. Assessment/Plan Diagnoses and all orders for this visit: Annual physical exam (Primary) Comments: Patient was sent to the lab for blood Orders: - CBC with auto differential; Future - Comprehensive metabolic panel; Future - Lipid panel; Future - TSH reflex to free T4; Future - Urinalysis reflex to microscopic and culture Urine, clean voided; Future Acute otitis media, unspecified otitis media type Comments: Patient was to finish her medicine and was told to insufflate her ear on a regular basis Severe obesity (BMI 35.0-39.9) with comorbidity (CMS/HCC) ([facility]) Comments: Patient was prescribed Wegovy and was to increase her dose month Other orders - [facility] TICKET SCHED - FOLLOW-UP APPT - semaglutide (WEGOVY) 0.25 mg/0.5 mL auto-injector; Inject 0.5 mL (0.25 mg total) under the skin every 7 days Subjective/Objective Chief Complaint Follow-up HPI: Patient presents for comprehensive review. Patient is here for annual physical. She called last week and was prescribed amoxicillin and Medrolfor otitis media. She is doing significantly better but her ear still has some issues on the left side. She also is here to discuss her obesity. She has tried everything from low carb diets to weightwatchers as failed numerous times. She is interested in having children and will need to lose the weight before this happens. Review of Systems: Constitutional: No fatigue. No [...] Normal appearance and no masses on palpation Answers for HPI/ROS submitted by the patient on 10/09/2021 Affected ear: both Chronicity: new Onset: 1 to 4 weeks ago Progression since onset: gradually improving Frequency: constantly Fever: no fever Pain - numeric: 6/10 abdominal pain: No ear discharge: No rash: No cough: Yes headaches: No rhinorrhea: Yes diarrhea: No hearing loss: No sore throat: No neck pain: No vomiting: No documented in this encounter Miscellaneous Notes * Addendum Note - Vicenta Pineda - 10/09/2021 3:00 PM CDTAddended by: VICENTA PINEDA on: 10/09/2021 03:29 PM Modules accepted: Orders documented in this encounter Plan of Treatment Not on file documented as of this encounter Procedures Procedure Name Priority Date/Time Associated Diagnosis Comments URINALYSIS AND REFLEX TO MICROSCOPIC AND CULTURE Routine 10/09/2021 3:28 PM CDT Annual physical exam EGFR Routine 10/09/2021 3:27 PM CDT Annual physical exam DIFFERENTIAL AUTO Routine 10/09/2021 3:2 7 PM CDT Annual physical exam THYROID FUNCTION CASCADE Routine 10/09/2021 3:27 PM CDT Annual physical exam CBC WITH AUTO DIFFERENTIAL Routine 10/09/2021 3:27 PM CDT Annual physical exam LIPID PANEL Routine 10/09/2021 3:27 PM CDT Annual physical exam COMPREHENSIVE METABOLIC PANEL Routine 10/09/2021 3:27 PM CDT Annual physical exam documented in this encounter Results * Urinalysis reflex to microscopic and culture Urine, clean voided (10/09/2021 3:28 PM CDT) Pathologist [facility] Color, ur Yellow Yellow [facility] Clarity, ur Clear Clear [facility] Specific gravity, ur 1.026 1.003 - 1.030 [facility] pH, urine 6.0 [facility] Protein, ur ql Negative Negative [facility] Glucose, ur ql Negative Negative [facility] Ketones, ur Negative Negative [facility] Bilirubin, ur Negative Negative [facility] Blood, ur Negative Negative [facility] Urobilinogen, ur <2.0 <2.0 mg/dL [facility] Nitrite, ur Negative Negative [facility] Leukocyte esterase, ur Negative Negative [facility] UA reflex comment Reflex conditions for microscopic UA and culture not met. [facility] Urine, clean voided 10/09/2021 3:28 PM CDT 10/09/2021 7:53 PM CDT Narrative [facility] - 10/09/2021 8:02 PM CDT ?? Urine pH is affected by diet, medications, systemic acid-base disturbances, and renal tubular function. ??pH may affect urinary stone formation. ??For example, urine pH below 6.0 may help reduce the tendency for calcium phosphate stones and pH greater than 6.0 may reduce the tendency for uric acid stone formation. Source: [facility] [employer]. Last revised 04-25-2017 us David Rodriguez MD LAB MICROBIOLOGY - [facility] AL ORDERABLES Final Result [facility] [address] [place] [address] * eGFR (10/09/2021 3:27 PM CDT) Pathologist [facility] eGFR 123 mL/min/1. 73 m2 [facility] Comment: Interpretive Data Reference Interval Normal ?>/= [...] interpretive data was last reviewed 2021. Blood 10/09/2021 3:27 PM CDT 10/09/2021 7:53 PM CDT us David Rodriguez MD LAB BLOOD ORDERABLES Fin al Result [facility] [address] Department [place] [address] * (ABNORMAL) Differential, auto (10/09/2021 3:27 PM CDT) Neutrophil abs 9.6(H) 1.7 - 6.5 K/cumm [facility] Imm gran abs 0.1 0.0 - 0.1 K/cumm [facility] Lymphocyte abs 2.2 0.8 - 3.3 K/cumm [facility] Monocyte abs 1.0(H) 0.2 - 0.8 K/cumm [facility] Eosinophil abs 0.1 0.0 - 0.5 K/cumm [facility] Basophil abs 0.1 0.0 - 0.1 K/cumm [facility] Neutrophil pct 73.7 % [facility] Comment: Interpretive Data Percent cell count reference ranges are not reported, since discordance with absolute values may lead to misinterpretation of CBC data. Current Interpretive Data was last revised on 2017. Imm gran pct 0.7 % [facility] Comment: Interpretive Data Percent cell count reference ranges are not reported, since discordance with absolute values may lead to misinterpretation of CBC data. Current Interpretive Data was last revised on 2017. Lymphocyte pct 16.9 % [facility] Comment: Interpretive Data Percent cell count reference ranges are not reported, since discordance with absolute values may lead to misinterpretation of CBC data. Current Interpretive Data was last revised on 2017. Monocyte pct 7.4 % [facility] Comment: Interpretive Data Percent cell count reference ranges are not reported, since discordance with absolute values may lead to misinterpretation of CBC data. Current Interpretive Data was last revised on 2017. Eosinophil pct 0.5 % [facility] Comment: Interpretive Data Percent cell count reference ranges are not reported, since discordance with absolute values may lead to misinterpretation of CBC data. Current Interpretive Data was last revised on 2017. Basophil pct 0.8 % [facility] Comment: Interpretive Data Percent cell count reference ranges are not reported, since discordance with absolute values may lead to misinterpretation of CBC data. Current Interpretive Data was last revised on 2017. Blood 10/09/2021 3:27 PM CDT 10/09/2021 7:54 PM CDT us David Rodriguez MD LAB BLOOD ORDERABLES Fin al Result [facility] [address] Department [place] [address] * TSH reflex to free T4 (10/09/2021 3:27 PM CDT) TSH 0.92 0.30 - 4.20 mcIUnit/mL [facility] Blood 10/09/2021 3:27 PM CDT 10/09/2021 7:53 PM CDT us David Rodriguez MD LAB BLOOD ORDERABLES Fin al Result [facility] [address] Department [place] [address] * Lipid panel (10/09/2021 3:27 PM CDT) Cholesterol 157 30 - 199 mg/dL [facility] Comment: Interpretive Data Ages < or = [...] Data was last revised on 2017. Triglycerides 104 <=149 mg/dL [facility] Comment: Interpretive Data Ages < or = [...] Data was last revised on 2017. HDL 57 >=40 mg/dL [facility] Comment: Interpretive Data Ages < or = [...] was last revised on 2017. LDL, calculated 79 <=129 mg/dL [facility] Comment: Interpretive Data Ages < or = [...] was last revised on 2017. Non-HDL Cholesterol 100 mg/dL [facility] Comment: Interpretive Data Ages < or = [...] last revised on 2017. Chol/HDL ratio 3 [facility] Blood 10/09/2021 3:27 PM CDT 10/09/2021 7:53 PM CDT us David Rodriguez MD LAB BLOOD ORDERABLES Fin al Result [facility] [address] Department [place] [address] * Comprehensive metabolic panel (10/09/2021 3:27 PM CDT) Sodium 141 135 - 145 mmol/L [facility] Potassium, pl 4.3 3.3 - 4.9 mmol/L [facility] Chloride 101 97 - 110 mmol/L [facility] CO2 28 22 - 32 mmol/L [facility] Anion gap 12 2 - 15 mmol/L [facility] BUN 17 8 - 25 mg/dL [facility] Creatinine 0.65 0.60 - 1.10 mg/dL [facility] Glucose 91 70 - 199 mg/dL [facility] Comment: Interpretive Data Fasting glucose >/= 126 [...] classification and Diagnosis of Diabetes Diabetes Care 2017;40 (Suppl. 1):S11. Current interpretive data was last revised 2017. Calcium 9.8 8.5 - 10.3 mg/dL [facility] Bilirubin, total 0.2 0.1 - 1.2 mg/dL [facility] Protein, pl 7.4 6.5 - 8.5 g/dL [facility] Albumin 4.6 3.5 - 5.0 g/dL [facility] Alk phos 41 40 - 130 Units/L [facility] ALT 40 7 - 45 Units/L [facility] AST 25 10 - 45 Units/L [facility] Blood 10/09/2021 3:27 PM CDT 10/09/2021 7:53 PM CDT David Rodriguez MD LAB BLOOD ORDERABLES Fin al Result [facility] [address] Department [place] [address] * (ABNORMAL) CBC with auto differential (10/09/2021 3:27 PM CDT) WBC 13.1(H) 3.8 - 9.9 K/cumm [facility] Hgb 14.5 11.9 - 15.5 g/dL [facility] Hct 43.3 35.6 - 45.5 % [facility] Plt 286 150 - 400 K/cumm [facility] MPV 11.7 9.1 - 12.3 fL [facility] RBC 4.58 3.90 - 5.20 M/cumm [facility] MCV 94.5 81.3 - 96.4 fL [facility] MCH 31.7 27.1 - 33.3 pg [facility] MCHC 33.5 32.3 - 35.7 g/dL [facility] RDW CV 12.3 11.1 - 14.9 % [facility] RDW SD 42.4 35.7 - 48.1 fL [facility] NRBC abs 0.00 0.00 - 0.01 K/cumm [facility] Blood 10/09/2021 3:27 PM CDT 10/09/2021 7:54 PM CDT David Rodriguez MD LAB BLOOD ORDERABLES Fin al Result [facility] [address] Department [place] [address] documented in this encounter Visit Diagnoses Diagnosis Annual physical exam- Primary Routine general medical examination at a health care facility Acute otitis media, unspecified otitis media type Severe obesity (BMI 35.0-39.9) with comorbidity (HCC) documented in this encounter Discontinued Medications Medication Sig Discontinue Reason Start Date End Da te ondansetron ODT (ZOFRAN-ODT) 4 mg disintegrating tablet Take 1 tablet (4 mg total) by mouth every 6 (six) hours as needed for nausea or vomiting Dissolves in mouth 10/28/2020 10/09/2021 buPROPion XL (WELLBUTRIN XL) 300 mg 24 hr tablet Take 1 tablet (300 mg total) by mouth every morning 12/21/2020 10/09/2021 amoxicillin-clavulanate (AUGMENTIN) 875-125 mg per tablet TAKE 1 TABLET BY MOUTH TWICE DAILY UNTIL ALL TAKEN Therapy completed 10/04/2021 10/09/2021 documented as of this encounter Historical Medications * This list may reflect changes made after this encounter. amoxicillin-clavu lanate (AUGMENTIN) 875-125 mg per tablet TAKE 1 TABLET BY MOUTH TWICE DAILY UNTIL ALL TAKEN 10/04/2021 10/09/2021 added in this encounter Orders Appointment Requests Count Last Ordered Date Fi rst Ordered Date [facility] TICKET SCHED - FOLLOW-UP APPT 1 10/09 documented in this encounter Care Teams Demand Planning Manager Relationship Specialty Start Date End Date David Rodriguez MD [address] [facility] [address], [place] [address] PCP - General 01/11/15 07/15/22 documented as of this encounter
--- OUTSIDE RECORDS SUMMARY | 2024-03-31 11:16 | XMS_ITS | Encounter Summary ---
Author Organization [facility] Address [address] [place] [address] Care Team Providers Care Agricultural Produce Washer Name Role Phone David Rodriguez MD Primary Care Provider + Reason for Visit * Reason Comments Sore Throat Encounter Details Date Type Department Care Team (Late st Contact Info) Description 09/09/2020 9:30 AM CDT Office Visit [facility] [address] [facility] [place] [address] [place] [address] Kaz Landa MD [address] [address] Chronic tonsillitis (Primary Dx); Tonsillar hypertrophy Social History Tobacco Use Types Packs/Day Years [...] on file Legal Sex 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 ROLLOUT MANAGER Gender Identity Female 03/22/2022 2:56 PM ROLLOUT MANAGER Sexual Orientation Straight 05/08/2023 5: 32 PM ROLLOUT MANAGER 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 on file Not on file documented as of this encounter Last Filed Vital Signs Vital Sign Reading Time Taken Comments Blood Pressure 112/60 09/09/2020 9:27 AM CDT Pulse - - Temperature - - Respiratory Rate - - Oxygen Saturation - - Inhaled Oxygen Concentration - - Weight 104.3 kg (230 lb) 09/09/2020 9:27 AM CDT Height 163 cm (5' 4.17 ) 09/09/2020 9:27 AM CDT Body Mass Index 39.27 09/09/2020 9:27 AM CDT documented in this encounter Patient Instructions * Patient Instructions* Kaz Landa MD - 09/09/2020 9:30 AM CDT Chronic tonsillitis Surgery: Tonsillectomy Tonsillectomy or Tonsillectomy and Adenoidectomy *Reasons for Surgery: The tonsils are most commonly removed for recurrent tonsillitis/sore throats or issues with sleep related to enlarged tonsils (i.e. sleep apnea). In children this is usually done with an adenoidectomy at the same time. Your adenoids disappear around age 17 so it is unusual for an adult to need an adenoidectomy. The Procedure Itself: The tonsils are removed in the operating room under general anesthesia. All the work is done on theinside of the mouth, avoiding any incisions on the outside. The time for the procedure is usually about 45 minutes. What to expect after surgery: - Everyone responds differently, but in general you can expect a 7-14 day recovery period which includes a very sore throat. In general, younger children tend to recover quicker and older children and adults recover slower. - The most important thing is to stay hydrated. There is no real restriction on what to drink, although some may find citrus allen the throat. Dehydration causes the throat to dry out, which increases pain and the risk of bleeding. You should be urinating a little more frequently than average and your urine should be clear - Keep your head elevated for the first 24 hours including for sleeping. This will decrease swelling of the uvula. You may apply ice to the outside of your throat/neck. - A soft diet (meaning no foods with a sharp or hard texture such as pretzels, chips, etc) is required for 14 days after surgery. - Light activity is required for 14 days after surgery. Exercise and vigorous activity will increase your heart rate and blood pressure, increasing the chance of bleeding. - Pain control: Except for very young children and those with severe sleep apnea, you will get a prescription for a narcotic pain medication. This should be slowly replaced with plain Tylenol as the pain becomes more tolerable. You may also take Motrin (ibuprofen), with the prescription pain medication or tylenol. It is often best to use the medication on a routine basis as directed (even throughthe night) until the pain improves and then use on as-needed basis. - Because you will take a lot of narcotics it is best to use a stool softner such as colace to prevent constipation. - Please note that the site of surgery will appear white or yellow - this is normal and not a sign of infection. - A bad smell from the nose or mouth is fairy common from the result of cautery. Risks of Surgery: - Bleeding: There is a 3% risk of experiencing bleeding in the first two weeks after surgery even if all precautions are followed. Should this occur, the first step is to gargle/swish with ice cold water (and spit) and then call our office/exchange. Often, the bleeding will be minor and resolves onits own or can be stopped in the office. Other times, a return to the operating room may be required. - Because all the work is done with instruments through the mouth, there is a very small risk of damage to teeth and lips. - In children, speech articulation may sound different temporarily (after adenoidectomy), and this typically improves with time - Risks of anesthesia are few, but will be discussed with you by the anesthesiologist on the day ofsurgery. I acknowledge having received and read this information and having the opportunity to have my questions answered. documented in this encounter Progress Notes * Kaz Landa MD - 09/09/2020 9:30 AM CDT Subjective/Objective Patient ID: Kelly Garnica is a 25 y.o. female. Chief Complaint Sore Throat History of Present Illness Kelly Garnica is a 25 y.o. female, here for a consultation requested by David Rodriguez MD,for initial evaluation of Sore Throat Frequent tonsillitis as a child. Last episode [...] exudate over both tonsils from last week. Thick post-nasal drip and phlegm in the throat. 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 Past Medical History: Diagnosis Date ??? Arthritis 2016 ??? GERD (gastroesophageal reflux disease) Past Surgical History: Procedure Laterality Date ??? ADENOIDECTOMY ??? ARTHROSCOPIC REPAIR ACL Left ??? FOOT SURGERY Left 2X ??? KNEE ARTHROSCOPY Arthroscopy knee ??? MYRINGOTOMY W/ TUBES ??? OTHER SURGICAL HISTORY foot metatarsal surgery (5th) ??? PATELLA SURGERY Left No current outpatient medications on file. No Known Allergies Social History Socioeconomic History ??? Marital status: Single Spouse name: Not on file ??? Number of children: Not on file ??? Years of education: Not on file ??? Highest education level: Not on file Occupational History ??? Occupation: nurse Tobacco Use ??? Smoking status: Never Smoker ??? Smokeless tobacco: Never Used Substance and Sexual Activity ??? Alcohol use: Yes ??? Drug use: Never ??? Sexual activity: Yes Partners: Male control/protection: I.U.D. Social Determinants of Health Physical Activity: ??? Days of Exercise per Week: ??? Minutes of Exercise per Session: Stress: ??? Feeling of Stress : Pertinent Physical Exam: Vitals: 09/09/20 0927 BP: 112/60 Weight: 104.3 kg (230 lb) Height: 163 cm (5' 4.17 ) APPEARANCE: No respiratory distress. No stridor or [...] NERVE VII: Facial strength intact and symmetrical. Relevant labs reviewed: N/a External records reviewed: PCP notes Imaging independently interpreted by me: N/a Audiologic testing independently interpreted by me: N/a MEDICAL DECISION MAKING: We extensively discussed the patient's diagnosis and management options and all questions were answered including the associated risks and benefits. Diagnoses and all orders for this visit: Chronic tonsillitis (Primary) Tonsillar hypertrophy All risks, benefits, and alternatives to tonsillectomy were discussed, including oral bleeding, voice change, dehydration, pain, weight loss, chipped teeth and the patient is in agreement to proceed with bilateral tonsillectomy. Kaz Landa MD 09/09/20 documented in this encounter Plan of Treatment Not on file documented as of this encounter Visit Diagnoses Diagnosis Chronic tonsillitis- Primary Tonsillar hypertrophy Hypertrophy of tonsils alone documented in this encounter Care Teams Agricultural Produce Washer Relationship Specialty Start Date End Date David Rodriguez MD [address] [address] PCP - General 01/11/15 07/15/22 documented as of this encounter
--- OUTSIDE RECORDS SUMMARY | 2024-03-31 11:16 | XMS_ITS | Encounter Summary ---
Author Organization [facility] Healthcare Address [address] [place] [address] Care Team Providers Care Manager Documentation Name Role Phone David Rodriguez MD Primary Care Provider + Encounter Details Date Type Department Care Team (Latest Contact Info) Description 12/28/2021 1:57 PM CDT - 12/28/2021 11:59 PM CDT Hospital Encounter [facility] [address] [place] [id number] Discharge Disposition: Discharge to home or self [...] on file Legal Sex 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 PEDIATRICIAN ACTIVE PRACTICE Gender Identity Female 03/22/2022 2:56 PM PEDIATRICIAN ACTIVE PRACTICE Sexual Orientation Straight 05/08/2023 5: 32 PM PEDIATRICIAN ACTIVE PRACTICE 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 on file Not on file documented as of this encounter Discharge Disposition Disposition Code Departure Means Destination Discharge to home or self care documented in this encounter Plan of Treatment Not on file documented as of this encounter Procedures Procedure Name Priority Date/Time Associated Diagnosis Comments MSK CT MR OUTSIDE REFERENCE Routine 12/28/2021 1:57 PM CDT Diagnosis unknown documented in this encounter Results * MSK CT MR Outside Reference (12/28/2021 1:57 PM CDT) Impressions [facility] - 12/28/2021 1:57 PM CDT These images are for Reference purposes only and have not been reviewed by [facility]iology. ??There will be no report generated by a [facility] Radiologist. Narrative [facility] - 12/28/2021 1:57 PM CDT EXAMINATION: ??Images For Reference Purposes Only us José Miguel Griffith IV, MD IMG CT PROCEDURES Fin al Result Performing Organization Address City/State/[facility] Co de Phone Number [facility] documented in this encounter Visit Diagnoses Not on filedocumented in this encounter Care Teams Manager Documentation Relationship Specialty Start Date End Date David Rodriguez MD [address] [address] PCP - General 01/11/15 07/15/22 documented as of this encounter
--- OUTSIDE RECORDS SUMMARY | 2024-03-31 11:16 | XMS_ITS | Encounter Summary ---
Author Organization [facility] Healthcare Address [address] [place] [address] Care Team Providers Care Care Program Director Name Role Phone David Rodriguez MD Primary Care Provider + Reason for Visit * Auth/Cert Specialty Diagnoses / Procedures Referred By Cooper blankenship Referred To Contact Diagnoses Chronic tonsillitis Chronic tonsillitis [J35.01] Procedures CO REMOVAL OF TONSILS,12+ Y/O Bilateral Tonsillectomy Referral ID Status Reason Start Date Expiration Date Visits Re quested Visits Authorized [id number] 1 1 Encounter Details Date Type Department Care Team (Late st Contact Info) Description 10/25/2020 8:30 AM CDT - 10/25/2020 9:30 AM CDT Surgery [facility] Operating Room [address] [place] [id number] Kaz Landa MD [address] [address] Bilateral Tonsillectomy Surgery Details Date/Time Status Location OR Service Patient Class Case Class Case Type Trauma Case? 10/25/2020 8:30 AM Posted [facility] OPERATING ROOM OR Otolaryngology Outpatient Elective Panel 1 Procedure LRB Anes Op Region Wound Class Comments Bilateral Tonsillectomy Bilateral General Mouth C lass II - Clean Contaminated (KB) Surgeon Surgeon Role Service Panel Kaz Landa MD Primary Otolaryngology 1 documented in this encounter Social History Tobacco Use Types Packs/Day Years [...] file Legal Sex 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 ASSOCIATE PROFESSOR OF THEATRE Gender Identity Female 03/22/2022 2:56 PM ASSOCIATE PROFESSOR OF THEATRE Sexual Orientation Straight 05/08/2023 5: 32 PM ASSOCIATE PROFESSOR OF 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 on file Not on file documented as of this encounter Last Filed Vital Signs Vital Sign Reading Time Taken Comments Blood Pressure 89/47 10/25/2020 9:30 AM CDT Pulse 77 10/25/2020 9:30 AM CDT Temperature 35.7 ??C (96.3 ??F) 10/25/2020 9:10 AM CD T Respiratory Rate 16 10/25/2020 9:30 AM CDT Oxygen Saturation 97% 10/25/2020 9:30 AM CDT Inhaled Oxygen Concentration - - Weight 103.6 kg (228 lb 6.3 oz) 10/25/2020 7:22 AM CDT Height 162.6 cm (5' 4 ) 10/25/2020 7:22 AM CDT Body Mass Index 39.2 10/25/2020 7:22 AM CDT documented in this encounter Discharge Instructions * Discharge Instructions* Nicole Nguyễn, RN - 10/25/2020 9:34 AM CDT Anxiolysis in Adults CRITICAL CARE TRANSPORT NURSE: Anxiolysis is also called minimal sedation, conscious [...] ask them during your visits. ?? 2017 [employer] Information is for End User's use only and may not be sold, redistributed or otherwise used for commercial purposes. All illustrations and images included in CareNotes?? are the copyrighted property of [employer] Inc[employer] or [employer]. The above information is an educational paraprofessional only. It is not intended as medical [...] in this encounter H&P Notes * Kaz aLnda MD - 10/25/2020 7:19 AM CDT Patient [...] ?? 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 ? Medical History Past Medical History: Diagnosis [...] Landa MD - 10/25/2020 8:30 AM CDT [facility] Operative Report SURGEON: Kaz Landa MD BEHAVIORAL HEALTH ASSISTANT: N/a DATE OF SURGERY : 10/25/2020 PREOPERATIVE DIAGNOSIS: Pre-op Diagnosis * Chronic tonsillitis [J35.01] POSTOPERATIVE DIAGNOSIS: Post-op Diagnosis * Chronic tonsillitis [J35.01] PROCEDURE: Bilateral Tonsillectomy (B) ANESTHESIA: GENERAL, Anesthesiologist: Best Fierro MD CHARGE POSTER: Cody Choi CRNA INTRAOPERATIVE FINDINGS: Tonsil hypertrophy, [...] by name [Krishna Garnica] and ID tag [[id number]; :1995]. Anesthesia was induced without apparent complication. [...] CDT Patient was instructed to report to [facility] testing site on 10/21 for pre op COVID19 testing. They understand this is needed prior to elective surgery. All questions answered and directions and hours wereprovided. SHILOH Agrawal * Pre-Procedure Note - Rehana Luque NP - 09/27/2020 12:29 PM CDT She will report to [facility] for COVID testing on 10/21 in prep [...] added end o f case Narrative PATHOLOGY [facility] - 10/26/2020 12:06 PM CDT [place] [address] [facility], [place], [place] ??[address] Tele: ?? Renu Andujar MD - Supervising Fire Marshalstonemason apprentice PATHOLOGY REPORT Patient Name: ??KRISHNA GARNICA Address: ??[address] [place] [address]60 Gender: ??F : ??1995 (Age: 25) Service: ??Surgery Location: ??[facility], ?? Hospital #: ??[id number] Patient Type: ??[facility] Accession #: ? [id number] Taken: ? 10/25/2020 Received ? 10/25/2020 Reported: [...] formalin in container A and labeled Krishna DustyPatience [place] and left tonsil is a 3.2 x 2.2 x 1.5 cm pink-moreland tonsil. ??Sections show a uniform pink-moreland, lobular tissue. ??There are no gross lesions. ??Deck Lid Fitter sections are submitted in cassette A1. Received in formalin in container B and labeled Krishna Mendoza [place] and right tonsil is a 3.2 x 2.5 x 1.5 cm, pink-moreland tonsil. ??Sections show a uniform pink-moreland, lobular tissue. ??There are no gross lesions. ??Deck Lid Fitter sections are submitted in cassette B1. [facility] [place]/10/25/2020 10:[address] [facility] MICROSCOPIC DESCRIPTION: Specimens A and B will be described together. ??The stroma is composed of variable lymphoid aggregates with prominent germinal center formation. ??The retrotonsillar space is fairly minimally altered. Clerical Data Follows A; 50710 B; 25130 REPORT IMAGES AND/OR SCANNED DOCUMENTS ONLY VIEWABLE IN PDF FORMAT The immunohistochemical test(s) cited in this report, if any, was developed and its performance characteristics determined by [facility] Pathology Department. ??It has not been cleared or approved by the U.S. Food and Drug Administration. ??The FDA has determined that such clearance or approval is not necessary. ??This test is used for clinical purposes. ??It should not be regarded as investigational or for research. ??[facility] Laboratory is certified under the Clinical Laboratory [...] LAB PATHOLOGY ORDERABLES Fi nal Result PATHOLOGY [facility] Laboratory Receiving [address] [place] [address] * POCT hCG, urine (10/25/2020 7:50 AM CDT) Pathologist [facility] HCG, ur, POC Negative Lot Number [id number] QC Backgroud Clear Acceptable QC Control Line Acceptable Urine 10/25/2020 7:50 AM CDT Best Fierro MD POINT OF CARE TEST ORDERABL ES Final Result * COVID-19 Coronavirus RNA Nasopharyngeal (10/21/2020 1:05 PM CDT) Pathologist [facility] COVID-19 RNA Not Detected Not Detected [facility] Comment: Interpretive Data Synonyms for this test include: PCR and NAAT . ??Testing performed at [facility] Molecular Infectious Disease Laboratory. ??The [employer] Simplex[employer] COVID-19 Direct assay is for [...] reviewed May 19, 2020. Testing performed by: [facility], [address] [place] [address], [id number] First COVID-19 test? No [facility] Comment:Testing performed by : [facility], [address] [place] [address], [phone] Employeed in healthcare? No [facility] Comment:Testing performed by : [facility], [address] [place] [address], [phone] status? Unknown [facility] Comment:Testing performed by : [facility], [address] [place] [address], [id number] Group care resident? Unknown [facility] Comment:Testing performed by : [facility], [address] [place] [address], [address] Hospitalized? No [facility] Comment:Testing performed by : [facility], [address] [place] [address], [id number] Is patient in ICU? No [facility] Comment:Testing performed by : [facility], [address] [place] [address], [phone] Symptomatic as defined by CDC? No [facility] Comment:Testing performed by : [address], [address] [facility] 10/21/2020 1: 05 PM CDT 10/21/2020 3:42 PM CDT Antonia SHAW [facility] - 10/21/2020 9:52 PM CDT What is the reason for testing?->Screening prior to scheduled procedure or surgery us Kaz Landa MD LAB MICROBIOLOGY - GENERAL ORDERABLES Final Result [facility] [address] Department [place] [address] documented in this encounter Visit Diagnoses Diagnosis Chronic tonsillitis- Primary Pre-op evaluation Pre-op evaluation Chronic tonsillitis documented in this encounter Admitting Diagnoses Diagnosis [...] Given 10/25/2020 10:28 AM CDT 5 mg oxymetazoline (AFRIN) 0.05 % nasal spray As needed, Starting on Sat10/25/20 at 0842, Intra-Op Given 10/25/2020 8:42 AM CDT 15 mL Surgical Site sodium chloride 0.9% irrigation As needed, Starting on Sat10/25/20 at 0843, Intra-Op Given 10/25/2020 8:43 AM CDT 500 mL Surgical Site documented in this encounter Active and Recently [...] 0920 (New Bag - Prov ider: Nicole Nguyễn, KVNG)0950 (Stopped - Provider: Nicole Nguyễn, RN) Lactated Ringer's (LR) bolus 1,000 mL (COMPLETED) 1,000 mL, intravenous, Once, On Sat10/25/20 at 1030, For 1 dose, Phase I 0950 (New Bag - Prov ider: Nicole Nguyễn, KVNG) oxyCODONE (ROXICODONE) 1 mg/mL oral solution 5 mg (COMPLETED) 5 mg, feeding tube, Once, On Sat10/25/20 at 1000, For 1 dose, Phase I, Indications: Pain 1028 (Given - Provid er: Lissette Holt RN) Continuous Medication Order 10/23/2020 10/24/2020 10/25/2020 Lactated Ringer's (LR) infusion 30 mL/hr, intravenous, Continuous, Starting on Sat10/25/20 at 0815, Pre-Op 0749 (New Bag - Prov ider: Maya Agarwal RN)0826 (Rate/Dose Verify - Provider: Best Fierro MD)0826 (Paused - Provider: Cody Choi CRNA - Comment: Switch to gravity)0827 (Restarted - Provider: Cody Choi CRNA)0906 (Anesthesia Volume Adjustment - Provider: Cody Choi CRNA)0920 (Stopped - Provider: Nicole Nguyễn, KVNG) PRN Medication Order 10/23/2020 10/24/2020 10/25/2020 albuterol [...] min PRN, itching, Starting on Sat10/25/20 at 09, For 2 [...] needed, nausea, vomiting, Starting on Sat10/25/20 at 09, For 1 dose, Phase I, If post-operative [...] high blood sugar, Starting on Sat10/25/20 at 09, For 1 dose, Phase I, Blood Sugar [...] min PRN, shivering, Starting on Sat10/25/20 at 0919, For 2 [...] (0.08 3 %) nebulizer solution 2.5 mg 10/25/2020 dextrose (D10W) 10% bolus 250 mL 10/26/19 diphenhydrAMINE (BENADRYL) i njection 12.5 mg 10/25/2020 fentaNYL (SUBLIMAZE) preserv ative free injection 25 mcg 10/25/2020 haloperidol (HALDOL) injection 1 mg 10/25 HYDROmorphone (DILAUDID) injection 0.4 mg 10/25/2020 insulin lispro (HumaLOG, ADM ELOG) 100 unit/mL injection 1-5 Units 10/25/2020 labetaloL (NORMODYNE,TRANDAT E) injection 5 mg 10/25/2020 lidocaine PF (XYLOCAINE) 10 mg/mL (1 %) preservative free injection 2-10 mg 10/25/2020 meperidine (DEMEROL) preserv ative free injection 12.5 mg 10/25/2020 naloxone (NARCAN) 0.4 mg/mL injection 0.04-0.4 mg 10/25/2020 ondansetron (ZOFRAN) injection 4 mg 10/25 oxyCODONE (ROXICODONE) tablet 5 mg 1 2020 racepinephrine (ASTHMANEFRIN ) 2.25 % nebulizer solution 0.5 mL 1 10/25/2020 sodium chloride 0.9% flush 0.5-20 mL 10/13 Nursing Count Last Ordered Date First Orde red Date DISCHARGE INSTRUCTIONS 1 10/25/2020 Discharge Count Last Ordered Date First Orde red Date DISCHARGE PATIENT 1 10/25/2020 documented in this encounter Care Teams Care Program Director Relationship Specialty Start Date End Date David Rodriguez MD [address] [address] PCP - General 01/11/15 07/15/22 documented as of this encounter
--- OUTSIDE RECORDS SUMMARY | 2024-03-31 11:16 | XMS_ITS | Encounter Summary ---
Author Organization [facility] Address [address] [place] [address] Care Team Providers Care Reference And Instruction Librarian Name Role Phone David Rodriguez MD Primary Care Provider + Reason for Visit * Reason Onset Date Comments Medical Question/Miscellaneous 10/04/2021 Encounter Details Date Type Department Care Team (Late st Contact Info) Description 10/04/2021 Telephone [facility] [address] [phone] David Rodriguez MD [address] [place] [address], [place] [address] Medical Question/Miscellaneous Social History Tobacco [...] on file Legal Sex 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 INSURANCE ASSOCIATE Gender Identity Female 03/22/2022 2:56 PM INSURANCE ASSOCIATE Sexual Orientation Straight 05/08/2023 5: 32 PM INSURANCE ASSOCIATE 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 on file Not on file documented as of this encounter Miscellaneous Notes * Telephone Encounter - Gemma Lund LPN - 10/04/2021 5:26 PM CDT Responded to patient via [employer]trada * Telephone Encounter - Marsha Bower - 10/04/2021 1:53 PM CDT Medical Question/Miscellaneous Caller???s Concern: Patient called regarding 6.22.22 patient message. Patient stated that she wanted to know if she could keep the 7.12.22 appointment as her follow up from the medication prescribed or will she need a in person appointment next week? Patient is requesting a response via [employer] Caller???s Call back #: [phone] Does message need to be routed?Yes-Action Needed documented in this encounter Plan of Treatment Not on file documented as of this encounter Visit Diagnoses Not on filedocumented in this encounter Care Teams Reference And Instruction Librarian Relationship Specialty Start Date End Date David Rodriguez MD [address] [address] PCP - General 01/11/15 07/15/22 documented as of this encounter
--- OUTSIDE RECORDS SUMMARY | 2024-03-31 11:16 | XMS_ITS | Encounter Summary ---
Author Organization [facility] Healthcare Address [address] [place] [address] Care Team Providers Care Logistics Officer Name Role Phone David Rodriguez MD Primary Care Provider + Encounter Details Date Type Department Care Team (Latest Contact Info) Description 10/09/2021 8:33 PM CDT - 10/09/2021 11:59 PM CDT Hospital Encounter [place] [id number] [place] [phone] Discharge Disposition: Discharge to home or self [...] file Legal Sex 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 WOOD CUTTER Gender Identity Female 03/22/2022 2:56 PM WOOD CUTTER Sexual Orientation Straight 05/08/2023 5: 32 PM WOOD CUTTER 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 on file Not on file documented as of this encounter Medications at Time of Discharge amoxicillin (amoxicillin) 500 mg tablet/capsule Take 2 tablet/capsule (1,000 mg total) by mouth 3 (three) times a day for 10 days 60 tablet/capsule 10/04/2021 2 methylPREDNISolo ne (MEDROL DOSEPACK) 4 mg Dosepack follow package directions 21 tablet 10/04/2021 2 semaglutide (WEGOVY) 0.25 mg/0.5 mL auto-injector Inject 0.5 mL (0.25 mg total) under the skin every 7 days 2 mL 10/09/2021 2 semaglutide (WEGOVY) 0.25 mg/0.5 mL auto-injector Inject 0.5 mL (0.25 mg total) under the skin every 7 days 2 mL 11/09/2021 2 documented as of this encounter Discharge Disposition Disposition Code Departure Means Destination Discharge to home or self care documented in this encounter Plan of Treatment Not on file documented as of this encounter Visit Diagnoses Not on filedocumented in this encounter Care Teams Logistics Officer Relationship Specialty Start Date End Date David Rodriguez MD [address] [address] PCP - General 01/11/15 07/15/22 documented as of this encounter
--- OUTSIDE RECORDS SUMMARY | 2024-03-31 11:16 | XMS_ITS | Encounter Summary ---
Author Organization [facility] Address [address] [place] [address] Care Team Providers Care Senior Mechanical Project Engineer Name Role Phone David Rodriguez MD Primary Care Provider + Encounter Details Date Type Department Care Team (Late st Contact Info) Description 03/09/2022 Orders Only [facility] [address] [facility] [facility] [address], [place] [address] David Rodriguez MD [address] [facility] [place] [address], [place] [address] Hyperglycemia (Primary Dx) Social History Tobacco Use Types [...] on file Legal Sex 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 FLAT POLISHER Gender Identity Female 03/22/2022 2:56 PM FLAT POLISHER Sexual Orientation Straight 05/08/2023 5: 32 PM FLAT POLISHER 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 on file Not on file documented as of this encounter Miscellaneous Notes * Addendum Note - Patrick Mcdonald - 03/09/2022 12:00 PM CSTAddended by: PATRICK MCDONALD on: 07/04/2022 01:17 PM Modules accepted: Orders * Addendum Note - Patrick Mcdonald - 03/09/2022 12:00 PM CSTAddended by: PATRICK MCDONALD on: 07/04/2022 01:25 PM Modules accepted: Orders documented in this encounter Plan of Treatment Not on file documented as of this encounter Visit Diagnoses Diagnosis Hyperglycemia- Primary Other abnormal glucose documented in this encounter Care Teams Senior Mechanical Project Engineer Relationship Specialty Start Date End Date David Rodriguez MD [address] [address] PCP - General 01/11/15 07/15/22 documented as of this encounter
--- OUTSIDE RECORDS SUMMARY | 2024-03-31 11:16 | XMS_ITS | Encounter Summary ---
Author Organization [facility] Address [address] [place] [address] Phone Care Team Providers Care Machine Stacker Name Role Phone David Rodriguez MD Primary Care Provider + Reason for Visit * Injectables (Routine) - Closed Specialty Diagnoses / Procedures Referred By Cooper t Referred To Contact Diagnoses Chronic pain of left knee Procedures Large Joint Injection w/ Ultrasound Guidance José Miguel Griffith IV, MD Phone: tel: fax: [facility] (All Locations) Referral ID Status Reason Start Date Expiration Date Visits Re quested Visits Authorized [id number] Closed 12/28/2021 01/01/2022 1 1 Encounter Details Date Type Department Care Team (Latest Contact Info) Description 12/29/2021 2:30 PM CDT Procedure visit [facility] Orthopaedic Surgery [address] [place] [address] Cornelio Guadarrama MD [address] [place] [address] Chronic pain of left knee Social History Tobacco Use Types Packs/Day Years [...] on file Legal Sex 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 WOOL AND PELT GRADER Gender Identity Female 03/22/2022 2:56 PM WOOL AND PELT GRADER Sexual Orientation Straight 05/08/2023 5: 32 PM WOOL AND PELT GRADER 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 on file Not on file documented as of this encounter Progress Notes * Cornelio Guadarrama MD - 12/29/2021 2:30 PM CDTAssociated Order(s): Large Joint Injection w/ Ultrasound Guidance: L pes anserine bursa Pre-Procedure Diagnose(s): Chronic pain of left knee Post-Procedure Diagnose(s): Chronic pain of left knee Ultrasound Guided left pes anserine bursa injection Informed consent was obtained. Risks and benefits of the procedure were explained. Ultrasound guided left pes anserine bursa injection was performed for diagnosis of left medial knee pain. The left pes anserine bursa was visualized using the linear ultrasound probe. Skin was cleaned and prepped with Betadine x 6. Sterile ultrasound probe cover and sterile ultrasound gel were used. Then using a 25gauge 2 inch needle, this was inserted distally and directed proximally under ultrasound guidance using an in plane approach into the pes anserine bursa. Then, the treatment solution consisting of 1 mL of 1% lidocaine, 1 mL of 0.25% bupivacaine, and 40 mg of triamcinolone was injected. Patient tolerated the procedure well without any complications. Cornelio Guadarrama MD, [employer] Pole Frame Construction Worker Division of Physical Medicine and Rehabilitation Department of Orthopaedic Surgery [facility] Cornelio Guadarrama M.D. dictating using M*Modal Fluency Direct. Solar Installation Technician variances may occur. Large Joint Injection w/ Ultrasound Guidance: L pes anserine bursa Performed by: Cornelio Guadarrama MD Authorized by: José Miguel Griffith IV, MD Large Joint Injection/Aspiration: Consent Given by: Patient Site marked: the procedure site was marked Verbal consent obtained: Yes Procedure Details: Location: Knee Site: L pes anserine bursa Needle Size: 25 G Ultrasound guided: Yes Medications Left Large Joint Injection: 1 mL bupivacaine HCl 0.25 % (2.5 mg/mL); 1 mL lidocaine 10 mg/mL (1 %); 40 mg triamcinolone 40 mg/mL documented in this encounter Plan of Treatment Not on file documented as of this encounter Procedures Procedure Name Priority Date/Time Associated Diagnosis Comments RI ARTHROCENTESIS ASPIR&/INJ MAJOR JT/BURSA W/US Routine 12/29/2021 2:30 PM CDT Chronic pain of left knee documented in this encounter Results * RI ARTHROCENTESIS ASPIR&/INJ MAJOR JT/BURSA W/US (12/29/2021 2:30 [...] MD IN CLINIC/BEDSIDE ORD ERABLES Final Result documented in this encounter Visit Diagnoses Diagnosis Chronic pain of left knee documented in this encounter Administered Medications Inactive Administered Medications - up to 3 most recent administrations Medication Order MAR Action Action Date Dose Rate Site bupivacaine HCl (MARCAINE) 0.25 % (2.5 mg/mL) injection 1 mL 1 mL, other, One-Time Injection, Starting on Sat12/29/21 at 1515, For 1 doseIndications:Chronic pain of left knee Given 12/29/2021 3:15 PM CDT 1 mL lidocaine (XYLOCAINE) 10 mg/mL (1 %) injection 1 mL 1 mL, One-Time Injection, Starting on Sat12/29/21 at 1515, For 1 dose, Indications: Administration of Local AnesthesiaIndications:Administratio n of Local Anesthesia Given 12/29/2021 3:15 PM CDT 1 mL triamcinolone (KENALOG) 40 mg/mL injection 40 mg 40 mg, intra-articular, One-Time Injection, Starting on Sat12/29/21 at 1515, For 1 doseIndications:Chronic pain of left knee Given 12/29/2021 3:15 PM CDT 40 mg documented in this encounter Care Teams Machine Stacker Relationship Specialty Start Date End Date David Rodriguez MD [address] [address] PCP - General 01/11/15 07/15/22 documented as of this encounter
--- OUTSIDE RECORDS SUMMARY | 2024-03-31 11:16 | XMS_ITS | Encounter Summary ---
Author Organization [facility] Healthcare Address [address] [place] [address] Care Team Providers Care Powder Operator Name Role Phone David Rodriguez MD Primary Care Provider + Reason for Visit * Auth/Cert Specialty Diagnoses / Procedures Referred By Cooper blankenship Referred To Contact Diagnoses Chronic tonsillitis Chronic tonsillitis [J35.01] Procedures WV REMOVAL OF TONSILS,12+ Y/O Bilateral Tonsillectomy Referral ID Status Reason Start Date Expiration Date Visits Re quested Visits Authorized [id number] 1 1 Encounter Details Date Type Department Care Team (Late st Contact Info) Description 10/25/2020 8:26 AM CDT Anesthesia Event [facility] Operating Room [address] [place] [id number] Best Fierro MD [address] [place] [address] Rehana Luque NP [address] [place] [address] Anesthesia Record Procedure Summary Procedure Name Responsible Anesthesiologist Anesthesia Start Time Anesthesia Stop Time Bilateral Tonsillectomy (Bilateral: Mouth) Best Fierro MD 10/25/20 0826 10/25/20 0914 Events Date Time Event Comment 10/25/2020 0735 0826 An Start 0826 An Start Data 0826 In Room 0828 An Induction The patient was reevaluated immediately before moderate or deep sedation use and before anesthesia induction. 0833 An Intubation 0835 Anesthesia Ready 0905 An Extubation 0905 Out of Room 0905 an stop data 0914 An Stop 0914 Handoff to RN I completed my handoff to the receiving nurse during which we: 1. Patient identified 2. Responsible provider identified 3. Pertinent medical history reviewed 4. Procedure type and surgical course discussed 5. Intraoperative anesthetic management and any significant issues discussed 6. Expectations and concerns for postop period discussed 7. Questions solicited from receiving nurse 8. Patient disposition at the time of handoff: PACU 1043 Release from care Meds Name Total fentaNYL 100 mcg lidocaine (CARDIAC) syringe 2 % 5 mL propofol 400 mg ondansetron 4 mg dexamethasone 4 mg/ml 8 mg ketorolac 30 mg dexmedeTOMIDine 50 mcg Lactated Ringer's (LR) infusion 800 mL * Agents Name O2 Air Sevoflurane Inspired Sevoflurane * Blood No blood administrations on file. Lines, Drains, and Airways Type Details Placement Removal Peripheral IV Placement Date: 10/25/20; Placement Time: 743; Catheter Size: 20 G; Orientation: Left; Location: Hand; Insertion Attempts: 1; Removal Date: 10/25/20; Removal Time: 1100 10/25/20 0744 by Maya Agarwal RN 10/25/20 1100 by Nicole Nguyễn RN ETT Placement Date: 10/25/20; Placement Time: 08 (created via procedure documentation); Mask Ventilation: 1; Technique: Direct laryngoscopy; Type: ETT - single; Single Lumen Tube Size: 7 mm; Cuffed: Yes; Laryngoscope: Charbel; Blade Size: 3; Location: Oral; Grade View: Grade I; Insertion Attempts: 1; Placement Verification: Auscultation, Capnometry; Removal Date: 10/25/20; Removal Time: 0910/25/20 0839 by Cody Choi CRNA 10/25/20 0905 by Cody Choi CRNA RETIRED Surgical Site 10/25/20; 0847; Mouth; 03/17/24 (Retired LDA, Removed/Completed by [facility] with LDA Utility); 1213 (Retired LDA, Removed/Completed by [facility] with LDA Utility) 10/25/20 0847 by Cody Carlton, KVNG 03/17/24 1213 by Discharge Provider, Automatic documented in this encounter Social History Tobacco [...] on file Legal Sex 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 INCIDENT COORDINATOR Gender Identity Female 03/22/2022 2:56 PM INCIDENT COORDINATOR Sexual Orientation Straight 05/08/2023 5: 32 PM INCIDENT COORDINATOR 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 on file Not on file documented as of this encounter OR Notes * Anesthesia Postprocedure Evaluation - Best Fierro MD - 10/25/2020 10:43 AM CDT Patient: Kelly Garnica Procedure Summary Date: 10/25/20 Room / Location: [facility] Anesthesia Start: 825 Anesthesia Stop: 913 Procedure: Bilateral Tonsillectomy (Bilateral Mouth) Diagnosis: Chronic tonsillitis (Chronic tonsillitis [J35.01]) Surgeons: Kaz Landa MD Responsible Provider: Best Fierro MD Anesthesia Type: general ASA Status: 2 Anesthesia Type: general Last vitals BP 107/66 Pulse 67 Temp 36.3 ??C (97.4 ??F) (Temporal) Resp 16 SpO2 100% Anesthesia Post Evaluation Patient location during evaluation: PACU Patient participation: complete - patient participated Level of consciousness: follows simple commands and fully awake Pain management: adequate Airway patency: adequate Cardiovascular status: acceptable and hemodynamically stable Respiratory status: acceptable Hydration status: acceptable Pt is: normothermic Nausea/Vomiting status: none No complications documented. * Anesthesia Procedure Notes - Cody Choi CRNA - 10/25/2020 8:39 AM CDT Associated Order(s): Airway Airway Patient location: OR Urgency: elective Indications for airway management: anesthesia Difficult airway: no Staff: Placed by: HEALTHCARE OR MEDICAL: Cody Choi CRNA Airway prep: Preoxygenated: yes Patient position: sniffing Mask difficulty assessment: 1 - vent by mask Sedation level during airway: GA Final airway details: Final airway type: endotracheal airway Tube type: ETT ETT size: 7.0 mm Cuffed: yes Technique used for successful ETT placement: direct laryngoscopy Insertion site: oral Blade type: Charbel Blade size: 3 Cormack-Lehane (direct): grade I - full view of glottis Cuff volume: 6 mL Cuff inflated with: air Placement verified by: auscultation and CO2 detection Airway secured with: silk tape Number of attempts: 1 * Anesthesia Preprocedure Evaluation - Best Fierro MD - 10/25/2020 7:36 AM CDT Anesthesia Evaluation Kelly Garnica is a 25 y.o. female Procedure(s): Bilateral Tonsillectomy Pre-Op Diagnosis Codes: * Chronic tonsillitis [J35.01] HISTORY Past Medical History Information obtained from: patient and chart. Endocrine / Other + Obesity (BMI >30) Patient Active Problem List Diagnosis ??? Morbid obesity with BMI of 40.0-44.9, adult ([facility]) ??? Chronic tonsillitis Past Medical History: Diagnosis Date ??? Arthritis 2016 ??? GERD (gastroesophageal reflux disease) Past Surgical History: Procedure Laterality Date ??? ADENOIDECTOMY ??? ARTHROSCOPIC REPAIR ACL Left ??? FOOT SURGERY Left 2X ??? KNEE ARTHROSCOPY Arthroscopy knee ??? MYRINGOTOMY W/ TUBES ??? OTHER SURGICAL HISTORY foot metatarsal surgery (5th) ??? PATELLA SURGERY Left OB History No obstetric history on file. No Known Allergies No medications reported. Current Facility-Administered Medications: ??? acetaminophen (TYLENOL) tablet 1,000 mg, 1,000 mg, oral, Once ??? dextrose (D10W) 10% bolus 250 mL, 250 mL, intravenous, Once PRN ??? dimenhyDRINATE (DRAMAMINE) tablet 25 mg, 25 mg, oral, Once ??? gabapentin (NEURONTIN) capsule 300 mg, 300 mg, oral, Once ??? Lactated Ringer's (LR) infusion, 30 mL/hr, intravenous, Continuous ??? lidocaine PF (XYLOCAINE) 10 mg/mL (1 %) preservative free injection 2-10 mg, 0.2-1 mL, other, Once PRN ??? sodium chloride 0.9% flush 0.5-20 mL, 0.5-20 mL, intra-catheter, PRN Social History Tobacco Use Smoking Status Never Smoker Smokeless Tobacco Never Used Substance and Sexual Activity Alcohol Use Yes Substance and Sexual Activity Drug Use Never Family History Problem Relation Age of Onset ??? Other Mother Alive and well; ??? Other Father Alive and well; ??? Alcohol abuse Father ??? Alzheimer's disease Maternal Grandmother ??? Vision loss Maternal Grandmother ??? Cancer Paternal Grandfather ??? Diabetes Paternal Grandmother ??? Heart disease Maternal Grandfather Vitals: 10/25/20 0722 BP: 130/88 Pulse: 77 Resp: 16 Temp: 37.3 ??C (99.2 ??F) SpO2: 99% PT: No results found for requested labs within last 720 hours. INR: No results found for requested labs within last 720 hours. APTT: No results found for requested labs within last 720 hours. Hgb A1C: No results found for requested labs within last 720 hours. CBC RBC: No results found for requested labs within last 720 hours. RDW: No results found for requested labs within last 720 hours. MCHC: No results found for requested labs within last 720 hours. MCH: No results found for requested labs within last 720 hours. MCV: No results found for requested labs within last 720 hours. Hct: No results found for requested labs within last 720 hours. Hgb: No results found for requested labs within last 720 hours. WBC: No results found for requested labs within last 720 hours. MPV: No results found for requested labs within last 720 hours. Platelets: No results found for requested labs within last 720 hours. RDW CV: No results found for requested labs within last 720 hours. RDW Sd: No results found for requested labs within last 720 hours. BMP Glucose: No results found for requested labs within last 720 hours. Calcium: No results found for requested labs within last 720 hours. Sodium: No results found for requested labs within last 720 hours. Potassium: No results found for requested labs within last 720 hours. CO2: No results found for requested labs within last 720 hours. Chloride: No results found for requested labs within last 720 hours. BUN: No results found for requested labs within last 720 hours. Creatinine: No results found for requested labs within last 720 hours. DOS Physical Exam Medical history, medications, and allergies reviewed. Attestation: This PAT evaluation 10/25/2020. Airway Exam: Mallampati: II Cervical ROM: FROM TM distance: >4 Jaw ROM: full Cardiovascular Exam: Rate: regular Rhythm: regular Pulmonary Exam: LCTA, bilat Dental Exam: Otherwise appears intact Anesthesia Plan ASA 2 My patient is approved for the Anesthesia Controlled Medication protocol when under care of a HEALTHCARE OR MEDICAL Planned anesthesia: General Team communication plan: oral ET tube Induction: Induction: intravenous. Postoperative Plan: No postoperative mechanical ventilation intended. Patient's planned disposition post procedure is Outpatient. Informed Consent: Discussed plan with HEALTHCARE OR MEDICAL. Anesthesia plan and risks discussed with patient. Consent and Attending signature: I and/or my designee have discussed the anesthesia plan, benefits, possible alternatives, parental presence at time of induction (if indicated), and clinically relevant risks that may include dental injury, unintentional awareness, and/or other complications. The patient and/or parent/legal guardian understand, and agree to proceed. All questions answered. documented in this encounter Plan of Treatment Not on file documented as of this encounter Procedures Procedure Name Priority Date/Time Associated Diagnosis Comments WV AN PROCEDURE PLACEHOLDER Routine 10/25/2020 8:39 AM CDT WV AN ELECTIVE ENDOTRACHEAL AIRWAY Routine 10/25/2020 8:39 AM CDT documented in this encounter Results * WV AN ELECTIVE ENDOTRACHEAL AIRWAY, W[place] AN PROCEDURE PLACEHOLDER (10/25/2020 8:39 AM CDT) Narrative Cody Choi, HEALTHCARE OR MEDICAL - 10/25/2020 8:39 AM CDT Cody Choi CRNA ? 10/25/2020 ??8:39 AM Airway Patient location: OR Urgency: elective Indications for airway management: anesthesia Difficult airway: no Staff: Placed by: HEALTHCARE OR MEDICAL: Cody Choi CRNA Airway prep: Preoxygenated: yes Patient position: sniffing Mask difficulty assessment: 1 - vent by mask Sedation level during airway: GA Final airway details: Final airway type: endotracheal airway Tube type: ETT ETT size: 7.0 mm Cuffed: yes Technique used for successful ETT placement: direct laryngoscopy Insertion site: oral Blade type: Charbel Blade size: 3 Cormack-Lehane (direct): grade I - full view of glottis Cuff volume: 6 mL Cuff inflated with: air Placement verified by: auscultation and CO2 detection Airway secured with: silk tape Number of attempts: 1 us Best Fierro MD ANESTHESIA ORDERABLES Final Result documented in this encounter Visit Diagnoses Not on filedocumented in this encounter Administered Medications Inactive Administered Medications - up to 3 most recent administrations Medication Order MAR Action Action Date Dose Rate Site dexAMETHasone (DECADRON) 4 mg/mL injection intravenous, Administer over 2 Minutes, As needed, Starting on Sat10/25/20 at 0837, Anesthesia Intra-op Given 10/25/2020 8:37 AM CDT 8 mg dexmedeTOMIDine (PRECEDEX) injection intravenous, As needed, Starting on Sat10/25/20 at 0830, Anesthesia Intra-op Given 10/25/2020 8:49 AM CDT 10 mcg Given 10/25/2020 8:44 AM CDT 10 mcg Given 10/25/2020 8:40 AM CDT 10 mcg fentaNYL (SUBLIMAZE) preservative free injection intravenous, As needed, Starting on Sat10/25/20 at 0830, Anesthesia Intra-op Given 10/25/2020 8:30 AM CDT 100 mcg ketorolac (TORADOL) injection intravenous, As needed, Starting on Sat10/25/20 at 0838, Anesthesia Intra-op Given 10/25/2020 8:38 AM CDT 30 mg Lactated Ringer's (LR) infusion 30 mL/hr, intravenous, Continuous, Starting on Sat10/25/20 at 0815, Pre-Op Restarted 10/25/2020 8:27 AM CDT Rate/Dose Verify 10/25/2020 8:26 AM CDT 30 mL/h r New Bag 10/25/2020 7:49 AM CDT 30 mL/hr 30 mL/hr lidocaine (cardiac) (XYLOCAINE) preservative free injection intravenous, As needed, Starting on Sat10/25/20 at 0828, Anesthesia Intra-op, Indications: Ventricular ArrhythmiasIndications:Ventricular Arrhythmias Given 10/25/2020 8:28 AM CDT 5 mL ondansetron (ZOFRAN) injection intravenous, Administer over 2 Minutes, As needed, Starting on Sat10/25/20 at 0837, Anesthesia Intra-op Given 10/25/2020 8:37 AM CDT 4 mg propofoL (DIPRIVAN) 10 mg/mL IV intravenous, As needed, Starting on Sat10/25/20 at 0828, Anesthesia Intra-op Given 10/25/2020 8:32 AM CDT 100 mg Given 10/25/2020 8:30 AM CDT 100 mg Given 10/25/2020 8:28 AM CDT 200 mg documented in this encounter Care Teams Powder Operator Relationship Specialty Start Date End Date David Rodriguez MD [address] [address] PCP - General 01/11/15 07/15/22 documented as of this encounter
--- OUTSIDE RECORDS SUMMARY | 2024-03-31 11:16 | XMS_ITS | Encounter Summary ---
Author Organization [facility] Healthcare Address [address] [place] [address] Care Team Providers Care Truck Farmer Name Role Phone David Rodriguez MD Primary Care Provider + Encounter Details Date Type Department Care Team (Late st Contact Info) Description 04/17/2021 Telephone [facility] Healthcare Occupatiuonal Health [address] [place] [address] Room 3420 (Third Floor) [place] [address] Gi Zuniga, RN Social History Tobacco Use Types Packs/Day [...] on file Legal Sex 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 STOKER ERECTOR AND SERVICER Gender Identity Female 03/22/2022 2:56 PM STOKER ERECTOR AND SERVICER Sexual Orientation Straight 05/08/2023 5: 32 PM STOKER ERECTOR AND SERVICER 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 on file Not on file documented as of this encounter Miscellaneous Notes * Telephone Encounter - Gi Zuniga OT - 04/17/2021 9:13 PM STOKER ERECTOR AND SERVICER Employee reported positive antigen test. ER ERECTOR AND SERVICER documented in this encounter Plan of Treatment Not on file documented as of this encounter Results * (ABNORMAL) Influenza A/B and COVID-19 PCR Nasopharyngeal (04/18/2021 3:13 PM STOKER ERECTOR AND SERVICER) COVID-19 RNA Detected(A) [facility] Comment: Interpretive Data Synonyms for this test include: PCR and NAAT . ??Testing performed by the [facility] Molecular Infectious Disease Laboratory. The 2019-Novel Coronavirus [...] on May 19, 2020. Testing performed by: [facility], [address] [place] [address]., [address] Influenza A RNA Not Detected [facility] Comment:Testing performed by : [facility], [address] [place]., [address] Influenza B RNA Not Detected [facility] Comment: Interpretive Data Testing performed by the [facility] Molecular Infectious Disease Laboratory. This test is performed using the montserrat Influenza A/B Assay. This is a real-time RT-PCR test for the qualitative detection of nucleic acid from Influenza A and Influenza B. This assay has been reviewed by the FDA for Emergency Use Authorization (EUA). The performance characteristics have been verified by the [facility]. Results should be interpreted in combination with clinical context and a negative result does not rule out infection. ?? Interpretive data last revised 2020. Testing performed by: [facility], [address] [place]., [address] First COVID-19 test? No [facility] Comment:Testing performed by : [facility], [address] [facility], [address] Employeed in healthcare? Yes [facility] Comment:Testing performed by : [facility], [address] [facility], [address] status? Unknown [facility] Comment:Testing performed by : [facility], [address] [facility], [address] Group care resident? No [facility] Comment:Testing performed by : [facility], [address] [facility], [address] Hospitalized? No [facility] Comment:Testing performed by : [facility], [address] [facility], [address] Is patient in ICU? No [facility] Comment:Testing performed by : [facility], [address] [facility], [address] Symptomatic as defined by CDC? Yes [facility] Comment:Testing performed by : [facility], [address] [facility], [address] Nasopharyngeal 04/18/2021 3: 13 PM STOKER ERECTOR AND SERVICER 04/18/2021 8:11 PM STOKER ERECTOR AND SERVICER Narrative [facility] - 04/19/2021 1:30 AM STOKER ERECTOR AND SERVICER Patient is employed by/enrolled at:->[employer] Date of Symptom Onset->04/17/21 us Magdalena Jha MD LAB MICROBIOLOGY - GENERAL ORDERABLES Final Result [facility] [address] Department [place] [address] documented in this encounter Visit Diagnoses Diagnosis Cough- Primary Cough documented in this encounter Additional Health Concerns Infection Onset Date Last Indicated Resolved Time COVID: Suspected 04/17/2021 04/18/2021 04/19/2021 1:31 AM STOKER ERECTOR AND SERVICER COVID19 04/18/2021 04/18/2021 05/02/2021 3:05 AM STOKER ERECTOR AND SERVICER documented as of this encounter Care Teams Truck Farmer Relationship Specialty Start Date End Date David Rodriguez MD [address] [address] PCP - General 01/11/15 07/15/22 documented as of this encounter
--- OUTSIDE RECORDS SUMMARY | 2024-03-31 11:16 | XMS_ITS | Encounter Summary ---
Author Organization [facility] Address [address] [place] [address] Care Team Providers Care Sleep Lab Technologist Name Role Phone David Rodriguez MD Primary Care Provider + Encounter Details Date Type Department Care Team (Late st Contact Info) Description 04/23/2021 Telephone [facility] Accountable Care Organization [address] [place] [address] Alaina Gibson, [address] [phone] Social History Tobacco Use Types Packs/Day Years [...] on file Legal Sex 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 LEATHER HEEL BREASTER Gender Identity Female 03/22/2022 2:56 PM LEATHER HEEL BREASTER Sexual Orientation Straight 05/08/2023 5: 32 PM LEATHER HEEL BREASTER 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 on file Not on file documented as of this encounter Miscellaneous Notes * Telephone Encounter - Alaina Gibson MA - 04/23/2021 3:42 PM CST This patient is not currently a good candidate for our COVID-19 home monitoring program because Unable to enroll at this time. By saving a note using this template, the patient will drop off our home monitoring candidate reports for two weeks. If we still consider them to have an active case of COVID-19 at that time, we willreevaluate them for home monitoring. HER HEEL BREASTER documented in this encounter Plan of Treatment Not on file documented as of this encounter Visit Diagnoses Not on filedocumented in this encounter Additional Health Concerns Infection Onset Date Last Indicated Resolved Time COVID19 04/18/2021 04/18/2021 05/02/2021 3:05 AM LEATHER HEEL BREASTER documented as of this encounter Care Teams Sleep Lab Technologist Relationship Specialty Start Date End Date David Rodriguez MD [address] [address] PCP - General 01/11/15 07/15/22 documented as of this encounter
--- OUTSIDE RECORDS SUMMARY | 2024-03-31 11:17 | XMS_ITS | Encounter Summary ---
Author Organization [facility] Healthcare Address [address] [place] [address] Care Team Providers Care Glazing Machine Operator Name Role Phone David Rodriguez MD Primary Care Provider + Encounter Details Date Type Department Care Team (Late st Contact Info) Description 10/02/2017 5:35 PM CDT Lab [address] [phone] Social History Tobacco Use Types Packs/Day Years Used Date Smoking Tobacco: Never Smokeless Tobacco: Never Alcohol Use Standard Drinks/Week Comments Yes 0 (1 standard drink = 0.6 oz pur e alcohol) Comments Unknown Sex and Gender Information Value Date Recorded Sex Assigned at Not on file Legal Sex 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 TERMINAL PRESS OPERATOR Gender Identity Female 03/22/2022 2:56 PM TERMINAL PRESS OPERATOR Sexual Orientation Straight 05/08/2023 5: 32 PM TERMINAL PRESS OPERATOR 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 on file Not on file Not on file documented as of this encounter Plan of Treatment Not on file documented as of this encounter Visit Diagnoses Not on filedocumented in this encounter Care Teams Glazing Machine Operator Relationship Specialty Start Date End Date David Rodriguez MD [address] [address] PCP - General 01/11/15 07/15/22 documented as of this encounter
--- OUTSIDE RECORDS SUMMARY | 2024-03-31 11:17 | XMS_ITS | Encounter Summary ---
Author Organization [facility] Address [address] [facility] [address] [place] [address] Care Team Providers Care Telegraph Equipment Maintainer Name Role Phone David Rodriguez MD Primary Care Provider + Reason for Visit * Reason Onset Date Comments helen-recommendation 11/28/2018 Encounter Details Date Type Department Care Team (Late st Contact Info) Description 11/28/2018 Telephone [facility] [address] [facility] [address], [place] [address] David Rodriguez MD [address] [place] [address], [place] [address] helen-recommendat ion Social History Tobacco Use Types Packs/Day Years Used Date Smoking Tobacco: Never Smokeless Tobacco: Never Alcohol Use Standard Drinks/Week Comments Yes 0 (1 standard drink = 0.6 oz pur e alcohol) Comments Unknown Sex and Gender Information Value Date Recorded Sex Assigned at Not on file Legal Sex 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 LENS FINISHER Gender Identity Female 03/22/2022 2:56 PM LENS FINISHER Sexual Orientation Straight 05/08/2023 5: 32 PM LENS FINISHER 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 on file Not on file documented as of this encounter Miscellaneous Notes * Telephone Encounter - Lund, Gemma GoodeLUL - 11/28/2018 1:32 PM CDT Called patient and let her know Dr. Rodriguez is not familiar with any of the ENT physician's at [facility] * Telephone Encounter - David Rodriguez MD - 11/28/2018 11:46 AM CDT I do not * Telephone Encounter - Gemma Lund LPN - 11/28/2018 11:42 AM CDT Please see below message * Telephone Encounter - Elina Rocha - 11/28/2018 11:29 AM CDT Recommendations: Speciality: ENT Reason for Visit: Tonsillar hypertrophy Caller's Callback #: [phone] Additional Comments: Patient would like to know if Dr. Rodriguez would know any doctor at [facility]. Patient just started a new job at [employer] and her insurance is good for that location Did you relay expectation for call back (up to 72 hours)? yes Note: This request is for a specialty recommendation, not an insurance referral request. documented in this encounter Plan of Treatment Not on file documented as of this encounter Visit Diagnoses Not on filedocumented in this encounter Care Teams Telegraph Equipment Maintainer Relationship Specialty Start Date End Date David Rodriguez MD [address] [address] PCP - General 01/11/15 07/15/22 documented as of this encounter
--- OUTSIDE RECORDS SUMMARY | 2024-03-31 11:17 | XMS_ITS | Encounter Summary ---
Author Organization [facility] Healthcare Address [address] [place] [address] Care Team Providers Care Branch Examiner Name Role Phone David Rodriguez MD Primary Care Provider + Encounter Details Date Type Department Care Team (Late st Contact Info) Description 11/03/2018 2:45 PM CDT Lab [address] [phone] Social History Tobacco Use Types Packs/Day Years Used Date Smoking Tobacco: Never Smokeless Tobacco: Never Alcohol Use Standard Drinks/Week Comments Yes 0 (1 standard drink = 0.6 oz pur e alcohol) Comments Unknown Sex and Gender Information Value Date Recorded Sex Assigned at Not on file Legal Sex 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 PRORATE CLERK Gender Identity Female 03/22/2022 2:56 PM PRORATE CLERK Sexual Orientation Straight 05/08/2023 5: 32 PM PRORATE CLERK 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 on file Not on file documented as of this encounter Plan of Treatment Not on file documented as of this encounter Visit Diagnoses Not on filedocumented in this encounter Care Teams Branch Examiner Relationship Specialty Start Date End Date David Rodriguez MD [address] [address] PCP - General 01/11/15 07/15/22 documented as of this encounter
--- OUTSIDE RECORDS SUMMARY | 2024-03-31 11:17 | XMS_ITS | Encounter Summary ---
Author Organization [facility] Address [address] [facility] [address] [place] [address] Care Team Providers Care Director Of Market Analysis Name Role Phone David Rodriguez MD Primary Care Provider + Reason for Visit * Reason Comments Preventative Care Encounter Details Date Type Department Care Team (Late st Contact Info) Description 11/03/2018 9:00 AM CDT Office Visit [facility] [address] [phone] David Rodriguez MD [address] [place] [id number] Annual physical exam (Primary Dx); Morbid obesity with BMI of 40.0-44.9, adult (CMS/HCC); Tonsillar hypertrophy Social History Tobacco Use Types Packs/Day Years Used Date Smoking Tobacco: Never Smokeless Tobacco: Never Alcohol Use Standard Drinks/Week Comments Yes 0 (1 standard drink = 0.6 oz pur e alcohol) Comments Unknown Sex and Gender Information Value Date Recorded Sex Assigned at Not on file Legal Sex 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 DIESEL LOCOMOTIVE ENGINEER Gender Identity Female 03/22/2022 2:56 PM DIESEL LOCOMOTIVE ENGINEER Sexual Orientation Straight 05/08/2023 5: 32 PM DIESEL LOCOMOTIVE ENGINEER 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 on file Not on file documented as of this encounter Last Filed Vital Signs Vital Sign Reading Time Taken Comments Blood Pressure 98/60 11/03/2018 8:57 AM CDT Pulse 66 11/03/2018 8:57 AM CDT Temperature 37 ??C (98.6 ??F) 11/03/2018 8:57 AM CDT Respiratory Rate 15 11/03/2018 8:57 AM CDT Oxygen Saturation 97% 11/03/2018 8:57 AM CDT Inhaled Oxygen Concentration - - Weight 113.9 kg (251 lb) 11/03/2018 8:57 AM CDT Height 163 cm (5' 4.17 ) 11/03/2018 8:57 AM CDT Body Mass Index 42.85 11/03/2018 8:57 AM CDT documented in this encounter Progress Notes * David Rodriguez MD - 11/03/2018 9:00 AM CDT Patient ID: Kelly Garnica is a 23 y.o. female. Assessment/Plan Diagnoses and all orders for this visit: Annual physical exam (Primary) Comments: Patient was sent to the lab for blood work Orders: - CBC with auto differential; Future - Comprehensive metabolic panel; Future - Lipid panel; Future - TSH reflex to free T4; Future - Urinalysis reflex to microscopic and culture Urine, clean voided; Future Morbid obesity with BMI of 40.0-44.9, adult (CMS/[facility]) Comments: Patient was strongly encouraged to increase her exercise in order to obtain a healthier BMI Tonsillar hypertrophy Comments: Patient was referred to ENT Orders: - Ambulatory referral to ENT; Future Subjective/Objective Chief Complaint Preventative Care HPI: Patient presents for comprehensive review. Patient is here for annual physical. She continues to do fairly well. She was told to get her HPV vaccine yet again. She also has been having issues with tonsil hypertrophy Review of Systems: Constitutional: No fatigue. No [...] External nose: Normal. Lips, gums: Normal. Oropharynx: Severe tonsillar hypertrophy. Neck: Inspection: Normal. Thyroid gland: Normal. Lymph [...] suspicious lesions noted. Musculoskeletal: Bony enlargement noted. documented in this encounter Miscellaneous Notes * Addendum Note - Jessica Wills CLT - 11/03/2018 9:00 AM CDTAddended by: JESSICA WILLS on: 11/03/2018 09:34 AM Modules accepted: Orders documented in this encounter Plan of Treatment Not on file documented as of this encounter Procedures Procedure Name Priority Date/Time Associated Diagnosis Comments EGFR Routine 11/03/2018 9:33 AM CDT Annual physical exam DIFFERENTIAL AUTO Routine 11/03/2018 9:3 3 AM CDT Annual physical exam THYROID FUNCTION CASCADE Routine 11/03/2018 9:33 AM CDT Annual physical exam URINALYSIS AND REFLEX TO MICROSCOPIC AND CULTURE Routine 11/03/2018 9:33 AM CDT Annual physical exam CBC WITH AUTO DIFFERENTIAL Routine 11/03/2018 9:33 AM CDT Annual physical exam LIPID PANEL Routine 11/03/2018 9:33 AM CDT Annual physical exam COMPREHENSIVE METABOLIC PANEL Routine 11/03/2018 9:33 AM CDT Annual physical exam documented in this encounter Results * eGFR (11/03/2018 9:33 AM CDT) eGFR 118 mL/min/1.[address] [facility] Comment: Interpretive Data Reference Interval Normal ?>/= 90 mL/min/1.73m2 Mildly decreased* ? 60 - 89 mL/min/1.73m2 Mildly to moderately decreased ?45 - 59 mL/min/1.73m2 Moderately to severely decreased ??30 - 44 mL/min/1.73m2 Severely decreased ?15 - 29 mL/min/1.73m2 Kidney Failure ?< 15 ??mL/min/1.73m2 *Relative to young adult level If -[place] multiply value by 1.16. Estimated glomerular filtration rate is determined by the CKD-EPI equation recommended by the National Kidney Foundation (KDIGO 2012 Clinical Practice Guideline for the Evaluation and Management of Chronic Kidney Disease. Kidney Intnl Suppl Apr 2012;3:1). The CKD-EPI equation should not be used for patients with unstable renal function and has not been validated in children and those over 70. Current interpretive data was last reviewed 2016. Blood specimen (specimen) 11/03/2018 9:33 AM CDT 11/03/2018 3:17 PM CDT us David Rodriguez MD LAB BLOOD ORDERABLES Fin al Result [facility] [address] Department [place] [address] * (ABNORMAL) Differential, auto (11/03/2018 9:33 AM CDT) Neutrophil abs 4.7 1.7 - 6.5 K/cumm [facility] Imm gran abs 0.0 0.0 - 0.1 K/cumm [facility] Lymphocyte abs 1.9 0.8 - 3.3 K/cumm [facility] Monocyte abs 0.7 0.2 - 0.8 K/cumm [facility] Eosinophil abs 0.6(H) 0.0 - 0.5 K/cumm [facility] Basophil abs 0.1 0.0 - 0.1 K/cumm [facility] Neutrophil pct 58.9 % [facility] Comment: Interpretive Data Percent cell count reference ranges are not reported, since discordance with absolute values may lead to misinterpretation of CBC data. Current Interpretive Data was last revised on 2017. Imm gran pct 0.3 % [facility] Comment: Interpretive Data Percent cell count reference ranges are not reported, since discordance with absolute values may lead to misinterpretation of CBC data. Current Interpretive Data was last revised on 2017. Lymphocyte pct 23.5 % [facility] Comment: Interpretive Data Percent cell count reference ranges are not reported, since discordance with absolute values may lead to misinterpretation of CBC data. Current Interpretive Data was last revised on 2017. Monocyte pct 8.5 % [facility] Comment: Interpretive Data Percent cell count reference ranges are not reported, since discordance with absolute values may lead to misinterpretation of CBC data. Current Interpretive Data was last revised on 2017. Eosinophil pct 7.8 % [facility] Comment: Interpretive Data Percent cell count reference ranges are not reported, since discordance with absolute values may lead to misinterpretation of CBC data. Current Interpretive Data was last revised on 2017. Basophil pct 1.0 % [facility] Comment: Interpretive Data Percent cell count reference ranges are not reported, since discordance with absolute values may lead to misinterpretation of CBC data. Current Interpretive Data was last revised on 2017. Blood specimen (specimen) 11/03/2018 9:33 AM CDT 11/03/2018 2:51 PM CDT David Rodriguez MD LAB BLOOD ORDERABLES Fin al Result Performing Organization Address [facility] Co de Phone Number [facility] [address] Department [place] [address] * (ABNORMAL) Urinalysis reflex to microscopic and culture Urine, clean voided (11/03/2018 9:33 AM CDT) Color, ur Straw Yellow [facility] Clarity, ur Clear Clear [facility] Specific gravity, ur 1.006(L) 1.010 - 1.025 [facility] pH, urine 7.0 [facility] Protein, ur ql Negative Negative [facility] Glucose, ur ql Negative Negative [facility] Ketones, ur Negative Negative [facility] Bilirubin, ur Negative Negative [facility] Blood, ur Negative Negative [facility] Urobilinogen, ur <2.0 <2.0 mg/dL [facility] Nitrite, ur Negative Negative [facility] Leukocyte esterase, ur Negative Negative [facility] Urine, clean voided 11/03/2018 9:33 AM CDT 11/03/2018 2:51 PM CDT Narrative [facility] - 11/03/2018 3:30 PM CDT ?? Urine pH is affected by diet, medications, systemic acid-base disturbances, and renal tubular function. ??pH may affect urinary stone formation. ??For example, urine pH below 6.0 may help reduce the tendency for calcium phosphate stones and pH greater than 6.0 may reduce the tendency for uric acid stone formation. Source: [facility] [employer]. Last revised 04-25-2017 David Rodriguez MD LAB MICROBIOLOGY - GENER AL ORDERABLES Final Result Performing Organization Address [facility] Co de Phone Number [facility] [address] Department [place] [address] * TSH reflex to free T4 (11/03/2018 9:33 AM CDT) TSH 1.01 0.30 - 4.20 mcIUnit/mL [facility] Blood specimen (specimen) 11/03/2018 9:33 AM CDT 11/03/2018 2:51 PM CDT us David Rodriguez MD LAB BLOOD ORDERABLES Fin al Result [facility] [address] Department [place] [address] * (ABNORMAL) Lipid panel (11/03/2018 9:33 AM CDT) Cholesterol 163 30 - 199 mg/dL [facility] Comment: Interpretive Data Ages < or = [...] Data was last revised on 2017. Triglycerides 102 <=149 mg/dL [facility] Comment: Interpretive Data Ages < or = [...] Data was last revised on 2017. HDL 39(L) >=40 mg/dL [facility] Comment: Interpretive Data Ages < or = [...] was last revised on 2017. LDL, calculated 104 <=129 mg/dL [facility] Comment: Interpretive Data Ages < or = [...] was last revised on 2017. Non-HDL Cholesterol 124 mg/dL [facility] Comment: Interpretive Data Ages < or = [...] last revised on 2017. Chol/HDL ratio 4 [facility] Blood specimen (specimen) 11/03/2018 9:33 AM CDT 11/03/2018 2:51 PM CDT Narrative [facility] - 11/03/2018 3:56 PM CDT Has the patient fasted?->Yes us David Rodriguez MD LAB BLOOD ORDERABLES Fin al Result [facility] [address] Department [place] [address] * (ABNORMAL) Comprehensive metabolic panel (11/03/2018 9:33 AM CDT) Sodium 139 135 - 145 mmol/L [facility] Potassium, pl 4.3 3.3 - 4.9 mmol/L [facility] Chloride 102 97 - 110 mmol/L [facility] CO2 27 22 - 32 mmol/L [facility] Anion gap 10 2 - 15 mmol/L [facility] BUN 11 8 - 25 mg/dL [facility] Creatinine 0.71 0.60 - 1.10 mg/dL [facility] Glucose 99 70 - 199 mg/dL [facility] Comment: Interpretive Data Fasting glucose >/= 126 [...] interpretive data was last revised 2017. Calcium 10.2 8.5 - 10.3 mg/dL [facility] Bilirubin, total 0.6 0.1 - 1.2 mg/dL [facility] Protein, pl 7.4 6.5 - 8.5 g/dL [facility] Albumin 4.5 3.5 - 5.0 g/dL [facility] Alk phos 31(L) 40 - 130 Units/L [facility] ALT 33 7 - 45 Units/L [facility] AST 29 10 - 45 Units/L [facility] Blood specimen (specimen) 11/03/2018 9:33 AM CDT 11/03/2018 2:51 PM CDT us David Rodriguez MD LAB BLOOD ORDERABLES Fin al Result [facility] [address] Department [place] [address] * (ABNORMAL) CBC with auto differential (11/03/2018 9:33 AM CDT) WBC 8.0 3.8 - 9.9 K/cumm [facility] Hgb 15.2 11.9 - 15.5 g/dL [facility] Hct 47.3(H) 35.6 - 45.5 % [facility] Plt 242 150 - 400 K/cumm [facility] MPV 12.2 9.1 - 12.3 fL [facility] RBC 4.82 3.90 - 5.20 M/cumm [facility] MCV 98.1(H) 81.3 - 96.4 fL [facility] MCH 31.5 27.1 - 33.3 pg [facility] MCHC 32.1(L) 32.3 - 35.7 g/dL [facility] RDW CV 12.2 11.1 - 14.9 % [facility] RDW SD 44.2 35.7 - 48.1 fL [facility] NRBC abs 0.00 0.00 - 0.01 K/cumm [facility] Blood specimen (specimen) 11/03/2018 9:33 AM CDT 11/03/2018 2:51 PM CDT us David Rodriguez MD LAB BLOOD ORDERABLES Fin al Result [facility] [address] Department [place] [address] documented in this encounter Visit Diagnoses Diagnosis Annual physical exam- Primary Routine general medical examination at a health care facility Morbid obesity with BMI of 40.0-44.9, adult (HCC) Tonsillar hypertrophy Hypertrophy of tonsils alone documented in this encounter Care Teams Director Of Market Analysis Relationship Specialty Start Date End Date David Rodriguez MD [address] [id number] PCP - General 01/11/15 07/15/22 documented as of this encounter
--- OUTSIDE RECORDS SUMMARY | 2024-03-31 11:17 | XMS_ITS | Encounter Summary ---
Author Organization [facility] Care Team Providers Care Rack Loader Name Role Phone David Rodriguez MD Primary Care Provider + Encounter Details Date Type Department Care Team (Latest Contact Info) Description 11/03/2018 Travel Social History Tobacco Use Types Packs/Day Years Used Date Smoking Tobacco: Never Smokeless Tobacco: Never Alcohol Use Standard Drinks/Week Comments Yes 0 (1 standard drink = 0.6 oz pur e alcohol) Comments Unknown Sex and Gender Information Value Date Recorded Sex Assigned at Not on file Legal Sex 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 CATERING AND EVENTS MANAGER Gender Identity Female 03/22/2022 2:56 PM CATERING AND EVENTS MANAGER Sexual Orientation Straight 05/08/2023 5: 32 PM CATERING AND EVENTS MANAGER 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 on file Not on file documented as of this encounter Plan of Treatment Not on file documented as of this encounter Visit Diagnoses Not on filedocumented in this encounter Care Teams Rack Loader Relationship Specialty Start Date End Date David Rodriguez MD [address] [address] PCP - General 01/11/15 07/15/22 documented as of this encounter
--- OUTSIDE RECORDS SUMMARY | 2024-03-31 11:17 | XMS_ITS | Encounter Summary ---
Author Organization [facility] Address [address] [place] [address] Care Team Providers Care Administrative Intern Name Role Phone David Rodriguez MD Primary Care Provider + Reason for Visit * Reason Comments Preventative Care Encounter Details Date Type Department Care Team (Late st Contact Info) Description 09/07/2020 2:00 PM CDT Office Visit [facility] [address] [address] David Rodriguez MD [address] [place] [address] Annual physical exam (Primary Dx) Social History Tobacco Use Types [...] on file Legal Sex 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 MANAGER BODY Gender Identity Female 03/22/2022 2:56 PM MANAGER BODY Sexual Orientation Straight 05/08/2023 5: 32 PM MANAGER BODY 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 on file Not on file documented as of this encounter Last Filed Vital Signs Vital Sign Reading Time Taken Comments Blood Pressure 112/60 09/07/2020 1:57 PM CDT Pulse 97 09/07/2020 1:57 PM CDT Temperature 35.9 ??C (96.6 ??F) 09/07/2020 1:57 PM CD T Respiratory Rate 18 09/07/2020 1:57 PM CDT Oxygen Saturation 98% 09/07/2020 1:57 PM CDT Inhaled Oxygen Concentration - - Weight 104.5 kg (230 lb 6.4 oz) 09/07/2020 1:57 PM CDT Height 163 cm (5' 4.17 ) 09/07/2020 1:57 PM CDT Body Mass Index 39.34 09/07/2020 1:57 PM CDT documented in this encounter Progress Notes * David Rodriguez MD - 09/07/2020 2:00 PM CDT Patient ID: Kelly Garnica is a 25 y.o. female. Assessment/Plan Diagnoses and all orders for this visit: Annual physical exam (Primary) Comments: Patient was sent to the lab for blood work and was to call if she wishes to treat her anxiety Orders: - CBC with auto differential; Future - Comprehensive metabolic panel; Future - Lipid panel; Future - TSH reflex to free T4; Future - Urinalysis reflex to microscopic and culture Urine, clean voided; Future Subjective/Objective Chief Complaint Preventative Care HPI: Patient presents for comprehensive review. Patient is here for follow-up as well as annual exam. She is actually doing okay and is planning onhaving her tonsils out here in the next month or so. She also has a lifelong history of low-grade anxiety. COVID is made that somewhat worse. She is not interested in starting medicine due to the side effects of weight gain and possible anorgasmia. Review of Systems: Constitutional: No fatigue. No [...] Priority Date/Time Associated Diagnosis Comments EGFR Routine 09/07/2020 2:40 PM CDT Annual physical exam DIFFERENTIAL AUTO Routine 09/07/2020 2:4 0 PM CDT Annual physical exam THYROID FUNCTION CASCADE Routine 09/07/2020 2:40 PM CDT Annual physical exam URINALYSIS AND REFLEX TO MICROSCOPIC AND CULTURE Routine 09/07/2020 2:40 PM CDT Annual physical exam CBC WITH AUTO DIFFERENTIAL Routine 09/07/2020 2:40 PM CDT Annual physical exam LIPID PANEL Routine 09/07/2020 2:40 PM CDT Annual physical exam COMPREHENSIVE METABOLIC PANEL Routine 09/07/2020 2:40 PM CDT Annual physical exam documented in this encounter Results * eGFR (09/07/2020 2:40 PM CDT) eGFR 122 mL/min/1.7 3 m2 [facility] Comment: Interpretive Data Reference Interval Normal ?>/= [...] 70. Current interpretive data was last reviewed 2020 Blood specimen (specimen) 09/07/2020 2:40 PM CDT 09/07/2020 6:56 PM CDT us David Rodriguez MD LAB BLOOD ORDERABLES Fin al Result [facility] [address] Department [place] [address] * (ABNORMAL) Differential, auto (09/07/2020 2:40 PM CDT) Neutrophil abs 7.1(H) 1.7 - 6.5 K/cumm [facility] Imm gran abs 0.0 0.0 - 0.1 K/cumm [facility] Lymphocyte abs 1.7 0.8 - 3.3 K/cumm [facility] Monocyte abs 0.8 0.2 - 0.8 K/cumm [facility] Eosinophil abs 0.3 0.0 - 0.5 K/cumm [facility] Basophil abs 0.1 0.0 - 0.1 K/cumm [facility] Neutrophil pct 71.2 % [facility] Comment: Interpretive Data Percent cell count reference ranges are not reported, since discordance with absolute values may lead to misinterpretation of CBC data. Current Interpretive Data was last revised on 2017. Imm gran pct 0.2 % [facility] Comment: Interpretive Data Percent cell count reference ranges are not reported, since discordance with absolute values may lead to misinterpretation of CBC data. Current Interpretive Data was last revised on 2017. Lymphocyte pct 17.1 % [facility] Comment: Interpretive Data Percent cell count reference ranges are not reported, since discordance with absolute values may lead to misinterpretation of CBC data. Current Interpretive Data was last revised on 2017. Monocyte pct 7.7 % [facility] Comment: Interpretive Data Percent cell count reference ranges are not reported, since discordance with absolute values may lead to misinterpretation of CBC data. Current Interpretive Data was last revised on 2017. Eosinophil pct 3.1 % [facility] Comment: Interpretive Data Percent cell count reference ranges are not reported, since discordance with absolute values may lead to misinterpretation of CBC data. Current Interpretive Data was last revised on 2017. Basophil pct 0.7 % [facility] Comment: Interpretive Data Percent cell count reference ranges are not reported, since discordance with absolute values may lead to misinterpretation of CBC data. Current Interpretive Data was last revised on 2017. Blood specimen (specimen) 09/07/2020 2:40 PM CDT 09/07/2020 6:56 PM CDT David Rodriguez MD LAB BLOOD ORDERABLES Fin al Result Performing Organization Address City/[facility]/ZIP Co de Phone Number [facility] [address] Department [place] [address] * Urinalysis reflex to microscopic and culture Urine, clean voided (09/07/2020 2:40 PM CDT) Color, ur Straw Yellow [facility] Clarity, ur Clear Clear [facility] Specific gravity, ur 1.016 1.010 - 1.025 [facility] pH, urine 6.0 [facility] Protein, ur ql Negative Negative [facility] Glucose, ur ql Negative Negative [facility] Ketones, ur Negative Negative [facility] Bilirubin, ur Negative Negative [facility] Blood, ur Negative Negative [facility] Urobilinogen, ur <2.0 <2.0 mg/dL [facility] Nitrite, ur Negative Negative [facility] Leukocyte esterase, ur Negative Negative [facility] UA reflex comment Reflex conditions for microscopic UA and culture not met. [facility] Urine, clean voided 09/07/2020 2:40 PM CDT 09/07/2020 6:55 PM CDT Narrative [facility] - 09/07/2020 7:13 PM CDT ?? Urine pH is affected by diet, medications, systemic acid-base disturbances, and renal tubular function. ??pH may affect urinary stone formation. ??For example, urine pH below 6.0 may help reduce the tendency for calcium phosphate stones and pH greater than 6.0 may reduce the tendency for uric acid stone formation. Source: [facility]. Last revised 04-25-2017 David Rodriguez MD LAB MICROBIOLOGY - GENER AL ORDERABLES Final Result Performing Organization Address [facility] Co de Phone Number [facility] [address] Department [place] [address] * TSH reflex to free T4 (09/07/2020 2:40 PM CDT) TSH 0.85 0.30 - 4.20 mcIUnit/mL [facility] Blood specimen (specimen) 09/07/2020 2:40 PM CDT 09/07/2020 6:56 PM CDT us David Rodriguez MD LAB BLOOD ORDERABLES Fin al Result [facility] [address] Department [place] [address] * Lipid panel (09/07/2020 2:40 PM CDT) [facility] Cholesterol 134 30 - 199 mg/dL [facility] Comment: Interpretive Data Ages < [...] Data was last revised on 2017. Triglycerides 77 <=149 mg/dL [facility] Comment: Interpretive Data Ages < [...] Data was last revised on 2017. HDL 42 >=40 mg/dL [facility] Comment: Interpretive Data Ages < [...] was last revised on 2017. LDL, calculated 77 <=129 mg/dL [facility] Comment: Interpretive Data Ages < [...] revised on 2017. Non-HDL Cholesterol 92 mg/dL [facility] Comment: Interpretive Data Ages < [...] last revised on 2017. Chol/HDL ratio 3 [facility] Blood specimen (specimen) 09/07/2020 2:40 PM CDT 09/07/2020 6:56 PM CDT Narrative [facility] - 09/07/2020 7:41 PM CDT Has the patient fasted?->Yes us David Rodriguez MD LAB BLOOD ORDERABLES Fin al Result [facility] [address] Department [place] [address] * (ABNORMAL) Comprehensive metabolic panel (09/07/2020 2:40 PM CDT) Sodium 138 135 - 145 mmol/L [facility] Potassium, pl 3.9 3.3 - 4.9 mmol/L [facility] Chloride 100 97 - 110 mmol/L [facility] CO2 26 22 - 32 mmol/L [facility] Anion gap 12 2 - 15 mmol/L [facility] BUN 16 8 - 25 mg/dL [facility] Creatinine 0.65 0.60 - 1.10 mg/dL [facility] Glucose 82 70 - 199 mg/dL [facility] Comment: Interpretive Data Fasting glucose [...] interpretive data was last revised 2017. Calcium 9.6 8.5 - 10.3 mg/dL [facility] Bilirubin, total 0.4 0.1 - 1.2 mg/dL [facility] Protein, pl 7.5 6.5 - 8.5 g/dL [facility] Albumin 4.5 3.5 - 5.0 g/dL [facility] Alk phos 36(L) 40 - 130 Units/L [facility] ALT 41 7 - 45 Units/L [facility] AST 35 10 - 45 Units/L [facility] Blood specimen (specimen) 09/07/2020 2:40 PM CDT 09/07/2020 6:56 PM CDT us David Rodriguez MD LAB BLOOD ORDERABLES Fin al Result [facility] [address] Department [place] [address] * (ABNORMAL) CBC with auto differential (09/07/2020 2:40 PM CDT) WBC 10.0(H) 3.8 - 9.9 K/cumm [facility] Hgb 14.2 11.9 - 15.5 g/dL [facility] Hct 43.4 35.6 - 45.5 % [facility] Plt 242 150 - 400 K/cumm [facility] MPV 12.5(H) 9.1 - 12.3 fL [facility] RBC 4.90 3.90 - 5.20 M/cumm [facility] MCV 88.6 81.3 - 96.4 fL [facility] MCH 29.0 27.1 - 33.3 pg [facility] MCHC 32.7 32.3 - 35.7 g/dL [facility] RDW CV 14.6 11.1 - 14.9 % [facility] RDW SD 47.1 35.7 - 48.1 fL [facility] NRBC abs 0.00 0.00 - 0.01 K/cumm [facility] Blood specimen (specimen) 09/07/2020 2:40 PM CDT 09/07/2020 6:56 PM CDT us David Rodriguez MD LAB BLOOD ORDERABLES Fin al Result [facility] [address] Department [place] [address] documented in this encounter Visit Diagnoses Diagnosis Annual physical exam- Primary Routine general medical examination at a health care facility documented in this encounter Discontinued Medications Medication Sig Discontinue Reason Start Date End Da te fluconazole (DIFLUCAN) 150 mg tablet Take 1 tablet (150 mg total) by mouth as directed Take one tab now. Repeat in 7 days if symptoms persist. Therapy completed 09/21/2019 09/07/2020 documented as of this encounter Care Teams Administrative Intern Relationship Specialty Start Date End Date David Rodriguez MD [address] [address] PCP - General 01/11/15 07/15/22 documented as of this encounter
--- OUTSIDE RECORDS SUMMARY | 2024-03-31 11:17 | XMS_ITS | Encounter Summary ---
Author Organization [facility] Address [address] [facility] [address] [place] [address] Care Team Providers Care Military Technology Specialist Name Role Phone David Rodriguez MD Primary Care Provider + Encounter Details Date Type Department Care Team (Late st Contact Info) Description 08/30/2020 Telephone [facility] [address] [facility] [address], [place] [address] Billie Castaneda MA Social History Tobacco Use Types Packs/Day Years Used Date Smoking Tobacco: Never Smokeless Tobacco: Never Alcohol Use Standard Drinks/Week Comments Yes 0 (1 standard drink = 0.6 oz pur e alcohol) PHQ-2 Answer Date Recorded PHQ-2 Score 2 12/04/2018 Comments Unknown Sex and Gender Information Value Date Recorded Sex Assigned at Not on file Legal Sex 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 FLATWORK FINISHER HAND Gender Identity Female 03/22/2022 2:56 PM FLATWORK FINISHER HAND Sexual Orientation Straight 05/08/2023 5: 32 PM FLATWORK FINISHER HAND 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 on file Not on file documented as of this encounter Miscellaneous Notes * Telephone Encounter - Billie Castaneda MA - 08/30/2020 11:14 AM CDT Spoke with pt. Pt states RG is still PCP. Pt did not want to set up appt. States she will call back to schedule. ARVIN w/PCP: 10/2018 documented in this encounter Plan of Treatment Not on file documented as of this encounter Visit Diagnoses Not on filedocumented in this encounter Care Teams Military Technology Specialist Relationship Specialty Start Date End Date David Rodriguez MD [address] [facility] [address] [place] [address] PCP - General 01/11/15 07/15/22 documented as of this encounter
--- OUTSIDE RECORDS SUMMARY | 2024-03-31 11:17 | XMS_ITS | Encounter Summary ---
Author Organization [facility] Address [address] [facility] [address] [place] [address] Care Team Providers Care Orthodontist Assistant Name Role Phone David Rodriguez MD Primary Care Provider + Encounter Details Date Type Department Care Team (Late st Contact Info) Description 02/23/2019 Telephone [facility] [address] [phone] David Rodriguez MD [address] [facility] [address], [place] [address] Social History Tobacco Use Types Packs/Day Years Used Date Smoking Tobacco: Never Smokeless Tobacco: Never Alcohol Use Standard Drinks/Week Comments Yes 0 (1 standard drink = 0.6 oz pur e alcohol) PHQ-2 Answer Date Recorded PHQ-2 Score 2 12/04/2018 Comments Unknown Sex and Gender Information Value Date Recorded Sex Assigned at Not on file Legal Sex 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 OFFICE MACHINE REPAIR SHOP SUPERVISOR Gender Identity Female 03/22/2022 2:56 PM OFFICE MACHINE REPAIR SHOP SUPERVISOR Sexual Orientation Straight 05/08/2023 5: 32 PM OFFICE MACHINE REPAIR SHOP SUPERVISOR 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 CE MACHINE REPAIR SHOP SUPERVISOR * Telephone Encounter - Gemma Lund LPN - 02/23/2019 3:47 PM OFFICE MACHINE REPAIR SHOP SUPERVISOR Lab billing CE MACHINE REPAIR SHOP SUPERVISOR * Telephone Encounter - Gemma Lund LPN - 02/23/2019 3:47 PM OFFICE MACHINE REPAIR SHOP SUPERVISOR ----- Message from Kelly Garnica sent at 02/16/2019 1:41 PM OFFICE MACHINE REPAIR SHOP SUPERVISOR ----- Regarding: Visit Follow-Up Question Contact: I have received a bill from [facility] about my routine labs, my insurance denied the labs. I called my insurance company and they said to get ahold of my doctors office due to the labs not being coded correctly and needing resubmitted. It is from my well-ness visit in October 2018. Thank you Kelly Garnica CE MACHINE REPAIR SHOP SUPERVISOR documented in this encounter Plan of Treatment Not on file documented as of this encounter Visit Diagnoses Not on filedocumented in this encounter Care Teams Orthodontist Assistant Relationship Specialty Start Date End Date David Rodriguez MD [address] [address] PCP - General 01/11/15 07/15/22 documented as of this encounter
--- OUTSIDE RECORDS SUMMARY | 2024-03-31 11:17 | XMS_ITS | Encounter Summary ---
Author Organization [facility] Care Team Providers Care Home Health Caregiver Name Role Phone Unavailable Primary Care Provider Unavailabl e Encounter Details Date Type Department Care Team (Latest Contact Info) Description 03/04/2011 8:26 PM MICROPHONE OPERATOR - 03/04/2011 9:44 PM MICROPHONE OPERATOR Hospital Encounter [facility] Pnp, Eu, WATER QUALITY ANALYST Other ankle sprain and strain; Other overexertion and strenuous and repetitive movements or loads; Unspecified place of occurrence; Activities involving dancing Social History Tobacco Use Types Packs/Day Years Used Date Smoking Tobacco: Never Assessed Comments Unknown Sex and Gender Information Value Date Recorded Sex Assigned at Not on file Legal Sex 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 MICROPHONE OPERATOR Gender Identity Female 03/22/2022 2:56 PM MICROPHONE OPERATOR Sexual Orientation Straight 05/08/2023 5: 32 PM MICROPHONE OPERATOR documented as of this encounter Plan of Treatment Not on file documented as of this encounter Visit Diagnoses Diagnosis Other ankle sprain and strain Other overexertion and strenuous and repetitive movements or loads Unspecified place of occurrence Activities involving dancing documented in this encounter
--- OUTSIDE RECORDS SUMMARY | 2024-03-31 11:17 | XMS_ITS | Encounter Summary ---
Author Organization [facility] Address [address] [facility] [address] [place] [address] Care Team Providers Care Butter Grader Name Role Phone David Rodriguez MD Primary Care Provider + Reason for Visit * Reason Onset Date Comments guillemette-forms/records 10/07/2017 Encounter Details Date Type Department Care Team (Late st Contact Info) Description 10/07/2017 Telephone [facility] [address] [phone] David Rodriguez MD [address] [place] [address], [place] [address] guilraymette-forms/recor ds Social History Tobacco Use Types Packs/Day Years Used Date Smoking Tobacco: Never Smokeless Tobacco: Never Alcohol Use Standard Drinks/Week Comments Yes 0 (1 standard drink = 0.6 oz pur e alcohol) Comments Unknown Sex and Gender Information Value Date Recorded Sex Assigned at Not on file Legal Sex 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 HOUSEKEEPER CLEANING COOKING Gender Identity Female 03/22/2022 2:56 PM HOUSEKEEPER CLEANING COOKING Sexual Orientation Straight 05/08/2023 5: 32 PM HOUSEKEEPER CLEANING COOKING 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 on file Not on file Not on file documented as of this encounter Miscellaneous Notes * Telephone Encounter - Gemma Lund LPN - 10/08/2017 11:13 AM CDT Received form and given to Dr Rodriguez to review and sign * Telephone Encounter - Elina Rocha - 10/07/2017 3:31 PM CDT Patient could not fax it over and will be sending it through [employer] * Telephone Encounter - Elina Rocha - 10/07/2017 3:23 PM CDT Forms Request: FORM REQUESTED:statement of good health DATE NEEDED:as soon as possible APPLICABLE CONDITION:n/a HOW PATIENT IS DELIVERING TO OFFICE:faxing to office HOW TO RETURN FORM TO PATIENT:fax with the number provider ADDITIONAL COMMENTS:patient was is on 10/02/17 and the paperwork was filled out. She went to turn in the paper work and it had the wrong last name on the paper. She is sending over a blank one to be filled out EXPECTATION RELAYED TO PT: 10 days documented in this encounter Plan of Treatment Not on file documented as of this encounter Visit Diagnoses Not on filedocumented in this encounter Care Teams Butter Grader Relationship Specialty Start Date End Date David Rodriguez MD [address] [address] PCP - General 01/11/15 07/15/22 documented as of this encounter
--- OUTSIDE RECORDS SUMMARY | 2024-03-31 11:17 | XMS_ITS | Encounter Summary ---
Author Organization [facility] Healthcare Address [address] [place] [address] Care Team Providers Care Hostess Party Sales Representative Name Role Phone David Rodriguez MD Primary Care Provider + Encounter Details Date Type Department Care Team (Late st Contact Info) Description 11/11/2019 Patient Self-Triage [facility] Health[facility] includes the [facility] [place] [address] Mychart, Generic Provider [address] [place] [address] Social History Tobacco Use Types Packs/Day Years Used Date Smoking Tobacco: Never Smokeless Tobacco: Never Alcohol Use Standard Drinks/Week Comments Yes 0 (1 standard drink = 0.6 oz pur e alcohol) PHQ-2 Answer Date Recorded PHQ-2 Score 2 12/04/2018 Comments Unknown Sex and Gender Information Value Date Recorded Sex Assigned at Not on file Legal Sex 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 MAPLE PRODUCTS SUPERVISOR Gender Identity Female 03/22/2022 2:56 PM MAPLE PRODUCTS SUPERVISOR Sexual Orientation Straight 05/08/2023 5: 32 PM MAPLE PRODUCTS SUPERVISOR 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
--- OUTSIDE RECORDS SUMMARY | 2024-03-31 11:17 | XMS_ITS | Encounter Summary ---
Author Organization [facility] Medical Group Address [address] [place] [address] Care Team Providers Care Paint Mixer Hand Name Role Phone David Rodriguez MD Primary Care Provider + Reason for Visit * Reason Onset Date Comments Boils 12/01/2016 Encounter Details Date Type Department Care Team (Late st Contact Info) Description 12/01/2016 Nurse Triage [facility] [address] [facility] [place], [place] [address] David Rodriguez MD [address] [place] [address] [place] [address] Social History Tobacco Use Types Packs/Day Years Used Date Smoking Tobacco: Never Alcohol Use Standard Drinks/Week Comments Yes 0 (1 standard drink = 0.6 oz pur e alcohol) Comments Unknown Sex and Gender Information Value Date Recorded Sex Assigned at Not on file Legal Sex 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 POLITICAL THEORY PROFESSOR Gender Identity Female 03/22/2022 2:56 PM POLITICAL THEORY PROFESSOR Sexual Orientation Straight 05/08/2023 5: 32 PM POLITICAL THEORY PROFESSOR documented as of this encounter Miscellaneous Notes * Telephone Encounter - An Garcia RN - 12/01/2016 10:28 AM CDT Reason for Disposition ? ? Boil > 1/2 inch across (> 12 mm; larger than a marble) Answer Assessment - Initial Assessment Questions 1. APPEARANCE of BOIL: What does the boil look like? Red bump with bruising from trying to express contents of boil 2. LOCATION: Where is the boil located? Groin/pubic region 3. NUMBER: How many boils are there? one 4. SIZE: How big is the boil? (e.g., inches, cm; compare to size of a coin or other object) Like mosquito bite 5. ONSET: When did the boil start? A few days ago 6. PAIN: Is there any pain? If so, ask: How bad is the pain? (Scale 1-10; or mild, moderate, severe) Moderate but only if touching it 7. FEVER: Do you have a fever? If so, ask: What is it, how was it measured, and when did it start? no 8. SOURCE: Have you been around anyone with boils or other Staph infections? Have you ever had boils before? Unknown/not experienced in past 9. OTHER SYMPTOMS: Do you have any other symptoms? (e.g., shaking chills, weakness, rash elsewhere on body) No other s/s other than bruising 10. : Is there any chance you are ? When was your last menstrual period? Not Protocols used: BOIL (SKIN ABSCESS)-ADULT- * Telephone Encounter - An Garcia RN - 12/01/2016 10:22 AM CDT Regarding: possible cellulitis ----- Message from Ana Paula Gan sent at 12/01/2016 10:03 AM CDT ----- Chief Complaint: ingrown hair on vaginal area, concerned that she now has cellulitis; [facility] in [place] documented in this encounter Plan of Treatment Not on file documented as of this encounter Visit Diagnoses Not on filedocumented in this encounter Care Teams Paint Mixer Hand Relationship Specialty Start Date End Date David Rodriguez MD [address] [address] PCP - General 01/11/15 07/15/22 documented as of this encounter
--- OUTSIDE RECORDS SUMMARY | 2024-03-31 11:17 | XMS_ITS | Encounter Summary ---
Author Organization [facility] Facility Care Team Providers Care Trailhead Construction Worker Name Role Phone David Rodriguez MD Primary Care Provider + Encounter Details Date Type Department Care Team (Latest Contact Info) Description 11/10/2015 4:42 PM CDT - 11/10/2015 11:59 PM CDT Hospital Encounter [facility] David Rodriguez MD [address] [address] Encounter for general adult medical examination without abnormal findings Social History Tobacco Use Types Packs/Day Years Used Date Smoking Tobacco: Never Alcohol Use Standard Drinks/Week Comments Yes 0 (1 standard drink = 0.6 oz pur e alcohol) Comments Unknown Sex and Gender Information Value Date Recorded Sex Assigned at Not on file Legal Sex 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 Gender Identity Female 03/22/2022 2:56 PM TAPPING MACHINE OPERATOR Sexual Orientation Straight 05/08/2023 5: 32 PM TAPPING MACHINE OPERATOR documented as of this encounter Plan of Treatment Not on file documented as of this encounter Procedures Procedure Name Priority Date/Time Associated Diagnosis Comments PLASMA COMPREHENSIVE METABOLIC PANEL Routine 11/10/2015 1:20 PM CDT DISCHARGE LABORATORY CUMULATIVE REPORT 11/10/2015 documented in this encounter Results * (ABNORMAL) Plasma comprehensive metabolic panel (11/10/2015 1:20 PM CDT) Sodium 138 136 - 146 mmol/L CDR HISTORICAL RESULTS K, pl 3.6 3.3 - 4.9 mmol/L CDR HISTORICAL RESULTS Chloride 101 98 - 108 mmol/L CDR HISTORICAL RESULTS CO2 26 22 - 33 mmol/L CDR HISTORICAL RESULTS BUN 7 7 - 18 mg/dl CDR HISTORICAL RESULTS Glucose 84 70 - 140 mg/dl CDR HISTORICAL RESULTS Comment: Glucose is assumed to be non-fasting. ?? Fasting Glucose normal ranges are: 0 days - 2 months: ? 40 mg/dL - 100 mg/dL 2 months - 999 years: ?70 mg/dL - 99 mg/dL Creatinine 0.61 0.50 - 1.50 mg/dl CDR HISTORICAL RESULTS eGFR >60 ml/min/1.7 3 m2 CDR HISTORICAL RESULTS Comment: GFR Reference Range: = > 60 mL/min/1.73 m2 This result has been calculated assuming the patient is Non-. ??If the patient is , please multiply this result by 1.21. The GFR value is not recommended for medication dose adjustment for renal function, creatinine clearance values should be used. Calcium 9.6 8.5 - 10.5 mg/dl CDR HISTORICAL RESULTS Bilirubin 0.7 0.1 - 1.2 mg/dl CDR HISTORICAL RESULTS Protein, pl 7.7 6.0 - 8.5 g/dl CDR HISTORICAL RESULTS Alb 4.6 3.4 - 5.0 g/dl CDR HISTORICAL RESULTS Alk phos 34(L) 38 - 126 IUnits/L CDR HISTORICAL RESULTS ALT 43 14 - 54 IUnits/L CDR HISTORICAL RESULTS AST 32 15 - 41 IUnits/L CDR HISTORICAL RESULTS Plasma 11/10/2015 1:20 PM CDT us David Rodriguez MD LAB BLOOD ORDERABLES Fin al Result CDR HISTORICAL RESULTS * DISCHARGE LABORATORY CUMULATIVE REPORT (11/10/2015) Narrative 11/10/2015 Ordered by an unspecified provider. Historical Provider LAB BLOOD ORDERABLES Ophelia l Result documented in this encounter Visit Diagnoses Diagnosis Encounter for general adult medical examination without abnormal findings documented in this encounter Care Teams Trailhead Construction Worker Relationship Specialty Start Date End Date David Rodriguez MD [address] [facility] [place], [place] [address] PCP - General 01/11/15 07/15/22 documented as of this encounter
--- OUTSIDE RECORDS SUMMARY | 2024-03-31 11:17 | XMS_ITS | Encounter Summary ---
Author Organization [facility] Medical Group Address [address] [place] [address] Care Team Providers Care Slider Assembler Name Role Phone David Rodriguez MD Primary Care Provider + Reason for Visit * Reason Comments Preventative Care Encounter Details Date Type Department Care Team (Late st Contact Info) Description 10/02/2017 10:00 AM CDT Office Visit [facility] [address] [facility] [address] [place] [phone] David Rodriguez MD [address] [place] [address] Annual physical exam (Primary Dx); Morbid obesity with BMI of 40.0-44.9, adult (CMS/HCC) Social History Tobacco Use Types Packs/Day Years Used Date Smoking Tobacco: Never Smokeless Tobacco: Never Alcohol Use Standard Drinks/Week Comments Yes 0 (1 standard drink = 0.6 oz pur e alcohol) Comments Unknown Sex and Gender Information Value Date Recorded Sex Assigned at Not on file Legal Sex 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 INFUSION THERAPY NURSE Gender Identity Female 03/22/2022 2:56 PM INFUSION THERAPY NURSE Sexual Orientation Straight 05/08/2023 5: 32 PM INFUSION THERAPY NURSE 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 on file Not on file Not on file documented as of this encounter Last Filed Vital Signs Vital Sign Reading Time Taken Comments Blood Pressure 120/70 10/02/2017 10:21 AM CDT Pulse 91 10/02/2017 10:21 AM CDT Temperature 36.7 ??C (98 ??F) 10/02/2017 10:21 AM CDT Respiratory Rate 13 10/02/2017 10:21 AM CDT Oxygen Saturation 98% 10/02/2017 10:21 AM CDT Inhaled Oxygen Concentration - - Weight 113.9 kg (251 lb) 10/02/2017 10:21 AM CDT Height 162.6 cm (5' 4 ) 10/02/2017 10:21 AM CDT Body Mass Index 43.08 10/02/2017 10:21 AM CDT documented in this encounter Progress Notes * David Rodriguez MD - 10/02/2017 10:00 AM CDT Patient ID: Kelly Garnica is a 22 y.o. female. Assessment/Plan Diagnoses and all orders for this visit: Annual physical exam (Primary) Comments: Patient was sent to the lab for blood work and was once again encouraged to get the HPV vaccine which she is reluctant to get Orders: - Comprehensive metabolic panel; Future - CBC with auto differential; Future - TSH reflex to free T4; Future - Urinalysis reflex to microscopic and culture Urine, clean voided; Future - Vitamin D 25 hydroxy; Future Subjective/Objective Chief Complaint Preventative Care HPI: Patient presents for comprehensive review. Patient is here for annual physical. She continues to do fairly well. She has been doing the low carb diet and weight is been coming down. She has another 2 semesters in nursing school Review of Systems: Constitutional: No fatigue. No [...] Priority Date/Time Associated Diagnosis Comments EGFR Routine 10/02/2017 10:42 AM CDT Annual physical exam DIFFERENTIAL AUTO Routine 10/02/2017 10: 42 AM CDT Annual physical exam THYROID FUNCTION CASCADE Routine 10/02/2017 10:42 AM CDT Annual physical exam URINALYSIS AND REFLEX TO MICROSCOPIC AND CULTURE Routine 10/02/2017 10:42 AM CDT Annual physical exam CBC WITH AUTO DIFFERENTIAL Routine 10/02/2017 10:42 AM CDT Annual physical exam VITAMIN D 25 HYDROXY Routine 10/02/2017 10:42 AM CDT Annual physical exam URINALYSIS, MICROSCOPIC ONLY Routine 10/02/2017 10:42 AM CDT Annual physical exam COMPREHENSIVE METABOLIC PANEL Routine 10/02/2017 10:42 AM CDT Annual physical exam documented in this encounter Results * eGFR (10/02/2017 10:42 AM CDT) eGFR 124 mL/min/1.7 3 m2 [facility] Comment: Interpretive Data Reference Interval Normal ?>/= 90 mL/min/1.73m2 Mildly decreased* ? 60 - 89 mL/min/1.73m2 Mildly to moderately decreased ?45 - 59 mL/min/1.73m2 Moderately to severely decreased ??30 - 44 mL/min/1.73m2 Severely decreased ?15 - 29 mL/min/1.73m2 Kidney Failure ?< 15 ??mL/min/1.73m2 *Relative to young adult level If -Polish multiply value by 1.16. Estimated glomerular filtration [...] was last reviewed 2016. Blood specimen (specimen) 10/02/2017 10:42 AM CDT 10/02/2017 5:31 PM CDT Narrative [facility] - 10/02/2017 6:05 PM CDT us David Rodriguez MD LAB BLOOD ORDERABLES Fin al Result [facility] [address] Department [place] [address] * Urinalysis, microscopic only (10/02/2017 10:42 AM CDT) Pathologist [facility] WBC, ur 0-5 0 - 5 /HPF [facility] RBC, ur 0-5 0 - 5 /HPF [facility] Epithelial cells, squamous, ur 1-5 0 - 5 /HPF [facility] Urine, clean voided 10/02/2017 10:42 AM CDT 10/02/2017 5:22 PM CDT Narrative [facility] - 10/02/2017 6:01 PM CDT us David Rodriguez MD LAB URINE ORDERABLES Fin al Result [facility] [address] Department [place] [address] * Differential, auto (10/02/2017 10:42 AM CDT) Pathologist [facility] Neutrophil abs 5.7 1.7 - 6.5 K/cumm [facility] Imm gran abs 0.0 0.0 - 0.1 K/cumm [facility] Lymphocyte abs 2.0 0.8 - 3.3 K/cumm [facility] Monocyte abs 0.6 0.2 - 0.8 K/cumm [facility] Eosinophil abs 0.2 0.0 - 0.5 K/cumm [facility] Basophil abs 0.1 0.0 - 0.1 K/cumm [facility] Neutrophil pct 66.4 % [facility] Comment: Interpretive Data Percent cell count reference ranges are not reported, since discordance with absolute values may lead to misinterpretation of CBC data. Current Interpretive Data was last revised on 2017. Imm gran pct 0.2 % [facility] Comment: Interpretive Data Percent cell count reference ranges are not reported, since discordance with absolute values may lead to misinterpretation of CBC data. Current Interpretive Data was last revised on 2017. Lymphocyte pct 23.6 % [facility] Comment: Interpretive Data Percent cell count reference ranges are not reported, since discordance with absolute values may lead to misinterpretation of CBC data. Current Interpretive Data was last revised on 2017. Monocyte pct 6.5 % [facility] Comment: Interpretive Data Percent cell count reference ranges are not reported, since discordance with absolute values may lead to misinterpretation of CBC data. Current Interpretive Data was last revised on 2017. Eosinophil pct 2.5 % [facility] Comment: Interpretive Data Percent cell count reference ranges are not reported, since discordance with absolute values may lead to misinterpretation of CBC data. Current Interpretive Data was last revised on 2017. Basophil pct 0.8 % [facility] Comment: Interpretive Data Percent cell count reference ranges are not reported, since discordance with absolute values may lead to misinterpretation of CBC data. Current Interpretive Data was last revised on 2017. Blood specimen (specimen) 10/02/2017 10:42 AM CDT 10/02/2017 5:22 PM CDT Narrative [facility] - 10/02/2017 5:39 PM CDT David Rodriguez MD LAB BLOOD ORDERABLES Fin al Result Performing Organization Address [facility]/ZIP Co de Phone Number [facility] [address] [place] [address] * Vitamin D 25 hydroxy (10/02/2017 10:42 AM CDT) [facility] Vitamin D 25-OH 47 30 - 80 ng/mL [facility] Blood specimen (specimen) 10/02/2017 10:42 AM CDT 10/02/2017 5:22 PM CDT Narrative [facility] - 10/02/2017 6:14 PM CDT David Rodriguez MD LAB BLOOD ORDERABLES Fin al Result Performing Organization Address City/[facility]/ZIP Co de Phone Number [facility] [address] [place] [address] * (ABNORMAL) Urinalysis reflex to microscopic and culture Urine, clean voided (10/02/2017 10:42 AM CDT) Color, ur Straw Yellow [facility] Clarity, ur Clear Clear [facility] Specific gravity, ur 1.015 1.010 - 1.025 [facility] pH, urine 6.0 [facility] Protein, ur ql Negative Negative [facility] Glucose, ur ql Negative Negative [facility] Ketones, ur Negative Negative [facility] Bilirubin, ur Negative Negative [facility] Blood, ur 1+(A) Negative [facility] Urobilinogen, ur <2.0 <2.0 mg/dL [facility] Nitrite, ur Negative Negative [facility] Leukocyte esterase, ur 1+(A) Negative [facility] Urine, clean voided 10/02/2017 10:42 AM CDT 10/02/2017 5:22 PM CDT Narrative [facility] - 10/02/2017 5:53 PM CDT ?? Urine pH is affected by diet, medications, systemic acid-base disturbances, and renal tubular function. ??pH may affect urinary stone formation. ??For example, urine pH below 6.0 may help reduce the tendency for calcium phosphate stones and pH greater than 6.0 may reduce the tendency for uric acid stone formation. Source: [facility] [address]. Last revised 04-25-2017 David Rodriguez MD LAB MICROBIOLOGY - GENER AL ORDERABLES Final Result Performing Organization Address [facility] de Phone Number [facility] [address] Department [place] [address] * TSH reflex to free T4 (10/02/2017 10:42 AM CDT) TSH 1.640 0.300 - 4.200 mcIUnit/mL [facility] Blood specimen (specimen) 10/02/2017 10:42 AM CDT 10/02/2017 5:22 PM CDT Narrative [facility] - 10/02/2017 6:05 PM CDT David Rodriguez MD LAB BLOOD ORDERABLES Fin al Result [facility] [address] Department [place] [address] * (ABNORMAL) CBC with auto differential (10/02/2017 10:42 AM CDT) [facility] WBC 8.6 3.8 - 9.9 K/cumm [facility] RBC 5.00 3.90 - 5.20 M/cumm [facility] Hgb 15.6(H) 11.9 - 15.5 g/dL [facility] Hct 47.8(H) 35.6 - 45.5 % [facility] MCV 95.6 81.3 - 96.4 fL [facility] MCH 31.2 27.1 - 33.3 pg [facility] MCHC 32.6 32.3 - 35.7 g/dL [facility] RDW CV 12.1 11.1 - 14.9 % [facility] RDW SD 41.8 35.7 - 48.1 fL [facility] Plt 243 150 - 400 K/cumm [facility] MPV 12.3 9.1 - 12.3 fL [facility] NRBC abs 0.02(H) 0.00 - 0.01 K/cumm [facility] Blood specimen (specimen) 10/02/2017 10:42 AM CDT 10/02/2017 5:22 PM CDT Narrative [facility] - 10/02/2017 5:39 PM CDT us David Rodriguez MD LAB BLOOD ORDERABLES Fin al Result [facility] [address] Department [place] [address] * (ABNORMAL) Comprehensive metabolic panel (10/02/2017 10:42 AM CDT) [facility] Sodium 140 135 - 145 mmol/L [facility] Potassium, pl 4.6 3.3 - 4.9 mmol/L [facility] CO2 27 22 - 32 mmol/L [facility] BUN 14 8 - 25 mg/dL [facility] Glucose 96 70 - 199 mg/dL [facility] Comment: Interpretive Data Fasting glucose [...] Current interpretive data was last revised 2017. Creatinine 0.65 0.60 - 1.10 mg/dL [facility] Calcium 10.3 8.5 - 10.3 mg/dL [facility] Chloride 97 97 - 110 mmol/L [facility] Albumin 4.7 3.5 - 5.0 g/dL [facility] AST 34 10 - 45 Units/L [facility] Comment:Slightly Hemolyzed S pecimen ALT 45 7 - 45 Units/L [facility] Alk phos 38(L) 40 - 130 Units/L [facility] Bilirubin, total 0.4 0.1 - 1.2 mg/dL [facility] Protein, pl 8.1 6.5 - 8.5 g/dL [facility] Anion gap 16(H) 2 - 15 mmol/L [facility] Blood specimen (specimen) 10/02/2017 10:42 AM CDT 10/02/2017 5:22 PM CDT Narrative [facility] - 10/02/2017 6:05 PM CDT us David Rodriguez MD LAB BLOOD ORDERABLES Fin al Result [facility] [address] [place] [address] documented in this encounter Visit Diagnoses Diagnosis Annual physical exam- Primary Routine general medical examination at a health care facility Morbid obesity with BMI of 40.0-44.9, adult (HCC) documented in this encounter Care Teams Slider Assembler Relationship Specialty Start Date End Date David Rodriguez MD [address] [facility] [place], [place] [address] PCP - General 01/11/15 07/15/22 documented as of this encounter
--- OUTSIDE RECORDS SUMMARY | 2024-03-31 11:17 | XMS_ITS | Encounter Summary ---
Author Organization [facility] Medical Group Address [address] [place] [address] Care Team Providers Care Emergency Room Tech Name Role Phone David Rodriguez MD Primary Care Provider + Reason for Visit * Reason Onset Date Comments Dr. Rodriguez-records request 11/03/2018 Encounter Details Date Type Department Care Team (Late st Contact Info) Description 11/03/2018 Telephone [facility] [address] [phone] David Rodriguez MD [address] [place] [address] [address] [address] Rodriguez-records request Social History Tobacco Use Types Packs/Day Years Used Date Smoking Tobacco: Never Smokeless Tobacco: Never Alcohol Use Standard Drinks/Week Comments Yes 0 (1 standard drink = 0.6 oz pur e alcohol) PHQ-2 Answer Date Recorded PHQ-2 Score 2 12/04/2018 Comments Unknown Sex and Gender Information Value Date Recorded Sex Assigned at Not on file Legal Sex 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 INSURANCE BILLING CLERK Gender Identity Female 03/22/2022 2:56 PM INSURANCE BILLING CLERK Sexual Orientation Straight 05/08/2023 5: 32 PM INSURANCE BILLING CLERK 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 on file Not on file documented as of this encounter Miscellaneous Notes * Telephone Encounter - Carlota Del Castlilo MA - 11/03/2018 11:11 AM CDT Her immunization record has been faxed. * Telephone Encounter - Emily Gonzalez - 11/03/2018 10:28 AM CDT Records Request to Practice Will Complete: Specific document requested: Immunization records Name of provider requesting records (if applicable): n/a Date Needed: 11/03/18 Delivery Method to requestor (fax, mail, or car pick up driver): fax to [phone] Caller's Callback #: [phone] Additional Comments: The patient needs the record for her job. She needs it faxed over today Did you relay expectation for processing (up to 24 hours)? yes documented in this encounter Plan of Treatment Not on file documented as of this encounter Visit Diagnoses Not on filedocumented in this encounter Care Teams Emergency Room Tech Relationship Specialty Start Date End Date David Rodriguez MD [address] [address] PCP - General 01/11/15 07/15/22 documented as of this encounter
--- OUTSIDE RECORDS SUMMARY | 2024-03-31 11:23 | XMS_ITS | Continuity of Care Document ---
Author Name [facility] Organization [facility] Care Team Providers Care Reheat Furnace Operator Name Role Phone [facility] Unavailable Unavailable Vital Signs Combined list of [...] up to thelast 18 months, not all [place] non-surgical procedures are included; 2) All procedures from the Department of [facility] facilities. Procedure Procedure Type Code Date Perfomer Comments Sourc e No data available for this section Ambulatory P harmacy Social History Combined list of available smoking, tobacco, and other social history from [facility] facilities. Social History Type Response Date Comment Sourc e This section is an empty social history section. [facility] Assessment and Plan Combined list of future care activities from [facility] and [facility] facilities (e.g., assessment and plan notes, appointments, orders, and referrals). Additional future care activities may be listed in the Plan of Care section. Result Assessment and Plan Date Source Assessment and Plan No data available for this section 03/31/2024 Ambulatory Pharmacy Functional Status Combined list of recent functional and cognitive assessments recorded at [facility] Functional [place] Measurement (FIM) Scale: 1 = Total Assistance (Subject = 0% +), 2 = Maximal Assistance (Subject = 25% +), 3 = Moderate Assistance (Subject = 50% +), 4 = Minimal Assistance (Subject = 75% +), 5 = Supervision, 6 = Modified [place] (Device), 7 = Complete [place] (Timely, Safely). Assessment Date/Time Source Assessment Type Assessment Skill Assessment Score Assessment Details No data available for this section
== END 2024-03-27 18:45 | disposition home or self-care (01) ==
PROVIDERS: Emergency Provider Nurse Practitioner Family; PCP Internal Medicine
DX: S61.412A Laceration without foreign body of left hand, initial encounter (principal); W26.0XXA Contact with knife, initial encounter; Z23 Encounter for immunization
CPT/HCPCS: 12001; 90471; 90715; 99202; G0463; J2003